=== PATIENT | female | born 1930 | race Caucasian/White ===

== ENCOUNTER 2018-03-19 07:43 | Observation (INO) | payer OTHER, MEDICARE ==
--- NOTE | 2018-03-19 08:10 | EDPHYS ---
Physician Documentation [facility] Name: Carina Ellsworth Age: 87 yrs Sex: Female : 1930 Arrival Date: 03/19/2018 Time: 07:52 Bed 8 Private MD: ED Physician Sal Alanis HPI: 03/19 08:04 This 87 yrs old Female presents to ER via EMS with complaints of Shortness Of fabiola Breath. 08:04 The patient has shortness of breath at rest, with light activity. Onset: The fabiola symptoms/episode began/occurred 3 day(s) ago. Duration: The symptoms are continuous, and are steadily getting worse. The patient's shortness of breath is aggravated by coughing. Severity of symptoms: At their worst the symptoms were mild moderate in the emergency department the symptoms are unchanged. The patient has experienced similar episodes in the past, multiple times. Historical: - Allergies: 08:08 Sulfa (Sulfonamide Antibiotics); ae1 - Home Meds: 08:08 Eliquis 5 mg Oral tab 1 tab 2 times per day [Active]; duloxetine 30 mg Oral TbEC 1 cap ae1 once daily [Active]; zolpidem 5 mg Oral tab 1 tab once daily [Active]; Vitamin D3 1,000 unit Oral cap daily [Active]; Vitamin B-12 1,000 mcg Oral tab daily [Active]; Ocuvite [id number]-mg Oral cap daily [Active]; loratadine 10 mg Oral TbDL 1 tab once daily [Active]; - PMHx: 08:08 Atrial Fib; constipation; GERD; Hyperlipidemia; ae1 - PSHx: 08:08 Colostomy; colon resection; ae1 - Immunization history:: Adult Immunizations up to date. - Family history:: not pertinent. - Social history:: Smoking status: Patient/guardian denies using tobacco, but has a distant history of tobacco abuse. - Ebola Screening: : Patient denies exposure to infectious person Patient denies travel to an Ebola-affected area in the 21 days before illness onset. ROS: 08:04 Eyes: Negative for injury, pain, redness, and discharge, ENT: Negative for injury, fabiola pain, and discharge, Neck: Negative for injury, pain, and swelling, Cardiovascular: Negative for chest pain, palpitations, and edema, Abdomen/GI: Negative for abdominal pain, nausea, vomiting, diarrhea, and constipation, Back: Negative for injury and pain, : Negative for injury, bleeding, discharge, and swelling, MS/Extremity: Negative for injury and deformity, Skin: Negative for injury, rash, and discoloration, Neuro: Negative for headache, weakness, numbness, tingling, and seizure, Psych: Negative for depression, anxiety, suicide ideation, homicidal ideation, and hallucinations, Allergy/Immunology: Negative for hives, rash, and allergies, Endocrine: Negative for neck swelling, polydipsia, polyuria, polyphagia, and marked weight changes, Hematologic/Lymphatic: Negative for swollen nodes, abnormal bleeding, and unusual bruising. 08:04 Constitutional: Positive for body aches, malaise. 08:04 Respiratory: Positive for cough, shortness of breath, wheezing, inspiratory, expiratory. Exam: 08:04 Head/Face: Normocephalic, atraumatic. Eyes: Pupils equal round and reactive to light, fabiola extra-ocular motions intact. Lids and lashes normal. Conjunctiva and sclera are non-icteric and not injected. Cornea within normal limits. Periorbital areas with no swelling, redness, or edema. ENT: Nares patent. No nasal discharge, no septal abnormalities noted. Tympanic membranes are normal and external auditory canals are clear. Oropharynx with no redness, swelling, or masses, exudates, or evidence of obstruction, uvula midline. Mucous membranes moist. Neck: Trachea midline, no thyromegaly or masses palpated, and no cervical lymphadenopathy. Supple, full range of motion without nuchal rigidity, or vertebral point tenderness. No Meningismus. Chest/axilla: Normal chest wall appearance and motion. Nontender with no deformity. No lesions are appreciated. Abdomen/GI: Soft, non-tender, with normal bowel sounds. No distension or tympany. No guarding or rebound. No evidence of tenderness throughout. Back: No spinal tenderness. No costovertebral tenderness. Full range of motion. Female : Normal external genitalia. Skin: Warm, dry with normal turgor. Normal color with no rashes, no lesions, and no evidence of cellulitis. MS/ Extremity: Pulses equal, no cyanosis. Neurovascular intact. Full, normal range of motion. Psych: Awake, alert, with orientation to person, place and time. Behavior, mood, and affect are within normal limits. 08:04 Constitutional: The patient appears frail. 08:04 Cardiovascular: Rate: tachycardic, Rhythm: irregularly irregular, Pulses: Pulses are 4+ in bilateral radial, brachial, femoral, popliteal, posterior tibial and and dorsalis pedis arteries.. Heart sounds: normal, Edema: is not appreciated, JVD: is not appreciated. 08:04 Respiratory: mild respiratory distress is noted, Respirations: labored breathing, that is mild, that is moderate, Breath sounds: decreased breath sounds, rhonchi, wheezing: inspiratory expiratory Vital Signs: 07:56 BP 139 / 86; Pulse 110; Resp 29; Temp 98.4(O); Pulse Ox 94% on R/A; ae1 08:10 Weight 70.76 kg (R); ae1 09:07 BP 134 / 92; Pulse 119; Resp 25 S; Pulse Ox 96% on 2 lpm NC; ae1 09:30 BP 114 / 84; Pulse 129; Resp 19; Pulse Ox 94% on 2 lpm NC; ae1 10:39 BP 125 / 73; Pulse 120; Resp 21; Pulse Ox 96% on 2 lpm NC; ae1 07:56 Nasal cannula applied at 2 liters, O2 increased to 96% ae1 MDM: 07:53 Patient medically screened. [facility] 08:04 Data reviewed: vital signs, nurses notes, lab test result(s), EKG, radiologic studies, fabiola plain films. 03/19 08:04 Order name: Basic Metabolic Panel; Complete Time: 09:30 [facility] 03/19 08:04 Order name: CBC with Diff; Complete Time: 09:30 [facility] 03/19 08:04 Order name: Ckmb; Complete Time: 09:30 [facility] 03/19 08:04 Order name: CPK; Complete Time: 09:30 [facility] 03/19 08:04 Order name: LFT's; Complete Time: 09:30 [facility] 03/19 08:04 Order name: Magnesium; Complete Time: 09:30 [facility] 03/19 08:04 Order name: NT PRO-BNP; Complete Time: 09:30 [facility] 03/19 08:04 Order name: PT-INR; Complete Time: 09:30 [facility] 03/19 08:04 Order name: Ptt, Activated; Complete Time: 09:30 [facility] 03/19 08:04 Order name: Troponin (emerg Dept Use Only); Complete Time: 09:30 [facility] 03/19 08:04 Order name: Lactate; Complete Time: 09:30 [facility] 03/19 08:04 Order name: Blood Culture Adult (2) [facility] 03/19 08:04 Order name: Influenza Screen (a \T\ B); Complete Time: 09:30 [facility] 03/19 08:35 Order name: Basic Metabolic Panel [facility] 03/19 08:04 Order name: XRAY Chest (1 view) [facility] 03/19 08:35 Order name: Basic Metabolic Panel [facility] 03/19 08:35 Order name: CBC with Automated Diff [facility] 03/19 08:35 Order name: CBC with Automated Diff [facility] 03/19 08:35 Order name: NT PRO-BNP [facility] 03/19 08:35 Order name: NT PRO-BNP [facility] 03/19 08:35 Order name: Troponin I [facility] 03/19 08:35 Order name: Troponin I [facility] 03/19 08:35 Order name: Troponin I [facility] 03/19 08:35 Order name: Chest Single View [facility] 03/19 08:35 Order name: Chest Single View [facility] 03/19 09:07 Order name: Urine Culture [facility] 03/19 09:10 Order name: RAD; Complete Time: 09:30 [facility] 03/19 09:13 Order name: Urine Dipstick--Ancillary (enter results) 03/19 10:17 Order name: Urine Dipstick-Ancillary [facility] 03/19 08:04 Order name: EKG; Complete Time: 08:05 [facility] 03/19 08:04 Order name: Cardiac monitoring; Complete Time: 08:09 [facility] 03/19 08:04 Order name: EKG - Nurse/Tech; Complete Time: 08:10 [facility] 03/19 08:04 Order name: IV Saline Lock; Complete Time: 08:10 [facility] 03/19 08:04 Order name: Labs collected and sent; Complete Time: 08:27 [facility] 03/19 08:04 Order name: O2 Per Protocol; Complete Time: 08:10 [facility] 03/19 08:04 Order name: O2 Sat Monitoring; Complete Time: 08:10 [facility] 03/19 08:04 Order name: Urine Dipstick-Ancillary (obtain specimen); Complete Time: 09:04 [facility] 03/19 08:35 Order name: Heart Healthy [facility] 03/19 08:35 Order name: EKG Electrocardiogram EDMS 03/19 08:35 Order name: EKG Electrocardiogram EDMS Administered Medications: Discontinued: NS 0.9% 500 ml IV at bolus once Discontinued: NS 0.9% 1000 ml IV at 125 ml/hr continuous 08:17 Drug: Albuterol - atroVENT (3:1) (2.5 mg - 0.5 mg) 3 ml Route: Nebulizer; ae1 09:22 Follow up: Response: Wheezing diminished ae1 08:21 Drug: NS 0.9% 500 ml Route: IV; Rate: bolus; Site: right antecubital; ae1 09:23 Follow up: IV Status: Completed infusion ae1 08:22 Drug: SOLU-Medrol 125 mg Route: IVP; Site: right antecubital; ae1 09:23 Follow up: Response: No adverse reaction ae1 08:26 Drug: Pepcid 20 mg Route: IVP; Site: right antecubital; ae1 09:23 Follow up: Response: No adverse reaction ae1 08:53 Drug: Rocephin - (cefTRIAXone) 1 grams Route: IVPB; Infused Over: 30 mins; Site: right ae1 antecubital; 09:22 Follow up: IV Status: Completed infusion ae1 08:57 Drug: Zithromax 500 mg Route: IVPB; Infused Over: 1 hrs; Site: right antecubital; ae1 09:51 Follow up: IV Status: Infusion continued upon admission ae1 09:05 Drug: NS 0.9% 1000 ml Route: IV; Rate: 125 ml/hr; Site: right antecubital; ae1 09:51 Follow up: IV Status: Order to discontinue infusion ae1 09:37 Drug: Lasix 40 mg Route: IVP; Site: right antecubital; ae1 10:44 Follow up: Response: Other; Patient assisted onto bedpan, patient tolerated well, ae1 approx 200 mls urine output. Disposition: 03/19/18 08:09 Hospitalization ordered by Malia Riojas for Inpatient Admission. Preliminary diagnosis are Dyspnea, Weakness, Chronic obstructive pulmonary disease with (acute) exacerbation, Atrial fibrillation and flutter, Cystitis, Unspecified combined systolic (congestive) and diastolic (congestive) heart failure, Cardiomegaly. - Bed requested for Telemetry/MedSurg (Inpatient). - Status is Inpatient Admission. ae1 - Condition is Fair. - Problem is new. - Symptoms have improved. UTI on Admission? Yes Signatures: Dispatcher [facility] Center[facility] Reed RN RN Sal Lemus MD MD cha Elliott, Andrea RN RN ae1 Corrections: (The following items were deleted from the chart) 09:07 08:09 Hospitalization Ordered by Malia Riojas MD for Inpatient Admission. Preliminary [facility] diagnosis is Dyspnea; Weakness; Chronic obstructive pulmonary disease with (acute) exacerbation; Atrial fibrillation and flutter. Bed requested for Telemetry/MedSurg (Inpatient). Status is Inpatient Admission. Condition is Fair. Problem is new. Symptoms have improved. UTI on Admission? No. [facility] 09:35 09:07 03/19/2018 08:09 Hospitalization Ordered by Malia Riojas MD for Inpatient dw Admission. Preliminary diagnosis is Dyspnea; Weakness; Chronic obstructive pulmonary disease with (acute) exacerbation; Atrial fibrillation and flutter; Cystitis. Bed requested for Telemetry/MedSurg (Inpatient). Status is Inpatient Admission. Condition is Fair. Problem is new. Symptoms have improved. UTI on Admission? Yes. [facility] 09:37 09:35 03/19/2018 08:09 Hospitalization Ordered by Malia Riojas MD for Inpatient fabiola Admission. Preliminary diagnosis is Dyspnea; Weakness; Chronic obstructive pulmonary disease with (acute) exacerbation; Atrial fibrillation and flutter; Cystitis. Bed requested for Telemetry/MedSurg (Inpatient). Status is Inpatient Admission. Condition is Fair. Problem is new. Symptoms have improved. UTI on Admission? Yes. 11:12 09:37 03/19/2018 08:09 Hospitalization Ordered by Malia Riojas MD for Inpatient ae1 Admission. Preliminary diagnosis is Dyspnea; Weakness; Chronic obstructive pulmonary disease with (acute) exacerbation; Atrial fibrillation and flutter; Cystitis; Unspecified combined systolic (congestive) and diastolic (congestive) heart failure; Cardiomegaly. Bed requested for Telemetry/MedSurg (Inpatient). Status is Inpatient Admission. Condition is Fair. Problem is new. Symptoms have improved. UTI on Admission? Yes. [facility]
--- NOTE | 2018-03-19 08:10 | ER ---
Nurse's Notes [facility] Name: Carina Ellsworth Age: 87 yrs Sex: Female : 1930 Arrival Date: 03/19/2018 Time: 07:52 Bed 8 Private MD: Diagnosis: Dyspnea;Weakness;Chronic obstructive pulmonary disease with (acute) exacerbation;Atrial fibrillation and flutter;Cystitis;Unspecified combined systolic (congestive) and diastolic (congestive) heart failure;Cardiomegaly Presentation: 03/19 07:53 Presenting complaint: EMS states: EMS states patient has been short of breath for the ae1 past few day , increasing today, originally thought it was her "anxiety". Transition of care: patient was not received from another setting of care. Onset of symptoms was March 17, 2018. Risk Assessment: Do you want to hurt yourself or someone else? Patient reports no desire to harm self or others. Care prior to arrival: IV initiated. 20 GA, in the right antecubital area, EMS stated BP and FSBS were WNL, and HR was "tachy" in the "130s". 07:53 Method Of Arrival: EMS: [facility] ae1 07:53 Acuity: JUSTA 2 ae1 09:45 Initial Sepsis Screen: Does the patient meet any 2 criteria? RR > 20 per min. HR > 90 ae1 bpm. Does the patient have a suspected source of infection? No. Patient's initial sepsis screen is negative. Triage Assessment: 08:00 General: Appears uncomfortable, slender, Behavior is cooperative, anxious. Pain: Denies ae1 pain. EENT: No signs and/or symptoms were reported regarding the EENT system. Neuro: Level of Consciousness is awake, alert, obeys commands, Oriented to person, place, time, situation. Cardiovascular: Heart tones S1 S2 present Patient's skin is warm and dry. Rhythm is irregular. Respiratory: Reports shortness of breath at rest labored breathing Airway is patent Respiratory effort is even, shallow, Breath sounds with wheezes bilaterally. Onset: The symptoms/episode began/occurred gradually, the patient has moderate shortness of breath. GI: No signs and/or symptoms were reported involving the gastrointestinal system. Abdomen is round Bowel sounds present X 4 quads. : No signs and/or symptoms were reported regarding the genitourinary system. Derm: Skin is pale. Musculoskeletal: No signs and/or symptoms reported regarding the musculoskeletal system. Historical: - Allergies: 08:08 Sulfa (Sulfonamide Antibiotics); ae1 - Home Meds: 08:08 Eliquis 5 mg Oral tab 1 tab 2 times per day [Active]; duloxetine 30 mg Oral TbEC 1 cap ae1 once daily [Active]; zolpidem 5 mg Oral tab 1 tab once daily [Active]; Vitamin D3 1,000 unit Oral cap daily [Active]; Vitamin B-12 1,000 mcg Oral tab daily [Active]; Ocuvite [id number] Oral cap daily [Active]; loratadine 10 mg Oral TbDL 1 tab once daily [Active]; - PMHx: 08:08 Atrial Fib; constipation; GERD; Hyperlipidemia; ae1 - PSHx: 08:08 Colostomy; colon resection; ae1 - Immunization history:: Adult Immunizations up to date. - Family history:: not pertinent. - Social history:: Smoking status: Patient/guardian denies using tobacco, but has a distant history of tobacco abuse. - Ebola Screening: : Patient denies exposure to infectious person Patient denies travel to an Ebola-affected area in the 21 days before illness onset. Screenin:44 Abuse screen: Denies threats or abuse. Nutritional screening: No deficits noted. ae1 Tuberculosis screening: Never had TB. Fall Risk No fall in past 12 months (0 pts). No secondary diagnosis (0 pts). IV access (20 points). Ambulatory Aid- None/Bed Rest/Nurse Assist (0 pts). Gait- Normal/Bed Rest/Wheelchair (0 pts) Mental Status- Oriented to own ability (0 pts). Assessment: 08:48 Reassessment: Patient assisted onto bedpan, increased SOB with little activity, patient ae1 tolerated procedure poorly. HR increased to 170s atrial fibrillation and O2 saturation 88% with nebulizer mask applied. 09:07 Reassessment: Patient is less labored, still feels SOB but states it has improved. ae1 09:31 Reassessment: Patient appears in no apparent distress at this time. No changes from ae1 previously documented assessment. Patient states feeling better. 09:53 Reassessment: Called 2nd floor to give report, spoke to Anay Cueva states ae1 receiving nurse Laya will return call in "5-10 minutes". Will continue to monitor. Vital Signs: 07:56 BP 139 / 86; Pulse 110; Resp 29; Temp 98.4(O); Pulse Ox 94% on R/A; ae1 08:10 Weight 70.76 kg (R); ae1 09:07 BP 134 / 92; Pulse 119; Resp 25 S; Pulse Ox 96% on 2 lpm NC; ae1 09:30 BP 114 / 84; Pulse 129; Resp 19; Pulse Ox 94% on 2 lpm NC; ae1 10:39 BP 125 / 73; Pulse 120; Resp 21; Pulse Ox 96% on 2 lpm NC; ae1 07:56 Nasal cannula applied at 2 liters, O2 increased to 96% ae1 ED Course: 07:52 Patient arrived in ED. ae1 07:53 Sal Alanis MD is Attending Physician. fabiola 07:56 Triage completed. ae1 08:02 Arm band placed on right wrist. EKG completed in triage. Results shown to MD. ae1 08:02 Placed in gown. Bed in low position. Call light in reach. Side rails up X2. Adult w/ ae1 patient. equipment monitor phototypesetting on. Pulse ox on. NIBP on. Warm blanket given. 08:04 Ethan Redd, SAUL is Primary Nurse. ae1 08:05 First set of blood cultures drawn by tx. jb1 08:08 Malia Riojas MD is Hospitalizing Provider. fabiola 08:20 Second set of blood cultures drawn by tx. jb1 08:26 EKG done, by ED staff, reviewed by Sal Alanis MD. Initial lab(s) drawn, by tx, sent jb1 to lab. 08:51 X-ray completed. Portable x-ray completed in exam room. Patient tolerated procedure tm4 well. 10:47 No provider procedures requiring assistance completed. Patient admitted, IV remains in ae1 place. Administered Medications: Discontinued: NS 0.9% 500 ml IV at bolus once Discontinued: NS 0.9% 1000 ml IV at 125 ml/hr continuous 08:17 Drug: Albuterol - atroVENT (3:1) (2.5 mg - 0.5 mg) 3 ml Route: Nebulizer; ae1 09:22 Follow up: Response: Wheezing diminished ae1 08:21 Drug: NS 0.9% 500 ml Route: IV; Rate: bolus; Site: right antecubital; ae1 09:23 Follow up: IV Status: Completed infusion ae1 08:22 Drug: SOLU-Medrol 125 mg Route: IVP; Site: right antecubital; ae1 09:23 Follow up: Response: No adverse reaction ae1 08:26 Drug: Pepcid 20 mg Route: IVP; Site: right antecubital; ae1 09:23 Follow up: Response: No adverse reaction ae1 08:53 Drug: Rocephin - (cefTRIAXone) 1 grams Route: IVPB; Infused Over: 30 mins; Site: right ae1 antecubital; 09:22 Follow up: IV Status: Completed infusion ae1 08:57 Drug: Zithromax 500 mg Route: IVPB; Infused Over: 1 hrs; Site: right antecubital; ae1 09:51 Follow up: IV Status: Infusion continued upon admission ae1 09:05 Drug: NS 0.9% 1000 ml Route: IV; Rate: 125 ml/hr; Site: right antecubital; ae1 09:51 Follow up: IV Status: Order to discontinue infusion ae1 09:37 Drug: Lasix 40 mg Route: IVP; Site: right antecubital; ae1 10:44 Follow up: Response: Other; Patient assisted onto bedpan, patient tolerated well, ae1 approx 200 mls urine output. Intake: Outcome: 08:09 Decision to Hospitalize by Provider. fabiola 10:47 Admitted to Med/surg accompanied by tech, family with patient, via stretcher, room 207, ae1 with oxygen, with chart, Report called to harvey Asif nurse. 10:47 Condition: stable 10:47 Instructed on the need for admit, Demonstrated understanding of instructions. 11:12 Patient left the ED. ae1 Signatures: Neal Blunt jb1 Sal Alanis MD MD cha Marroquin, Tracy 4 Ethan Redd RN RN ae1
[2018-03-19] MEDS ORDERED: METHYLPREDNISOLONE 125 MG INJ ONE (08:16)
[2018-03-19] MEDS ORDERED: ALBUTEROL 2.5 MG/3 ML NEB SOL ONE (08:16)
[2018-03-19] MEDS ORDERED: FAMOTIDINE 20 MG/2 ML VIAL IV ONE (08:17)
[2018-03-19] MEDS ORDERED: IPRATROPIUM BROM 0.5MG/2.5ML ONE ×2 (08:17→09:54)
[2018-03-19] MEDS ORDERED: CEFTRIAXONE/SWI 1gm 1 GM/10 ML SYR ONE (08:17)
[2018-03-19] MEDS ORDERED: NA CHLORIDE 0.9% 1,000 ML ONE (08:18)
[2018-03-19] MEDS ORDERED: AZITHROMYCIN 500 MG/250 ML BAG ONE (08:18)
[2018-03-19] MEDS ORDERED: ONDANSETRON 4 MG/2 ML VIAL IV PRN (08:31)
[2018-03-19] MEDS ORDERED: ACETAMINOPHEN 500 MG TAB PO PRN (08:31)
[2018-03-19] MEDS ORDERED: ALBUTEROL 2.5 MG/3 ML NEB SOL NEB PRN (08:31)
[2018-03-19 08:36] LABS: Absolute Monocytes 0.8 K/uL (0.1-1.3); Absolute Neutrophil 5.9 K/uL (1.8-8.0); Basophils % 0.5 % (0-1.3); Eosinophils % 1.4 % (0-4.4); Hematocrit 42.9 % (36.0-45.0); Lymphocytes % 12.5 % (15.3-44.8); MCH 31.2 pg (27.0-35.0); MCV 90.8 fL (80-100); MPV 10.7 fL (7.6-11.3); Monocytes % 10.3 % (3.3-12.3); RBC Red Blood Cell Count 4.72 M/uL (3.86-4.86)
[2018-03-19 08:52] LABS: Protime INR 1.33
[2018-03-19 08:54] LABS: Albumin 3.6 g/dL (3.4-5.0); Bilirubin Direct 0.3 mg/dL (0-0.2); CKMB Creatine Kinase MB 2.2 ng/mL (0.3-3.6); Magnesium 2.1 mg/dL (1.8-2.4); Potassium 4.4 mmol/L (3.5-5.1); Protein, Total 6.9 g/dL (6.4-8.2)
[2018-03-19] MEDS ORDERED: FAMOTIDINE 20 MG/2 ML VIAL IV SCH (09:00)
[2018-03-19] MEDS ORDERED: NA CHLORIDE 0.9% 1,000 ML IV SCH (09:00)
--- NOTE | 2018-03-19 09:10 | RAD REPORT ---
EXAM DESCRIPTION: RAD - Chest Single View - 03/19/2018 8:54 am CLINICAL HISTORY: Cough, COPD COMPARISON: February 2017 TECHNIQUE: AP portable chest image was obtained 0842 hours . FINDINGS: Chronic interstitial lung disease is present. Interstitial markings are slightly increased over the prior study. Cardiomegaly is present slightly increased over comparison. Small bilateral pl eural effusions are present. No pneumothorax. No gross bony abnormality seen. No acute aortic finding s suspected. IMPRESSION: Mild CHF/ volume overload findings superimposed on chronic interstitial lung disease.
[2018-03-19] MEDS ORDERED: FUROSEMIDE 20 MG/ 2ML VIAL ONE (09:39)
[2018-03-19 10:17] LABS: Urine Blood 1+ (NEG); Urine Glucose NEGATIVE (NEG); Urine Protein 2+ (NEG); Urine Specific Gravity 1.015 (1.005-1.030); Urine pH 6.5 (5.0-7.0)
--- NOTE | 2018-03-19 12:40 | P.HP ---
Certification for Inpatient Patient admitted to: Observation With expected LOS: <2 Midnights Patient will require the following post-hospital care: None Practitioner: I am a practitioner with admitting privileges, knowledge of patient current condition, hospital course, and medical plan of care. Services: Services provided to patient in accordance with Admission requirements found in Title 42 Section 412.3 of the Code of Federal Regulations Patient History Date of Service: 03/19/18 History of Present Illness: 87-year-old female with history of atrial fibrillation and gastric reflux who presented to the ED with complaints of shortness of breath. Patient stated that her shortness of breath started about 2 days ago and she has been getting progressively worse and thus decided to come to the ER. Patient stated that she has been having on and off chills as well. Denies having any fever, nausea vomiting cough congestion chest pain or any other associated symptoms at this time. Patient states that she has been diagnosed with mild COPD by Primary care doctor however has not been taking any inhalers or any other main maintenance therapy for her COPD. No other complaints to offer at this time Allergies Sulfa (Sulfonamide Antibiotics) Allergy (Verified 03/19/18 12:31) Unknown Home Medications: Apixaban [Eliquis] 1 tab PO BID 03/19/18 Cholecalciferol (Vitamin D3) [Vitamin D3] 1 cap PO BEDTIME 03/19/18 Cyanocobalamin (Vitamin B-12) [Vitamin B12] 1,000 mcg PO BEDTIME 03/19/18 Duloxetine HCl 1 cap PO BEDTIME 03/19/18 Esomeprazole Magnesium [Nexium] 20 mg PO DAILY 03/19/18 Hydroxyzine HCl [Atarax] 25 mg PO PRN PRN 03/19/18 Linaclotide [Linzess] 145 mcg PO PRN PRN 03/19/18 Montelukast [Singulair*] 1 tab PO BEDTIME 03/19/18 Ondansetron HCl [Zofran] 1 tab PO PRN PRN 03/19/18 Zolpidem Tartrate [Ambien] 5 mg PO BEDTIME 03/19/18 - Past Medical/Surgical History Has patient received pneumonia vaccine in the past: No Diabetic: No -: Meniere's -: Constipation -: Afib -: GERD -: colostomy -: colostomy reversal -: appendectomy -: cholecystectomy - Family History Mother -: Cancer - Social History Smoking Status: Former smoker Alcohol use: No CD- Drugs: No Caffeine use: No Place of Residence: Home Review of Systems General: As per HPI Physical Examination - Vital Signs Temperature: 98.4 F Blood Pressure: 125/73 Pulse: 120 Respirations: 21 - Physical Exam General: Alert, In no apparent distress, Oriented x3 HEENT: Atraumatic Neck: Supple, 2+ carotid pulse no bruit, No LAD, Without JVD or thyroid abnormality Respiratory: Normal air movement, Expiratory wheezes, Inspiratory wheezes Cardiovascular: Regular rate/rhythm, Normal S1 S2 Gastrointestinal: Normal bowel sounds, No tenderness Musculoskeletal: No tenderness Integumentary: No rashes Neurological: Normal gait, Normal speech, Normal strength at 5/5 x4 extr, Normal tone, Normal affect Lymphatics: No axilla or inguinal lymphadenopathy Assessment and Plan - Problems (Diagnosis) (1) COPD exacerbation Current Visit: Yes Status: Acute Plan: COPD exacerbation. Now improved after nebulizing treatment -Duonebs, steroids, oxygen, wean as tolerated -patient with need to be on Symbicort and albuterol p.r.n. inhalers once she is ready to be discharged home. (2) Afib Current Visit: Yes Status: Chronic Plan: Restart home medication at this time Qualifiers: Atrial fibrillation type: chronic Qualified Code(s): I48.2 - Chronic atrial fibrillation (3) GERD (gastroesophageal reflux disease) Current Visit: Yes Status: Chronic Plan: Restart home medication at this time Qualifiers: Esophagitis presence: without esophagitis Qualified Code(s): K21.9 - Gastro -esophageal reflux disease without esophagitis Discharge Plan: Home - Advance Directives Does patient have a Living Will: Yes Does patient have a Durable POA for Healthcare: No - Code Status/Comfort Care Code Status Assessed: Yes Critical Care: No
[2018-03-19] MEDS ORDERED: ONDANSETRON 4 MG (ODT) TAB PO PRN (12:47)
[2018-03-19] MEDS ORDERED: FUROSEMIDE 20 MG/ 2ML VIAL IV SCH (17:00)
[2018-03-19] MEDS ORDERED: METHYLPREDNISOLONE 40 MG INJ IV SCH (17:00)
[2018-03-19] MEDS: MONTELUKAST 10 MG TAB PO SCH (20:59)
[2018-03-19] MEDS: POTASSIUM 25 MEQ EFFERV TAB PO SCH (20:59)
[2018-03-19] MEDS: DULOXETINE 30 MG CAP PO SCH (20:59)
[2018-03-19] MEDS: APIXABAN 5 MG TABLET PO SCH (21:00)
[2018-03-19] MEDS: CYANOCOBALAMIN 1,000 MCG TAB PO SCH (21:00)
[2018-03-19] MEDS: VITAMIN D 1000 UNIT TAB PO SCH (21:00)
[2018-03-19] MEDS: ZOLPIDEM TARTRATE 5 MG TABLET PO SCH (21:01)
[2018-03-20] MEDS: IPRATROPIUM BROM 0.5MG/2.5ML NEB PRN ×2 (04:54→20:28)
[2018-03-20] MEDS: LEVALBUTEROL 0.63 MG/3 ML NEB NEB PRN ×2 (04:54→20:28)
[2018-03-20 05:20] LABS: Absolute Lymphocytes (CBC) 1.4 K/uL (0.7-4.9); Absolute Monocytes 1.6 K/uL (0.1-1.3); Absolute Neutrophil 8.3 K/uL (1.8-8.0); Basophils % 0.2 % (0-1.3); Eosinophils % 0.1 % (0-4.4); Hematocrit 43.1 % (36.0-45.0); Lymphocytes % 12.2 % (15.3-44.8); MCH 31.5 pg (27.0-35.0); MCV 90.7 fL (80-100); MPV 10.9 fL (7.6-11.3); Monocytes % 14.2 % (3.3-12.3); RBC Red Blood Cell Count 4.75 M/uL (3.86-4.86)
[2018-03-20 05:38] LABS: Potassium 3.9 mmol/L (3.5-5.1)
[2018-03-20] MEDS: PANTOPRAZOLE 40MG TABLET PO SCH (05:58)
--- NOTE | 2018-03-20 07:43 | EKG ---
Test Date: 2018-03-19 Test Time: 07:53:09 Competitive Shopper: RALEIGH MEASUREMENT RESULTS: Intervals: Rate: 115 UT: QRSD: 82 QT: 290 QTc: 401 [place]: P: UT: QRS: 19 T: 95 INTERPRETIVE STATEMENTS: Atrial fibrillation with frequent premature ventricular complexes Nonspecific ST and T wave abnormality Abnormal ECG Compared to ECG 03/04/2017 19:51:32 Ventricular premature complex(es) now present ST (T wave) deviation still present Electronically Signed On 03-20-18 07:42:16 CDT by Shaun Vasquez
--- NOTE | 2018-03-20 08:13 | RAD REPORT ---
EXAM DESCRIPTION: RAD - Chest Single View - 03/20/2018 5:39 am CLINICAL HISTORY: Chest Pain Chest pain. COMPARISON: Chest Single View dated 03/19/2018; Chest Single View dated 03/04/2017; Chest Single View d ated 01/27/2017; Chest Pa And Lat (2 Views) dated 03/15/2016 FINDINGS: Portable technique limits examination quality. Bilateral pulmonary opacities are again noted, slightly progressive, likely representing pulmonary ed rd. Heart is moderately enlarged in size. Small pleural effusions suspected bilaterally. No displace d fractures. IMPRESSION: Mild CHF/ volume overload pattern appears slightly progressive since the most recent com parative study.
[2018-03-20] MEDS ORDERED: HOME MED 1 EA UNK (Esomeprazole Magnesium [Nexium] 20 MG) PO SCH (09:00)
[2018-03-20] MEDS ORDERED: AZITHROMYCIN IV 500 MG in NA CHLORIDE 0.9% 250 ML IVPB SCH (09:00)
[2018-03-20] MEDS ORDERED: CEFTRIAXONE/SWI 1gm 1 GM/10 ML SYR IV SCH (09:00)
[2018-03-20] MEDS ORDERED: FUROSEMIDE 20 MG/ 2ML VIAL IV SCH (09:00)
[2018-03-20] MEDS ORDERED: predniSONE 20 MG TAB PO SCH (09:00)
[2018-03-20] MEDS: FUROSEMIDE 40 MG/4 ML VIAL IV SCH ×2 (09:19→16:21)
[2018-03-20] MEDS: APIXABAN 5 MG TABLET PO SCH ×2 (09:19→20:04)
[2018-03-20] MEDS: POTASSIUM 25 MEQ EFFERV TAB PO SCH ×2 (09:20→20:04)
--- NOTE | 2018-03-20 11:36 | P.PN ---
Subjective Date of Service: 03/20/18 Primary Care Provider: Dr Hernández Chief Complaint: SOB Patient seen and examined at bedside with RN. Chart reviewed. Case discussed with cardiology. Case also discussed with pulmonology at this time. Patient overnight got short of breath and was given 1 time ambulating treatment along with Lasix had marked improvement overnight. No other complaints to offer at this time. Currently is on 2 L nasal cannula saturating 98%. Patient's acute worsening most likely secondary to acute CHF exacerbation. Review of Systems General: As per HPI Physical Examination - Vital Signs Temperature: 98.6 F Blood Pressure: 169/80 Pulse: 90 Respirations: 20 Pulse Ox (%): 97 - Physical Exam General: Alert, Oriented x3, Mild distress HEENT: Atraumatic Neck: Supple Respiratory: Normal air movement, Crackles/rales Cardiovascular: Regular rate/rhythm, Normal S1 S2 Gastrointestinal: Normal bowel sounds, Soft and benign, Non-distended, No tenderness Musculoskeletal: No tenderness Integumentary: No rashes Neurological: Normal speech, Normal tone, Normal affect Lymphatics: No axilla or inguinal lymphadenopathy - Studies Microbiology Data (last 24 hrs): 03/19/18 08:05 Blood - Blood Anaerobic Blood Culture - Final Medications List Reviewed: Yes Assessment & Plan - Problems (Diagnosis) (1) CHF exacerbation Current Visit: Yes Status: Acute Plan: Dyspnea most likley 2.2 to Acute Exacerbation of CHF. -BNP elevated today -Annalee with Mild worsening of volume overload -Cardiology consulted. Appreciate reccs -Increase Lasix to 40mg BID -ECHO pending -Depending on echocardiogram patient need to be started on CHF medication such as beta-vale and CHIARA-inhibitor depending on the EF. Qualifiers: Heart failure type: unspecified Qualified Code(s): I50.9 - Heart failure, unspecified (2) COPD exacerbation Onset Date: 03/20/18 Current Visit: Yes Status: Acute Plan: Acute COPD exacerbation. Now improved after nebulizer treatment -Duonebs, steroids, oxygen, wean as tolerated -patient will need to be on Symbicort and albuterol p.r.n. inhalers once she is ready to be discharged home. (3) Afib Onset Date: 03/20/18 Current Visit: Yes Status: Chronic Plan: Restart home medication at this time -Currently Sinus Rhythm and Rate controlled Qualifiers: Atrial fibrillation type: chronic Qualified Code(s): I48.2 - Chronic atrial fibrillation (4) GERD (gastroesophageal reflux disease) Onset Date: 03/20/18 Current Visit: Yes Status: Chronic Plan: Stable -On Protonix Qualifiers: Esophagitis presence: without esophagitis Qualified Code(s): K21.9 - Gastro -esophageal reflux disease without esophagitis
--- NOTE | 2018-03-20 11:53 | CON ---
History Of Present Illness: Ms. Ellsworth is a woman, who has been having shortness of breath. It has been getting progressively worse over the last several weeks. It finally got bad enough. She came t o the ER. She was found to have mild interstitial pulmonary edema and since being here, she has rece ived Lasix and feels a little bit better. She still has the problem. She has been coughing, nonprod uctive. No fevers, chills, or sweats. The patient is a chronic atrial fib patient. She has normal coronary arteries according to noninvasive testing, normal ejection fraction, but congestive heart fa ilure with normal ejection fraction. She takes apixaban as an outpatient. Her AFib rate is controll ed and she is asymptomatic for. Medications: Outpatient medications have been apixaban 5 b.i.d., vitamin B12, Nexium, Singulair, dul oxetine, zolpidem, cholecalciferol, hydroxyzine, linaclotide, and Zofran. Social History: She lives at [facility]. Allergies: SHE IS ALLERGIC TO SULFONAMIDES. Social History: She uses no tobacco. No illegal drugs. No alcohol. Physical Examination: General: She is 5 feet 7 inches, 158 pounds. Blood pressure is 128/61, heart rate 74. Lungs: Mild crackles. They are little bit diffuse. Her chest x-ray shows interstitial edema. Her EKG shows AFib. She is getting Lasix 20 mg IV daily. I think, we will increase that to 40 b.i.d. today and maybe by tomorrow, she will be ready to go reed . I think after diuresis, we will have a complete enough workup that she could be discharged. We w ill ask her again to try to reduce the sodium intake. She is eating the food that [facility] i s fixing in my experience that is rather high in sodium, at least it has been in the past. She also receives home cooked foods, apparently soups that do not have much salt, but whenever she is eating, there is more sodium going in than out, and she has developed pulmonary edema, so we will be a little bit more aggressive with diuresis and maybe by tomorrow should be ready for discharge back home. Wh en she goes home, I would think that her routine should include Lasix 40 mg daily. SH/MODL Voice ID: [id number] Report ID: [id number]
--- NOTE | 2018-03-20 13:26 | EKG ---
Test Date: 2018-03-20 Test Time: 08:18:49 Table Worker Packager: FATOU MEASUREMENT RESULTS: Intervals: Rate: 99 MT: QRSD: 86 QT: 350 QTc: 449 [place]: P: MT: QRS: 29 T: 6 INTERPRETIVE STATEMENTS: Atrial fibrillation with premature ventricular or aberrantly conducted complexes Nonspecific T wave abnormality, probably digitalis effect Abnormal ECG Compared to ECG 03/19/2018 07:53:09 no significant change from previous ECG Electronically Signed On 03-20-18 13:25:48 CDT by Shaun Vasquez
--- NOTE | 2018-03-20 15:17 | ECHO ---
HEIGHT: 5 ft 7 in WEIGHT: 158 lb 9.6 oz DATE OF STUDY: 03/20/[address]: 2-DIMENSIONAL: YES M.MODE: YES DOPPLER: YES COLOR FLOW: YES TDS: NO PORTABLE: NO DEFINITY: NO BUBBLE STUDY: NO DIAGNOSIS: CONGESTIVE HEART FAILURE, ATRIAL FIBRILLATION CARDIAC HISTORY: CATHERIZATION: NO SURGERY: NO PROSTHETIC VALVE: NO PACEMAKER: NO MEASUREMENTS (cm) DIASTOLIC (NORMALS) SYSTOLIC (NORMALS) IVSd 0.9 (0.6-1.2) LA Diam 4.2 (1.9-4.0) LVEF 25% LVIDd 6.1 (3.5-5.7) LVIDs 5.4 (2.0-3.5) %FS 12% LVPWd 0.9 (0.6-1.2) Ao Diam 2.7 (2.0-3.7) 2 DIMENSIONAL ASSESSMENT: RIGHT ATRIUM: DILATED LEFT ATRIUM: DILATED RIGHT VENTRICLE: NORMAL LEFT VENTRICLE: DILATED TRICUSPID VALVE: NORMAL MITRAL VALVE: NORMAL PULMONIC VALVE: NORMAL AORTIC VALVE: NORMAL PERICARDIAL EFFUSION: NONE AORTIC ROOT: NORMAL LEFT VENTRICULAR WALL MOTION: SEVERE GLOBAL HYPOKINESIS. DOPPLER/COLOR FLOW: MODERATE MITRAL REGURGITATION. MILD AORITC REGURGITATION, TRICUSPID REGURGITATION. NORMAL RIGHT VENTRICULAR SYSTOLIC PRESSURE. COMMENTS: DEPRESSED LEFT VENTRICULAR EJECTION FRACTION. DILATED LEFT ATRIUM, RIGHT ATRIUM, AND LEFT VENTRICLE. MODERATE MITRAL REGURGITATION. MILD AORTIC REGURGITATION AND TRICUSPID REGURGITATION. TECHNOLOGIST: ROXY BLAKE RD
[2018-03-20] MEDS ORDERED: METOPROLOL TARTRATE 5 MG/5 ML INJ IV STA (15:42)
[2018-03-20] MEDS: SACUBITRIL/VALSARTAN 24/26 MG TAB PO SCH ×2 (16:21→20:04)
[2018-03-20] MEDS: CARVEDILOL 3.125 MG TAB PO SCH (17:42)
[2018-03-20] MEDS ORDERED: METOPROLOL TAR 25 MG TAB PO SCH (18:00)
[2018-03-20] MEDS: MONTELUKAST 10 MG TAB PO SCH (19:52)
[2018-03-20] MEDS: VITAMIN D 1000 UNIT TAB PO SCH (19:52)
[2018-03-20] MEDS: CYANOCOBALAMIN 1,000 MCG TAB PO SCH (19:52)
[2018-03-20] MEDS: ZOLPIDEM TARTRATE 5 MG TABLET PO SCH (20:04)
[2018-03-20] MEDS: DULOXETINE 30 MG CAP PO SCH (20:04)
[2018-03-21 05:17] LABS: Absolute Monocytes 1.3 K/uL (0.1-1.3); Absolute Neutrophil 6.8 K/uL (1.8-8.0); Basophils % 0.5 % (0-1.3); Eosinophils % 1.5 % (0-4.4); Hematocrit 44.5 % (36.0-45.0); MCH 31.5 pg (27.0-35.0); MCV 90.4 fL (80-100); MPV 10.7 fL (7.6-11.3); Monocytes % 12.5 % (3.3-12.3); RBC Red Blood Cell Count 4.93 M/uL (3.86-4.86)
[2018-03-21 05:37] LABS: Albumin 3.5 g/dL (3.4-5.0); Bilirubin Total 0.8 mg/dL (0.2-1.0); Potassium 4.4 mmol/L (3.5-5.1); Protein, Total 6.8 g/dL (6.4-8.2)
[2018-03-21] MEDS: PANTOPRAZOLE 40MG TABLET PO SCH (06:16)
[2018-03-21] MEDS: CARVEDILOL 3.125 MG TAB PO SCH (06:16)
[2018-03-21 06:46] VITALS: BMI 23.8
[2018-03-21] MEDS: POTASSIUM 25 MEQ EFFERV TAB PO SCH (09:00)
[2018-03-21] MEDS: SACUBITRIL/VALSARTAN 24/26 MG TAB PO SCH (09:39)
[2018-03-21] MEDS: APIXABAN 5 MG TABLET PO SCH (09:39)
[2018-03-21] MEDS: FUROSEMIDE 40 MG/4 ML VIAL IV SCH (09:40)
[2018-03-21] MEDS: IPRATROPIUM BROM 0.5MG/2.5ML NEB PRN (11:27)
[2018-03-21] MEDS: LEVALBUTEROL 0.63 MG/3 ML NEB NEB PRN (11:28)
[2018-03-21 11:33] VITALS: O2SAT 94
--- NOTE | 2018-03-21 11:37 | P.DS ---
Admission Date: 03/19/18 Discharge Date: 03/21/18 Primary Care Provider: Dr Hernández; Cardiology-Dr. Jeff; Pulmonary-Dr. Bucio Disposition: ROUTINE DISCHARGE Discharge Condition: GOOD Reason for Admission: SOB Consultations: Cardiology-Dr. Jeff Procedures: Echocardiogram: Ejection fraction 25%. LEFT VENTRICULAR WALL MOTION: SEVERE GLOBAL HYPOKINESIS. DOPPLER/COLOR FLOW: MODERATE MITRAL REGURGITATION. MILD AORITC REGURGITATION , TRICUSPID REGURGITATION. NORMAL RIGHT VENTRICULAR SYSTOLIC PRESSURE. COMMENTS: DEPRESSED LEFT VENTRICULAR EJECTION FRACTION. DILATED LEFT ATRIUM , RIGHT ATRIUM, AND LEFT VENTRICLE. MODERATE MITRAL REGURGITATION. MILD AORTIC REGURGITATION AND TRICUSPID REGURGITATION. - Problems (1) Afib Onset Date: 03/20/18 Current Visit: Yes Status: Chronic Qualifiers: Atrial fibrillation type: chronic Qualified Code(s): I48.2 - Chronic atrial fibrillation (2) GERD (gastroesophageal reflux disease) Onset Date: 03/20/18 Current Visit: Yes Status: Chronic Qualifiers: Esophagitis presence: without esophagitis Qualified Code(s): K21.9 - Gastro -esophageal reflux disease without esophagitis (3) CHF (congestive heart failure) Current Visit: Yes Status: Acute Qualifiers: Heart failure type: systolic Heart failure chronicity: acute on chronic Qualified Code(s): I50.23 - Acute on chronic systolic (congestive) heart failure (4) Chronic anticoagulation Current Visit: Yes Status: Acute (5) HTN (hypertension) Current Visit: Yes Status: Chronic Qualifiers: Hypertension type: essential hypertension Qualified Code(s): I10 - Essential (primary) hypertension Brief History of Present Illness: 87-year-old female present emergency room with shortness of breath. Patient with history of atrial fibrillation. Patient takes chronic anti coagulation therapy. Patient was found to be volume overloaded secondary to CHF. Patient was admitted for further evaluation and treatment. Hospital Course: During the course of her stay her shortness of breath improved. Patient evaluated by Cardiology. Echocardiogram showed ejection fraction 25%. Patient was diuresed. Patient found to have systolic CHF. New medications included Entresto. At discharge patient will continue with a 1500 cc per day fluid restriction. Patient will continue with Entresto 1 pill twice daily and Coreg 3.125 mg one pill twice daily. Patient will also continue with Lasix 40 mg 1 pill once daily. Recommendation is to monitor her weight daily. If her weight increases by more than 5 lb she is to contact cardiology or PCP for further recommendation. Recommendation is for the patient to follow up with cardiology in 2 weeks to monitor progress. Patient has atrial fibrillation and is on chronic anti coalition therapy. At discharge she will continue with carvedilol 3.125 mg 1 pill twice daily and Eliquis 5 mg 1 pill twice daily. Patient with hypertension. Patient will continue with carvedilol 3.125 mg 1 pill twice daily. Recommendation is to maintain blood pressures less 150/80. Further adjustment can be done by her PCP. Patient may continue with her other medication including Nexium 20 mg daily for GERD. Patient may also continue with her Cymbalta. Vital Signs/Physical Exam: Temp Pulse Resp BP Pulse Ox 97.5 F 77 16 113/56 L 93 03/21/18 08:00 03/21/18 09:40 03/21/18 08:00 03/21/18 09:40 03/21/18 08:00 General: Alert, In no apparent distress, Oriented x3, Cooperative HEENT: Atraumatic Neck: Supple Respiratory: Clear to auscultation bilaterally, Normal air movement Cardiovascular: Irregular heart rate/rhythm (Atrial fibrillation, rate controlled) Gastrointestinal: Normal bowel sounds, Soft and benign, Non-distended, No tenderness, No masses, No rebound, No guarding Neurological: Normal speech, Normal strength at 5/5 x4 extr, Normal tone, Normal affect Lymphatics: No axilla or inguinal lymphadenopathy Laboratory Data at Discharge: WBC 10.3 K/uL (4.3-10.9) 03/21/18 04:37 Hgb 15.5 g/dL (12.0-15.0) H 03/21/18 04:37 Hct 44.5 % (36.0-45.0) 03/21/18 04:37 Plt Count 266 K/uL (152-406) 03/21/18 04:37 PT 15.7 SECONDS (9.5-12.5) H 03/19/18 08:20 INR 1.33 03/19/18 08:20 APTT 34.7 SECONDS (24.3-36.9) 03/19/18 08:20 Sodium 138 mmol/L (136-145) 03/21/18 04:37 Potassium 4.4 mmol/L (3.5-5.1) 03/21/18 04:37 BUN 16 mg/dL (7-18) 03/21/18 04:37 Creatinine 0.80 mg/dL (0.55-1.3) 03/21/18 04:37 Glucose 88 mg/dL (74-106) 03/21/18 04:37 Magnesium 2.1 mg/dL (1.8-2.4) 03/19/18 08:20 Total Bilirubin 0.8 mg/dL (0.2-1.0) 03/21/18 04:37 AST 35 U/L (15-37) 03/21/18 04:37 ALT 28 U/L (12-78) 03/21/18 04:37 Alkaline Phosphatase 80 U/L (45-117) 03/21/18 04:37 Troponin I 0.02 ng/mL (0.0-0.045) 03/19/18 16:20 Home Medications: Apixaban [Eliquis] 1 tab PO BID 03/19/18 Cholecalciferol (Vitamin D3) [Vitamin D3] 1 cap PO BEDTIME 03/19/18 Cyanocobalamin (Vitamin B-12) [Vitamin B12] 1,000 mcg PO BEDTIME 03/19/18 Duloxetine HCl 1 cap PO BEDTIME 03/19/18 Esomeprazole Magnesium [Nexium] 20 mg PO DAILY 03/19/18 Hydroxyzine HCl [Atarax] 25 mg PO PRN PRN 03/19/18 Linaclotide [Linzess] 145 mcg PO PRN PRN 03/19/18 Montelukast [Singulair*] 1 tab PO BEDTIME 03/19/18 Ondansetron HCl [Zofran] 1 tab PO PRN PRN 03/19/18 Zolpidem Tartrate [Ambien] 5 mg PO BEDTIME 03/19/18 Carvedilol [Coreg*] 3.125 mg PO BID 6AM 6PM #60 tab 03/21/18 Sacubitril/Valsartan [Entresto 24 mg-26 mg Tablet] 1 tab PO BID #60 tab New Medications: Carvedilol [Coreg*] 3.125 mg PO BID 6AM 6PM #60 tab Sacubitril/Valsartan [Entresto 24 mg-26 mg Tablet] 1 tab PO BID #60 tab Patient Discharge Instructions: 1. Patient will need a follow up with her PCP in 1 week to follow up this hospitalization. 2. Patient presented with shortness of breath. Shortness breath secondary to systolic CHF exacerbation. Patient evaluated by Cardiology. Echocardiogram showed ejection fraction 25%. Patient was diuresed. New medications included Entresto, Lasix and Coreg. At discharge patient will continue with a 1500 cc per day fluid restriction. Patient will continue with Entresto 1 pill twice daily and Coreg 3.125 mg one pill twice daily. Patient will also continue with Lasix 40 mg 1 pill once daily. Recommendation is to monitor her weight daily. If her weight increases by more than 5 lb she is to contact cardiology or PCP for further recommendation. Recommendation is for the patient to follow up with cardiology in 2 weeks to monitor progress. 3. Patient has atrial fibrillation and is on chronic anti coalition therapy. At discharge she will continue with carvedilol 3.125 mg 1 pill twice daily and Eliquis 5 mg 1 pill twice daily. 4. Patient has hypertension. Patient will continue with carvedilol 3.125 mg 1 pill twice daily. Recommendation is to maintain blood pressures less 150/80. Further adjustment can be done by her PCP. 5. Patient may continue with her other medication including Nexium 20 mg daily for GERD. 6. Patient may also continue with her Cymbalta. Diet: AHA Activity: Fall precautions Time spent managing pt's care (in minutes): 55
[2018-03-21 12:05] VITALS: BP 128/72; TEMP 97.6
--- NOTE | 2018-03-21 12:42 | PN ---
Date of Progress Note: 03/21/2018 Subjective: Ms. Ellsworth had been followed by Dr. Riojas and Dr. Vasquez. She was admitted on 8, with rapid atrial fibrillation that is chronic, has some COPD history, shortness of breath. An ec hocardiogram yesterday, however, found new-onset acute systolic congestive heart failure with ejectio n fraction 25%. She had been placed on aspirin, Coreg as well as Entresto. She will be also sent ho mo on Lasix. Dr. Hernandez and I discussed her case. We instructed her on salt restriction and fluid i ntake restriction. She can go home today and she will see Dr. Vasquez in the next 2 weeks. MARIANNE/KATHERINE Voice ID: [id number] Report ID: [id number]
== END 2018-03-21 14:06 | disposition home or self-care (01) ==
LOC: ER 07:43 → ERHOLD 08:18 → INTOOBSV 08:18 → 2ND 10:48
PROVIDERS: ADMIT Family Medicine; ATTEND Family Medicine
DX: I11.0 Hypertensive heart disease with heart failure (principal); I50.23 Acute on chronic systolic (congestive) heart failure; J44.1 Chronic obstructive pulmonary disease with (acute) exacerbation; I48.2 Chronic atrial fibrillation; K21.9 Gastro-esophageal reflux disease without esophagitis; Z79.01 Long term (current) use of anticoagulants; Z88.2 Allergy status to sulfonamides
CPT/HCPCS: 36415 ×2; 71045 ×2; 80048 ×2; 80053; 80076; 81003; 82550; 82553; 83605; 83735; 83880 ×3; 84484 ×3; 85025 ×3; 85610; 85730; 87040 ×2; 87086; 87088; 87804 ×2; 93005 ×2; 93306; 94640 ×2; 94760 ×3; 96361; 96365; 96375; 99285; G0378 ×2; J0456; J0696; J1940; J2930; J7030; 96368; J7512

== ENCOUNTER 2018-09-01 12:28 | Inpatient (IN) | payer OTHER, MEDICARE ==
[2018-09-01] MEDS ORDERED: FENTANYL CITR 100 MCG/2 ML ONE (14:09)
--- NOTE | 2018-09-01 14:24 | RAD REPORT ---
EXAM DESCRIPTION: RAD - Hip Right 2 View - 09/01/2018 2:08 pm CLINICAL HISTORY: Right hip pain FINDINGS: No fracture or dislocation is seen. 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 A 3 centimeter calcification adjacent to the right likely is benign. 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 Bones are osteoporotic
[2018-09-01 14:26] LABS: Absolute Lymphocytes (CBC) 0.9 K/uL (0.7-4.9); Absolute Monocytes 0.5 K/uL (0.1-1.3); Absolute Neutrophil 3.9 K/uL (1.8-8.0); Basophils % 0.5 % (0-1.3); Eosinophils % 3.2 % (0-4.4); Hematocrit 42.5 % (36.0-45.0); MPV 9.8 fL (7.6-11.3); Monocytes % 8.5 % (3.3-12.3); RBC Red Blood Cell Count 4.71 M/uL (3.86-4.86)
[2018-09-01 14:31] LABS: Protime INR 1.34
[2018-09-01 14:36] LABS: Potassium 4.6 mmol/L (3.5-5.1)
--- NOTE | 2018-09-01 15:47 | EDPHYS ---
Physician Documentation [facility] Name: Carina Ellsworth Age: 88 yrs Sex: Female : 1930 Arrival Date: 09/01/2018 Time: 12:29 Bed 17 Private MD: ED Physician Aftab Rodriguez HPI: 09/01 14:38 This 88 yrs old Female presents to ER via EMS with complaints of Hip Pain. jr8 14:38 Patient stated she recently had a stress test. While being test felt cramp in right hip jr8 region. Had gone to have xray of hip for continued pain and found possible fracture which was confirmed by MRI. Patient was told to rest leg for now to see if any improvement. Continues to have pain that now is worse. Was instructed to come to ED for reevaluation of leg. Historical: - Allergies: 12:49 Sulfa (Sulfonamide Antibiotics); iw - Home Meds: 12:50 Cartia XT 120 mg Oral cp24 1 cap once daily [Active]; duloxetine 30 mg Oral TbEC 1 cap iw once daily [Active]; Eliquis 5 mg Oral tab 1 tab 2 times per day [Active]; loratadine 10 mg Oral TbDL 1 tab once daily [Active]; Ocuvite 109-44-4-150 by-afbm-wd-mg Oral cap daily [Active]; omeprazole 20 mg Oral cpDR 1 cap once daily [Active]; Vitamin B-12 1,000 mcg Oral tab daily [Active]; Vitamin D3 1,000 unit Oral cap daily [Active]; zolpidem 5 mg Oral tab 1 tab once daily [Active]; - PMHx: 12:50 Atrial Fib; constipation; GERD; Hyperlipidemia; iw - PSHx: 12:50 Colostomy; colon resection; Appendectomy; Cholecystectomy; iw - Immunization history:: Last tetanus immunization: up to date Flu vaccine is up to date. - Social history:: Smoking status: Patient uses tobacco products, denies chronic smoking, but will smoke occasionally. - Ebola Screening: : Patient negative for fever greater than or equal to 101.5 degrees Fahrenheit, and additional compatible Ebola Virus Disease symptoms Patient denies exposure to infectious person Patient denies travel to an Ebola-affected area in the 21 days before illness onset No symptoms or risks identified at this time. ROS: 14:38 Eyes: Negative for injury, pain, redness, and discharge, ENT: Negative for injury, jr8 pain, and discharge, Neck: Negative for injury, pain, and swelling, Cardiovascular: Negative for chest pain, palpitations, and edema, Respiratory: Negative for shortness of breath, cough, wheezing, and pleuritic chest pain, Abdomen/GI: Negative for abdominal pain, nausea, vomiting, diarrhea, and constipation, Back: Negative for injury and pain, Skin: Negative for injury, rash, and discoloration, Neuro: Negative for headache, weakness, numbness, tingling, and seizure. 14:38 MS/extremity: Positive for decreased range of motion, pain, tenderness, of the right leg. Exam: 14:38 Eyes: Pupils equal round and reactive to light, extra-ocular motions intact. Lids and jr8 lashes normal. Conjunctiva and sclera are non-icteric and not injected. Cornea within normal limits. Periorbital areas with no swelling, redness, or edema. ENT: Nares patent. No nasal discharge, no septal abnormalities noted. Tympanic membranes are normal and external auditory canals are clear. Oropharynx with no redness, swelling, or masses, exudates, or evidence of obstruction, uvula midline. Mucous membranes moist. Neck: Trachea midline, no thyromegaly or masses palpated, and no cervical lymphadenopathy. Supple, full range of motion without nuchal rigidity, or vertebral point tenderness. No Meningismus. Cardiovascular: Regular rate and rhythm with a normal S1 and S2. No gallops, murmurs, or rubs. Normal PMI, no JVD. No pulse deficits. Respiratory: Lungs have equal breath sounds bilaterally, clear to auscultation and percussion. No rales, rhonchi or wheezes noted. No increased work of breathing, no retractions or nasal flaring. Abdomen/GI: Soft, non-tender, with normal bowel sounds. No distension or tympany. No guarding or rebound. No evidence of tenderness throughout. Back: No spinal tenderness. No costovertebral tenderness. Full range of motion. Skin: Warm, dry with normal turgor. Normal color with no rashes, no lesions, and no evidence of cellulitis. Neuro: Awake and alert, GCS 15, oriented to person, place, time, and situation. Cranial nerves II-XII grossly intact. Motor strength 5/5 in all extremities. Sensory grossly intact. Cerebellar exam normal. Normal gait. 14:38 Musculoskeletal/extremity: Extremities: grossly normal except: noted in the right leg and right hip: pain, tenderness, ROM: full active range of motion, full passive range of motion, limited active range of motion due to pain, limited passive range of motion due to pain, Circulation is intact in all extremities. Sensation intact. Vital Signs: 12:29 BP 136 / 96; Pulse 95; Resp 18; Temp 98.4; Pulse Ox 98% on R/A; Weight 67.13 kg; Height la1 5 ft. 7 in. (170.18 cm); 13:52 BP 109 / 84; Pulse 92; Resp 18; Pulse Ox 98% on R/A; mh5 15:18 BP 115 / 56; Pulse 79; Resp 18; Pulse Ox 96% on R/A; em 16:44 BP 114 / 68; Pulse 87; Resp 16; Pulse Ox 96% on R/A; Pain 4/10; em 17:53 BP 108 / 63; Pulse 92; Resp 18; Temp 98.0; Pulse Ox 97% on R/A; Pain 3/10; em 19:00 BP 128 / 65; Pulse 99; Resp 17; Temp 98; Pulse Ox 99% ; rr5 12:29 Body Mass Index 23.18 (67.13 kg, 170.18 cm) la1 MDM: 12:38 Patient medically screened. jr8 15:25 Data reviewed: vital signs, nurses notes, lab test result(s), EKG, radiologic studies, jr8 plain films. Data interpreted: Pulse oximetry: on room air is 96 %. Interpretation: normal. Counseling: I had a detailed discussion with the patient and/or guardian regarding: the historical points, exam findings, and any diagnostic results supporting the discharge/admit diagnosis, lab results, radiology results, the need for further work-up and treatment in the hospital. ED course: Dr. Garcia consulted and agrees that patient needs to be admitted for pain control and surgery to fix stress fracture of right hip . 15:46 Physician consultation: Aria Diallo MD was called at 15:46, was contacted at 15:46, jr8 regarding admission, to the medical/surgical unit. consult, patient's condition, and will see patient. 09/01 13:38 Order name: CBC with Diff; Complete Time: 14:42 8 09/01 13:38 Order name: Basic Metabolic Panel; Complete Time: 14:42 09/01 13:33 Order name: Hip Right 2 View XRAY; Complete Time: 14:42 em 09/01 13:38 Order name: Protime (+inr); Complete Time: 14:42 09/01 13:38 Order name: Ptt, Activated; Complete Time: 14:42 8 09/01 15:25 Order name: XRAY Chest (1 view); Complete Time: 16:34 09/01 13:38 Order name: IV; Complete Time: 14:06 8 09/01 15:25 Order name: EKG - Nurse/Tech; Complete Time: 15:29 09/01 15:25 Order name: EKG; Complete Time: 15:25 09/01 16:44 Order name: Diet Heart Healthy; Complete Time: 16:44 em Administered Medications: 14:12 Drug: fentaNYL (PF) 25 mcg Route: IVP; Site: right antecubital; iw 14:39 Follow up: Response: No adverse reaction; Pain is decreased em 18:45 Drug: fentaNYL (PF) 25 mcg Route: IVP; Site: left antecubital; em 19:34 Follow up: Response: No adverse reaction; Marked relief of symptoms; Pain is decreased fc Disposition: 09/01/18 15:47 Hospitalization ordered by Aria Diallo for Inpatient Admission. Preliminary diagnosis is Stress fracture - right hip. - Bed requested for Telemetry/MedSurg (Inpatient). - Status is Inpatient Admission. rr5 - Condition is Stable. - Problem is new. - Symptoms have improved. UTI on Admission? No Signatures: Dispatcher [employer] EDMS Arcenio, Sulaiman, PARLOR CHAPERONE PARLOR CHAPERONE em Sabina Harding RN RN iw Jose Armijo PA PA jr8 Martha Camejo Raymond, RN RN rr5 Xi Stafford RN fc Corrections: (The following items were deleted from the chart) 17:33 15:47 Hospitalization Ordered by Aria Diallo MD for Inpatient Admission. Preliminary ag diagnosis is Stress fracture - right hip. Bed requested for Telemetry/MedSurg (Inpatient). Status is Inpatient Admission. Condition is Stable. Problem is new. Symptoms have improved. UTI on Admission? No. jr8 19:46 17:33 09/01/2018 15:47 Hospitalization Ordered by Aria Diallo MD for Inpatient rr5 Admission. Preliminary diagnosis is Stress fracture - right hip. Bed requested for Telemetry/MedSurg (Inpatient). Status is Inpatient Admission. Condition is Stable. Problem is new. Symptoms have improved. UTI on Admission? No. ag
--- NOTE | 2018-09-01 15:47 | ER ---
Nurse's Notes [facility] Name: Carina Ellsworth Age: 88 yrs Sex: Female : 1930 Arrival Date: 09/01/2018 Time: 12:29 Bed 17 Private MD: Diagnosis: Stress fracture-right hip Presentation: 09/01 12:30 Acuity: JUSTA 3 la1 12:43 Presenting complaint: EMS states: called out for right sided hip pain, pain started em about 2 months ago after doing a stress test on a bike, denies trauma, pt reports having MRI and confirmed fx, was going to put yamile in but pt wanted to wait and see if it improved. Transition of care: patient was not received from another setting of care. Onset of symptoms was June 2018. Risk Assessment: Do you want to hurt yourself or someone else? Patient reports no desire to harm self or others. Initial Sepsis Screen: Does the patient meet any 2 criteria? No. Patient's initial sepsis screen is negative. Does the patient have a suspected source of infection? No. Patient's initial sepsis screen is negative. Care prior to arrival: None. 12:43 Method Of Arrival: EMS: [facility] em Triage Assessment: 12:48 General: Appears in no apparent distress. comfortable, Behavior is calm, cooperative. em Pain:. Historical: - Allergies: 12:49 Sulfa (Sulfonamide Antibiotics); iw - Home Meds: 12:50 Cartia XT 120 mg Oral cp24 1 cap once daily [Active]; duloxetine 30 mg Oral TbEC 1 cap iw once daily [Active]; Eliquis 5 mg Oral tab 1 tab 2 times per day [Active]; loratadine 10 mg Oral TbDL 1 tab once daily [Active]; Ocuvite 018-15-4-150 sc-cbut-mx-mg Oral cap daily [Active]; omeprazole 20 mg Oral cpDR 1 cap once daily [Active]; Vitamin B-12 1,000 mcg Oral tab daily [Active]; Vitamin D3 1,000 unit Oral cap daily [Active]; zolpidem 5 mg Oral tab 1 tab once daily [Active]; - PMHx: 12:50 Atrial Fib; constipation; GERD; Hyperlipidemia; iw - PSHx: 12:50 Colostomy; colon resection; Appendectomy; Cholecystectomy; iw - Immunization history:: Last tetanus immunization: up to date Flu vaccine is up to date. - Social history:: Smoking status: Patient uses tobacco products, denies chronic smoking, but will smoke occasionally. - Ebola Screening: : Patient negative for fever greater than or equal to 101.5 degrees Fahrenheit, and additional compatible Ebola Virus Disease symptoms Patient denies exposure to infectious person Patient denies travel to an Ebola-affected area in the 21 days before illness onset No symptoms or risks identified at this time. Screenin:51 Abuse screen: Denies threats or abuse. Nutritional screening: No deficits noted. em Tuberculosis screening: No symptoms or risk factors identified. Fall Risk None identified. Assessment: 12:40 General: Appears in no apparent distress. comfortable, Behavior is calm, cooperative, em Denies fever. Pain: Complains of pain in right hip. Neuro: Level of Consciousness is awake, alert, obeys commands, Oriented to person, place, time, situation. Cardiovascular: Denies chest pain, Patient's skin is warm and dry. Respiratory: Airway is patent Respiratory effort is even, unlabored, Respiratory pattern is regular, symmetrical. GI: Abdomen is flat. : No signs and/or symptoms were reported regarding the genitourinary system. EENT: No signs and/or symptoms were reported regarding the EENT system. Derm: Skin is intact, is healthy with good turgor, Skin is pink, warm \T\ dry. Musculoskeletal: Range of motion: intact in all extremities. 14:16 Reassessment: Patient appears in no apparent distress at this time. Patient and/or em family updated on plan of care and expected duration. Pain level reassessed. Patient is alert, oriented x 3, equal unlabored respirations, skin warm/dry/pink. 15:17 Reassessment: Patient appears in no apparent distress at this time. Patient and/or em family updated on plan of care and expected duration. Pain level reassessed. Patient is alert, oriented x 3, equal unlabored respirations, skin warm/dry/pink. Patient states feeling better. 16:20 Reassessment: Patient appears in no apparent distress at this time. Patient and/or em family updated on plan of care and expected duration. Pain level reassessed. Patient is alert, oriented x 3, equal unlabored respirations, skin warm/dry/pink. rates pain 4/10 Patient states feeling better. 17:53 Reassessment: Patient appears in no apparent distress at this time. Patient and/or em family updated on plan of care and expected duration. Pain level reassessed. Patient is alert, oriented x 3, equal unlabored respirations, skin warm/dry/pink. rates pain 3/10 Patient states feeling better. 18:45 Reassessment: Patient appears in no apparent distress at this time. Patient and/or em family updated on plan of care and expected duration. Pain level reassessed. Patient is alert, oriented x 3, equal unlabored respirations, skin warm/dry/pink. pt reports pain in right hip, provider notified, new medication orders received. 19:00 General: Appears in no apparent distress. comfortable, Behavior is calm, cooperative, rr5 appropriate for age. Pain: Complains of pain in right hip Pain does not radiate. Quality of pain is described as aching, Pain began gradually, Is intermittent, Alleviated by repositioning, Aggravated by increased activity, weight bearing. Neuro: Level of Consciousness is awake, alert, obeys commands, Oriented to person, place, time, situation. Cardiovascular: Capillary refill < 3 seconds Patient's skin is warm and dry. Respiratory: Airway is patent Respiratory effort is even, unlabored, Respiratory pattern is regular, symmetrical. GI: Abdomen is flat. : No signs and/or symptoms were reported regarding the genitourinary system. EENT: No signs and/or symptoms were reported regarding the EENT system. Derm: Skin is intact, is healthy with good turgor, Skin is pink, warm \T\ dry. Musculoskeletal: Capillary refill < 3 seconds, Range of motion: Reports pain in right hip right leg. 19:40 Reassessment: Patient appears in no apparent distress at this time. Patient and/or rr5 family updated on plan of care and expected duration. Pain level reassessed. shifted to telemetry vitally stable. Patient states symptoms have improved. Vital Signs: 12:29 BP 136 / 96; Pulse 95; Resp 18; Temp 98.4; Pulse Ox 98% on R/A; Weight 67.13 kg; Height la1 5 ft. 7 in. (170.18 cm); 13:52 BP 109 / 84; Pulse 92; Resp 18; Pulse Ox 98% on R/A; mh5 15:18 BP 115 / 56; Pulse 79; Resp 18; Pulse Ox 96% on R/A; em 16:44 BP 114 / 68; Pulse 87; Resp 16; Pulse Ox 96% on R/A; Pain 4/10; em 17:53 BP 108 / 63; Pulse 92; Resp 18; Temp 98.0; Pulse Ox 97% on R/A; Pain 3/10; em 19:00 BP 128 / 65; Pulse 99; Resp 17; Temp 98; Pulse Ox 99% ; rr5 12:29 Body Mass Index 23.18 (67.13 kg, 170.18 cm) la1 ED Course: 12:29 Patient arrived in ED. la1 12:30 Triage completed. la1 12:34 Sulaiman Rg LVN is Primary Nurse. em 12:38 Jose Armijo PA is PHCP. jr8 12:38 Aftab Rodriguez MD is Attending Physician. jr8 12:51 Arm band placed on. em 12:51 Patient has correct armband on for positive identification. Bed in low position. Call em light in reach. Side rails up X2. Adult w/ patient. 14:04 Initial lab(s) drawn, by me, sent to lab. Inserted saline lock: 20 gauge in right 5 antecubital area, using aseptic technique. Blood collected. 14:05 Placed in gown. Warm blanket given. Pulse ox on. NIBP on. 5 14:06 Protime (+inr) Sent. 5 14:06 Ptt, Activated Sent. 5 14:06 Basic Metabolic Panel Sent. [facility] 14:06 CBC with Diff Sent. 5 14:07 X-ray completed. Portable x-ray completed in exam room. Patient tolerated procedure jb2 well. 14:08 Hip Right 2 View XRAY In Process Unspecified. EDMS 15:34 EKG done, by manufacturing maintenance technician. reviewed by Jose OJEDA. sm3 15:47 Aria Diallo MD is Hospitalizing Provider. jr8 16:11 XRAY Chest (1 view) In Process Unspecified. EDMS 19:34 No provider procedures requiring assistance completed. Patient admitted, IV remains in fc place. Administered Medications: 14:12 Drug: fentaNYL (PF) 25 mcg Route: IVP; Site: right antecubital; iw 14:39 Follow up: Response: No adverse reaction; Pain is decreased em 18:45 Drug: fentaNYL (PF) 25 mcg Route: IVP; Site: left antecubital; em 19:34 Follow up: Response: No adverse reaction; Marked relief of symptoms; Pain is decreased fc Outcome: 15:47 Decision to Hospitalize by Provider. luanne 19:33 Admitted to Tele accompanied by tech, via stretcher, room 412, with chart, Report fc called to Doris HUGHES 19:33 Condition: good 19:33 Discharge instructions given to patient, family, Instructed on the need for admit, Demonstrated understanding of instructions. 19:46 Patient left the ED. rr5 Signatures: Dispatcher [employer] EDRay Vallejo Felicia RN RN Sulaiman Rg, UNDERGROUND DRILL OPERATOR UNDERGROUND DRILL OPERATOR em Sabina Harding, RN RN Jose Armijo PA PA jr8 Emiliano Kamara RN RN Carina Portillo [facility] Belinda Bryant 3 Chester Randolph, RN RN rr5
--- NOTE | 2018-09-01 16:16 | RAD REPORT ---
EXAM DESCRIPTION: RAD - Chest Single View - 09/01/2018 4:10 pm CLINICAL HISTORY: pre op Chest pain. COMPARISON: Chest Single View dated 03/20/2018; Chest Single View dated 03/19/2018; Chest Single View dated 03/04/2017; Chest Single View dated 01/27/2017; Hip Right 2 View dated 09/01/2018 FINDINGS: Portable technique limits examination quality. The lungs are emphysematous but clear. The heart is moderately prominent in size. No displaced fractu res.Aortic atherosclerosis IMPRESSION: COPD.
--- NOTE | 2018-09-01 18:37 | P.HP ---
Patient History Date of Service: 09/02/18 Reason for admission: Right hip pain History of Present Illness: This is a 88 yr old female with significant medical problems with right hip pain. This pain has been going on for the past 2 months. Per patient, it started after a stress test in the progressively worse. She was soft 3 physicians prior to admission to the hospital. She saw her primary care physician, who referred to a back doctor, who referred the patient for MRI. After noting a stress fracture on the right hip, she was referred to Orthopedics. The morning of admission, patient stated that she could not handle the pain, could not walk even with her walker. She did have an appointment scheduled with Dr. Garcia, orthopedics, but the pain was too unbearable and she called their office. She was referred to the ER from the orthopedics office. At the time of my exam, patient was alert oriented x3, in [id number] distress secondary to pain. She is admitted for further evaluation by orthopedic surgeon for possible surgery. Allergies Sulfa (Sulfonamide Antibiotics) Allergy (Verified 03/19/18 12:31) Unknown Home Medications: Apixaban [Eliquis] 1 tab PO BID 03/19/18 Cholecalciferol (Vitamin D3) [Vitamin D3] 1 cap PO BEDTIME 03/19/18 Cyanocobalamin (Vitamin B-12) [Vitamin B12] 1,000 mcg PO BEDTIME 03/19/18 Duloxetine HCl 1 cap PO BEDTIME 03/19/18 Esomeprazole Magnesium [Nexium] 20 mg PO DAILY 03/19/18 Hydroxyzine HCl [Atarax] 25 mg PO PRN PRN 03/19/18 Linaclotide [Linzess] 145 mcg PO PRN PRN 03/19/18 Montelukast [Singulair*] 1 tab PO BEDTIME 03/19/18 Ondansetron HCl [Zofran] 1 tab PO PRN PRN 03/19/18 Zolpidem Tartrate [Ambien] 5 mg PO BEDTIME 03/19/18 Furosemide [Lasix] 40 mg PO DAILY #30 tablet 03/21/18 Sacubitril/Valsartan [Entresto 24 mg-26 mg Tablet] 1 tab PO BID #60 tab Hydrocodone Bit/Acetaminophen [Hydrocodon-Acetaminophen 5-325] 1 tab PO Q4HP PRN 09/02/18 traMADol HCL [Ultram*] 1 tab PO Q6HP PRN 09/02/18 - Past Medical/Surgical History Diabetic: No -: Meniere's -: Constipation -: Afib -: GERD -: colostomy -: colostomy reversal -: appendectomy -: cholecystectomy - Family History Mother -: Cancer - Social History Alcohol use: No CD- Drugs: No Caffeine use: No Review of Systems 10-point ROS is otherwise unremarkable Physical Examination - Physical Exam General: Alert, Oriented x3, Moderate distress HEENT: Atraumatic, PERRLA, Mucous membr. moist/pink, EOMI, Sclerae nonicteric Neck: Supple, 2+ carotid pulse no bruit, No LAD, Without JVD or thyroid abnormality Respiratory: Clear to auscultation bilaterally, Normal air movement Cardiovascular: Regular rate/rhythm, Normal S1 S2 Gastrointestinal: Normal bowel sounds, No tenderness Musculoskeletal: Tenderness Integumentary: No rashes Neurological: Normal gait, Normal speech, Normal strength at 5/5 x4 extr, Normal tone, Normal affect Lymphatics: No axilla or inguinal lymphadenopathy - Studies Laboratory Data (last 24 hrs) 09/01/18 14:00: PT 15.8 H, INR 1.34, APTT 39.9 H 09/01/18 14:00: Sodium 138, Potassium 4.6, BUN 10, Creatinine 0.65, Glucose 90 09/01/18 14:00: WBC 5.5, Hgb 14.8, Hct 42.5, Plt Count 242 Assessment and Plan - Problems (Diagnosis) (1) Right hip pain Current Visit: Yes Status: Acute (2) Avascular necrosis of bone of right hip Current Visit: Yes Status: Acute (3) Afib Onset Date: 03/20/18 Current Visit: No Status: Chronic Qualifiers: Atrial fibrillation type: chronic Qualified Code(s): I48.2 - Chronic atrial fibrillation (4) HTN (hypertension) Current Visit: No Status: Chronic Qualifiers: Hypertension type: essential hypertension Qualified Code(s): I10 - Essential (primary) hypertension - Plan This is a 80-year-old female with: Avascular necrosis of bone of right hip (Acute) M87.051 Right hip pain (Acute) M25.551 Chronic anticoagulation (Acute) Z79.01 Afib (Chronic 03/20/18) I48.91 GERD (gastroesophageal reflux disease) (Chronic 03/20/18) K21.9 HTN (hypertension) (Chronic) I10 Admit patient to floor, with Tele. Dr. garcia consulted IVF Pain control zofran for nausea. Hold anticoagulation at this time Disposition: Pending orthopedic surgery evaluation. Continue pain control - Advance Directives Does patient have a Living Will: Yes Does patient have a Durable POA for Healthcare: No Physician Review: Patient Assessed, Agree with Above Assessment and Plan Time Spent Managing Pts Care (In Minutes): 55
[2018-09-01] MEDS ORDERED: MORPHINE 2 MG/ML SYR IV PRN (19:56)
[2018-09-01] MEDS ORDERED: ACETAMINOPHEN 500 MG TAB PO PRN (19:56)
[2018-09-01] MEDS: INSULIN -REGULAR HUMAN 50 UNIT/0.5 ML ML SQ SCH (21:00)
[2018-09-01 22:00] VITALS: BMI 23.1
[2018-09-01] MEDS ORDERED: METOPROLOL TAR 50 MG TAB PO ONE (22:47)
[2018-09-01] MEDS: ZOLPIDEM TARTRATE 5 MG TABLET PO PRN (23:36)
[2018-09-02] MEDS ORDERED: HOME MED 1 EA UNK (Linaclotide [Linzess] 145 MCG) PO PRN (01:30)
[2018-09-02] MEDS ORDERED: ONDANSETRON 4 MG (ODT) TAB PO PRN (02:08)
[2018-09-02] MEDS ORDERED: hydrOXYzine HCl 25 MG TAB PO PRN (03:00)
[2018-09-02 06:02] LABS: Albumin 3.1 g/dL (3.4-5.0); Bilirubin Total 0.8 mg/dL (0.2-1.0); Potassium 4.8 mmol/L (3.5-5.1); Protein, Total 6.4 g/dL (6.4-8.2)
[2018-09-02 06:06] LABS: Absolute Lymphocytes (CBC) 1.1 K/uL (0.7-4.9); Absolute Monocytes 0.7 K/uL (0.1-1.3); Absolute Neutrophil 3.6 K/uL (1.8-8.0); Basophils % 0.6 % (0-1.3); Eosinophils % 6.9 % (0-4.4); Hematocrit 42.6 % (36.0-45.0); Lymphocytes % 18.2 % (15.3-44.8); Monocytes % 12.6 % (3.3-12.3); RBC Red Blood Cell Count 4.67 M/uL (3.86-4.86)
[2018-09-02 06:26] LABS: Phosphorus 3.9 mg/dL (2.5-4.9)
[2018-09-02] MEDS: PANTOPRAZOLE 40MG TABLET PO SCH (07:11)
[2018-09-02] MEDS: INSULIN -REGULAR HUMAN 50 UNIT/0.5 ML ML SQ SCH ×4 (07:30→21:00)
[2018-09-02] MEDS: FUROSEMIDE 40 MG TABLET PO SCH (08:25)
[2018-09-02] MEDS: MORPHINE 4 MG/ML SYR IV PRN ×3 (08:26→21:31)
[2018-09-02] MEDS: VITAMIN D 1000 UNIT TAB PO SCH (08:26)
[2018-09-02] MEDS: CYANOCOBALAMIN 1,000 MCG TAB PO SCH (08:26)
[2018-09-02] MEDS: SACUBITRIL/VALSARTAN 24/26 MG TAB PO SCH ×2 (08:27→20:04)
[2018-09-02] MEDS ORDERED: APIXABAN 5 MG TABLET PO SCH (09:00)
--- NOTE | 2018-09-02 12:08 | P.PN ---
Subjective Date of Service: 09/02/18 Chief Complaint: Right hip pain Subjective: No C/O voiced, Improving Patient seen and examined at bedside. No family at bedside. Chart reviewed and case discussed with nursing staff. Review of Systems 10-point ROS is otherwise unremarkable Physical Examination - Vital Signs Temperature: 97.5 F Blood Pressure: 132/56 Pulse: 86 Respirations: 20 Pulse Ox (%): 97 - Physical Exam General: Alert, In no apparent distress, Oriented x3 HEENT: Atraumatic, PERRLA, EOMI Neck: Supple, JVD not distended Respiratory: Clear to auscultation bilaterally, Normal air movement Cardiovascular: Regular rate/rhythm, Normal S1 S2 Gastrointestinal: Normal bowel sounds, No tenderness Musculoskeletal: Tenderness Integumentary: No rashes Neurological: Normal speech, Normal tone, Normal affect - Studies Laboratory Data (last 24 hrs) 09/01/18 14:00: PT 15.8 H, INR 1.34, APTT 39.9 H 09/01/18 14:00: Sodium 138, Potassium 4.6, BUN 10, Creatinine 0.65, Glucose 90 09/01/18 14:00: WBC 5.5, Hgb 14.8, Hct 42.5, Plt Count 242 Assessment And Plan - Current Problems (Diagnosis) (1) Right hip pain Current Visit: Yes Status: Acute (2) Avascular necrosis of bone of right hip Current Visit: Yes Status: Acute (3) Afib Onset Date: 03/20/18 Current Visit: No Status: Chronic Qualifiers: Atrial fibrillation type: chronic Qualified Code(s): I48.2 - Chronic atrial fibrillation (4) HTN (hypertension) Current Visit: No Status: Chronic Qualifiers: Hypertension type: essential hypertension Qualified Code(s): I10 - Essential (primary) hypertension - Plan This is a 80-year-old female with: Avascular necrosis of bone of right hip (Acute) M87.051 Right hip pain (Acute) M25.551 Chronic anticoagulation (Acute) Z79.01 Afib (Chronic 03/20/18) I48.91 GERD (gastroesophageal reflux disease) (Chronic 03/20/18) K21.9 HTN (hypertension) (Chronic) I10 Dr. Garcia consulted IVF Pain control: Pain seems to be well controlled with morphine. Will continue zofran p.r.n. for nausea. Hold anticoagulation at this time Disposition: Pending orthopedic surgery evaluation. Continue pain control Physician Review: Patient Assessed, Agree with Above Assessment and Plan
--- NOTE | 2018-09-02 13:56 | EKG ---
Test Date: 2018-09-01 Test Time: 15:29:58 Youth Program Director: EDILIA MEASUREMENT RESULTS: Intervals: Rate: 87 DE: QRSD: 86 QT: 398 QTc: 478 [place]: P: DE: QRS: 66 T: 81 INTERPRETIVE STATEMENTS: Atrial fibrillation with premature ventricular or aberrantly conducted complexes Abnormal ECG Compared to ECG 03/20/2018 08:18:49 T-wave abnormality no longer present Electronically Signed On 09-02-18 13:54:01 MINERAL TECHNOLOGIST by Fahad Jeff
--- NOTE | 2018-09-02 16:23 | P.CNS ---
Date of Consult: 09/02/18 Reason for Consult: Right hip pain Requesting Physician: Aftab Rodriguez Chief Complaint: Right hip pain History of Present Illness: This 88-year-old white female denies any injury to her hip and indicates that in mid-June while doing a stress test she noted onset of pain in her right hip. She had been doing quite well in cardiac rehabilitation and being lauded for her efforts, she became quite exuberant to make more accomplishments. One week later, she said the pain in the right hip got worse and she was unable to continue cardiac rehabilitation. Dr. 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 The patient was then referred for orthopedic consultation. Seen in my office on , she reported groin pain that ran down her anterior thigh to the knee, and then even further down the anterolateral lower leg to the foot. She was diagnosed as having both sciatica, and possibly a proximal femoral stress fracture because of pain concentrated in the groin. MRI scan done 08/16/18 showed avascular necrosis (AVN) of the right femoral head without collapse, and a curvilinear area of low signal interpreted as a stress fracture of the basicervical calcar. The patient returned to my office without a walker which she had been instructed to use for toe-touch only RLE. Risks and benefits associated with the hemiplasty hip procedure were discussed with the patient at length and she expressed understanding. However, she refused to consider operative intervention as there were travel plans during the [place] celebration. She agreed to use a Rollator walker for toe-touch only and return in 4 weeks for reevaluation. On Tuesday09/01/18, her daughter called the office and indicated she was no longer able to get out of bed to go to the bathroom because of increasingly severe right hip pain. She was instructed to go to the emergency room for reevaluation of her right hip stress fracture. Still no fracture was seen on x-ray, but the patient agreed to admission for treatment of her right femoral neck stress fracture associated with AVN of the right femoral head without collapse. Allergies Sulfa (Sulfonamide Antibiotics) Allergy (Verified 03/19/18 12:31) Unknown Home medications list reviewed: Yes (The patient's last dose of Eliquis was was Ned morning.) Home Medications: Apixaban [Eliquis] 1 tab PO BID 03/19/18 Cholecalciferol (Vitamin D3) [Vitamin D3] 1 cap PO BEDTIME 03/19/18 Cyanocobalamin (Vitamin B-12) [Vitamin B12] 1,000 mcg PO BEDTIME 03/19/18 Duloxetine HCl 1 cap PO BEDTIME 03/19/18 Esomeprazole Magnesium [Nexium] 20 mg PO DAILY 03/19/18 Hydroxyzine HCl [Atarax] 25 mg PO PRN PRN 03/19/18 Linaclotide [Linzess] 145 mcg PO PRN PRN 03/19/18 Montelukast [Singulair*] 1 tab PO BEDTIME 03/19/18 Ondansetron HCl [Zofran] 1 tab PO PRN PRN 03/19/18 Zolpidem Tartrate [Ambien] 5 mg PO BEDTIME 03/19/18 Furosemide [Lasix] 40 mg PO DAILY #30 tablet 03/21/18 Sacubitril/Valsartan [Entresto 24 mg-26 mg Tablet] 1 tab PO BID #60 tab Hydrocodone Bit/Acetaminophen [Hydrocodon-Acetaminophen 5-325] 1 tab PO Q4HP PRN 09/02/18 traMADol HCL [Ultram*] 1 tab PO Q6HP PRN 09/02/18 - Past Medical/Surgical History Diabetic: No -: Meniere's -: Constipation -: Afib -: GERD -: colostomy -: colostomy reversal -: appendectomy -: cholecystectomy - Family History Mother Medical History: Cancer - Social History Smoking Status: Current some day smoker Alcohol use: No CD- Drugs: No Caffeine use: No Review of Systems 10-point ROS is otherwise unremarkable Physical Examination Temp Pulse Resp BP Pulse Ox 97.5 F 86 20 132/56 L 97 09/02/18 12:07 09/02/18 12:07 09/02/18 12:07 09/02/18 12:07 09/02/18 12:07 General: Alert, In no apparent distress, Oriented x3, Cooperative HEENT: Atraumatic, Normocephalic Neck: Supple, Other (Cervical spine nontender to palpation with normal range of motion.) Respiratory: Clear to auscultation bilaterally, Normal air movement Cardiovascular: Normal pulses, Regular rate/rhythm Capillary refill: <2 Seconds Gastrointestinal: Normal bowel sounds, Soft and benign, Non-distended Musculoskeletal: Tenderness (This patient has some tenderness to palpation over the right groin and anterior thigh. Pain is controlled with IV analgesic, but she describes pain of intense nature limiting her from being able to bear weight running down to the knee and sometimes along the lateral lower leg to the foot. Reinier's maneuver is positive for hip pain with internal rotation of the femur by 10while seated. External rotation is uncomfortable at 20. The hip will flex to 120 passively and abduct to 30. Straight leg lift is positive for posterior hip and thigh pain down to the knee at 100 hip flexion. Homans sign is negative. Neurovascular exam is intact.) Integumentary: No rashes, No breakdown, No significant lesion Neurological: Normal speech, Sensation intact External genitalia: Deferred Rectal: Deferred Hemoglobin 14.6; WBC 5.8, Neutrophils 62%; Protime 15.8, INR 1.34, APTT 39.9; GFR 88. Imagings Data: MRI done 1216 and showed avascular necrosis right femoral head, stress fracture right femoral neck, small to moderate right hip joint effusion, and a large amount of edema in femoral head and femoral neck. - Problems (1) Stress fracture of right hip Onset Date: ~07/13/18 Current Visit: No Status: Chronic Plan: After discussion of risks and benefits, the patient has elected to proceed with right hip gab-plasty. Pain is well controlled and surgery will be arranged for Tuesday or Tuesday if medically cleared for surgery.
[2018-09-02] MEDS ORDERED: ZOLPIDEM TARTRATE 5 MG TABLET PO SCH (21:00)
[2018-09-02] MEDS: DULOXETINE 30 MG CAP PO SCH (21:25)
[2018-09-02] MEDS: ZOLPIDEM TARTRATE 5 MG TABLET PO PRN (21:25)
[2018-09-02] MEDS: MONTELUKAST 10 MG TAB PO SCH (21:26)
[2018-09-02] MEDS ORDERED: LOSARTAN POTASSIUM 50 MG TABLET PO ONE (22:48)
[2018-09-03] MEDS: PANTOPRAZOLE 40MG TABLET PO SCH (06:11)
[2018-09-03] MEDS: INSULIN -REGULAR HUMAN 50 UNIT/0.5 ML ML SQ SCH ×4 (07:30→20:09)
[2018-09-03] MEDS: SACUBITRIL/VALSARTAN 24/26 MG TAB PO SCH (08:10)
[2018-09-03] MEDS: FUROSEMIDE 40 MG TABLET PO SCH (08:25)
[2018-09-03] MEDS: VITAMIN D 1000 UNIT TAB PO SCH (08:25)
[2018-09-03] MEDS: CYANOCOBALAMIN 1,000 MCG TAB PO SCH (08:25)
[2018-09-03] MEDS: MORPHINE 4 MG/ML SYR IV PRN ×3 (08:29→23:29)
[2018-09-03] MEDS ORDERED: TRANEXAMIC ACID 1,000 MG in NA CHLORIDE 0.9% 50 ML IV SCH (09:18)
[2018-09-03] MEDS ORDERED: CEFAZOLIN 1GM (PREMIX IV) 1 GM/50 ML BAG IVPB SCH (09:30)
[2018-09-03 10:57] LABS: Urine Appearance CLEAR; Urine Bilirubin NEGATIVE (NEG); Urine Blood TRACE (NEG); Urine Color YELLOW; Urine Glucose NEGATIVE (NEG); Urine Protein NEGATIVE (NEG); Urine pH 6.5 (5.0-7.0)
[2018-09-03 11:01] LABS: Urine Microscopic Reflex ORDER UMIC
[2018-09-03 11:39] LABS: Urine Bacteria <20 /HPF (<20); Urine Culture Reflex Order REFLEXED; Urine RBC NONE SEEN /HPF (NONE SEEN)
--- NOTE | 2018-09-03 18:28 | P.PN ---
Subjective Date of Service: 09/03/18 Chief Complaint: Right hip pain Subjective: No new changes, No C/O voiced, Improving Patient seen and examined at bedside. No family at bedside. Chart reviewed and case discussed with nursing staff. Review of Systems 10-point ROS is otherwise unremarkable Physical Examination - Vital Signs Temperature: 97.3 F Blood Pressure: 95/63 Pulse: 82 Respirations: 20 Pulse Ox (%): 95 - Physical Exam General: Alert, In no apparent distress, Oriented x3 HEENT: Atraumatic, PERRLA, EOMI Neck: Supple, JVD not distended Respiratory: Clear to auscultation bilaterally, Normal air movement Cardiovascular: Regular rate/rhythm, Normal S1 S2 Gastrointestinal: Normal bowel sounds, No tenderness Musculoskeletal: No tenderness Integumentary: No rashes Neurological: Normal speech, Normal tone, Normal affect Lymphatics: No axilla or inguinal lymphadenopathy Assessment And Plan - Current Problems (Diagnosis) (1) Right hip pain Current Visit: Yes Status: Acute (2) Avascular necrosis of bone of right hip Current Visit: Yes Status: Acute (3) Afib Onset Date: 03/20/18 Current Visit: No Status: Chronic Qualifiers: Atrial fibrillation type: chronic Qualified Code(s): I48.2 - Chronic atrial fibrillation (4) HTN (hypertension) Current Visit: No Status: Chronic Qualifiers: Hypertension type: essential hypertension Qualified Code(s): I10 - Essential (primary) hypertension - Plan This is a 80-year-old female with: Avascular necrosis of bone of right hip (Acute) M87.051 Right hip pain (Acute) M25.551 Chronic anticoagulation (Acute) Z79.01 Afib (Chronic 03/20/18) I48.91 GERD (gastroesophageal reflux disease) (Chronic 03/20/18) K21.9 HTN (hypertension) (Chronic) I10 Dr. Garcia consulted, Recommendations appreciated. IVF Pain control: Pain seems to be well controlled with morphine. Will continue zofran p.r.n. for nausea. Hold anticoagulation at this time Disposition: Pending hip surgery tomorrow with Dr. garcia. Continue pain control Physician Review: Patient Assessed, Agree with Above Assessment and Plan Time Spent Managing PTS Care (In Minutes): 35
[2018-09-03] MEDS: MONTELUKAST 10 MG TAB PO SCH (20:12)
[2018-09-03] MEDS: DULOXETINE 30 MG CAP PO SCH (20:12)
[2018-09-03] MEDS: ZOLPIDEM TARTRATE 5 MG TABLET PO PRN (20:12)
[2018-09-04] MEDS: PANTOPRAZOLE 40MG TABLET PO SCH (05:24)
[2018-09-04] MEDS: MORPHINE 4 MG/ML SYR IV PRN ×2 (06:10→17:39)
[2018-09-04 06:39] LABS: Protime INR 1.08
[2018-09-04 06:41] LABS: Absolute Lymphocytes (CBC) 1.5 K/uL (0.7-4.9); Absolute Monocytes 0.8 K/uL (0.1-1.3); Absolute Neutrophil 3.5 K/uL (1.8-8.0); Basophils % 0.7 % (0-1.3); Eosinophils % 6.5 % (0-4.4); Lymphocytes % 23.8 % (15.3-44.8); MPV 9.9 fL (7.6-11.3); Monocytes % 12.7 % (3.3-12.3); RBC Red Blood Cell Count 4.73 M/uL (3.86-4.86)
[2018-09-04 06:54] LABS: Albumin 3.2 g/dL (3.4-5.0); Bilirubin Total 0.7 mg/dL (0.2-1.0); Potassium 4.4 mmol/L (3.5-5.1); Protein, Total 6.8 g/dL (6.4-8.2)
[2018-09-04] MEDS: INSULIN -REGULAR HUMAN 50 UNIT/0.5 ML ML SQ SCH ×4 (07:30→21:00)
[2018-09-04] MEDS: FUROSEMIDE 40 MG TABLET PO SCH ×2 (09:00→17:37)
[2018-09-04] MEDS: VITAMIN D 1000 UNIT TAB PO SCH (09:00)
[2018-09-04] MEDS: CYANOCOBALAMIN 1,000 MCG TAB PO SCH (09:00)
[2018-09-04] MEDS: ONDANSETRON 4 MG/2 ML VIAL IV PRN (09:13)
[2018-09-04] MEDS ORDERED: PROPOFOL 200 MG/20 ML VIAL IV ONE (11:50)
[2018-09-04] MEDS ORDERED: GLYCOPYRROLATE 0.2 MG/ML SYR ONE (11:50)
[2018-09-04] MEDS ORDERED: LIDOCAINE 2% MPF 5 ML VIAL ONE (11:51)
[2018-09-04] MEDS ORDERED: ROCURONIUM 50 MG/5 ML VIAL IV ONE (11:51)
[2018-09-04] MEDS ORDERED: FENTANYL CITR 250 MCG/5 ML ONE (11:51)
[2018-09-04] MEDS ORDERED: NEOSTIGMINE 1 MG/ML -5 ML SYRINGE ONE (11:55)
[2018-09-04] MEDS ORDERED: ONDANSETRON 4 MG/2 ML VIAL ONE ×2 (11:55→16:26)
[2018-09-04] MEDS ORDERED: CEFAZOLIN 1GM (PREMIX IV) 1 GM/50 ML BAG ONE ×2 (11:56→20:10)
[2018-09-04] MEDS ORDERED: Ringers Lactate 1,000 ML IV ONE ×3 (11:56→16:14)
[2018-09-04] MEDS ORDERED: NA CHLORIDE 0.9% 250 ML ONE ×2 (12:45→14:23)
[2018-09-04] MEDS: BUPIVACA 0.25%/EPI 0.0005% MDV 50 ML VIAL ONE ×2 (12:50→15:40)
[2018-09-04] MEDS ORDERED: NA CHLORIDE 0.9% 1,000 ML ONE (12:52)
[2018-09-04] MEDS ORDERED: EPHEDRINE SULF 50 MG/ML VIAL ONE (13:42)
--- NOTE | 2018-09-04 15:26 | RAD REPORT ---
EXAM DESCRIPTION: RAD - Hip In Or - 09/04/2018 3:21 pm CLINICAL HISTORY: PORTABLE HIP XRAY IN OR 5 COMPARISON: No comparisons FINDINGS: Single intraoperative projection of the right hip is submitted during arthroplasty procedu re. Femoral component is in place and aligned as expected with the acetabulum. Acetabular cup has not yet been placed.
[2018-09-04] MEDS: dilTIAZem HCl 25 MG/5 ML VIAL IV ONE ×2 (15:52→15:59)
[2018-09-04] MEDS: FENTANYL CITR 100 MCG/2 ML ONE ×2 (15:56→15:57)
--- NOTE | 2018-09-04 16:02 | P.BOP ---
Preoperative diagnosis: RIGHT HIP STRESS FRACTURE FEMORAL NECK AND AVN FEMORAL HEAD Postoperative diagnosis: SAME Primary procedure: INSERTION OF CEMENTED UNIPOLAR RIGHT HIP PROSTHESIS FOR STRESS FX FEM. NECK Rug Cleaner: Dayan Schmidt (GAVE NECESSARY 1ST ASSIST THROUGHOUT CASE) Estimated blood loss: 300 mL Specimen: FEMORAL HEAD Findings: CHONDRAL SURFACE OF ACETABULUM INTACT Anesthesia: General (A) Complications: None Implants: BARNEY HIP [id number];SUMMIT CEMENTED FEMORAL STEM;12/14TAPER+0 NECK; Fluids & blood products: 10.5mmCENTRALIZER; 2 SIMPLEX HV CEMENT; INJ 30 mL0.25% MARCAINE w/EPI Transferred to: Recovery Room Condition: Good
[2018-09-04] MEDS ORDERED: KETOROLAC 30 MG/ML INJ ONE (16:18)
[2018-09-04] MEDS ORDERED: MEPERIDINE HCL 25 MG/0.5 ML ONE ×2 (16:19→16:50)
[2018-09-04] MEDS ORDERED: PROMETHAZINE 25 MG/ML VIAL ONE (16:37)
--- NOTE | 2018-09-04 17:12 | RAD REPORT ---
EXAM DESCRIPTION: RAD - Pelvis - 09/04/2018 5:03 pm CLINICAL HISTORY: Right hip surgery FINDINGS: Right hip arthroplasty has been performed. The femoral prosthesis is in good position. No fracture or dislocation noted
[2018-09-04] MEDS ORDERED: CEFAZOLIN 1GM (PREMIX IV) 1 GM/50 ML BAG IV SCH (18:00)
--- NOTE | 2018-09-04 18:26 | P.PN ---
Subjective Date of Service: 09/04/18 Chief Complaint: Right hip pain Patient seen and examined at bedside. No family at bedside. Chart reviewed and case discussed with nursing staff. Review of Systems 10-point ROS is otherwise unremarkable Physical Examination - Vital Signs Temperature: 97 F Blood Pressure: 133/51 Pulse: 84 Respirations: 18 Pulse Ox (%): 98 - Physical Exam General: Alert, In no apparent distress, Oriented x3 HEENT: Atraumatic, PERRLA, EOMI Neck: Supple, JVD not distended Respiratory: Clear to auscultation bilaterally, Normal air movement Cardiovascular: Regular rate/rhythm, Normal S1 S2 Gastrointestinal: Normal bowel sounds, No tenderness Musculoskeletal: No tenderness Integumentary: No rashes Neurological: Normal speech, Normal tone, Normal affect Lymphatics: No axilla or inguinal lymphadenopathy Assessment And Plan - Current Problems (Diagnosis) (1) Right hip pain Onset Date: 09/04/18 Current Visit: Yes Status: Acute (2) Avascular necrosis of bone of right hip Onset Date: 09/04/18 Current Visit: Yes Status: Acute (3) Afib Onset Date: 03/20/18 Current Visit: No Status: Chronic Qualifiers: Atrial fibrillation type: chronic Qualified Code(s): I48.2 - Chronic atrial fibrillation (4) HTN (hypertension) Onset Date: 09/04/18 Current Visit: Yes Status: Chronic Qualifiers: Hypertension type: essential hypertension Qualified Code(s): I10 - Essential (primary) hypertension - Plan This is a 80-year-old female with: Avascular necrosis of bone of right hip (Acute) M87.051 Right hip pain (Acute) M25.551 Chronic anticoagulation (Acute) Z79.01 Afib (Chronic 03/20/18) I48.91 GERD (gastroesophageal reflux disease) (Chronic 03/20/18) K21.9 HTN (hypertension) (Chronic) I10 Dr. Garcia consulted, Recommendations appreciated. IVF Pain control: Pain seems to be well controlled with morphine. Will continue zofran p.r.n. for nausea. Hold anticoagulation at this time Disposition: Pending hip surgery today with Dr. garcia. Continue pain control
[2018-09-04] MEDS ORDERED: SODIUM CHLORIDE 0.9% 10ML INJ IV PRN (18:48)
[2018-09-04] MEDS: CEFAZOLIN 1GM (PREMIX IV) 1 GM/50 ML BAG IV SCH (21:18)
[2018-09-04] MEDS: MONTELUKAST 10 MG TAB PO SCH (21:19)
[2018-09-04] MEDS: DULOXETINE 30 MG CAP PO SCH (21:19)
[2018-09-04] MEDS: ZOLPIDEM TARTRATE 5 MG TABLET PO PRN (21:19)
[2018-09-04] MEDS: PANTOPRAZOLE 40 MG INJ IVP SCH (21:23)
[2018-09-05] MEDS: MORPHINE 4 MG/ML SYR IV PRN ×3 (00:42→13:45)
[2018-09-05] MEDS: NA CHLORIDE 0.9% 1,000 ML IV SCH ×2 (00:42→07:20)
[2018-09-05] MEDS ORDERED: CEFAZOLIN 1GM (PREMIX IV) 0 GM/0 ML BAG ONE (01:55)
[2018-09-05] MEDS: CEFAZOLIN 1GM (PREMIX IV) 1 GM/50 ML BAG IV SCH (03:21)
[2018-09-05] MEDS: HYDROCODONE/APAP 7.5/325 MG TAB PO PRN ×4 (03:26→21:44)
[2018-09-05] MEDS ORDERED: CEFAZOLIN 1GM (PREMIX IV) 1 GM/50 ML BAG ONE (03:44)
[2018-09-05] MEDS: INSULIN -REGULAR HUMAN 50 UNIT/0.5 ML ML SQ SCH ×4 (07:30→21:00)
[2018-09-05] MEDS: FUROSEMIDE 40 MG TABLET PO SCH (09:00)
[2018-09-05] MEDS: CYANOCOBALAMIN 1,000 MCG TAB PO SCH (09:00)
[2018-09-05] MEDS: VITAMIN D 1000 UNIT TAB PO SCH (10:28)
[2018-09-05] MEDS: PANTOPRAZOLE 40 MG INJ IVP SCH (10:33)
--- NOTE | 2018-09-05 20:37 | PN ---
Date of Progress Note: 09/05/2018 Subjective: The patient is seen and examined. Chart reviewed, and case discussed with RN. The brendon ent has some questions regarding her IV fluids, all questions answered, treatment plan explained. Code Status: Full. Medications: List reviewed. Physical Examination: Vital Signs: Temperature 99.3, heart rate 101, blood pressure 122/66, respirations 18, and O2 of 97% on 2 L via nasal cannula. General: Awake, alert, and oriented x3. Elderly female, some mild distress due to pain. CV: S1 and S2, irregularly irregular rate and rhythm. Peripheral pulses present. Respiratory: Moving air well bilaterally. No wheezing or stridor. Gastrointestinal: Abdomen is soft, nontender, and nondistended. Positive bowel sounds. Extremities: No clubbing, cyanosis, or edema. Neurologic: Cranial nerves 2 through 12 intact grossly. No focal neurological deficit. Speech is n ormal. Musculoskeletal: Right hip incision site clean, dry, and intact. Laboratory Data: H and H of 12.6 and 37. Urine culture shows mixed hyun. Assessment And Plan: An 88-year-old female with, 1.Right hip pain. 2.Avascular necrosis of right hip bone, status post arthroplasty. 3.Atrial fibrillation, chronic, rate controlled. 4.Essential hypertension. 5.Status post chronic anticoagulation. 6.Gastroesophageal reflux disease without esophagitis. Plan: Continue pain control. Discontinue IV fluids. Place the patient on a heart healthy, fluid-re stricted diet. Plan likely discharge in next 24 to 48 hours to inpatient rehab once accepted. /KATHERINE Voice ID: [id number] Report ID: [id number]
--- NOTE | 2018-09-05 20:58 | P.PN ---
Date of Service: 09/05/18 (POD#1) S: THIS PATIENT HAS A BRIGHT AND CHEERFUL ATTITUDE TODAY IN HER FIRST POSTOPERATIVE MORNING AFTER INSERTION OF UNIPOLAR HIP PROSTHESIS. SHE HAS ALREADY HAD HER FIRST PHYSICAL THERAPY SESSION AND AMBULATED 22 FEET WITH A ROLLING WALKER. SHE IS QUITE PLEASED THAT SHE IS BEEN ACCEPTED TO A FIFTH FLOOR REHABILITATION STAY. O: AFEBRILE, THE PATIENT HAS BEEN IN AND OUT OF ATRIAL FIBRILLATION THAT IS BEING MANAGED BY INTERNAL MEDICINE. SHE HAS NO COMPLAINTS OF CHEST PAIN OR DISCOMFORT OTHER THAN THE RIGHT HIP PAIN WHICH SHE EXPECTED IN THE POSTOPERATIVE PERIOD. HEMOGLOBIN IS 12.6 DOWN FROM 14.3 AFTER SURGERY. HEMOGLOBIN PRIOR TO SURGERY WAS 14.8.BANDAGES CLEAN AND DRY AND INTACT ON THE RIGHT HIP. THE PATIENT DEMONSTRATES LIFTING THE RIGHT LOWER EXTREMITY AND PUMPING HER ANKLE UP AND DOWN WITH STRENGTH. CERTAIN MOVEMENTS SUCH ABDUCTING BOTH HIPS SIMULTANEOUSLY IS CAUSING RELATIVELY SEVERE DISCOMFORT. LIFTING THE RIGHT LOWER EXTREMITY WITH THE LEFT ANKLE BEHIND THE RIGHT ANKLE WAS DISCUSSED A MANEUVER THAT WOULD ENTAIL MORE COMFORT SHE GOT IN AND OUT OF BED. REVIEW OF POSTOPERATIVE X-RAYS SHOW EXCELLENT POSITION FOR THE UNIPOLAR FEMORAL PROSTHESIS. A; THIS PATIENT IS DEMONSTRATING AN EXCELLENT ATTITUDE AND GOOD PROGRESS IN THE FIRST DAY POST RIGHT HIP SURGERY. SHE DID HAVE SYMPTOMS OF SCIATICA PART OF HER PREOPERATIVE PAIN SYNDROME, AND THERE IS A HISTORY OF BACK SURGERY AND FUSION WITH FIXATION OF L4-5 AND S1. P: CONTINUE MOBILIZATION TOLERATED. ANTICOAGULATION FOR AFIB CAN BE RESTARTED TODAY.
[2018-09-05] MEDS: ZOLPIDEM TARTRATE 5 MG TABLET PO PRN (21:45)
[2018-09-05] MEDS: MONTELUKAST 10 MG TAB PO SCH (21:45)
[2018-09-05] MEDS: DULOXETINE 30 MG CAP PO SCH (21:45)
--- NOTE | 2018-09-06 04:14 | OP ---
Date of Procedure: 09/04/2018 Surgeon: Winston Garcia MD Service Order Expediter: AUGUSTUS Loomis who gave very necessary senior office assistant services throughout the case. 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 Postoperative Diagnosis: Right hip stress fracture, basicervical femoral neck associated with chroni c avascular necrosis of femoral head without collapse. Primary Procedure: Insertion of cemented unipolar right hip prosthesis for stress fracture, basicerv ical femoral neck. Indications: This 88-year-old female noted onset of pain during a stress test in mid June that i nvolved her right hip. She had been doing quite well in cardiac rehabilitation, lauded for her effor ts and her exuberant efforts seemed to result in increasing limitations secondary to right hip pain. She was referred for neurosurgical consultation and Dr. Arash Castillo sent the patient for CT scan, w hich showed [id number] osteoarthritis of the right hip. The patient was then referred for orth opedic consultation and seen in my office on 08/16/2018. She reported groin pain that ran down her a nterior thigh to the knee and then further down the anterolateral lower leg to the foot. She was batsheva gnosed as having both sciatica and possibly a proximal femoral stress fracture because of the persist ent pain lasting more than a month. MRI scan done showed avascular necrosis of the right femoral hea d without collapse and a curvilinear area of low signal interpreted as stress fracture of the basicer vical calcar. The patient returned for review of the MRI scan without using a walker, which she had been encouraged to use for toe-touch only right lower extremity. The patient refused any considerati on for surgery as she had [place] celebration plans. She did agree to use a Rollator walker and re turn for followup in 4 weeks. However, prior to that followup she had called indicating she is havin g a great deal of pain and is unable to get out of her bed and go to the bathroom, and for that reaso n she was referred to the emergency room for reevaluation of possibly a displaced stress fracture of the right hip. X-ray proved no displacement had occurred but her intractable pain and inability to a mbulate prompted admission and she has elected to proceed with arthroplasty, most likely hemiarthropl asty but possibly a total hip arthroplasty if the condition of the acetabulum warrants. Technique: The patient was taken to the operating room. Time-out was called and all pertinent facts were discussed and agreed upon before deciding to proceed with the planned operation. The patient w as placed in the left lateral position and secured with bolsters for the lumbar spine and abdomen and pubic ramus. The right lower extremity was placed in traction with a strap to the foot and ankle delgado pported by IV pole while prepping and draping was carried out from the right lateral ribcage encircli ng the entire hip, thigh, knee and calf of the right lower extremity to the ankle. Then a sterile gl ove was used to support the leg while the strap was removed from the foot and ankle, and DuraPrep was applied to the right foot. An impervious drape was placed over the foot and up to the knee as sheet s and sticky drapes were positioned for the operation. The incision was made in a curved fashion beg inning across the lateral aspect of the proximal femur and curving just off the greater trochanter to hernández the posterior superior iliac spine. This incision was approximately 20 cm in length. It was ca rried sharply through skin and subcutaneous tissue to expose the fascia haroon. The fascia haroon was di vided with the cutting Bovie and it was carried proximally into the gluteus adriana muscle, which was split with fingertip pressure. Below the fascia haroon and gluteus adriana, there was significant dis turbance of tissue with stiffness and adhesion of layers to bone. The patient had visible on CT scan and x-rays, an injection granuloma in the right buttock and the reaction to that seems to have invol altagracia tissues that normally were pliable were stiff and difficult to mobilize. The dissection was guerrier ied out close to the posterior aspect of the femur moving down to expose the superior aspect of the l kirstin tuberosity and moving proximally it was carried out until the position of the piriformis tendon was determined. At that point, the piriformis was released and tagged and it along with external ro tators were used to retract posteriorly the sciatic nerve. The capsular incision was initiated at th e level of the piriformis and moved directly to the acetabulum on the superior aspect of the right hi p posteriorly. Again in the plane of the posterior femur, the capsule was released to make a flap th at could be closed. The femoral neck was exposed and external rotation allowed dislocation of the fe moral head. The site of osteotomy was chosen and the oscillating saw was used to make that osteotomy at the proper angle approximately 1.5 cm above the superior aspect of the lesser trochanter. This a llowed inspection of the acetabulum, which had intact chondral surfaces. The round ligament was exci sed with cutting Bovie and then Aquamantys was used to reduce it to a stump that was quite small and without significant bleeding. The calcar retractor was put in place along with a Barba retractor n ext to the lesser trochanter to allow access to the proximal femur intramedullary space. A canal fin mc was used after the initiator and then a trochanteric lateralizing rasp was used with the T-handle . Reaming was also done with a T-handle followed by broaching. Broaching was carried out to the [employer] e 5 broach, which was left in place for trialing, the 49-mm Marina ball was chosen. The trial was put in position with a 0+ mm neck. This proved to be a stable reduction without pistoning and with a ppropriate length comparison to the opposite limb. X-rays were taken during this procedure and verif ied good position and length for the right hip. The intramedullary plug was put in position after re moval of the prosthetic trial components. It was positioned at 17 cm from the calcar cut. Two batch es of Simplex HV cement with gentamicin were mixed and placed in a cement gun and then injected into the proximal femur intramedullary canal with pressurized technique and then the [employer] [place] femoral stem 12/14 taper, size 5 was pressed into position as the cement was allowed to set. The [place] me jian head 49-mm in diameter along with the +0 neck spacer was tapped onto the stem of the proximal fem ur and then reduced with traction and rotation. The femoral head was quite stable at full flexion gr eater than 90 degrees and internal rotation. There was no pistoning noted with pull and push on the proximal right thigh. Irrigation was carried out profusely and closure was effected in layers using #1 Vicryl for repair of the capsule and piriformis insertion with interrupted sutures. External rota tors were repaired to the margin of the vastus lateralis. Then the fascia haroon was repaired with int errupted sutures of #1 Vicryl extending upward to repair the fascial layer of the gluteus adriana. A gain, Simpulse lavage was utilized and then the subcutaneous tissues were closed first with #1 Vicryl in the deepest layers and 2-0 Vicryl in the more superficial layers with interrupted sutures of 2-0 Vicryl. Skin trent were used for skin closure and the incision was injected with 30 mL of 0.25% Ma rcaine with epinephrine. A sterile Aquacel bandage was applied. Estimated blood loss was 300 mL. The patient was taken to the recovery room having reinaldo erated this procedure well. BRIDGET/KATHERINE Voice ID: [id number] Report ID: [id number]
[2018-09-06 04:43] VITALS: BP 118/57
[2018-09-06 05:26] LABS: Hematocrit 36.5 % (36.0-45.0)
[2018-09-06 05:43] LABS: Potassium 4.1 mmol/L (3.5-5.1)
[2018-09-06 06:08] LABS: Magnesium 1.8 mg/dL (1.8-2.4)
[2018-09-06] MEDS: INSULIN -REGULAR HUMAN 50 UNIT/0.5 ML ML SQ SCH (07:30)
[2018-09-06] MEDS: HYDROCODONE/APAP 7.5/325 MG TAB PO PRN (08:08)
[2018-09-06] MEDS: FUROSEMIDE 40 MG TABLET PO SCH (08:08)
[2018-09-06] MEDS: VITAMIN D 1000 UNIT TAB PO SCH (08:09)
[2018-09-06] MEDS: PANTOPRAZOLE 40 MG INJ IVP SCH (08:09)
[2018-09-06] MEDS: ONDANSETRON 4 MG/2 ML VIAL IV PRN (08:09)
[2018-09-06] MEDS: CYANOCOBALAMIN 1,000 MCG TAB PO SCH (08:09)
[2018-09-06] MEDS ORDERED: MAGNESIUM SULFATE 1 gm IVPB 1 GM/100 ML BAG IV ONE (08:22)
[2018-09-06] MEDS ORDERED: APIXABAN 5 MG TABLET PO SCH (09:22)
[2018-09-06 10:14] VITALS: TEMP 99.3
[2018-09-06 10:57] VITALS: O2SAT 91
--- NOTE | 2018-09-07 07:12 | DS ---
Date of Discharge: 09/06/2018 Consultants: Dr. Garcia with Orthopedic Surgery. Procedures: On 09/04/2018, a right hip stress fracture basicervical femoral neck associated with chr onic avascular necrosis of femoral head without collapse, status post unipolar right hip prosthesis f or stress fracture. Admitting Diagnoses: 1.Right hip pain. 2.Avascular necrosis of bone on right hip. 3.Atrial fibrillation, chronic, on anticoagulation. 4.Essential hypertension. Discharge Diagnoses: 1.Right hip pain. 2.Avascular necrosis of right hip bone, status post arthroplasty. 3.Atrial fibrillation, chronic, on Eliquis. 4.Essential hypertension. 5.Status post chronic anticoagulation. 6.Congestive heart failure. Echocardiogram shows ejection fraction of 25%, systolic dysfunction. Hospital Course: The patient is an 88-year-old female who came in with right hip pain. She was eval uated with imaging studies, found to have avascular necrosis of the hip. The patient was seen by Dr. Garcia who recommended arthroplasty. The patient was on anticoagulation due to her atrial fibrillat ion, which was held. The patient did well with surgery. The patient was able to get up and move abilio und with physical therapy. Her pain was well controlled. Her hemoglobin remained stable postoperati vely. The patient was then referred to inpatient rehab for physical therapy. The patient was accept ed and was discharged to inpatient rehab in a fair condition. Activity: As per rehab. Medications: As per medication reconciliation list. Diet: Low-sodium, fluid-restricted diet. Followup: Follow up with PCP in 2 weeks. Follow up with orthopedic surgeon, Dr. Garcia, in [place] for wound check. Return to ER for worsening condition. Physical Examination: General: Awake, alert, oriented x3. Elderly female. Some mild pain with movement. CV: S1, S2. Regularly irregular. Respiratory: Moving air well bilaterally. Abdomen: Soft, nontender, nondistended. Positive bowel sounds. Extremities: No clubbing, cyanosis, edema. Musculoskeletal: Right hip incision site clean, dry, intact. Neurologic: Nonfocal. Total time spent discharging the patient was 39 minutes. /KATHERINE Voice ID: [id number] Report ID: [id number]
== END 2018-09-06 11:00 | DRG 470 ==
LOC: ER 12:28 → ERHOLD 16:49 → 4TH 18:19 → ERHOLD 18:19 → 4TH 19:36
PROVIDERS: ADMIT Family Medicine; ATTEND Family Medicine
PROC: 0SRR019 Replacement of Right Hip Joint, Femoral Surface with Metal Synthetic Substitute, Cemented, Open Approach (ICD-10-PCS; principal; 2018-09-04 12:30)
DX: M84.359A Stress fracture, hip, unspecified, initial encounter for fracture (principal); M87.051 Idiopathic aseptic necrosis of right femur; M90.551 Osteonecrosis in diseases classified elsewhere, right thigh; M87.9 Osteonecrosis, unspecified; M16.11 Unilateral primary osteoarthritis, right hip; H81.09 Meniere's disease, unspecified ear; I48.91 Unspecified atrial fibrillation; Z79.01 Long term (current) use of anticoagulants; K21.9 Gastro-esophageal reflux disease without esophagitis; I10 Essential (primary) hypertension; M25.551 Pain in right hip; X58.XXXA Exposure to other specified factors, initial encounter; Y93.9 Activity, unspecified; Y92.019 Unspecified place in single-family (private) house as the place of occurrence of the external cause; Z88.2 Allergy status to sulfonamides; F17.210 Nicotine dependence, cigarettes, uncomplicated; M25.451 Effusion, right hip; I48.2 Chronic atrial fibrillation
CPT/HCPCS: 36415; 71045; 72170; 73530; 80048; 80053; 81003; 81015; 82962; 83735; 84100; 85014; 85018; 85025; 85610; 85730; 87086; 87088; 88305; 88311; 93005; 94760; 97110; 97116; 97163; 97530; 99285; C9113; J0690; J2175; J2405; J2550; J2704; J2710; J3010; J3475; J7030

== ENCOUNTER 2018-09-06 11:21 | Inpatient (IN) | payer OTHER, MEDICARE ==
--- NOTE | 2018-09-06 10:10 | R.PREADM ---
SCREENING DATE AND TIME 09/06/2018 08:50 (ACETALDEHYDE CONVERTER OPERATOR) ANTICIPATED REHAB ADMISSION DATE 09/08/[address] [facility] REFERRAL DATE AND TIME 09/06/2018 08:51 (ACETALDEHYDE CONVERTER OPERATOR) ACUTE ADMIT DATE 09/01/2018 Previous Rehabilitation(s): No. REFERRING PHYSICIAN Funmi Flores REHAB FACILITY [facility] CLINICAL LIAISON Robert Avalos PHYSICIAN REVIEWER Dr. Parviz Frederick M.D. MR# [id number] NAME VAMSHI LUGO ADDRESS [address] [place] [address] PHONE [facility] [id number] DATE OF 1930 AGE 88 SSN# [id number] GENDER female MARITAL STATUS RACE white ADMIT FROM 01 - Home (private home/apt. board/care, assisted living, senior care, transitional living) PRE-HOSPITAL LIVING SETTING 02 - [facility] PRE-HOSPITAL LIVING WITH Alone FAMILY SUPPORT No PHONE PRIMARY FAMILY CONTACT ON ADM.? no IS PRIMARY FAMILY CONTACT AUTH. REP.? no PHONE 1ST CONTACT ON ADM. no IS 1ST CONTACT AUTH. REP.? no PHONE 2ND CONTACT ON ADM.? no PATIENT EMPLOYMENT STATUS Retired (for age) PATIENT EMPLOYER No Employer PAYOR INFORMATION: 1ST PAYOR NAME MEDICARE 1ST PAYOR PHONE 1ST PAYOR INJURY/ILLNESS DUE TO ACCIDENT? No ANOTHER LIBERTARIAN RESPONSIBLE? 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 therapy X-rays - GERD Altered diet Elevation of head of bed Medications Nausea/vomiting Nighttime food/fluid restrictions Nutrition RISK FOR COMPLICATIONS: - Hypertension CVA Hypotension [place] TIA - COPD Acute Resp failure Pneumonia Resp. Arrest - GERD Alteration in sleep Aspiration Dehydration Malnutrition Pain SUMMARY OF ACUTE HOSPITALIZATION: Pt. is a 88 yo Right-handed white female. On 09/01/[address] she [address] admitted to 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 Pre-morbidly, Pt. was independent/mod-I in Self-Care, Sphincter Control, Transfers Control, Communica tion, Social Cognition, and Locomotion; and she had good Sphincter Control. Currently, she has deficits of Self-Care, Endurance, Safety Awareness, Transfers Control, Communicati on, Social Cognition, Balance, and Locomotion. Pt. is now referred to [facility] for acute in-patient rehabilitation in order to maximize patient's functional independence in activities of daily living, strength, ROM, and mobi lity. Patient has realistic goal of being discharged at assistance level 6-Shanika to reside at Home with Fam zeferino/Relatives. PAST MEDICAL HISTORY Afib CHF exacerbation COPD GERD avascular necrosis of bone of right hip chronic anticoagulation hypertension [place] constipation PAST SURGICAL HISTORY: colostomy colostomy reversal APPENDECTOMY cholecystectomy MEDICATION ALLERGIES: sulfa ENVIRONMENTAL ALLERGIES: - Substance Allergies None Known - Other Allergies None Known CODE STATUS: Full code WEIGHT/HEIGHT/BMI: WEIGHT 148 lbs HEIGHT 5' 7" BMI 23.2 DIET: - Diet Type Regular - Diet - Solid Texture Regular - Diet - Liquid Texture Regular - Tube Feed N/A SKIN DIAGRAM: Incision on Right hip; extent - small; stage - NS(Not Stageable). Treatment - Per Physician's Orders. REVIEW OF SYSTEMS: - Gen Alert and awake Lying in bed No apparent distress Oriented to: person, time, and place - Vital Signs Vital signs stable, afebrile - CVS RRR VITAL SIGNS Temperature: 99 F SBP/DBP: 110/52 Pulse: 100 Resp: 18 Vital signs stable, afebrile CURRENT SPHINCTER CONTROL: Pre-hospital bladder status: continent # of bladder accidents in the last 7 days prior to screenin Pre-hospital bowel status: continent # of bowel accidents in the last 7 days prior to screenin Last Bowel Movement Date: 09/06/2018 DETAILED CURRENT FUNCTIONAL STATUS: - Bladder accident frequency: Ind - No accidents in the past 7 days - Bowel accident frequency: Ind - No accidents in the past 7 days - Walking score based on distance walked: 1(<=50ft) FUNCTIONAL STATUS: - Self-Care A. Eating Ind sup B. Grooming Ind Aidee C. Bathing Ind Aidee D. Dressing - Upper Ind Aidee E. Dressing - Lower Ind maxA F. Toileting Ind maxA - Sphincter Control G: Bladder control Ind Ind H: Bowel control Ind Ind - Transfers Control I. Bed/Chair/Wheelchair Ind modA J. Toilet Ind modA K. Tub/Shower Ind modA - Locomotion L. Walk/Wheelchair (B) Shanika Dep M. Stairs Shanika ADNO - Communication N. Comprehension (B) Ind Aidee O. Expression (B) Ind sup - Social Cognition P. Social Interaction Ind sup Q. Problem Solving Ind sup R. Memory Ind sup - Endurance Poor - Balance Poor - Safety Awareness Fair CURRENT FUNC. DEFICITS: Self-Care, Endurance, Safety Awareness, Transfers Control, Communication, Social Cognition, Balance, and Locomotion THERAPY NOTES FROM ACUTE CARE: Attached. SPECIAL NEEDS: - Safety Concerns Skin breakdown precautions needed due to skin breakdown risk PRECAUTIONS: - Posterior Hip Precaution No adduction across midline No external rotation No hip flexion >90 degrees No internal rotation No wheel chair propulsion - Weight Bearing Precaution WBAT right LE PATIENT NEEDS ACTIVE AND ONGOING THERAPEUTIC INTERVENTION OF MULTIPLE THERAPY DISCIPLINES, INCLUDING: - Occupational Therapy Evaluate and Treat. - Physical Therapy Evaluate and Treat. PATIENT NEEDS CLOSE MEDICAL SUPERVISION BY A REHABILITATION PHYSICIAN FOR: Bowel and Bladder Management Coordination of Treatment Team Medical and Co-Morbidity Management Post-Op Complications Wound Care PATIENT REQUIRES 24X7 REHAB NURSING FOR MEDICAL AND FUNCTIONAL MGT. OF THE FOLLOWING DEFICITS: ADL's Ambulation Bowel and Bladder Management Cognition Communication Disease Management Medication Management Patient/Family Education Providing Safe Environment Skin Integrity Transfers PATIENT REQUIRES INTENSIVE, COORDINATED INTERDISCIPLINARY APPROACH TO REHAB: Arranging Home Equipment/Services Discharge Planning Family Intervention/Training Associate Software Development Engineer/Case Management PATIENT REHAB POTENTIAL: Expected level of measurable improvement will be of a practical value to patient's functional capacit y or adaptations to impairments Has a viable Discharge Plan Medically appropriate; condition is sufficiently stable to participate in intensive rehab program Patient is able and expected to receive 3 hours of individualized therapy daily on at least 5 of ever y 7 days Patient's prognosis for significant practical improvement within a reasonable period of time appears Good DISCHARGE PLAN: - Estimated Length of Stay (days) 14. - Consensus on plan Discharge plan has been discussed with primary caregiver. Patient/Family is in agreement with the yaneth n. Primary caregiver is in agreement with the plan. - Patient/Family Goals Return home with assistance. RECOMMENDED CARE LEVEL: IRF RECOMMENDATION DETAILS: Recommended Admission to Comprehensive Rehabilitation Program to Increase Functional [place] SCREENER'S COMPLETENESS CONFIRMATION: - Screening Confirmation The patient data collection on this preadmission screening form is finished PHYSICIANS REVIEW AND ADMISSION DETERMINATION Admit - Based on my review of the Pre-Admission Screening results, in my medical judgment and experie nce, I concur with the findings and recommend admission to [facility], as this patient requires an IRF level of care. SIGNATURE PANEL: Clinical Liaison - [electronically] signed by Qiana Jackman on 09/06/2018 at 09:58 (ACETALDEHYDE CONVERTER OPERATOR) Clinical Liaison - [electronically] signed by Robert Avalos on 09/06/2018 at 10:03 (ACETALDEHYDE CONVERTER OPERATOR) Physician Reviewer - [electronically] signed by Dr. Parviz Frederick M.D. on 09/06/2018 at 10:09 (ACETALDEHYDE CONVERTER OPERATOR )
[2018-09-06] MEDS ORDERED: hydrOXYzine HCl 25 MG TAB PO PRN (11:30)
[2018-09-06] MEDS ORDERED: HOME MED 1 EA UNK PO PRN (11:51)
[2018-09-06] MEDS: HYDROCODONE/APAP 5/325 MG TAB PO PRN ×2 (12:27→17:17)
[2018-09-06] MEDS ORDERED: MELATONIN 3 MG TABLET PO PRN (13:19)
--- NOTE | 2018-09-06 15:52 | FAST ---
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 Parviz Frederick M.D. 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 EATING: Activity did not occur on this shift EATING - SCORE: 0-UNK GROOMING: Activity did not occur on this shift GROOMING - SCORE: 0-UNK BATHING: Activity did not occur on this shift BATHING - SCORE: 0-UNK DRESSING - UPPER BODY: Activity did not occur on this shift Patient is not dressing in public clothing ARTICLES SCORE Total number of steps: 0 DRESSING - UPPER BODY - SCORE: 0-UNK DRESSING - LOWER BODY: Activity did not occur on this shift Patient is not dressing in public clothing ARTICLES SCORE Total number of steps: 0 DRESSING - LOWER BODY - SCORE: 0-UNK TOILETING: Activity did not occur on this shift TOILETING - SCORE: 0-UNK BLADDER MANAGEMENT: Activity did not occur on this shift BLADDER MANAGEMENT - SCORE: 7-IND BOWEL MANAGEMENT: Activity did not occur on this shift BOWEL MANAGEMENT - SCORE: 7-IND TRANSFERS: BED, CHAIR, WHEELCHAIR: TRANSFERS: BED, CHAIR, WHEELCHAIR - STEP 1: Does the patient require assistance of a person or device, or need extra time with bed, chair, or whe elchair transfers? Yes. TRANSFERS: BED, CHAIR, WHEELCHAIR - STEP 2: Does the patient require the assistance of a helper? Yes. TRANSFERS: BED, CHAIR, WHEELCHAIR - STEP 3: How much assistance does the patient require from the helper? Lifting of the patient TRANSFERS: BED, CHAIR, WHEELCHAIR - STEP 4: Does the helper lift the patient ONLY up? ONLY down? Up AND Down? Up AND Down. TRANSFERS: BED, CHAIR, WHEELCHAIR - SCORE: 2-MAX TRANSFERS: TOILET: Activity did not occur on this shift TRANSFERS: TOILET - SCORE: 0-UNK TRANSFERS: SHOWER: Activity did not occur on this shift TRANSFERS: SHOWER - SCORE: 0-UNK TRANSFERS: TUB: Activity did not occur on this shift TRANSFERS: TUB - SCORE: 0-UNK LOCOMOTION: WALK: LOCOMOTION: WALK - STEP 1: Does the patient need help from a person or device, or need extra time to walk 150 feet? Yes. LOCOMOTION: WALK - STEP 2: How much assistance does the patient require to walk a minimum of 150 feet? Only incidental help such as contact guarding or steadying LOCOMOTION: WALK - SCORE: 4-MIN LOCOMOTION: WHEELCHAIR: Activity did not occur on this shift LOCOMOTION: WHEELCHAIR - SCORE: 0-UNK LOCOMOTION: STAIRS: Activity did not occur on this shift LOCOMOTION: STAIRS - SCORE: 0-UNK COMPREHENSION: COMPREHENSION - SCORE: 0-UNK EXPRESSION EXPRESSION - SCORE: 0-UNK SOCIAL INTERACTION: SOCIAL INTERACTION - SCORE: 0-UNK PROBLEM SOLVING: PROBLEM SOLVING - SCORE: 0-UNK MEMORY: MEMORY - SCORE: 0-UNK SIGNATURE PANEL: The following modified sections: Transfers: Bed, Chair, Wheelchair - Score, Transfers: Toilet - Score , Locomotion: Walk - Score, Locomotion: Wheelchair - Score, Locomotion: Stairs - Score were [levy salazar] signed by Kaushik Zamudio, PT on TueSep 06 2018 15:50:45 GMT-0600 (Central Standard Time)
[2018-09-06] MEDS: GABAPENTIN 100 MG CAP PO SCH (20:32)
[2018-09-06] MEDS: DULOXETINE 30 MG CAP PO SCH (20:32)
[2018-09-06] MEDS: MAGNESIUM OXIDE 400 MG TAB PO SCH (20:32)
[2018-09-06] MEDS: APIXABAN 5 MG TABLET PO SCH (20:33)
[2018-09-06] MEDS: MONTELUKAST 10 MG TAB PO SCH (20:33)
[2018-09-06] MEDS: ZOLPIDEM TARTRATE 5 MG TABLET PO PRN (20:33)
[2018-09-06] MEDS: SACUBITRIL/VALSARTAN 24/26 MG TAB PO SCH (20:34)
[2018-09-06] MEDS: DOCUSATE NA/SENNA CONC 1 TAB PO SCH (20:34)
--- NOTE | 2018-09-06 22:24 | P.PN ---
Date of Service: 09/06/18 (POD#2) S: PATIENT IS NOW ON FIFTH FLOOR REHABILITATION STAY JUST BROUGHT UP 11:30 THIS MORNING. pATIENT IS PLEASED WITH THE TRANSFER BUT TIRED WITH THE MORNINGS ACTIVITIES. SHE INDICATES SHE DID NOT HAVE THERAPY DOWN STAIRS PRIOR TO TRANSFER. O: VITAL SIGNS ARE STABLE, AFEBRILE; PAIN CHART READS 5, 8, 0, 0, 6, 0/10. HEMOGLOBIN DONE DOWN STAIRS THIS MORNING WAS 12.8 UP FROM 12.6; BANDAGE IS CLEAN , DRY AND INTACT. PATIENT DEMONSTRATES DORSIFLEXION AND PLANTARFLEXION AND NORMAL SENSATION. DORSAL PEDIS PULSES 2+. PATIENT WAS THINKING SHE WAS GOING TO GET SOME REST, BUT PHYSICAL THERAPY ENTERED ROOM JUST I WAS LEAVING. A: PATIENT IS IN BEST LOCATION FOR MAKING POSTOPERATIVE REHABILITATION EFFORT. PAIN SEEMS TO BE UNDER CONTROL WITH MINIMAL MEDICATION. PATIENT HAS BEEN RESTARTED ON ELIQUIS 5 MG BY MOUTH TWICE A DAY. P: PROGRESSIVE MOBILIZATION ANTICIPATED. DR. STREET WILL BE COVERING FOR ME DURING CME TRIP 09/07/18 TO 06/18/19.
[2018-09-07 00:24] LABS: Urine Appearance CLEAR; Urine Bilirubin NEGATIVE (NEG); Urine Blood TRACE (NEG); Urine Color DK YELLOW; Urine Glucose NEGATIVE (NEG); Urine Protein NEGATIVE (NEG); Urine pH 5.5 (5.0-7.0)
[2018-09-07 01:19] LABS: Urine Bacteria <20 /HPF (<20); Urine Culture Reflex Order REFLEXED; Urine RBC <5 /HPF (NONE SEEN)
--- NOTE | 2018-09-07 02:53 | FAST ---
SHIFT START DATE/TIME: 09/06/2018 19:00 (RATE CLERK PASSENGER) SHIFT END DATE/TIME: 09/07/2018 07:00 (RATE CLERK PASSENGER) NAME VAMSHI LUGO DATE OF : 1930 DATE OF ADMISSION: 09/06/2018 11:21 (RATE CLERK PASSENGER) PHONE: AGE: 88 SSN# [id number] GENDER: Female ENCOUNTER PHYSICIAN: Dr. Parviz Frederick M.D. 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 EATING: Activity did not occur on this shift EATING - SCORE: 0-UNK GROOMING: Wash, rinse, and dry hands GROOMING - STEP 1: Does the patient require the assistance of a person or device, or need extra time when grooming? Yes. GROOMING - STEP 2: Does the patient require the assistance of a helper? Yes. GROOMING - STEP 3: How much assistance does the patient require from the helper? Cuing, coaxing, instructions, or encour agement for completion of grooming GROOMING - SCORE: 5-SUP BATHING: Activity did not occur on this shift BATHING - SCORE: 0-UNK DRESSING - UPPER BODY: Patient is not dressing in public clothing ARTICLES SCORE Total number of steps: 0 DRESSING - UPPER BODY - SCORE: 0-UNK DRESSING - LOWER BODY: Patient is not dressing in public clothing ARTICLES SCORE Total number of steps: 0 DRESSING - LOWER BODY - SCORE: 0-UNK TOILETING: TOILETING - STEP 1: Does the patient require the assistance of a person or device, or need extra time with toileting? Yes . TOILETING - STEP 2: Does the patient require the assistance of a helper? Yes. TOILETING - STEP 3: How much assistance does the patient require from the helper? Hands-on assistance from the helper TOILETING - STEP 4: Of the 3 tasks: 1) Adjusting clothing prior to use, 2) Cleansing of perineal area, 3) Adjusting clot ilene after use; How many tasks does the patient perform WITHOUT assistance of the helper? Three tasks with steadying assistance from the helper TOILETING - SCORE: 4-MIN BLADDER MANAGEMENT: BLADDER MANAGEMENT - STEP 1: Does the patient control the bladder completely and intentionally without equipment or devices or med ications, and is always continent? No. BLADDER MANAGEMENT - STEP 2: Does the patient require the assistance of a helper? Yes. BLADDER MANAGEMENT - STEP 3: How much assistance does the patient require from the helper? Only supervision, stand-by, cuing, or c oaxing BLADDER MANAGEMENT - SCORE: 5-SUP BOWEL MANAGEMENT: Activity did not occur on this shift BOWEL MANAGEMENT - SCORE: 7-IND TRANSFERS: BED, CHAIR, WHEELCHAIR: TRANSFERS: BED, CHAIR, WHEELCHAIR - STEP 1: Does the patient require assistance of a person or device, or need extra time with bed, chair, or whe elchair transfers? Yes. TRANSFERS: BED, CHAIR, WHEELCHAIR - STEP 2: Does the patient require the assistance of a helper? Yes. TRANSFERS: BED, CHAIR, WHEELCHAIR - STEP 3: How much assistance does the patient require from the helper? Lifting of the legs TRANSFERS: BED, CHAIR, WHEELCHAIR - STEP 4: How many legs does the patient require the helper to lift? both legs TRANSFERS: BED, CHAIR, WHEELCHAIR - SCORE: 3-MOD TRANSFERS: TOILET: TRANSFERS: TOILET - STEP 1: Does the patient require the assistance of a person or device, or need extra time with toilet transfe rs? Yes. TRANSFERS: TOILET - STEP 2: Does the patient require the assistance of a helper? Yes. TRANSFERS: TOILET - STEP 3: How much assistance does the patient require from the helper? Patient performs half or more of the tr ansferring tasks TRANSFERS: TOILET - STEP 4: Does the patient need only incidental help such as contact guard or steadying during toilet transfer? Yes. TRANSFERS: TOILET - SCORE: 4-MIN TRANSFERS: SHOWER: Activity did not occur on this shift TRANSFERS: SHOWER - SCORE: 0-UNK TRANSFERS: TUB: Activity did not occur on this shift TRANSFERS: TUB - SCORE: 0-UNK LOCOMOTION: WALK: Activity did not occur on this shift LOCOMOTION: WALK - SCORE: 0-UNK LOCOMOTION: WHEELCHAIR: Activity did not occur on this shift LOCOMOTION: WHEELCHAIR - SCORE: 0-UNK COMPREHENSION: COMPREHENSION: TYPE: Both COMPREHENSION - STEP 1: Does the patient require help from a person or device, or need extra time to understand complex and a bstract ideas (such as current events, finances, discharge planning, medical issues, relationships, e tc)? No. COMPREHENSION - STEP 2: Does the patient need extra time, require an assistive device (such as glasses for visual comprehensi on or a hearing aid for auditory comprehension) or does s/he have mild difficulty understanding compl ex and abstract information? Yes. COMPREHENSION - SCORE: 6-DION EXPRESSION EXPRESSION: TYPE: Both EXPRESSION - STEP 1: Does the patient require help from a person or device, or need extra time expressing complex and abst ract ideas (such as current events, finances, discharge planning, medical issues, relationships, etc) ? No. EXPRESSION - STEP 2: Does the patient need extra time, require an assistive device (such as augmentive communication syste m or a communication board), OR does s/he have mild difficulty expressing complex and abstract ideas (including mild dysarthria or mild word-find problems)? Yes. EXPRESSION - SCORE: 6-DION SOCIAL INTERACTION: SOCIAL INTERACTION - STEP 1: Does the patient require a helper to interact with others in social and therapeutic situations? No. SOCIAL INTERACTION - STEP 2: Does the patient need extra time in social situations, OR does s/he interact with staff, other patien ts, and family members ONLY in structured environments, OR does s/he require medication for social in teraction? Yes, patient needs extra time SOCIAL INTERACTION - SCORE: 6-DION PROBLEM SOLVING: PROBLEM SOLVING - STEP 1: Does the patient need help from a person or device, or need extra time to solve complex problems such as managing a checking account or confronting interpersonal problems? Yes. PROBLEM SOLVING - STEP 2: Does the patient solve basic routine problems half or more of the time? Yes. PROBLEM SOLVING - STEP 3: How often does the patient need help to solve basic routine problems? 10%-24% of the time PROBLEM SOLVING - SCORE: 4-MIN MEMORY: MEMORY - STEP 1: Does the patient need help from a person or device, or need extra time to remember frequently encount ered people, daily routines, and executing requests? No. MEMORY - STEP 2: Does the patient have slight difficulty recognizing frequently encountered people, daily routines, or executing requests without the need for repetition or using self-initiated or environmental cues to remember? Yes. MEMORY - SCORE: 6-DION SIGNATURE PANEL: The following modified sections: Eating - Score, Grooming - Score, Dressing - Upper Body - Score, Jelani ssing - Lower Body - Score, Toileting - Score, Bladder Management - Score, Bowel Management - Score, Transfers: Bed, Chair, Wheelchair - Score, Transfers: Toilet - Score, Transfers: Shower - Score, [place] sfers: Tub - Score, Locomotion: Walk - Score, Locomotion: Wheelchair - Score, Comprehension - Score, Expression - Score, Social Interaction - Score, Problem Solving - Score, Memory - Score were [electro nically] signed by Hina Quinones CNA on TueSep 07 2018 02:52:31 GMT-0600 (Central Standard Time)
[2018-09-07] MEDS: HYDROCODONE/APAP 5/325 MG TAB PO PRN ×2 (03:50→10:51)
[2018-09-07] MEDS: PANTOPRAZOLE 40MG TABLET PO SCH (05:36)
[2018-09-07 06:27] LABS: Absolute Lymphocytes (CBC) 0.7 K/uL (0.7-4.9); Absolute Monocytes 1.2 K/uL (0.1-1.3); Absolute Neutrophil 8.2 K/uL (1.8-8.0); Basophils % 0.3 % (0-1.3); Eosinophils % 2.3 % (0-4.4); Hematocrit 35.8 % (36.0-45.0); MPV 9.8 fL (7.6-11.3); Monocytes % 11.5 % (3.3-12.3); RBC Red Blood Cell Count 3.98 M/uL (3.86-4.86)
[2018-09-07 06:47] LABS: Albumin 2.5 g/dL (3.4-5.0); BUN Blood Urea Nitrogen 10 mg/dL (7-18); Bicarbonate 30 mmol/L (21-32); Glucose Level 109 mg/dL (74-106); Sodium Level 133 mmol/L (136-145)
[2018-09-07] MEDS: FUROSEMIDE 40 MG TABLET PO SCH (08:00)
--- NOTE | 2018-09-07 08:14 | FAST ---
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 Parviz Frederick M.D. 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 EATING: Activity did not occur on this shift EATING - SCORE: 0-UNK GROOMING: Activity did not occur on this shift GROOMING - SCORE: 0-UNK BATHING: Activity did not occur on this shift BATHING - SCORE: 0-UNK DRESSING - UPPER BODY: Activity did not occur on this shift Patient is not dressing in public clothing ARTICLES SCORE Total number of steps: 0 DRESSING - UPPER BODY - SCORE: 0-UNK DRESSING - LOWER BODY: Activity did not occur on this shift Patient is not dressing in public clothing ARTICLES SCORE Total number of steps: 0 DRESSING - LOWER BODY - SCORE: 0-UNK TOILETING: Activity did not occur on this shift TOILETING - SCORE: 0-UNK BLADDER MANAGEMENT: Activity did not occur on this shift BLADDER MANAGEMENT - SCORE: 7-IND BOWEL MANAGEMENT: Activity did not occur on this shift BOWEL MANAGEMENT - SCORE: 7-IND TRANSFERS: BED, CHAIR, WHEELCHAIR: TRANSFERS: BED, CHAIR, WHEELCHAIR - STEP 1: Does the patient require assistance of a person or device, or need extra time with bed, chair, or whe elchair transfers? Yes. TRANSFERS: BED, CHAIR, WHEELCHAIR - STEP 2: Does the patient require the assistance of a helper? Yes. TRANSFERS: BED, CHAIR, WHEELCHAIR - STEP 3: How much assistance does the patient require from the helper? Steadying/guiding assistance TRANSFERS: BED, CHAIR, WHEELCHAIR - SCORE: 4-MIN TRANSFERS: TOILET: TRANSFERS: TOILET - STEP 1: Does the patient require the assistance of a person or device, or need extra time with toilet transfe rs? Yes. TRANSFERS: TOILET - STEP 2: Does the patient require the assistance of a helper? Yes. TRANSFERS: TOILET - STEP 3: How much assistance does the patient require from the helper? Only supervision, cuing, coaxing, OR he lp to set out transfer equipment or to lock brakes and/or lift foot rests TRANSFERS: TOILET - SCORE: 5-SUP TRANSFERS: SHOWER: Activity did not occur on this shift TRANSFERS: SHOWER - SCORE: 0-UNK TRANSFERS: TUB: Activity did not occur on this shift TRANSFERS: TUB - SCORE: 0-UNK LOCOMOTION: WALK: LOCOMOTION: WALK - STEP 1: Does the patient need help from a person or device, or need extra time to walk 150 feet? Yes. LOCOMOTION: WALK - STEP 2: How much assistance does the patient require to walk a minimum of 150 feet? Only incidental help such as contact guarding or steadying LOCOMOTION: WALK - SCORE: 4-MIN LOCOMOTION: WHEELCHAIR: LOCOMOTION: WHEELCHAIR - STEP 1: Does the patient need help to go 150 feet in a wheelchair? Yes. LOCOMOTION: WHEELCHAIR - STEP 2: How much assistance does the patient need from the helper? More than incidental help LOCOMOTION: WHEELCHAIR - SCORE: 3-MOD LOCOMOTION: STAIRS: Activity did not occur on this shift LOCOMOTION: STAIRS - SCORE: 0-UNK COMPREHENSION: COMPREHENSION - SCORE: 0-UNK EXPRESSION EXPRESSION - SCORE: 0-UNK SOCIAL INTERACTION: SOCIAL INTERACTION - SCORE: 0-UNK PROBLEM SOLVING: PROBLEM SOLVING - SCORE: 0-UNK MEMORY: MEMORY - SCORE: 0-UNK SIGNATURE PANEL: The following modified sections: Transfers: Bed, Chair, Wheelchair - Score, Transfers: Toilet - Score , Locomotion: Walk - Score, Locomotion: Wheelchair - Score, Locomotion: Stairs - Score were [levy salazar] signed by Monika Samson PTA on TueSep 07 2018 08:12:46 GMT-0600 (Central Standard Time)
[2018-09-07] MEDS: APIXABAN 5 MG TABLET PO SCH ×2 (09:05→20:50)
[2018-09-07] MEDS: GABAPENTIN 100 MG CAP PO SCH ×2 (09:05→20:51)
[2018-09-07] MEDS: ONDANSETRON 4 MG (ODT) TAB PO PRN (09:05)
[2018-09-07] MEDS: MAGNESIUM OXIDE 400 MG TAB PO SCH ×2 (09:05→20:49)
[2018-09-07] MEDS: BACLOFEN 10 MG TAB PO SCH (09:05)
[2018-09-07] MEDS: SACUBITRIL/VALSARTAN 24/26 MG TAB PO SCH ×2 (09:06→20:00)
[2018-09-07] MEDS: TRAMADOL HCL 50 MG TAB PO PRN ×2 (09:06→19:04)
--- NOTE | 2018-09-07 14:48 | P.PN ---
Date of Service: 09/07/18 (POD#3) S: PATIENT IS RESTING BETWEEN SESSIONS WITH PT. SHE IS MOTIVATED AND ENTHUSIASTIC. STAIRS PRIOR TO TRANSFER. O: VITAL SIGNS ARE STABLE, AFEBRILE; PAIN CHART READS 0,0,5,5,2/10. HEMOGLOBIN DONE THIS MORNING WAS 12.6,STABLE UP; BANDAGE IS CLEAN, DRY AND INTACT. PATIENT DEMONSTRATES DORSIFLEXION AND PLANTARFLEXION AND NORMAL SENSATION. DORSAL PEDIS PULSES 2+. . A: PATIENT IS MAKING GOOD PROGRESS. PAIN SEEMS TO BE UNDER CONTROL. P: PROGRESSIVE MOBILIZATION TO BE CONTINUED. DR. STREET WILL BE COVERING FOR ME DURING CME TRIP.
--- NOTE | 2018-09-07 14:50 | FAST ---
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 Parviz Frederick M.D. 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 EATING: EATING - STEP 1: Does the patient require the assistance of a person or device, or need extra time when eating? Yes. EATING - STEP 2: Does the patient require the assistance of a helper? Yes. EATING - STEP 3: Does the patient perform half or more of the eating tasks? Yes. EATING - STEP 4: Does the patient need only supervision, cuing, coaxing OR help to apply an orthosis OR help to cut fo od, open containers, pour liquids, or butter bread? Yes. EATING - SCORE: 5-SUP GROOMING: Activity did not occur on this shift GROOMING - SCORE: 0-UNK BATHING: Activity did not occur on this shift BATHING - SCORE: 0-UNK DRESSING - UPPER BODY: Activity did not occur on this shift ARTICLES SCORE Total number of steps: 0 DRESSING - UPPER BODY - SCORE: 0-UNK DRESSING - UPPER BODY - COMMENTS: Pt up going to shower with therapist DRESSING - LOWER BODY: Activity did not occur on this shift ARTICLES SCORE Total number of steps: 0 DRESSING - LOWER BODY - SCORE: 0-UNK DRESSING - LOWER BODY - COMMENTS: Pt up going to shower with therapist TOILETING: TOILETING - STEP 1: Does the patient require the assistance of a person or device, or need extra time with toileting? Yes . TOILETING - STEP 2: Does the patient require the assistance of a helper? Yes. TOILETING - STEP 3: How much assistance does the patient require from the helper? Only supervision TOILETING - SCORE: 5-SUP BLADDER MANAGEMENT: BLADDER MANAGEMENT - STEP 1: Does the patient control the bladder completely and intentionally without equipment or devices or med ications, and is always continent? No. BLADDER MANAGEMENT - STEP 2: Does the patient require the assistance of a helper? Yes. BLADDER MANAGEMENT - STEP 3: How much assistance does the patient require from the helper? Only supervision, stand-by, cuing, or c oaxing BLADDER MANAGEMENT - SCORE: 5-SUP BLADDER MANAGEMENT - FREQUENCY OF ACCIDENTS: BLADDER MANAGEMENT(FA) - STEP 1: How many accidents has the patient had during the current shift? 0 BOWEL MANAGEMENT: Activity did not occur on this shift BOWEL MANAGEMENT - SCORE: 7-IND BOWEL MANAGEMENT - FREQUENCY OF ACCIDENTS: BOWEL MANAGEMENT(FA) - STEP 1: How many accidents has the patient had during the current shift? 0 TRANSFERS: BED, CHAIR, WHEELCHAIR: TRANSFERS: BED, CHAIR, WHEELCHAIR - STEP 1: Does the patient require assistance of a person or device, or need extra time with bed, chair, or whe elchair transfers? Yes. TRANSFERS: BED, CHAIR, WHEELCHAIR - STEP 2: Does the patient require the assistance of a helper? Yes. TRANSFERS: BED, CHAIR, WHEELCHAIR - STEP 3: How much assistance does the patient require from the helper? Only supervision TRANSFERS: BED, CHAIR, WHEELCHAIR - SCORE: 5-SUP TRANSFERS: TOILET: TRANSFERS: TOILET - STEP 1: Does the patient require the assistance of a person or device, or need extra time with toilet transfe rs? Yes. TRANSFERS: TOILET - STEP 2: Does the patient require the assistance of a helper? Yes. TRANSFERS: TOILET - STEP 3: How much assistance does the patient require from the helper? Patient performs half or more of the tr ansferring tasks TRANSFERS: TOILET - STEP 4: Does the patient need only incidental help such as contact guard or steadying during toilet transfer? Yes. TRANSFERS: TOILET - SCORE: 4-MIN TRANSFERS: SHOWER: Activity did not occur on this shift TRANSFERS: SHOWER - SCORE: 0-UNK TRANSFERS: TUB: Activity did not occur on this shift TRANSFERS: TUB - SCORE: 0-UNK LOCOMOTION: WALK: Activity did not occur on this shift LOCOMOTION: WALK - SCORE: 0-UNK LOCOMOTION: WHEELCHAIR: LOCOMOTION: WHEELCHAIR - STEP 1: Does the patient need help to go 150 feet in a wheelchair? Yes. LOCOMOTION: WHEELCHAIR - STEP 2: How much assistance does the patient need from the helper? Only supervision, cuing, or coaxing LOCOMOTION: WHEELCHAIR - SCORE: 5-SUP COMPREHENSION: COMPREHENSION: TYPE: Both COMPREHENSION - STEP 1: Does the patient require help from a person or device, or need extra time to understand complex and a bstract ideas (such as current events, finances, discharge planning, medical issues, relationships, e tc)? Yes. COMPREHENSION - STEP 2: Does the patient require help to understand questions or statements about basic needs or ideas (such as hunger, thirst, sleep, safety, daily schedule, room location, or discomfort) half or more of the t timi? No. COMPREHENSION - STEP 3: How often does the patient need help to understand directions and conversation about basic needs? 10% - 24% of the time COMPREHENSION - SCORE: 4-MIN EXPRESSION EXPRESSION: TYPE: Both EXPRESSION - STEP 1: Does the patient require help from a person or device, or need extra time expressing complex and abst ract ideas (such as current events, finances, discharge planning, medical issues, relationships, etc) ? Yes. EXPRESSION - STEP 2: Does the patient require help to express basic necessities or ideas (such as hunger, thirst, sleep, s afety, daily schedule, room location, or discomfort) half or more of the time? No. EXPRESSION - STEP 3: How often does the patient need help to express directions and conversation about basic needs? Less t godinez 10% of the time EXPRESSION - SCORE: 5-SUP SOCIAL INTERACTION: SOCIAL INTERACTION - STEP 1: Does the patient require a helper to interact with others in social and therapeutic situations? No. SOCIAL INTERACTION - STEP 2: Does the patient need extra time in social situations, OR does s/he interact with staff, other patien ts, and family members ONLY in structured environments, OR does s/he require medication for social in teraction? Yes, patient needs extra time SOCIAL INTERACTION - SCORE: 6-DION PROBLEM SOLVING: PROBLEM SOLVING - STEP 1: Does the patient need help from a person or device, or need extra time to solve complex problems such as managing a checking account or confronting interpersonal problems? No. PROBLEM SOLVING - STEP 2: Does the patient require extra time to make decisions or solve problems, OR does s/he have slight dif ficulty reading, initiating, or self-correcting in unfamiliar situations? Yes, patient needs extra ti me. PROBLEM SOLVING - SCORE: 6-DION MEMORY: MEMORY - STEP 1: Does the patient need help from a person or device, or need extra time to remember frequently encount ered people, daily routines, and executing requests? Yes. MEMORY - STEP 2: How often does the patient need help to remember frequently encountered people, daily routines, and e xecuting requests? Less than 10% of the time MEMORY - SCORE: 5-SUP SIGNATURE PANEL: The following modified sections: Eating - Score, Grooming - Score, Dressing - Upper Body - Score, Jelani ssing - Upper Body - Comments:, Dressing - Lower Body - Score, Dressing - Lower Body - Comments:, Sam leting - Score, Bowel Management - Score, Transfers: Bed, Chair, Wheelchair - Score, Transfers: Toile t - Score, Transfers: Shower - Score, Transfers: Tub - Score, Locomotion: Walk - Score, Locomotion: W heelchair - Score, Comprehension - Score, Expression - Score, Social Interaction - Score, Problem Maria Luisa ving - Score, Memory - Score, Bladder Management - Score, Bathing - Score were [electronically] geeta d by Brigid Melissa C.N.ACata on TueSep 07 2018 14:49:05 GMT-0600 (Central Standard Time)
--- NOTE | 2018-09-07 16:07 | P.PN ---
Subjective Date of Service: 09/07/18 Chief Complaint: hip pain Subjective: Improving, Working w/ PT (Complains of constipation) Review of Systems 10-point ROS is otherwise unremarkable Physical Examination - Vital Signs Temperature: 96.8 F Blood Pressure: 100/53 Pulse: 77 Respirations: 20 Pulse Ox (%): 92 - Physical Exam General: Alert, Oriented x3, Mild distress HEENT: Atraumatic, PERRLA, EOMI Neck: Supple, JVD not distended Respiratory: Clear to auscultation bilaterally, Normal air movement Cardiovascular: No edema, Normal pulses, Normal S1 S2, Irregular heart rate/ rhythm Gastrointestinal: Normal bowel sounds, Soft and benign, Non-distended, No tenderness Musculoskeletal: No clubbing, No tenderness Integumentary: No rashes, No erythema, No cyanosis Neurological: Normal speech, Normal tone, Normal affect - Studies Laboratory Data (last 24 hrs) 09/07/18 06:09: Sodium 133 L, Potassium 4.0, BUN 10, Creatinine 0.57, Glucose 109 H, Magnesium 2.0 09/07/18 06:09: WBC 10.4 D, Hgb 12.6, Hct 35.8 L, Plt Count 202 Assessment And Plan - Current Problems (Diagnosis) (1) Avascular necrosis of bone of right hip Onset Date: 09/04/18 Current Visit: No Status: Acute (2) CHF (congestive heart failure) Current Visit: No Status: Acute Qualifiers: Heart failure type: systolic Heart failure chronicity: acute on chronic Qualified Code(s): I50.23 - Acute on chronic systolic (congestive) heart failure (3) Chronic anticoagulation Current Visit: No Status: Acute (4) Right hip pain Onset Date: 09/04/18 Current Visit: No Status: Acute (5) Afib Onset Date: 03/20/18 Current Visit: No Status: Chronic Qualifiers: Atrial fibrillation type: chronic Qualified Code(s): I48.2 - Chronic atrial fibrillation (6) GERD (gastroesophageal reflux disease) Onset Date: 03/20/18 Current Visit: No Status: Chronic Qualifiers: Esophagitis presence: without esophagitis Qualified Code(s): K21.9 - Gastro -esophageal reflux disease without esophagitis (7) HTN (hypertension) Onset Date: 09/04/18 Current Visit: No Status: Chronic Qualifiers: Hypertension type: essential hypertension Qualified Code(s): I10 - Essential (primary) hypertension - Plan colace for constipation. cont pain control. cont PT Eliquis for DVT prophylaxis
--- NOTE | 2018-09-07 18:17 | R.HP ---
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 Parviz Frederick M.D. 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 is a 88 yo Right-handed white female. 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 Pre-morbidly, Pt. was independent/mod-I in Self-Care, Sphincter Control, Transfers Control, Communica tion, Social Cognition, and Locomotion; and she had good Sphincter Control. Currently, she has deficits of Self-Care, Endurance, Safety Awareness, Transfers Control, Communicati on, Social Cognition, Balance, and Locomotion. Pt. is now referred to [facility] for acute in-patient rehabilitation in order to maximize patient's functional independence in activities of daily living, strength, ROM, and mobi lity. Patient has realistic goal of being discharged at assistance level 6-Shanika to reside at Home with Fam zeferino/Relatives. MEDICATION ALLERGIES: sulfa ENVIRONMENTAL ALLERGIES: - Substance Allergies None Known - Other Allergies None Known PAST MEDICAL HISTORY: Afib CHF exacerbation COPD GERD avascular necrosis of bone of right hip chronic anticoagulation hypertension [place] constipation PAST SURGICAL HISTORY: colostomy colostomy reversal APPENDECTOMY cholecystectomy FAMILY HISTORY: Family history is not contributory. SOCIAL HISTORY: - Home Living Alone REVIEW OF SYSTEMS: - Gen No Chills Fatigue No Fever - Eyes No Double Vision No itchiness - ENMT No Difficulty Swallowing - CVS No Chest Discomfort No Chest Pain Fatigue No Weight Gain - Resp No Cough No Shortness of Breath - GI Continent No Abdominal Pain Constipation No Diarrhea - Continent No Kidney Pain No Painful Urination No Urinary Urgency - MSK Joint Pain Muscle Cramps No Stiffness - Skin No Itching No Rash No Suspicious Lesions - Neuro Coordination Difficulty No Difficulty with Concentration No Memory Loss No Seizures Weakness - Psych No Anxiety No Depression No HIV Exposure No Persistent Infections No Seasonal Allergies - Endo No Cold/Heat Intolerance No Excessive Hunger No Excessive Thirst No Excessive Urination PHYSICAL EXAM - Gen Alert and awake Lying in bed No apparent distress Oriented to: person, time, and place - Skin No breakdown No abnormalities - Eyes No abnormalities - ENMT No abnormalities - Neck No abnormalities - CVS RRR - Chest No abnormalities - Resp Clear to auscultation - Abd +bowel sounds - GI Soft Deferred - No abnormalities - Ext Right hip surgical site has good hemostasis. - MSK 4+/5 weakness in right lower extremity - Neuro 4/5 strength right lower extremity - Psych No abnormalities VITAL SIGNS Temperature: 99 F SBP/DBP: 110/52 Pulse: 100 Resp: 18 NURSING: - Shower allowing shower - Skin care per protocol PRECAUTIONS: - Posterior Hip Precaution No adduction across midline No external rotation No hip flexion >90 degrees No internal rotation No wheel chair propulsion - Weight Bearing Precaution WBAT right LE ACTIVITIES OOB only with supervision FUNCTIONAL STATUS: - Self-Care A. Eating Ind sup B. Grooming Ind Aidee C. Bathing Ind Aidee D. Dressing - Upper Ind Aidee E. Dressing - Lower Ind maxA F. Toileting Ind maxA - Sphincter Control G: Bladder control Ind Ind H: Bowel control Ind Ind - Transfers Control I. Bed/Chair/Wheelchair Ind modA J. Toilet Ind modA K. Tub/Shower Ind modA - Locomotion L. Walk/Wheelchair (B) Shanika Dep M. Stairs Shanika ADNO - Communication N. Comprehension (B) Ind Aidee O. Expression (B) Ind sup - Social Cognition P. Social Interaction Ind sup Q. Problem Solving Ind sup R. Memory Ind sup - Endurance Poor - Balance Poor - Safety Awareness Fair CURRENT FUNC. DEFICITS: Self-Care, Endurance, Safety Awareness, Transfers Control, Communication, Social Cognition, Balance, and Locomotion ASSESSMENT: Pt. is a 88 yo Right-handed white female.On 09/01/2018 she was admitted to [facility] and underwent emergency surgery for stress fx base of femoral neck and avascular necrosis of f emoral head right hip (right hip hemiarthroplasty) by Funmi Flores.Pre-morbidly, Pt. was independent/ mod-I in Self-Care, Sphincter Control, Transfers Control, Communication, Social Cognition, and Locomo tion; and she had good Sphincter Control.Currently, she has deficits of Self-Care, Endurance, Safety Awareness, Transfers Control, Communication, Social Cognition, Balance, and Locomotion.Pt. is now ref erred to [facility] for acute in-patient rehabilitation in order to maximize p atient's functional independence in activities of daily living, strength, ROM, and mobility.- Rehab G oal Patient has realistic goal of being discharged at assistance level 6-Shanika to reside at Home with Fam zeferino/Relatives. REHAB PLAN: - Physical Therapy Decreased range of motion - to improve, our physical therapists will perform initial evaluation of pt 's status upon admission and devise an individualized program for increasing patient's Range of Motio n. Gait dysfunction - to improve, our physical therapists will perform initial evaluation of pt's status upon admission and devise an individualized program for Gait Training, and Wheel Chair mobility Inability to transfer - to improve, our physical therapists will perform initial evaluation of pt's s tatus upon admission and devise an individualized program for Bed mobility Need for home safety evaluation - to improve, our physical therapists will perform initial evaluation of pt's status upon admission and devise an individualized program for Home Evaluation Need in caregiver upon discharge - to improve, our physical therapists will perform initial evaluatio n of pt's status upon admission and devise an individualized program for Caregiver Training New precaution - to improve, our physical therapists will perform initial evaluation of pt's status u trell admission and devise an individualized program for Patient precaution education Poor balance - to improve, our physical therapists will perform initial evaluation of pt's status upo n admission and devise an individualized program for Balance Training Poor endurance - to improve, our physical therapists will perform initial evaluation of pt's status u trell admission and devise an individualized program for Endurance Training Weakness - to improve, our physical therapists will perform initial evaluation of pt's status upon ad mission and devise an individualized program for Aquatic Therapy, Neuromuscular Reeducation, and Stre ngthening Achieving independence - to improve, our physical therapists will perform initial evaluation of pt's status upon admission and devise an individualized program for Community Reintegration Activities - Occupational Therapy ADL deficits - to improve, our occupation therapists will perform initial evaluation of pt's status u trell admission and devise an individualized program for Bathing, Bed mobility, Community Reintegration , Cooking, Dressing, Eating, Fine Motor Skills, Grooming, Homemaking, Kitchen Mobility, Laundry, [place] ent Education, Safety Awareness, Splinting - Positioning, Transfers(Toilet, Tub, Shower), and Wheel C hair Management Cognitive deficits - to improve, our occupation therapists will perform initial evaluation of pt's st atus upon admission and devise an individualized program for Cognition - orientation Need for point of care specialist - to improve, our occupation therapists will perform initial evaluation of pt's s tatus upon admission and devise an individualized program for Caregiver Training Weakness - to improve, our occupation therapists will perform initial evaluation of pt's status upon admission and devise an individualized program for Aquatic Therapy, Balance, Endurance, UE ROM, and U E strengthening MEDICAL PLAN: - Anterior Hip Precaution No abduction No active extension No adduction across midline No external rotation No hip flexion >90 degrees No internal rotation - Diet - Liquid Texture Start Regular - Tube Feed Start N/A - Diet Type Start Regular - Posterior Hip Precaution No adduction across midline No external rotation No hip flexion >90 degrees No internal rotation No wheel chair propulsion - Weight Bearing Precaution WBAT right LE - Skin care per protocol - Diet - Solid Texture Regular - Shower shower DISCHARGE PLAN: - Estimated Length of Stay (days) 14. - Consensus on plan Discharge plan has been discussed with primary caregiver. Patient/Family is in agreement with the yaneth n. Primary caregiver is in agreement with the plan. - Patient/Family Goals Return home with assistance. 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
--- NOTE | 2018-09-07 18:18 | PAPE ---
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 Parviz Frederick M.D. 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 PATIENT NEEDS CLOSE MEDICAL SUPERVISION BY A REHABILITATION PHYSICIAN FOR: Bowel and Bladder Management Coordination of Treatment Team Medical and Co-Morbidity Management Post-Op Complications Wound Care PATIENT REQUIRES 24X7 REHAB NURSING FOR MEDICAL AND FUNCTIONAL MGT. OF THE FOLLOWING DEFICITS: ADL's Ambulation Bowel and Bladder Management Cognition Communication Disease Management Medication Management Patient/Family Education Providing Safe Environment Skin Integrity Transfers PATIENT REQUIRES INTENSIVE, COORDINATED INTERDISCIPLINARY APPROACH TO REHAB: Arranging Home Equipment/Services Discharge Planning Family Intervention/Training Arabic Linguist/Case Management LIST OF IDENTIFIED AND POTENTIAL PROBLEMS: Alteration in leisure activities Bladder, Incontinence Blood Pressure, Hypertension/hypotension Issues Bowel, Incontinence Fluid volume overload related to Congestive Heart Failure (CHF) Infection, Actual or Potential Mobility Impaired Pain, Alteration in Comfort Self Care Deficit Skin Integrity, Actual or Potential Urinary Tract Infection (UTI), Actual or Potential RISK FOR COMPLICATIONS - Hypertension CVA. Hypotension. SD. TIA. - COPD Acute Resp failure. Pneumonia. Resp. Arrest. - GERD Alteration in sleep. Aspiration. Dehydration. Malnutrition. Pain. INTERVENTIONS - Hypertension - COPD 02 sats. Medications. Nebulizers. Oxygen. Resp. therapy. X-rays. - GERD Altered diet. Elevation of head of bed. Medications. Nausea/vomiting. Nighttime food/fluid restrictio ns. Nutrition. PATIENT COULD BE AT RISK FOR COMPLICATIONS FROM ADVERSE MEDICAL CONDITIONS DUE TO HIS/HER COMORBIDITI ES AND THE RIGORS OF THE INTENSIVE REHABILLITATION PROGRAM. METHODS OR INTERVENTIONS TO AVOID COMPLIC ATIONS INCLUDE: - Bleeding Assess lab values and manage abnormalities. Nursing to teach precautions for anti-coagulation therapy . Wound to be assessed every shift. - Infection Clinical staff to assess and manage the signs and symptoms of infection including fever, redness, war mth, etc. - Urinary Tract Infection - Falls Patient will be evaluated for Fall Precautions and will be placed on Fall Precautions as indicated pe r protocol. - Skin Breakdown Nursing will assess skin daily using assessment tool and will place on Skin Breakdown Precautions as indicated per protocol. - Pain Clinical staff may employ non-medication methods such as massage, distraction, decrease stimulus, etc . as needed. Clinical staff will assess patient's pain level every shift per protocol to assess and e nsure pain management effectiveness. Medications will be given and the pain level re-assessed. PRELIMINARY PLAN OF CARE: - Physical Therapy Patient needs Physical Therapy for a daily minimum of 1.5 hours at least 5 out of 7 days, to improve: Mobility, Strengthening, Transfers, Stretching, ROM, Endurance, Ability to manage stairs, Gait, and Balance. - Rehabilitation Nursing Patient requires 24x7 Rehabilitation Nursing for: Pain Issues, Identifying and preventing risk factor s, Monitoring and reporting current medical conditions, Assisting with ambulation and transfer, Leif ting with all ADL-s, Teaching patients about disease process and medications, Family teaching, Provid ing safe environment, Bowel and Bladder Issues, Skin Integrity, and Medication Management. Patient needs Arabic Linguist and/or Case Management for: Discharge Planning, Arranging Home Equipmen t or Services, and Family Interventions. - Dietary and Nutrition Services Patient needs Dietary and Nutrition Services for: Adequate Nutrition, Nutritional Supplements, and Nu tritional Education. - Occupational Therapy Patient needs Occupational Therapy for a daily minimum of 1.5 hours at least 5 out of 7 days, to impr ove Activities of Daily Living, including: Eating, Grooming, Bathing, Dressing, Toileting, Toilet Tra nsfers, Community Reintegration, Higher functional activities, Adaptive Equipment, Splinting, Househo ld Tasks, and Other activities as determined. POTENTIAL FUNCTIONAL GOALS FOR PATIENT TO ACHIEVE BY DISCHARGE: - Safety Precaution Patient will remain free from falls or injury at time of discharge. - Bed Mobility Patient will perform bed mobility at 4-Aidee level of assistance. - Transfers Patient will complete transfers from bed to chair at 4-Aidee level of assistance. - Mobility Patient will ambulate 150 ft with 4-Aidee level of assistance with RW. PATIENT REHAB POTENTIAL Expected level of measurable improvement will be of a practical value to patient's functional capacit y or adaptations to impairments Has a viable Discharge Plan Medically appropriate; condition is sufficiently stable to participate in intensive rehab program Patient is able and expected to receive 3 hours of individualized therapy daily on at least 5 of ever y 7 days Patient's prognosis for significant practical improvement within a reasonable period of time appears Good DISCHARGE PLAN: - Estimated Length of Stay (days) 14. - Consensus on plan Discharge plan has been discussed with primary caregiver. Patient/Family is in agreement with the yaneth n. Primary caregiver is in agreement with the plan. - Patient/Family Goals Return home with assistance. CONCLUSION ON REHABILITATION NECESSITY: I have evaluated patient's pre-admission functional status and, comparing it to the patient's post-ad mission functional status now, I conclude that the pre-admission assessment was accurate. Patient's c ondition on admission supports the medical necessity of admission to IRF. It is safe to proceed with patient's therapy program. SIGNATURE PANEL: (HIGH WORKER)
[2018-09-07] MEDS: DOCUSATE NA 100 MG CAP PO SCH (19:04)
[2018-09-07] MEDS: DOCUSATE NA/SENNA CONC 1 TAB PO SCH (19:04)
[2018-09-07] MEDS: PROMOD 30 ML DOSE PO SCH (20:00)
[2018-09-07] MEDS: CRANBERRY FRUIT EXTRACT 200 MG CAP PO SCH (20:48)
[2018-09-07] MEDS: DULOXETINE 30 MG CAP PO SCH (20:49)
[2018-09-07] MEDS: MONTELUKAST 10 MG TAB PO SCH (20:50)
[2018-09-07] MEDS: VITAMIN D 1000 UNIT TAB PO SCH (20:50)
[2018-09-07] MEDS: CYANOCOBALAMIN 1,000 MCG TAB PO SCH (20:51)
--- NOTE | 2018-09-08 01:14 | FAST ---
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 Parviz Frederick M.D. 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 EATING: Activity did not occur on this shift EATING - SCORE: 0-UNK GROOMING: Comb/brush hair Oral care Wash, rinse, and dry face Wash, rinse, and dry hands GROOMING - STEP 1: Does the patient require the assistance of a person or device, or need extra time when grooming? Yes. GROOMING - STEP 2: Does the patient require the assistance of a helper? Yes. GROOMING - STEP 3: How much assistance does the patient require from the helper? Only prior equipment preparation/set up from the helper GROOMING - SCORE: 5-SUP BATHING: Activity did not occur on this shift BATHING - SCORE: 0-UNK DRESSING - UPPER BODY: Patient is not dressing in public clothing ARTICLES SCORE Total number of steps: 0 DRESSING - UPPER BODY - SCORE: 0-UNK DRESSING - LOWER BODY: Patient is not dressing in public clothing ARTICLES SCORE Total number of steps: 0 DRESSING - LOWER BODY - SCORE: 0-UNK TOILETING: TOILETING - STEP 1: Does the patient require the assistance of a person or device, or need extra time with toileting? Yes . TOILETING - STEP 2: Does the patient require the assistance of a helper? Yes. TOILETING - STEP 3: How much assistance does the patient require from the helper? Hands-on assistance from the helper TOILETING - STEP 4: Of the 3 tasks: 1) Adjusting clothing prior to use, 2) Cleansing of perineal area, 3) Adjusting clot ilene after use; How many tasks does the patient perform WITHOUT assistance of the helper? Three tasks with steadying assistance from the helper TOILETING - SCORE: 4-MIN BLADDER MANAGEMENT: BLADDER MANAGEMENT - STEP 1: Does the patient control the bladder completely and intentionally without equipment or devices or med ications, and is always continent? No. BLADDER MANAGEMENT - STEP 2: Does the patient require the assistance of a helper? Yes. BLADDER MANAGEMENT - STEP 3: How much assistance does the patient require from the helper? Only supervision, stand-by, cuing, or c oaxing BLADDER MANAGEMENT - SCORE: 5-SUP BOWEL MANAGEMENT: Activity did not occur on this shift BOWEL MANAGEMENT - SCORE: 7-IND TRANSFERS: BED, CHAIR, WHEELCHAIR: TRANSFERS: BED, CHAIR, WHEELCHAIR - STEP 1: Does the patient require assistance of a person or device, or need extra time with bed, chair, or whe elchair transfers? Yes. TRANSFERS: BED, CHAIR, WHEELCHAIR - STEP 2: Does the patient require the assistance of a helper? Yes. TRANSFERS: BED, CHAIR, WHEELCHAIR - STEP 3: How much assistance does the patient require from the helper? Lifting of the legs TRANSFERS: BED, CHAIR, WHEELCHAIR - STEP 4: How many legs does the patient require the helper to lift? both legs TRANSFERS: BED, CHAIR, WHEELCHAIR - SCORE: 3-MOD TRANSFERS: TOILET: TRANSFERS: TOILET - STEP 1: Does the patient require the assistance of a person or device, or need extra time with toilet transfe rs? Yes. TRANSFERS: TOILET - STEP 2: Does the patient require the assistance of a helper? Yes. TRANSFERS: TOILET - STEP 3: How much assistance does the patient require from the helper? Patient performs half or more of the tr ansferring tasks TRANSFERS: TOILET - STEP 4: Does the patient need only incidental help such as contact guard or steadying during toilet transfer? Yes. TRANSFERS: TOILET - SCORE: 4-MIN TRANSFERS: SHOWER: Activity did not occur on this shift TRANSFERS: SHOWER - SCORE: 0-UNK TRANSFERS: TUB: Activity did not occur on this shift TRANSFERS: TUB - SCORE: 0-UNK LOCOMOTION: WALK: Activity did not occur on this shift LOCOMOTION: WALK - SCORE: 0-UNK LOCOMOTION: WHEELCHAIR: Activity did not occur on this shift LOCOMOTION: WHEELCHAIR - SCORE: 0-UNK COMPREHENSION: COMPREHENSION: TYPE: Both COMPREHENSION - STEP 1: Does the patient require help from a person or device, or need extra time to understand complex and a bstract ideas (such as current events, finances, discharge planning, medical issues, relationships, e tc)? No. COMPREHENSION - STEP 2: Does the patient need extra time, require an assistive device (such as glasses for visual comprehensi on or a hearing aid for auditory comprehension) or does s/he have mild difficulty understanding compl ex and abstract information? Yes. COMPREHENSION - SCORE: 6-DION EXPRESSION EXPRESSION: TYPE: Both EXPRESSION - STEP 1: Does the patient require help from a person or device, or need extra time expressing complex and abst ract ideas (such as current events, finances, discharge planning, medical issues, relationships, etc) ? No. EXPRESSION - STEP 2: Does the patient need extra time, require an assistive device (such as augmentive communication syste m or a communication board), OR does s/he have mild difficulty expressing complex and abstract ideas (including mild dysarthria or mild word-find problems)? Yes. EXPRESSION - SCORE: 6-DION SOCIAL INTERACTION: SOCIAL INTERACTION - STEP 1: Does the patient require a helper to interact with others in social and therapeutic situations? No. SOCIAL INTERACTION - STEP 2: Does the patient need extra time in social situations, OR does s/he interact with staff, other patien ts, and family members ONLY in structured environments, OR does s/he require medication for social in teraction? Yes, patient needs extra time SOCIAL INTERACTION - SCORE: 6-DION PROBLEM SOLVING: PROBLEM SOLVING - STEP 1: Does the patient need help from a person or device, or need extra time to solve complex problems such as managing a checking account or confronting interpersonal problems? No. PROBLEM SOLVING - STEP 2: Does the patient require extra time to make decisions or solve problems, OR does s/he have slight dif ficulty reading, initiating, or self-correcting in unfamiliar situations? Yes, patient needs extra ti me. PROBLEM SOLVING - SCORE: 6-DION MEMORY: MEMORY - STEP 1: Does the patient need help from a person or device, or need extra time to remember frequently encount ered people, daily routines, and executing requests? No. MEMORY - STEP 2: Does the patient have slight difficulty recognizing frequently encountered people, daily routines, or executing requests without the need for repetition or using self-initiated or environmental cues to remember? Yes. MEMORY - SCORE: 6-DION SIGNATURE PANEL: The following modified sections: Eating - Score, Grooming - Score, Dressing - Upper Body - Score, Jelani ssing - Lower Body - Score, Toileting - Score, Bladder Management - Score, Bowel Management - Score, Transfers: Bed, Chair, Wheelchair - Score, Transfers: Toilet - Score, Transfers: Shower - Score, [place] sfers: Tub - Score, Locomotion: Walk - Score, Locomotion: Wheelchair - Score, Comprehension - Score, Expression - Score, Social Interaction - Score, Problem Solving - Score, Memory - Score were [electro nically] signed by Hina Quinones CNA on TueSep 08 2018 01:14:28 GMT-0600 (Central Standard Time)
[2018-09-08] MEDS: PANTOPRAZOLE 40MG TABLET PO SCH (06:23)
[2018-09-08] MEDS: HYDROCODONE/APAP 5/325 MG TAB PO PRN ×3 (06:24→18:28)
[2018-09-08] MEDS: FUROSEMIDE 40 MG TABLET PO SCH (08:00)
[2018-09-08] MEDS: CRANBERRY FRUIT EXTRACT 200 MG CAP PO SCH ×2 (08:13→20:53)
[2018-09-08] MEDS: DOCUSATE NA 100 MG CAP PO SCH ×2 (08:14→20:54)
[2018-09-08] MEDS: GABAPENTIN 100 MG CAP PO SCH ×2 (08:14→20:53)
[2018-09-08] MEDS: APIXABAN 5 MG TABLET PO SCH ×2 (08:14→20:54)
[2018-09-08] MEDS: BACLOFEN 10 MG TAB PO SCH (08:14)
[2018-09-08] MEDS: MAGNESIUM OXIDE 400 MG TAB PO SCH ×2 (08:14→20:53)
[2018-09-08] MEDS: POLYETHYL GLY 3350 17 GM/DOSE PO PRN (08:15)
[2018-09-08] MEDS: SACUBITRIL/VALSARTAN 24/26 MG TAB PO SCH ×2 (08:15→20:53)
[2018-09-08] MEDS: PROMOD 30 ML DOSE PO SCH ×2 (08:16→20:55)
[2018-09-08] MEDS: ONDANSETRON 4 MG (ODT) TAB PO PRN (08:27)
--- NOTE | 2018-09-08 09:35 | P.RH.PN ---
Estimated Length of Stay: 14 Expected Discharge Date: 09/19/18 Discharge Disposition Plan: Home Vital Signs: Last Vital Signs Temp 97.5 F 09/08/18 06:30 Pulse 90 09/08/18 08:00 Resp 16 09/08/18 06:30 BP 110/42 L 09/08/18 08:00 Pulse Ox 92 09/08/18 06:30 Laboratory: Laboratory Last Values WBC 10.4 K/uL (4.3-10.9) D 09/07/18 06:09 RBC 3.98 M/uL (3.86-4.86) 09/07/18 06:09 Hgb 12.6 g/dL (12.0-15.0) 09/07/18 06:09 Hct 35.8 % (36.0-45.0) L 09/07/18 06:09 MCV 90.0 fL (80-100) 09/07/18 06:09 MCH 31.6 pg (27.0-35.0) 09/07/18 06:09 MCHC 35.1 g/dL (32.0-36.0) 09/07/18 06:09 RDW 14.1 % (12.1-15.2) 09/07/18 06:09 Plt Count 202 K/uL (152-406) 09/07/18 06:09 MPV 9.8 fL (7.6-11.3) 09/07/18 06:09 Neutrophils % 78.9 % (41.7-73.7) H 09/07/18 06:09 Lymphocytes % 7.0 % (15.3-44.8) L 09/07/18 06:09 Monocytes % 11.5 % (3.3-12.3) 09/07/18 06:09 Eosinophils % 2.3 % (0-4.4) 09/07/18 06:09 Basophils % 0.3 % (0-1.3) 09/07/18 06:09 Absolute Neutrophils 8.2 K/uL (1.8-8.0) H 09/07/18 06:09 Absolute Lymphocytes 0.7 K/uL (0.7-4.9) 09/07/18 06:09 Absolute Monocytes 1.2 K/uL (0.1-1.3) 09/07/18 06:09 Absolute Eosinophils 0.2 K/uL (0-0.5) 09/07/18 06:09 Absolute Basophils 0.0 K/uL (0-0.5) 09/07/18 06:09 Sodium 133 mmol/L (136-145) L 09/07/18 06:09 Potassium 4.0 mmol/L (3.5-5.1) 09/07/18 06:09 Chloride 96 mmol/L (98-107) L 09/07/18 06:09 Carbon Dioxide 30 mmol/L (21-32) 09/07/18 06:09 BUN 10 mg/dL (7-18) 09/07/18 06:09 Creatinine 0.57 mg/dL (0.55-1.3) 09/07/18 06:09 Estimated GFR > 90 mL/min (=/>90) 09/07/18 06:09 Glucose 109 mg/dL (74-106) H 09/07/18 06:09 POC Glucose 114 mg/dl (65-120) 09/06/18 11:34 Calcium 8.3 mg/dL (8.5-10.1) L 09/07/18 06:09 Magnesium 2.0 mg/dL (1.8-2.4) 09/07/18 06:09 Albumin 2.5 g/dL (3.4-5.0) L 09/07/18 06:09 Prealbumin 8.0 mg/dL (20-40) L 09/07/18 06:09 Urine Color Dk yellow 09/06/18 20:10 Urine Appearance Clear 09/06/18 20:10 Urine pH 5.5 (5.0-7.0) 09/06/18 20:10 Ur Specific [place] 1.010 (1.005-1.030) 09/06/18 20:10 Urine Ketones Negative (NEG) 09/06/18 20:10 Urine Blood Trace (NEG) H 09/06/18 20:10 Urine Nitrite Negative (NEG) 09/06/18 20:10 Urine Bilirubin Negative (NEG) 09/06/18 20:10 Urine Urobilinogen 1.0 mg/dL (0.2-1.0) 09/06/18 20:10 Ur Leukocyte Esterase 1+ (NEG) H 09/06/18 20:10 Urine RBC <5 /HPF (NONE SEEN) 09/06/18 20:10 Urine WBC <5 /HPF (<5) 09/06/18 20:10 Ur Squamous Epith Cells <5 /HPF (NONE SEEN) 09/06/18 20:10 Ur Urothelial Cells <5 /HPF (NONE SEEN) 09/06/18 20:10 Urine Bacteria <20 /HPF (<20) 09/06/18 20:10 Urine Culture Reflexed Reflexed 09/06/18 20:10 Urine Glucose Negative (NEG) 09/06/18 20:10 Urine Total Protein Negative (NEG) 09/06/18 20:10 Weight: 154 lb 1.6 oz Closed Surgical Incision Present: Yes Physician Update: Labs have been reviewed and are stable. Her prealbumin is low at 8. She is on promod. She is ambulation well and doing transfers with standby assistance. She is at moderate assistance with ADLs. Pain Issues: [place] 5/325mg Q4H PRN. Tramadol 50mg Q6H PRN Functional Improvement: Patient demonstrates a positive attitude toward therapy and has shown improvement. Patient has met 3 of 4 STG's. Summary: Patient's care plan and alf goals have been reviewed and revised as necessary. Please see the Rehabilitation Signature page for all necessary signatures.
--- NOTE | 2018-09-08 12:46 | FAST ---
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 Parviz Frederick M.D. 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 EATING: EATING - STEP 1: Does the patient require the assistance of a person or device, or need extra time when eating? Yes. EATING - STEP 2: Does the patient require the assistance of a helper? No, patient only requires an assistive device, O R s/he takes more than reasonable time to eat, OR there is a safety concern, OR s/he requires modifie d food consistency EATING - SCORE: 6-DION GROOMING: Comb/brush hair Oral care GROOMING - STEP 1: Does the patient require the assistance of a person or device, or need extra time when grooming? Yes. GROOMING - STEP 2: Does the patient require the assistance of a helper? No. The patient only requires an assistive devic e, OR takes more than reasonable time to groom, OR there is a concern for safety as the patient groom s GROOMING - SCORE: 6-DION BATHING: Activity did not occur on this shift BATHING - SCORE: 0-UNK DRESSING - UPPER BODY: Activity did not occur on this shift ARTICLES SCORE Total number of steps: 0 DRESSING - UPPER BODY - SCORE: 0-UNK DRESSING - LOWER BODY: Activity did not occur on this shift ARTICLES SCORE Total number of steps: 0 DRESSING - LOWER BODY - SCORE: 0-UNK TOILETING: TOILETING - STEP 1: Does the patient require the assistance of a person or device, or need extra time with toileting? Yes . TOILETING - STEP 2: Does the patient require the assistance of a helper? No. TOILETING - SCORE: 6-DION BLADDER MANAGEMENT: BLADDER MANAGEMENT - STEP 1: Does the patient control the bladder completely and intentionally without equipment or devices or med ications, and is always continent? Yes. BLADDER MANAGEMENT - SCORE: 7-IND BLADDER MANAGEMENT - FREQUENCY OF ACCIDENTS: BLADDER MANAGEMENT(FA) - STEP 1: How many accidents has the patient had during the current shift? 0 BOWEL MANAGEMENT: BOWEL MANAGEMENT - STEP 1: Does the patient control bowels completely and intentionally without equipment devices or medications AND is always continent? Yes. BOWEL MANAGEMENT - SCORE: 7-IND BOWEL MANAGEMENT - FREQUENCY OF ACCIDENTS: BOWEL MANAGEMENT(FA) - STEP 1: How many accidents has the patient had during the current shift? 0 TRANSFERS: BED, CHAIR, WHEELCHAIR: TRANSFERS: BED, CHAIR, WHEELCHAIR - STEP 1: Does the patient require assistance of a person or device, or need extra time with bed, chair, or whe elchair transfers? Yes. TRANSFERS: BED, CHAIR, WHEELCHAIR - STEP 2: Does the patient require the assistance of a helper? Yes. TRANSFERS: BED, CHAIR, WHEELCHAIR - STEP 3: How much assistance does the patient require from the helper? Steadying/guiding assistance TRANSFERS: BED, CHAIR, WHEELCHAIR - SCORE: 4-MIN TRANSFERS: TOILET: TRANSFERS: TOILET - STEP 1: Does the patient require the assistance of a person or device, or need extra time with toilet transfe rs? Yes. TRANSFERS: TOILET - STEP 2: Does the patient require the assistance of a helper? Yes. TRANSFERS: TOILET - STEP 3: How much assistance does the patient require from the helper? Patient performs half or more of the tr ansferring tasks TRANSFERS: TOILET - STEP 4: Does the patient need only incidental help such as contact guard or steadying during toilet transfer? Yes. TRANSFERS: TOILET - SCORE: 4-MIN TRANSFERS: SHOWER: Activity did not occur on this shift TRANSFERS: SHOWER - SCORE: 0-UNK TRANSFERS: TUB: Activity did not occur on this shift TRANSFERS: TUB - SCORE: 0-UNK LOCOMOTION: WALK: Activity did not occur on this shift LOCOMOTION: WALK - SCORE: 0-UNK LOCOMOTION: WHEELCHAIR: Activity did not occur on this shift LOCOMOTION: WHEELCHAIR - SCORE: 0-UNK COMPREHENSION: COMPREHENSION - SCORE: 0-UNK EXPRESSION EXPRESSION - SCORE: 0-UNK SOCIAL INTERACTION: SOCIAL INTERACTION - SCORE: 0-UNK PROBLEM SOLVING: PROBLEM SOLVING - SCORE: 0-UNK MEMORY: MEMORY - SCORE: 0-UNK SIGNATURE PANEL: The following modified sections: Eating - Score, Grooming - Score, Bathing - Score, Dressing - Upper Body - Score, Dressing - Lower Body - Score, Toileting - Score, Bladder Management - Score, Bowel Man agement - Score, Transfers: Bed, Chair, Wheelchair - Score, Transfers: Toilet - Score, Transfers: Leyda wer - Score, Transfers: Tub - Score, Locomotion: Walk - Score, Locomotion: Wheelchair - Score, Compre hension - Score, Expression - Score, Social Interaction - Score, Problem Solving - Score, Memory - Sc ore were [electronically] signed by Leona Hernandez CNA on TueSep 08 2018 12:44:49 GMT-0600 ([place] Standard Time)
[2018-09-08] MEDS ORDERED: FLEET ENEMA ADULT PR PRN (14:19)
[2018-09-08] MEDS ORDERED: BISACODYL 10 MG RECTAL SUPP PR PRN (14:19)
--- NOTE | 2018-09-08 18:08 | FAST ---
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 Parviz Frederick M.D. 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 EATING: EATING - STEP 1: Does the patient require the assistance of a person or device, or need extra time when eating? No. EATING - SCORE: 7-IND GROOMING: Comb/brush hair Oral care Wash, rinse, and dry face Wash, rinse, and dry hands GROOMING - STEP 1: Does the patient require the assistance of a person or device, or need extra time when grooming? No. GROOMING - SCORE: 7-IND BATHING: Abdomen Buttocks Chest Left arm Left lower leg and foot Left upper leg Perineal area Right arm Right lower leg and foot Right upper leg BATHING - STEP 1: Does the patient require the assistance of a person or device, or need extra time when bathing? Yes. BATHING - STEP 2: Does the patient require the assistance of a helper? Yes. BATHING - STEP 3: How much assistance does the patient require from the helper? More than just incidental help BATHING - STEP 4: What percent of the body parts did the patient bathe WITHOUT the helper? Half or more of the body par ts BATHING - SCORE: 3-MOD DRESSING - UPPER BODY: T-shirt/pullover shirt (four steps) ARTICLES SCORE Total number of steps: 4 DRESSING - UPPER BODY - STEP 1: Does the patient require help from a person or device, or need extra time when dressing above the [address]? Yes. DRESSING - UPPER BODY - STEP 2: Does the patient require the assistance of a helper? Yes. DRESSING - UPPER BODY - STEP 3: Does the helper touch the patient while dressing? No. DRESSING - UPPER BODY - SCORE: 5-SUP DRESSING - LOWER BODY: Sock - Left foot (one step) Sock - Right foot (one step) Underwear (three steps) ARTICLES SCORE Total number of steps: 5 DRESSING - LOWER BODY - STEP 1: Does the patient require help from a person or device, or need extra time when dressing below the [address]? Yes. DRESSING - LOWER BODY - STEP 2: Does the patient require the assistance of a helper? Yes. DRESSING - LOWER BODY - STEP 3: Does the helper touch the patient while dressing? Yes. DRESSING - LOWER BODY - STEP 4: How many of the total steps does the patient complete on his/her own? 0 DRESSING - LOWER BODY - STEP 5: Does patient require total assistance for dressing below the waist such as the helper holding clothin g and performing basically all the activities? Yes. DRESSING - LOWER BODY - SCORE: 1-DEP TOILETING: Activity did not occur on this shift TOILETING - SCORE: 0-UNK BLADDER MANAGEMENT: Activity did not occur on this shift BLADDER MANAGEMENT - SCORE: 7-IND BOWEL MANAGEMENT: Activity did not occur on this shift BOWEL MANAGEMENT - SCORE: 7-IND TRANSFERS: BED, CHAIR, WHEELCHAIR: Activity did not occur on this shift TRANSFERS: BED, CHAIR, WHEELCHAIR - SCORE: 0-UNK TRANSFERS: TOILET: Activity did not occur on this shift TRANSFERS: TOILET - SCORE: 0-UNK TRANSFERS: SHOWER: TRANSFERS: SHOWER - STEP 1: Does the patient require the assistance of a person or device, or need extra time with shower transfe rs? Yes. TRANSFERS: SHOWER - STEP 2: Does the patient require the assistance of a helper? Yes. TRANSFERS: SHOWER - STEP 3: How much assistance does the patient require from the helper? More than incidental help TRANSFERS: SHOWER - STEP 4: How much more help does the patient require from the helper? Lifting the patient up AND down from the wheelchair onto the shower chair TRANSFERS: SHOWER - SCORE: 2-MAX TRANSFERS: TUB: Activity did not occur on this shift TRANSFERS: TUB - SCORE: 0-UNK LOCOMOTION: WALK: Activity did not occur on this shift LOCOMOTION: WALK - SCORE: 0-UNK LOCOMOTION: WHEELCHAIR: Activity did not occur on this shift LOCOMOTION: WHEELCHAIR - SCORE: 0-UNK LOCOMOTION: STAIRS: Activity did not occur on this shift LOCOMOTION: STAIRS - SCORE: 0-UNK COMPREHENSION: COMPREHENSION: TYPE: Both COMPREHENSION - STEP 1: Does the patient require help from a person or device, or need extra time to understand complex and a bstract ideas (such as current events, finances, discharge planning, medical issues, relationships, e tc)? No. COMPREHENSION - STEP 2: Does the patient need extra time, require an assistive device (such as glasses for visual comprehensi on or a hearing aid for auditory comprehension) or does s/he have mild difficulty understanding compl ex and abstract information? No. COMPREHENSION - SCORE: 7-IND EXPRESSION EXPRESSION: TYPE: Both EXPRESSION - STEP 1: Does the patient require help from a person or device, or need extra time expressing complex and abst ract ideas (such as current events, finances, discharge planning, medical issues, relationships, etc) ? No. EXPRESSION - STEP 2: Does the patient need extra time, require an assistive device (such as augmentive communication syste m or a communication board), OR does s/he have mild difficulty expressing complex and abstract ideas (including mild dysarthria or mild word-find problems)? No. EXPRESSION - SCORE: 7-IND SOCIAL INTERACTION: SOCIAL INTERACTION - STEP 1: Does the patient require a helper to interact with others in social and therapeutic situations? No. SOCIAL INTERACTION - STEP 2: Does the patient need extra time in social situations, OR does s/he interact with staff, other patien ts, and family members ONLY in structured environments, OR does s/he require medication for social in teraction? No. SOCIAL INTERACTION - SCORE: 7-IND PROBLEM SOLVING: PROBLEM SOLVING - STEP 1: Does the patient need help from a person or device, or need extra time to solve complex problems such as managing a checking account or confronting interpersonal problems? No. PROBLEM SOLVING - STEP 2: Does the patient require extra time to make decisions or solve problems, OR does s/he have slight dif ficulty reading, initiating, or self-correcting in unfamiliar situations? No. PROBLEM SOLVING - SCORE: 7-IND MEMORY: MEMORY - STEP 1: Does the patient need help from a person or device, or need extra time to remember frequently encount ered people, daily routines, and executing requests? No. MEMORY - STEP 2: Does the patient have slight difficulty recognizing frequently encountered people, daily routines, or executing requests without the need for repetition or using self-initiated or environmental cues to remember? No. MEMORY - SCORE: 7-IND SIGNATURE PANEL: The following modified sections: Eating - Score, Grooming - Score, Bathing - Score, Dressing - Upper Body - Score, Dressing - Lower Body - Score, Toileting - Score, Transfers: Bed, Chair, Wheelchair - S core, Transfers: Toilet - Score, Transfers: Tub - Score, Transfers: Shower - Score, Comprehension - S core, Expression - Score, Social Interaction - Score, Problem Solving - Score, Memory - Score were [e lectronically] signed by Kelli Aranda OT on TueSep 08 2018 18:07:01 GMT-0600 (Central Standard T timi)
[2018-09-08] MEDS: DOCUSATE NA/SENNA CONC 1 TAB PO SCH (20:53)
[2018-09-08] MEDS: CYANOCOBALAMIN 1,000 MCG TAB PO SCH (20:54)
[2018-09-08] MEDS: ZOLPIDEM TARTRATE 5 MG TABLET PO PRN (20:54)
[2018-09-08] MEDS: DULOXETINE 30 MG CAP PO SCH (20:54)
[2018-09-08] MEDS: MONTELUKAST 10 MG TAB PO SCH (20:54)
[2018-09-08] MEDS: VITAMIN D 1000 UNIT TAB PO SCH (20:54)
--- NOTE | 2018-09-08 21:13 | CON ---
Reason For Consult: Followup on the patient I know from outpatient care. She is in rehab because of hip surgery. History Of Present Illness: Mrs. Ellsworth is 88. She has longstanding atrial fib and cardiomyopathy w ith an ejection fraction in the 30s, normal coronary arteries. She is worried because she is gaining weight while here in the hospital. She remains on her regimen of heart failure medications, namely apixaban or Eliquis 5 mg b.i.d., Entresto 24/ once twice a day, furosemide 40 and hydrocodone. She has been intolerant to the beta vale. She does not have a defibrillator or pacemaker mainly on h er own choices and her ejection fraction improved to more than 40% on Eliquis. She is not having par oxysmal nocturnal dyspnea or orthopnea. She is not short of breath. She is doing all of her exercis es without any difficulty. Physical Examination: Lungs: Do not reveal crackles or wheeze. Heart: Irregularly irregular. The heart rate is in the 80s. There is no significant murmur. Vital Signs: Blood pressure 110/42, heart rate 90. The vital signs are as noted in her chart. Impression: The patient's heart failure is stable and she likes her present regimen. Even though he r weight seems to have gone up a few pounds, I think it is not fluid buildup and her weight is actual ly stable over the last 3 days. It could be that she is comparing the weights they get here to her h ome weight and that difference could be just a matter of the scales being different or gaining some f luid in the operative region from having hip surgery. I am not worried that she is out of balance with regard to her congestive heart failure right now. MISHEL/KATHERINE Voice ID: [id number] Report ID: [id number]
--- NOTE | 2018-09-09 02:26 | FAST ---
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 Parviz Frederick M.D. 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 EATING: Activity did not occur on this shift EATING - SCORE: 0-UNK GROOMING: Activity did not occur on this shift GROOMING - SCORE: 0-UNK BATHING: Activity did not occur on this shift BATHING - SCORE: 0-UNK DRESSING - UPPER BODY: Patient is not dressing in public clothing ARTICLES SCORE Total number of steps: 0 DRESSING - UPPER BODY - SCORE: 0-UNK DRESSING - LOWER BODY: Patient is not dressing in public clothing ARTICLES SCORE Total number of steps: 0 DRESSING - LOWER BODY - SCORE: 0-UNK TOILETING: TOILETING - STEP 1: Does the patient require the assistance of a person or device, or need extra time with toileting? Yes . TOILETING - STEP 2: Does the patient require the assistance of a helper? Yes. TOILETING - STEP 3: How much assistance does the patient require from the helper? Hands-on assistance from the helper TOILETING - STEP 4: Of the 3 tasks: 1) Adjusting clothing prior to use, 2) Cleansing of perineal area, 3) Adjusting clot ilene after use; How many tasks does the patient perform WITHOUT assistance of the helper? Three tasks with steadying assistance from the helper TOILETING - SCORE: 4-MIN BLADDER MANAGEMENT: BLADDER MANAGEMENT - STEP 1: Does the patient control the bladder completely and intentionally without equipment or devices or med ications, and is always continent? Yes. BLADDER MANAGEMENT - SCORE: 7-IND BOWEL MANAGEMENT: Activity did not occur on this shift BOWEL MANAGEMENT - SCORE: 7-IND TRANSFERS: BED, CHAIR, WHEELCHAIR: TRANSFERS: BED, CHAIR, WHEELCHAIR - STEP 1: Does the patient require assistance of a person or device, or need extra time with bed, chair, or whe elchair transfers? Yes. TRANSFERS: BED, CHAIR, WHEELCHAIR - STEP 2: Does the patient require the assistance of a helper? Yes. TRANSFERS: BED, CHAIR, WHEELCHAIR - STEP 3: How much assistance does the patient require from the helper? Lifting of the legs TRANSFERS: BED, CHAIR, WHEELCHAIR - STEP 4: How many legs does the patient require the helper to lift? both legs TRANSFERS: BED, CHAIR, WHEELCHAIR - SCORE: 3-MOD TRANSFERS: TOILET: TRANSFERS: TOILET - STEP 1: Does the patient require the assistance of a person or device, or need extra time with toilet transfe rs? Yes. TRANSFERS: TOILET - STEP 2: Does the patient require the assistance of a helper? Yes. TRANSFERS: TOILET - STEP 3: How much assistance does the patient require from the helper? Patient performs half or more of the tr ansferring tasks TRANSFERS: TOILET - STEP 4: Does the patient need only incidental help such as contact guard or steadying during toilet transfer? Yes. TRANSFERS: TOILET - SCORE: 4-MIN TRANSFERS: SHOWER: Activity did not occur on this shift TRANSFERS: SHOWER - SCORE: 0-UNK TRANSFERS: TUB: Activity did not occur on this shift TRANSFERS: TUB - SCORE: 0-UNK LOCOMOTION: WALK: Activity did not occur on this shift LOCOMOTION: WALK - SCORE: 0-UNK LOCOMOTION: WHEELCHAIR: Activity did not occur on this shift LOCOMOTION: WHEELCHAIR - SCORE: 0-UNK COMPREHENSION: COMPREHENSION: TYPE: Both COMPREHENSION - STEP 1: Does the patient require help from a person or device, or need extra time to understand complex and a bstract ideas (such as current events, finances, discharge planning, medical issues, relationships, e tc)? No. COMPREHENSION - STEP 2: Does the patient need extra time, require an assistive device (such as glasses for visual comprehensi on or a hearing aid for auditory comprehension) or does s/he have mild difficulty understanding compl ex and abstract information? Yes. COMPREHENSION - SCORE: 6-DION EXPRESSION EXPRESSION: TYPE: Both EXPRESSION - STEP 1: Does the patient require help from a person or device, or need extra time expressing complex and abst ract ideas (such as current events, finances, discharge planning, medical issues, relationships, etc) ? No. EXPRESSION - STEP 2: Does the patient need extra time, require an assistive device (such as augmentive communication syste m or a communication board), OR does s/he have mild difficulty expressing complex and abstract ideas (including mild dysarthria or mild word-find problems)? Yes. EXPRESSION - SCORE: 6-DION SOCIAL INTERACTION: SOCIAL INTERACTION - STEP 1: Does the patient require a helper to interact with others in social and therapeutic situations? No. SOCIAL INTERACTION - STEP 2: Does the patient need extra time in social situations, OR does s/he interact with staff, other patien ts, and family members ONLY in structured environments, OR does s/he require medication for social in teraction? Yes, patient needs extra time SOCIAL INTERACTION - SCORE: 6-DION PROBLEM SOLVING: PROBLEM SOLVING - STEP 1: Does the patient need help from a person or device, or need extra time to solve complex problems such as managing a checking account or confronting interpersonal problems? No. PROBLEM SOLVING - STEP 2: Does the patient require extra time to make decisions or solve problems, OR does s/he have slight dif ficulty reading, initiating, or self-correcting in unfamiliar situations? Yes, patient needs extra ti me. PROBLEM SOLVING - SCORE: 6-DION MEMORY: MEMORY - STEP 1: Does the patient need help from a person or device, or need extra time to remember frequently encount ered people, daily routines, and executing requests? No. MEMORY - STEP 2: Does the patient have slight difficulty recognizing frequently encountered people, daily routines, or executing requests without the need for repetition or using self-initiated or environmental cues to remember? Yes. MEMORY - SCORE: 6-DION
[2018-09-09] MEDS: PANTOPRAZOLE 40MG TABLET PO SCH (05:33)
[2018-09-09] MEDS: HYDROCODONE/APAP 5/325 MG TAB PO PRN ×3 (06:53→18:07)
[2018-09-09] MEDS: FUROSEMIDE 40 MG TABLET PO SCH (08:00)
[2018-09-09] MEDS: CRANBERRY FRUIT EXTRACT 200 MG CAP PO SCH ×2 (08:04→20:47)
[2018-09-09] MEDS: APIXABAN 5 MG TABLET PO SCH ×2 (08:05→20:48)
[2018-09-09] MEDS: MAGNESIUM OXIDE 400 MG TAB PO SCH ×2 (08:05→20:48)
[2018-09-09] MEDS: DOCUSATE NA 100 MG CAP PO SCH ×2 (08:05→20:48)
[2018-09-09] MEDS: GABAPENTIN 100 MG CAP PO SCH ×2 (08:05→20:49)
[2018-09-09] MEDS: BACLOFEN 10 MG TAB PO SCH (08:05)
[2018-09-09] MEDS: SACUBITRIL/VALSARTAN 24/26 MG TAB PO SCH ×2 (08:06→20:48)
[2018-09-09] MEDS: PROMOD 30 ML DOSE PO SCH ×2 (08:07→20:46)
[2018-09-09] MEDS: TRAMADOL HCL 50 MG TAB PO PRN (09:54)
--- NOTE | 2018-09-09 10:06 | FAST ---
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 Parviz Frederick M.D. 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 EATING: EATING - STEP 1: Does the patient require the assistance of a person or device, or need extra time when eating? Yes. EATING - STEP 2: Does the patient require the assistance of a helper? Yes. EATING - STEP 3: Does the patient perform half or more of the eating tasks? Yes. EATING - STEP 4: Does the patient need only supervision, cuing, coaxing OR help to apply an orthosis OR help to cut fo od, open containers, pour liquids, or butter bread? Yes. EATING - SCORE: 5-SUP GROOMING: Comb/brush hair Oral care Wash, rinse, and dry face Wash, rinse, and dry hands GROOMING - STEP 1: Does the patient require the assistance of a person or device, or need extra time when grooming? Yes. GROOMING - STEP 2: Does the patient require the assistance of a helper? No. The patient only requires an assistive devic e, OR takes more than reasonable time to groom, OR there is a concern for safety as the patient groom s GROOMING - SCORE: 6-DION BATHING: Activity did not occur on this shift BATHING - SCORE: 0-UNK DRESSING - UPPER BODY: T-shirt/pullover shirt (four steps) ARTICLES SCORE Total number of steps: 4 DRESSING - UPPER BODY - STEP 1: Does the patient require help from a person or device, or need extra time when dressing above the [address]? Yes. DRESSING - UPPER BODY - STEP 2: Does the patient require the assistance of a helper? Yes. DRESSING - UPPER BODY - STEP 3: Does the helper touch the patient while dressing? No. DRESSING - UPPER BODY - SCORE: 5-SUP DRESSING - LOWER BODY: ARTICLES SCORE Total number of steps: 3 DRESSING - LOWER BODY - STEP 1: Does the patient require help from a person or device, or need extra time when dressing below the [address]? Yes. DRESSING - LOWER BODY - STEP 2: Does the patient require the assistance of a helper? Yes. DRESSING - LOWER BODY - STEP 3: Does the helper touch the patient while dressing? Yes. DRESSING - LOWER BODY - STEP 4: How many of the total steps does the patient complete on his/her own? 2 DRESSING - LOWER BODY - SCORE: 3-MOD TOILETING: TOILETING - STEP 1: Does the patient require the assistance of a person or device, or need extra time with toileting? Yes . TOILETING - STEP 2: Does the patient require the assistance of a helper? Yes. TOILETING - STEP 3: How much assistance does the patient require from the helper? Hands-on assistance from the helper TOILETING - STEP 4: Of the 3 tasks: 1) Adjusting clothing prior to use, 2) Cleansing of perineal area, 3) Adjusting clot ilene after use; How many tasks does the patient perform WITHOUT assistance of the helper? Two tasks TOILETING - SCORE: 3-MOD BLADDER MANAGEMENT: BLADDER MANAGEMENT - STEP 1: Does the patient control the bladder completely and intentionally without equipment or devices or med ications, and is always continent? No. BLADDER MANAGEMENT - STEP 2: Does the patient require the assistance of a helper? No, patient requires and independently uses an a ssistive device, such as a urinal, bedpan, bedside commode, catheter, absorbent pad, or collecting de vice BLADDER MANAGEMENT - SCORE: 6-DION BOWEL MANAGEMENT: Activity did not occur on this shift BOWEL MANAGEMENT - SCORE: 7-IND TRANSFERS: BED, CHAIR, WHEELCHAIR: TRANSFERS: BED, CHAIR, WHEELCHAIR - STEP 1: Does the patient require assistance of a person or device, or need extra time with bed, chair, or whe elchair transfers? Yes. TRANSFERS: BED, CHAIR, WHEELCHAIR - STEP 2: Does the patient require the assistance of a helper? Yes. TRANSFERS: BED, CHAIR, WHEELCHAIR - STEP 3: How much assistance does the patient require from the helper? Steadying/guiding assistance TRANSFERS: BED, CHAIR, WHEELCHAIR - SCORE: 4-MIN TRANSFERS: TOILET: TRANSFERS: TOILET - STEP 1: Does the patient require the assistance of a person or device, or need extra time with toilet transfe rs? Yes. TRANSFERS: TOILET - STEP 2: Does the patient require the assistance of a helper? Yes. TRANSFERS: TOILET - STEP 3: How much assistance does the patient require from the helper? Patient performs half or more of the tr ansferring tasks TRANSFERS: TOILET - STEP 4: Does the patient need only incidental help such as contact guard or steadying during toilet transfer? Yes. TRANSFERS: TOILET - SCORE: 4-MIN TRANSFERS: SHOWER: TRANSFERS: SHOWER - STEP 1: Does the patient require the assistance of a person or device, or need extra time with shower transfe rs? Yes. TRANSFERS: SHOWER - STEP 2: Does the patient require the assistance of a helper? Yes. TRANSFERS: SHOWER - STEP 3: How much assistance does the patient require from the helper? Only supervision, cuing, coaxing, or he lp to set out transfer equipment or to lock brakes and/or lift foot rests TRANSFERS: SHOWER - SCORE: 5-SUP TRANSFERS: TUB: TRANSFERS: TUB - STEP 1: Does the patient require the assistance of a person or device, or need extra time with tub transfers? Yes. TRANSFERS: TUB - STEP 2: Does the patient require the assistance of a helper? Yes. TRANSFERS: TUB - STEP 3: How much assistance does the patient require from the helper? Only supervision, cuing, coaxing, or he lp to set out transfer equipment or to lock brakes and/or lift foot rests TRANSFERS: TUB - SCORE: 5-SUP LOCOMOTION: WALK: Activity did not occur on this shift LOCOMOTION: WALK - SCORE: 0-UNK LOCOMOTION: WHEELCHAIR: Activity did not occur on this shift LOCOMOTION: WHEELCHAIR - SCORE: 0-UNK COMPREHENSION: COMPREHENSION: TYPE: Both COMPREHENSION - STEP 1: Does the patient require help from a person or device, or need extra time to understand complex and a bstract ideas (such as current events, finances, discharge planning, medical issues, relationships, e tc)? No. COMPREHENSION - STEP 2: Does the patient need extra time, require an assistive device (such as glasses for visual comprehensi on or a hearing aid for auditory comprehension) or does s/he have mild difficulty understanding compl ex and abstract information? Yes. COMPREHENSION - SCORE: 6-DION EXPRESSION EXPRESSION: TYPE: Both EXPRESSION - STEP 1: Does the patient require help from a person or device, or need extra time expressing complex and abst ract ideas (such as current events, finances, discharge planning, medical issues, relationships, etc) ? No. EXPRESSION - STEP 2: Does the patient need extra time, require an assistive device (such as augmentive communication syste m or a communication board), OR does s/he have mild difficulty expressing complex and abstract ideas (including mild dysarthria or mild word-find problems)? Yes. EXPRESSION - SCORE: 6-DION SOCIAL INTERACTION: SOCIAL INTERACTION - STEP 1: Does the patient require a helper to interact with others in social and therapeutic situations? No. SOCIAL INTERACTION - STEP 2: Does the patient need extra time in social situations, OR does s/he interact with staff, other patien ts, and family members ONLY in structured environments, OR does s/he require medication for social in teraction? Yes, patient needs extra time SOCIAL INTERACTION - SCORE: 6-DION PROBLEM SOLVING: PROBLEM SOLVING - STEP 1: Does the patient need help from a person or device, or need extra time to solve complex problems such as managing a checking account or confronting interpersonal problems? No. PROBLEM SOLVING - STEP 2: Does the patient require extra time to make decisions or solve problems, OR does s/he have slight dif ficulty reading, initiating, or self-correcting in unfamiliar situations? Yes, patient needs extra ti me. PROBLEM SOLVING - SCORE: 6-DION MEMORY: MEMORY - STEP 1: Does the patient need help from a person or device, or need extra time to remember frequently encount ered people, daily routines, and executing requests? No. MEMORY - STEP 2: Does the patient have slight difficulty recognizing frequently encountered people, daily routines, or executing requests without the need for repetition or using self-initiated or environmental cues to remember? Yes. MEMORY - SCORE: 6-DION SIGNATURE PANEL: The following modified sections: Eating - Score, Grooming - Score, Bathing - Score, Dressing - Upper Body - Score, Dressing - Lower Body - Score, Toileting - Score, Bladder Management - Score, Bowel Man agement - Score, Transfers: Bed, Chair, Wheelchair - Score, Transfers: Toilet - Score, Transfers: Leyda wer - Score, Transfers: Tub - Score, Locomotion: Walk - Score, Locomotion: Wheelchair - Score, Compre hension - Score, Expression - Score, Social Interaction - Score, Problem Solving - Score, Memory - Sc ore were [electronically] signed by Tony Escalante on Sat Sep 09 2018 10:06:20 GMT-0600 (Central Standard Time)
[2018-09-09] MEDS: MAGIC MOUTHWASH 180 ML BTL PO PRN (12:36)
--- NOTE | 2018-09-09 18:59 | PN ---
Date of Progress Note: 09/09/2018 Subjective: The patient was seen and examined. Chart reviewed and case discussed with RN. Physical Examination: Vital Signs: Temperature 97.9, heart rate 97, blood pressure 102/49, respirations 16, O2 94% on room air. General: Awake, alert, oriented x3, in no acute distress, elderly female complaining of some pain in her mouth. HEENT: Normocephalic, atraumatic. PERRLA. EOMI. Moist mucous membranes. Poor dentition. The pat ient does have some oral ulcers. Neck: Supple. No JVD. CV: S1, S2. Irregularly irregular. Peripheral pulses present. Respiratory: Moving air well bilaterally. No wheezing or stridor. Gastrointestinal: Abdomen is soft, nontender, nondistended. Positive bowel sounds. Extremities: No clubbing, cyanosis, or edema. Neurologic: Nonfocal. Laboratory Data: Pending. 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 2.Congestive heart failure, systolic, chronic. We will continue Lasix. 3.Chronic anticoagulation. 4.Right hip pain. 5.Atrial fibrillation, chronic. Continue with anticoagulation and rate control. 6.Gastroesophageal reflux disease without esophagitis. Continue PPI. 7.Essential hypertension, stable. 8.Oral ulcers. The patient has been given Magic mouthwash, will continue. Plan: Daily weights. Continue PT. /KATHERINE Voice ID: [id number] Report ID: [id number]
[2018-09-09] MEDS: NYSTATIN 500,000 UNIT/5 ML UDC PO PRN (20:46)
[2018-09-09] MEDS: VITAMIN D 1000 UNIT TAB PO SCH (20:47)
[2018-09-09] MEDS: CYANOCOBALAMIN 1,000 MCG TAB PO SCH (20:48)
[2018-09-09] MEDS: MONTELUKAST 10 MG TAB PO SCH (20:48)
[2018-09-09] MEDS: DOCUSATE NA/SENNA CONC 1 TAB PO SCH (20:48)
[2018-09-09] MEDS: DULOXETINE 30 MG CAP PO SCH (20:49)
[2018-09-09] MEDS: ZOLPIDEM TARTRATE 5 MG TABLET PO PRN (20:51)
--- NOTE | 2018-09-10 01:56 | FAST ---
SHIFT START DATE/TIME: 09/09/2018 19:00 (DEPUTY PROGRAM MANAGER) SHIFT END DATE/TIME: 09/10/2018 07:00 (DEPUTY PROGRAM MANAGER) NAME VAMSHI LUGO DATE OF : 1930 DATE OF ADMISSION: 09/06/2018 11:21 (DEPUTY PROGRAM MANAGER) PHONE: AGE: 88 SSN# [id number] GENDER: Female ENCOUNTER PHYSICIAN: Dr. Parviz Frederick M.D. 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 EATING: Activity did not occur on this shift EATING - SCORE: 0-UNK GROOMING: Wash, rinse, and dry face Wash, rinse, and dry hands GROOMING - STEP 1: Does the patient require the assistance of a person or device, or need extra time when grooming? Yes. GROOMING - STEP 2: Does the patient require the assistance of a helper? Yes. GROOMING - STEP 3: How much assistance does the patient require from the helper? Cuing, coaxing, instructions, or encour agement for completion of grooming GROOMING - SCORE: 5-SUP BATHING: Activity did not occur on this shift BATHING - SCORE: 0-UNK DRESSING - UPPER BODY: Patient is not dressing in public clothing ARTICLES SCORE Total number of steps: 0 DRESSING - UPPER BODY - SCORE: 0-UNK DRESSING - LOWER BODY: Patient is not dressing in public clothing ARTICLES SCORE Total number of steps: 0 DRESSING - LOWER BODY - SCORE: 0-UNK TOILETING: TOILETING - STEP 1: Does the patient require the assistance of a person or device, or need extra time with toileting? Yes . TOILETING - STEP 2: Does the patient require the assistance of a helper? Yes. TOILETING - STEP 3: How much assistance does the patient require from the helper? Only supervision TOILETING - SCORE: 5-SUP BLADDER MANAGEMENT: BLADDER MANAGEMENT - STEP 1: Does the patient control the bladder completely and intentionally without equipment or devices or med ications, and is always continent? No. BLADDER MANAGEMENT - STEP 2: Does the patient require the assistance of a helper? Yes. BLADDER MANAGEMENT - STEP 3: How much assistance does the patient require from the helper? Only supervision, stand-by, cuing, or c oaxing BLADDER MANAGEMENT - SCORE: 5-SUP BOWEL MANAGEMENT: BOWEL MANAGEMENT - STEP 1: Does the patient control bowels completely and intentionally without equipment devices or medications AND is always continent? No. BOWEL MANAGEMENT - STEP 2: Does the patient require the assistance of a helper? Yes. BOWEL MANAGEMENT - STEP 3: How much assistance does the patient require from the helper? Patient requires supervision, stand by, cueing, coaxing, or setup of equipment - placing within reach of patient and emptying device / bedpa nd or BSC bucket - to maintain either satisfactory bowel pattern or managing an external device such as an absorbent pad, colostomy bag / ileostomy bag BOWEL MANAGEMENT - SCORE: 5-SUP TRANSFERS: BED, CHAIR, WHEELCHAIR: TRANSFERS: BED, CHAIR, WHEELCHAIR - STEP 1: Does the patient require assistance of a person or device, or need extra time with bed, chair, or whe elchair transfers? Yes. TRANSFERS: BED, CHAIR, WHEELCHAIR - STEP 2: Does the patient require the assistance of a helper? Yes. TRANSFERS: BED, CHAIR, WHEELCHAIR - STEP 3: How much assistance does the patient require from the helper? Lifting of the legs TRANSFERS: BED, CHAIR, WHEELCHAIR - STEP 4: How many legs does the patient require the helper to lift? both legs TRANSFERS: BED, CHAIR, WHEELCHAIR - SCORE: 3-MOD TRANSFERS: TOILET: TRANSFERS: TOILET - STEP 1: Does the patient require the assistance of a person or device, or need extra time with toilet transfe rs? Yes. TRANSFERS: TOILET - STEP 2: Does the patient require the assistance of a helper? Yes. TRANSFERS: TOILET - STEP 3: How much assistance does the patient require from the helper? Patient performs half or more of the tr ansferring tasks TRANSFERS: TOILET - STEP 4: Does the patient need only incidental help such as contact guard or steadying during toilet transfer? Yes. TRANSFERS: TOILET - SCORE: 4-MIN TRANSFERS: SHOWER: Activity did not occur on this shift TRANSFERS: SHOWER - SCORE: 0-UNK TRANSFERS: TUB: Activity did not occur on this shift TRANSFERS: TUB - SCORE: 0-UNK LOCOMOTION: WALK: Activity did not occur on this shift LOCOMOTION: WALK - SCORE: 0-UNK LOCOMOTION: WHEELCHAIR: Activity did not occur on this shift LOCOMOTION: WHEELCHAIR - SCORE: 0-UNK COMPREHENSION: COMPREHENSION: TYPE: Both COMPREHENSION - STEP 1: Does the patient require help from a person or device, or need extra time to understand complex and a bstract ideas (such as current events, finances, discharge planning, medical issues, relationships, e tc)? No. COMPREHENSION - STEP 2: Does the patient need extra time, require an assistive device (such as glasses for visual comprehensi on or a hearing aid for auditory comprehension) or does s/he have mild difficulty understanding compl ex and abstract information? Yes. COMPREHENSION - SCORE: 6-DION EXPRESSION EXPRESSION: TYPE: Both EXPRESSION - STEP 1: Does the patient require help from a person or device, or need extra time expressing complex and abst ract ideas (such as current events, finances, discharge planning, medical issues, relationships, etc) ? No. EXPRESSION - STEP 2: Does the patient need extra time, require an assistive device (such as augmentive communication syste m or a communication board), OR does s/he have mild difficulty expressing complex and abstract ideas (including mild dysarthria or mild word-find problems)? No. EXPRESSION - SCORE: 7-IND SOCIAL INTERACTION: SOCIAL INTERACTION - STEP 1: Does the patient require a helper to interact with others in social and therapeutic situations? No. SOCIAL INTERACTION - STEP 2: Does the patient need extra time in social situations, OR does s/he interact with staff, other patien ts, and family members ONLY in structured environments, OR does s/he require medication for social in teraction? Yes, patient requires medication for social interaction SOCIAL INTERACTION - SCORE: 6-DION PROBLEM SOLVING: Patient requires bed/chair alarms due to attempts to get up unassisted when helper is needed. PROBLEM SOLVING - STEP 1: How often do the bed/chair alarms go off? Occasionally - the alarms go off about 25% or less PROBLEM SOLVING - SCORE: 4-MIN MEMORY: MEMORY - STEP 1: How often do the bed/chair alarms go off? Occasionally - the alarms go off about 25% of the time or l ess MEMORY - SCORE: 4-MIN SIGNATURE PANEL: The following modified sections: Eating - Score, Grooming - Score, Bathing - Score, Dressing - Upper Body - Score, Dressing - Lower Body - Score, Toileting - Score, Bladder Management - Score, Bowel Man agement - Score, Transfers: Bed, Chair, Wheelchair - Score, Transfers: Toilet - Score, Transfers: Leyda wer - Score, Transfers: Tub - Score, Locomotion: Walk - Score, Locomotion: Wheelchair - Score, Compre hension - Score, Expression - Score, Social Interaction - Score, Problem Solving - Score, Memory - Sc ore were [electronically] signed by Olena Murphy CNA on TueSep 10 2018 01:55:39 T-0600 ([facility])
[2018-09-10] MEDS: HYDROCODONE/APAP 5/325 MG TAB PO PRN ×4 (05:28→16:30)
[2018-09-10] MEDS: PANTOPRAZOLE 40MG TABLET PO SCH (06:34)
[2018-09-10] MEDS: SACUBITRIL/VALSARTAN 24/26 MG TAB PO SCH ×2 (07:55→20:21)
[2018-09-10] MEDS: DOCUSATE NA 100 MG CAP PO SCH ×2 (07:55→20:21)
[2018-09-10] MEDS: MAGNESIUM OXIDE 400 MG TAB PO SCH ×2 (07:55→20:21)
[2018-09-10] MEDS: GABAPENTIN 100 MG CAP PO SCH ×2 (07:56→20:22)
[2018-09-10] MEDS: PROMOD 30 ML DOSE PO SCH ×2 (07:56→20:20)
[2018-09-10] MEDS: CRANBERRY FRUIT EXTRACT 200 MG CAP PO SCH ×2 (07:56→20:21)
[2018-09-10] MEDS: APIXABAN 5 MG TABLET PO SCH ×2 (07:56→20:21)
[2018-09-10] MEDS: FUROSEMIDE 40 MG TABLET PO SCH (07:57)
[2018-09-10] MEDS: BACLOFEN 10 MG TAB PO SCH (07:57)
--- NOTE | 2018-09-10 09:56 | FAST ---
SHIFT START DATE/TIME: 09/10/2018 07:00 (SUPERINTENDENT GREENS) SHIFT END DATE/TIME: 09/10/2018 19:00 (SUPERINTENDENT GREENS) NAME VAMSHI LUGO DATE OF : 1930 DATE OF ADMISSION: 09/06/2018 11:21 (SUPERINTENDENT GREENS) PHONE: AGE: 88 SSN# [id number] GENDER: Female ENCOUNTER PHYSICIAN: Dr. Parviz Frederick M.D. 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 EATING: EATING - STEP 1: Does the patient require the assistance of a person or device, or need extra time when eating? Yes. EATING - STEP 2: Does the patient require the assistance of a helper? No, patient only requires an assistive device, O R s/he takes more than reasonable time to eat, OR there is a safety concern, OR s/he requires modifie d food consistency EATING - SCORE: 6-DION GROOMING: Comb/brush hair Oral care GROOMING - STEP 1: Does the patient require the assistance of a person or device, or need extra time when grooming? Yes. GROOMING - STEP 2: Does the patient require the assistance of a helper? No. The patient only requires an assistive devic e, OR takes more than reasonable time to groom, OR there is a concern for safety as the patient groom s GROOMING - SCORE: 6-DION BATHING: Activity did not occur on this shift BATHING - SCORE: 0-UNK DRESSING - UPPER BODY: Bra (three steps) T-shirt/pullover shirt (four steps) ARTICLES SCORE Total number of steps: 7 DRESSING - UPPER BODY - STEP 1: Does the patient require help from a person or device, or need extra time when dressing above the [address]? Yes. DRESSING - UPPER BODY - STEP 2: Does the patient require the assistance of a helper? Yes. DRESSING - UPPER BODY - STEP 3: Does the helper touch the patient while dressing? No. DRESSING - UPPER BODY - SCORE: 5-SUP DRESSING - LOWER BODY: ARTICLES SCORE Total number of steps: 10 DRESSING - LOWER BODY - STEP 1: Does the patient require help from a person or device, or need extra time when dressing below the [address]? Yes. DRESSING - LOWER BODY - STEP 2: Does the patient require the assistance of a helper? Yes. DRESSING - LOWER BODY - STEP 3: Does the helper touch the patient while dressing? Yes. DRESSING - LOWER BODY - STEP 4: How many of the total steps does the patient complete on his/her own? 8 DRESSING - LOWER BODY - SCORE: 4-MIN TOILETING: TOILETING - STEP 1: Does the patient require the assistance of a person or device, or need extra time with toileting? Yes . TOILETING - STEP 2: Does the patient require the assistance of a helper? Yes. TOILETING - STEP 3: How much assistance does the patient require from the helper? Hands-on assistance from the helper TOILETING - STEP 4: Of the 3 tasks: 1) Adjusting clothing prior to use, 2) Cleansing of perineal area, 3) Adjusting clot ilene after use; How many tasks does the patient perform WITHOUT assistance of the helper? Three tasks with steadying assistance from the helper TOILETING - SCORE: 4-MIN BLADDER MANAGEMENT: BLADDER MANAGEMENT - STEP 1: Does the patient control the bladder completely and intentionally without equipment or devices or med ications, and is always continent? Yes. BLADDER MANAGEMENT - SCORE: 7-IND BOWEL MANAGEMENT: Activity did not occur on this shift BOWEL MANAGEMENT - SCORE: 7-IND TRANSFERS: BED, CHAIR, WHEELCHAIR: TRANSFERS: BED, CHAIR, WHEELCHAIR - STEP 1: Does the patient require assistance of a person or device, or need extra time with bed, chair, or whe elchair transfers? Yes. TRANSFERS: BED, CHAIR, WHEELCHAIR - STEP 2: Does the patient require the assistance of a helper? Yes. TRANSFERS: BED, CHAIR, WHEELCHAIR - STEP 3: How much assistance does the patient require from the helper? Steadying/guiding assistance TRANSFERS: BED, CHAIR, WHEELCHAIR - SCORE: 4-MIN TRANSFERS: TOILET: TRANSFERS: TOILET - STEP 1: Does the patient require the assistance of a person or device, or need extra time with toilet transfe rs? Yes. TRANSFERS: TOILET - STEP 2: Does the patient require the assistance of a helper? Yes. TRANSFERS: TOILET - STEP 3: How much assistance does the patient require from the helper? Patient performs half or more of the tr ansferring tasks TRANSFERS: TOILET - STEP 4: Does the patient need only incidental help such as contact guard or steadying during toilet transfer? Yes. TRANSFERS: TOILET - SCORE: 4-MIN TRANSFERS: SHOWER: Activity did not occur on this shift TRANSFERS: SHOWER - SCORE: 0-UNK TRANSFERS: TUB: Activity did not occur on this shift TRANSFERS: TUB - SCORE: 0-UNK LOCOMOTION: WALK: Activity did not occur on this shift LOCOMOTION: WALK - SCORE: 0-UNK LOCOMOTION: WHEELCHAIR: Activity did not occur on this shift LOCOMOTION: WHEELCHAIR - SCORE: 0-UNK COMPREHENSION: COMPREHENSION: TYPE: Both COMPREHENSION - STEP 1: Does the patient require help from a person or device, or need extra time to understand complex and a bstract ideas (such as current events, finances, discharge planning, medical issues, relationships, e tc)? No. COMPREHENSION - STEP 2: Does the patient need extra time, require an assistive device (such as glasses for visual comprehensi on or a hearing aid for auditory comprehension) or does s/he have mild difficulty understanding compl ex and abstract information? Yes. COMPREHENSION - SCORE: 6-DION EXPRESSION EXPRESSION: TYPE: Both EXPRESSION - STEP 1: Does the patient require help from a person or device, or need extra time expressing complex and abst ract ideas (such as current events, finances, discharge planning, medical issues, relationships, etc) ? No. EXPRESSION - STEP 2: Does the patient need extra time, require an assistive device (such as augmentive communication syste m or a communication board), OR does s/he have mild difficulty expressing complex and abstract ideas (including mild dysarthria or mild word-find problems)? Yes. EXPRESSION - SCORE: 6-DION SOCIAL INTERACTION: SOCIAL INTERACTION - STEP 1: Does the patient require a helper to interact with others in social and therapeutic situations? No. SOCIAL INTERACTION - STEP 2: Does the patient need extra time in social situations, OR does s/he interact with staff, other patien ts, and family members ONLY in structured environments, OR does s/he require medication for social in teraction? Yes, patient needs extra time SOCIAL INTERACTION - SCORE: 6-DION PROBLEM SOLVING: PROBLEM SOLVING - STEP 1: Does the patient need help from a person or device, or need extra time to solve complex problems such as managing a checking account or confronting interpersonal problems? No. PROBLEM SOLVING - STEP 2: Does the patient require extra time to make decisions or solve problems, OR does s/he have slight dif ficulty reading, initiating, or self-correcting in unfamiliar situations? Yes, patient needs extra ti me. PROBLEM SOLVING - SCORE: 6-DION MEMORY: MEMORY - STEP 1: Does the patient need help from a person or device, or need extra time to remember frequently encount ered people, daily routines, and executing requests? Yes. MEMORY - STEP 2: How often does the patient need help to remember frequently encountered people, daily routines, and e xecuting requests? Less than 10% of the time MEMORY - SCORE: 5-SUP SIGNATURE PANEL: The following modified sections: Eating - Score, Grooming - Score, Bathing - Score, Dressing - Upper Body - Score, Dressing - Lower Body - Score, Toileting - Score, Bladder Management - Score, Bowel Man agement - Score, Transfers: Bed, Chair, Wheelchair - Score, Transfers: Toilet - Score, Transfers: Leyda wer - Score, Transfers: Tub - Score, Locomotion: Walk - Score, Locomotion: Wheelchair - Score, Compre hension - Score, Expression - Score, Social Interaction - Score, Problem Solving - Score, Memory - Sc ore were [electronically] signed by Tony Escalante on TueSep 10 2018 09:55:32 GMT-0600 (Central Standard Time)
[2018-09-10] MEDS: TRAMADOL HCL 50 MG TAB PO PRN ×2 (11:11→20:30)
[2018-09-10] MEDS: MAGIC MOUTHWASH 180 ML BTL PO PRN (12:33)
[2018-09-10] MEDS: MONTELUKAST 10 MG TAB PO SCH (20:21)
[2018-09-10] MEDS: NYSTATIN 500,000 UNIT/5 ML UDC PO PRN (20:21)
[2018-09-10] MEDS: ZOLPIDEM TARTRATE 5 MG TABLET PO PRN (20:21)
[2018-09-10] MEDS: DOCUSATE NA/SENNA CONC 1 TAB PO SCH (20:22)
[2018-09-10] MEDS: VITAMIN D 1000 UNIT TAB PO SCH (20:22)
[2018-09-10] MEDS: DULOXETINE 30 MG CAP PO SCH (20:22)
[2018-09-10] MEDS: CYANOCOBALAMIN 1,000 MCG TAB PO SCH (20:22)
--- NOTE | 2018-09-11 01:55 | FAST ---
SHIFT START DATE/TIME: 09/10/2018 19:00 (LAB ANALYST) SHIFT END DATE/TIME: 09/11/2018 07:00 (LAB ANALYST) NAME VAMSHI LUGO DATE OF : 1930 DATE OF ADMISSION: 09/06/2018 11:21 (LAB ANALYST) PHONE: AGE: 88 SSN# [id number] GENDER: Female ENCOUNTER PHYSICIAN: Dr. Parviz Frederick M.D. 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 EATING: Activity did not occur on this shift EATING - SCORE: 0-UNK GROOMING: Oral care Wash, rinse, and dry face Wash, rinse, and dry hands GROOMING - STEP 1: Does the patient require the assistance of a person or device, or need extra time when grooming? Yes. GROOMING - STEP 2: Does the patient require the assistance of a helper? Yes. GROOMING - STEP 3: How much assistance does the patient require from the helper? Cuing, coaxing, instructions, or encour agement for completion of grooming GROOMING - SCORE: 5-SUP BATHING: Activity did not occur on this shift BATHING - SCORE: 0-UNK DRESSING - UPPER BODY: Patient is not dressing in public clothing ARTICLES SCORE Total number of steps: 0 DRESSING - UPPER BODY - SCORE: 0-UNK DRESSING - LOWER BODY: Patient is not dressing in public clothing ARTICLES SCORE Total number of steps: 0 DRESSING - LOWER BODY - SCORE: 0-UNK TOILETING: TOILETING - STEP 1: Does the patient require the assistance of a person or device, or need extra time with toileting? Yes . TOILETING - STEP 2: Does the patient require the assistance of a helper? Yes. TOILETING - STEP 3: How much assistance does the patient require from the helper? Hands-on assistance from the helper TOILETING - STEP 4: Of the 3 tasks: 1) Adjusting clothing prior to use, 2) Cleansing of perineal area, 3) Adjusting clot ilene after use; How many tasks does the patient perform WITHOUT assistance of the helper? Three tasks with steadying assistance from the helper TOILETING - SCORE: 4-MIN BLADDER MANAGEMENT: BLADDER MANAGEMENT - STEP 1: Does the patient control the bladder completely and intentionally without equipment or devices or med ications, and is always continent? Yes. BLADDER MANAGEMENT - SCORE: 7-IND BOWEL MANAGEMENT: BOWEL MANAGEMENT - STEP 1: Does the patient control bowels completely and intentionally without equipment devices or medications AND is always continent? Yes. BOWEL MANAGEMENT - SCORE: 7-IND TRANSFERS: BED, CHAIR, WHEELCHAIR: TRANSFERS: BED, CHAIR, WHEELCHAIR - STEP 1: Does the patient require assistance of a person or device, or need extra time with bed, chair, or whe elchair transfers? Yes. TRANSFERS: BED, CHAIR, WHEELCHAIR - STEP 2: Does the patient require the assistance of a helper? Yes. TRANSFERS: BED, CHAIR, WHEELCHAIR - STEP 3: How much assistance does the patient require from the helper? Lifting of the legs TRANSFERS: BED, CHAIR, WHEELCHAIR - STEP 4: How many legs does the patient require the helper to lift? both legs TRANSFERS: BED, CHAIR, WHEELCHAIR - SCORE: 3-MOD TRANSFERS: TOILET: TRANSFERS: TOILET - STEP 1: Does the patient require the assistance of a person or device, or need extra time with toilet transfe rs? Yes. TRANSFERS: TOILET - STEP 2: Does the patient require the assistance of a helper? Yes. TRANSFERS: TOILET - STEP 3: How much assistance does the patient require from the helper? Only supervision, cuing, coaxing, OR he lp to set out transfer equipment or to lock brakes and/or lift foot rests TRANSFERS: TOILET - SCORE: 5-SUP TRANSFERS: SHOWER: Activity did not occur on this shift TRANSFERS: SHOWER - SCORE: 0-UNK TRANSFERS: TUB: Activity did not occur on this shift TRANSFERS: TUB - SCORE: 0-UNK LOCOMOTION: WALK: Activity did not occur on this shift LOCOMOTION: WALK - SCORE: 0-UNK LOCOMOTION: WHEELCHAIR: Activity did not occur on this shift LOCOMOTION: WHEELCHAIR - SCORE: 0-UNK COMPREHENSION: COMPREHENSION: TYPE: Both COMPREHENSION - STEP 1: Does the patient require help from a person or device, or need extra time to understand complex and a bstract ideas (such as current events, finances, discharge planning, medical issues, relationships, e tc)? No. COMPREHENSION - STEP 2: Does the patient need extra time, require an assistive device (such as glasses for visual comprehensi on or a hearing aid for auditory comprehension) or does s/he have mild difficulty understanding compl ex and abstract information? Yes. COMPREHENSION - SCORE: 6-DION EXPRESSION EXPRESSION: TYPE: Both EXPRESSION - STEP 1: Does the patient require help from a person or device, or need extra time expressing complex and abst ract ideas (such as current events, finances, discharge planning, medical issues, relationships, etc) ? Yes. EXPRESSION - STEP 2: Does the patient require help to express basic necessities or ideas (such as hunger, thirst, sleep, s afety, daily schedule, room location, or discomfort) half or more of the time? No. EXPRESSION - STEP 3: How often does the patient need help to express directions and conversation about basic needs? 10-24% of the time EXPRESSION - SCORE: 4-MIN SOCIAL INTERACTION: SOCIAL INTERACTION - STEP 1: Does the patient require a helper to interact with others in social and therapeutic situations? No. SOCIAL INTERACTION - STEP 2: Does the patient need extra time in social situations, OR does s/he interact with staff, other patien ts, and family members ONLY in structured environments, OR does s/he require medication for social in teraction? Yes, patient requires medication for social interaction SOCIAL INTERACTION - SCORE: 6-DION PROBLEM SOLVING: PROBLEM SOLVING - STEP 1: Does the patient need help from a person or device, or need extra time to solve complex problems such as managing a checking account or confronting interpersonal problems? Yes. PROBLEM SOLVING - STEP 2: Does the patient solve basic routine problems half or more of the time? Yes. PROBLEM SOLVING - STEP 3: How often does the patient need help to solve basic routine problems? 10%-24% of the time PROBLEM SOLVING - SCORE: 4-MIN MEMORY: MEMORY - STEP 1: Does the patient need help from a person or device, or need extra time to remember frequently encount ered people, daily routines, and executing requests? Yes. MEMORY - STEP 2: How often does the patient need help to remember frequently encountered people, daily routines, and e xecuting requests? 10% - 24% of the time MEMORY - SCORE: 4-MIN SIGNATURE PANEL: The following modified sections: Eating - Score, Grooming - Score, Bathing - Score, Dressing - Upper Body - Score, Dressing - Lower Body - Score, Toileting - Score, Bladder Management - Score, Bowel Man agement - Score, Transfers: Bed, Chair, Wheelchair - Score, Transfers: Toilet - Score, Transfers: Leyda wer - Score, Transfers: Tub - Score, Locomotion: Walk - Score, Locomotion: Wheelchair - Score, Compre hension - Score, Expression - Score, Social Interaction - Score, Problem Solving - Score, Memory - Sc ore were [electronically] signed by Olena Murphy CNA on TueSep 11 2018 01:54:37 T-0600 ([facility])
[2018-09-11] MEDS: PANTOPRAZOLE 40MG TABLET PO SCH (07:09)
[2018-09-11] MEDS: SACUBITRIL/VALSARTAN 24/26 MG TAB PO SCH ×2 (07:51→21:06)
[2018-09-11] MEDS: CRANBERRY FRUIT EXTRACT 200 MG CAP PO SCH ×2 (07:51→21:03)
[2018-09-11] MEDS: DOCUSATE NA 100 MG CAP PO SCH ×2 (07:51→21:06)
[2018-09-11] MEDS: BACLOFEN 10 MG TAB PO SCH (07:51)
[2018-09-11] MEDS: APIXABAN 5 MG TABLET PO SCH ×2 (07:51→21:06)
[2018-09-11] MEDS: FUROSEMIDE 40 MG TABLET PO SCH (07:51)
[2018-09-11] MEDS: GABAPENTIN 100 MG CAP PO SCH ×2 (07:52→21:04)
[2018-09-11] MEDS: MAGNESIUM OXIDE 400 MG TAB PO SCH ×2 (07:52→21:04)
[2018-09-11] MEDS: PROMOD 30 ML DOSE PO SCH ×2 (07:52→21:07)
[2018-09-11] MEDS: HYDROCODONE/APAP 5/325 MG TAB PO PRN ×2 (07:52→21:01)
[2018-09-11] MEDS: TRAMADOL HCL 50 MG TAB PO PRN (10:59)
--- NOTE | 2018-09-11 12:53 | P.PN ---
Subjective Date of Service: 09/11/18 Chief Complaint: hip pain Subjective: Improving, Working w/ PT complains of mouth sores Review of Systems 10-point ROS is otherwise unremarkable Physical Examination - Vital Signs Temperature: 96.4 F Blood Pressure: 119/97 Pulse: 114 Respirations: 16 Pulse Ox (%): 94 - Physical Exam General: Alert, In no apparent distress, Oriented x3 HEENT: Atraumatic, PERRLA, EOMI Neck: Supple, JVD not distended Respiratory: Clear to auscultation bilaterally, Normal air movement Cardiovascular: No edema, Normal S1 S2, Irregular heart rate/rhythm Gastrointestinal: Normal bowel sounds, Soft and benign, Non-distended, No tenderness Musculoskeletal: No tenderness Integumentary: No rashes Neurological: Normal speech, Normal strength at 5/5 x4 extr, Normal tone, Normal affect - Studies Medications List Reviewed: Yes Assessment And Plan - Current Problems (Diagnosis) (1) Avascular necrosis of bone of right hip Onset Date: 09/04/18 Current Visit: No Status: Acute (2) CHF (congestive heart failure) Current Visit: No Status: Acute Qualifiers: Heart failure type: systolic Heart failure chronicity: acute on chronic Qualified Code(s): I50.23 - Acute on chronic systolic (congestive) heart failure (3) Chronic anticoagulation Current Visit: No Status: Acute (4) Right hip pain Onset Date: 09/04/18 Current Visit: No Status: Acute (5) Afib Onset Date: 03/20/18 Current Visit: No Status: Chronic Qualifiers: Atrial fibrillation type: chronic Qualified Code(s): I48.2 - Chronic atrial fibrillation (6) GERD (gastroesophageal reflux disease) Onset Date: 03/20/18 Current Visit: No Status: Chronic Qualifiers: Esophagitis presence: without esophagitis Qualified Code(s): K21.9 - Gastro -esophageal reflux disease without esophagitis (7) HTN (hypertension) Onset Date: 09/04/18 Current Visit: No Status: Chronic Qualifiers: Hypertension type: essential hypertension Qualified Code(s): I10 - Essential (primary) hypertension (8) Mouth sores Current Visit: Yes Status: Acute Plan: magic mouth wash - Plan colace for constipation. cont pain control. cont PT Eliquis for DVT prophylaxis
[2018-09-11] MEDS: NYSTATIN 500,000 UNIT/5 ML UDC PO PRN ×2 (15:21→21:02)
--- NOTE | 2018-09-11 15:31 | FAST ---
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 Parviz Frederick M.D. 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 EATING: EATING - STEP 1: Does the patient require the assistance of a person or device, or need extra time when eating? Yes. EATING - STEP 2: Does the patient require the assistance of a helper? Yes. EATING - STEP 3: Does the patient perform half or more of the eating tasks? Yes. EATING - STEP 4: Does the patient need only supervision, cuing, coaxing OR help to apply an orthosis OR help to cut fo od, open containers, pour liquids, or butter bread? Yes. EATING - SCORE: 5-SUP GROOMING: Comb/brush hair Wash, rinse, and dry face Wash, rinse, and dry hands GROOMING - STEP 1: Does the patient require the assistance of a person or device, or need extra time when grooming? Yes. GROOMING - STEP 2: Does the patient require the assistance of a helper? No. The patient only requires an assistive devic e, OR takes more than reasonable time to groom, OR there is a concern for safety as the patient groom s GROOMING - SCORE: 6-DION BATHING: Activity did not occur on this shift BATHING - SCORE: 0-UNK DRESSING - UPPER BODY: T-shirt/pullover shirt (four steps) ARTICLES SCORE Total number of steps: 4 DRESSING - UPPER BODY - STEP 1: Does the patient require help from a person or device, or need extra time when dressing above the [address]? Yes. DRESSING - UPPER BODY - STEP 2: Does the patient require the assistance of a helper? Yes. DRESSING - UPPER BODY - STEP 3: Does the helper touch the patient while dressing? No. DRESSING - UPPER BODY - SCORE: 5-SUP DRESSING - LOWER BODY: Elastic waist pants (three steps) Sock - Left foot (one step) Underwear (three steps) ARTICLES SCORE Total number of steps: 7 DRESSING - LOWER BODY - STEP 1: Does the patient require help from a person or device, or need extra time when dressing below the [address]? Yes. DRESSING - LOWER BODY - STEP 2: Does the patient require the assistance of a helper? No. Patient requires an assistive device such as a asphalt roller operator. OR s/he takes more than reasonable time as s/he dresses the lower body, OR there is a con cern for safety when s/he dresses the lower body DRESSING - LOWER BODY - SCORE: 6-DION TOILETING: TOILETING - STEP 1: Does the patient require the assistance of a person or device, or need extra time with toileting? Yes . TOILETING - STEP 2: Does the patient require the assistance of a helper? Yes. TOILETING - STEP 3: How much assistance does the patient require from the helper? Only supervision TOILETING - SCORE: 5-SUP BLADDER MANAGEMENT: BLADDER MANAGEMENT - STEP 1: Does the patient control the bladder completely and intentionally without equipment or devices or med ications, and is always continent? Yes. BLADDER MANAGEMENT - SCORE: 7-IND BLADDER MANAGEMENT - FREQUENCY OF ACCIDENTS: BLADDER MANAGEMENT(FA) - STEP 1: How many accidents has the patient had during the current shift? 0 BOWEL MANAGEMENT: BOWEL MANAGEMENT - STEP 1: Does the patient control bowels completely and intentionally without equipment devices or medications AND is always continent? No. BOWEL MANAGEMENT - STEP 2: Does the patient require the assistance of a helper? No, patient requires medication for control such as stool softeners, suppositories, laxatives, enemas, or OTC medications BOWEL MANAGEMENT - SCORE: 6-DION BOWEL MANAGEMENT - FREQUENCY OF ACCIDENTS: BOWEL MANAGEMENT(FA) - STEP 1: How many accidents has the patient had during the current shift? 0 TRANSFERS: BED, CHAIR, WHEELCHAIR: TRANSFERS: BED, CHAIR, WHEELCHAIR - STEP 1: Does the patient require assistance of a person or device, or need extra time with bed, chair, or whe elchair transfers? Yes. TRANSFERS: BED, CHAIR, WHEELCHAIR - STEP 2: Does the patient require the assistance of a helper? Yes. TRANSFERS: BED, CHAIR, WHEELCHAIR - STEP 3: How much assistance does the patient require from the helper? Only supervision TRANSFERS: BED, CHAIR, WHEELCHAIR - SCORE: 5-SUP TRANSFERS: TOILET: TRANSFERS: TOILET - STEP 1: Does the patient require the assistance of a person or device, or need extra time with toilet transfe rs? Yes. TRANSFERS: TOILET - STEP 2: Does the patient require the assistance of a helper? No. Patient only requires an assistive device delgado ch as a grab bar or special seat, OR s/he takes more than reasonable time to perform toilet transfers , OR there is a safety concern when s/he performs toilet transfers. TRANSFERS: TOILET - SCORE: 6-DION TRANSFERS: SHOWER: Activity did not occur on this shift TRANSFERS: SHOWER - SCORE: 0-UNK TRANSFERS: TUB: Activity did not occur on this shift TRANSFERS: TUB - SCORE: 0-UNK LOCOMOTION: WALK: Activity did not occur on this shift LOCOMOTION: WALK - SCORE: 0-UNK LOCOMOTION: WHEELCHAIR: Activity did not occur on this shift LOCOMOTION: WHEELCHAIR - SCORE: 0-UNK COMPREHENSION: COMPREHENSION: TYPE: Both COMPREHENSION - STEP 1: Does the patient require help from a person or device, or need extra time to understand complex and a bstract ideas (such as current events, finances, discharge planning, medical issues, relationships, e tc)? Yes. COMPREHENSION - STEP 2: Does the patient require help to understand questions or statements about basic needs or ideas (such as hunger, thirst, sleep, safety, daily schedule, room location, or discomfort) half or more of the t timi? No. COMPREHENSION - STEP 3: How often does the patient need help to understand directions and conversation about basic needs? Les s than 10% of the time COMPREHENSION - SCORE: 5-SUP EXPRESSION EXPRESSION: TYPE: Both EXPRESSION - STEP 1: Does the patient require help from a person or device, or need extra time expressing complex and abst ract ideas (such as current events, finances, discharge planning, medical issues, relationships, etc) ? Yes. EXPRESSION - STEP 2: Does the patient require help to express basic necessities or ideas (such as hunger, thirst, sleep, s afety, daily schedule, room location, or discomfort) half or more of the time? No. EXPRESSION - STEP 3: How often does the patient need help to express directions and conversation about basic needs? Less t godinez 10% of the time EXPRESSION - SCORE: 5-SUP SOCIAL INTERACTION: SOCIAL INTERACTION - STEP 1: Does the patient require a helper to interact with others in social and therapeutic situations? No. SOCIAL INTERACTION - STEP 2: Does the patient need extra time in social situations, OR does s/he interact with staff, other patien ts, and family members ONLY in structured environments, OR does s/he require medication for social in teraction? Yes, patient needs extra time SOCIAL INTERACTION - SCORE: 6-DION PROBLEM SOLVING: PROBLEM SOLVING - STEP 1: Does the patient need help from a person or device, or need extra time to solve complex problems such as managing a checking account or confronting interpersonal problems? No. PROBLEM SOLVING - STEP 2: Does the patient require extra time to make decisions or solve problems, OR does s/he have slight dif ficulty reading, initiating, or self-correcting in unfamiliar situations? Yes, patient needs extra ti me. PROBLEM SOLVING - SCORE: 6-DION MEMORY: MEMORY - STEP 1: Does the patient need help from a person or device, or need extra time to remember frequently encount ered people, daily routines, and executing requests? Yes. MEMORY - STEP 2: How often does the patient need help to remember frequently encountered people, daily routines, and e xecuting requests? Less than 10% of the time MEMORY - SCORE: 5-SUP SIGNATURE PANEL: The following modified sections: Eating - Score, Grooming - Score, Bathing - Score, Dressing - Upper Body - Score, Dressing - Lower Body - Score, Toileting - Score, Bladder Management - Score, Bowel Man agement - Score, Transfers: Bed, Chair, Wheelchair - Score, Transfers: Toilet - Score, Transfers: Leyda wer - Score, Transfers: Tub - Score, Locomotion: Walk - Score, Locomotion: Wheelchair - Score, Compre hension - Score, Expression - Score, Social Interaction - Score, Problem Solving - Score, Memory - Sc ore were [electronically] signed by Brigid Melissa C.N.A. on TueSep 11 2018 15:30:37 GMT-0600 (Centra [place] Standard Time)
--- NOTE | 2018-09-11 15:51 | FAST ---
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 Parviz Frederick M.D. 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 EATING: Activity did not occur on this shift EATING - SCORE: 0-UNK GROOMING: Activity did not occur on this shift GROOMING - SCORE: 0-UNK BATHING: Activity did not occur on this shift BATHING - SCORE: 0-UNK DRESSING - UPPER BODY: Activity did not occur on this shift Patient is not dressing in public clothing ARTICLES SCORE Total number of steps: 0 DRESSING - UPPER BODY - SCORE: 0-UNK DRESSING - LOWER BODY: Activity did not occur on this shift Patient is not dressing in public clothing ARTICLES SCORE Total number of steps: 0 DRESSING - LOWER BODY - SCORE: 0-UNK TOILETING: Activity did not occur on this shift TOILETING - SCORE: 0-UNK BLADDER MANAGEMENT: Activity did not occur on this shift BLADDER MANAGEMENT - SCORE: 7-IND BOWEL MANAGEMENT: Activity did not occur on this shift BOWEL MANAGEMENT - SCORE: 7-IND TRANSFERS: BED, CHAIR, WHEELCHAIR: TRANSFERS: BED, CHAIR, WHEELCHAIR - STEP 1: Does the patient require assistance of a person or device, or need extra time with bed, chair, or whe elchair transfers? Yes. TRANSFERS: BED, CHAIR, WHEELCHAIR - STEP 2: Does the patient require the assistance of a helper? No. Patient only requires an assistive device fo r bed, chair, wheelchair transfers such as a sliding board, grab bar, or brace, OR s/he takes more th an reasonable time, OR there is a safety concern when s/he performs the transfers TRANSFERS: BED, CHAIR, WHEELCHAIR - SCORE: 6-DION TRANSFERS: TOILET: Activity did not occur on this shift TRANSFERS: TOILET - SCORE: 0-UNK TRANSFERS: SHOWER: Activity did not occur on this shift TRANSFERS: SHOWER - SCORE: 0-UNK TRANSFERS: TUB: Activity did not occur on this shift TRANSFERS: TUB - SCORE: 0-UNK LOCOMOTION: WALK: LOCOMOTION: WALK - STEP 1: Does the patient need help from a person or device, or need extra time to walk 150 feet? No. LOCOMOTION: WALK - STEP 2: Does the patient need an assistive device (such as an orthosis, prosthesis, crutches, or walker) to g o 150 feet, OR does s/he take more than reasonable time, OR is there a concern for safety? Yes, the p atient needs an assistive device LOCOMOTION: WALK - SCORE: 6-DION LOCOMOTION: WHEELCHAIR: LOCOMOTION: WHEELCHAIR - STEP 1: Does the patient need help to go 150 feet in a wheelchair? Yes. LOCOMOTION: WHEELCHAIR - STEP 2: How much assistance does the patient need from the helper? Only supervision, cuing, or coaxing LOCOMOTION: WHEELCHAIR - SCORE: 5-SUP LOCOMOTION: STAIRS: LOCOMOTION: STAIRS - STEP 1: Does the patient need help to go up and down 12 to 14 stairs? Yes. LOCOMOTION: STAIRS - STEP 2: How much assistance does the patient need from the helper to go a minimum of 12 to 14 stairs? Only delgado pervision, cuing, or coaxing LOCOMOTION: STAIRS - SCORE: 5-SUP COMPREHENSION: COMPREHENSION - SCORE: 0-UNK EXPRESSION EXPRESSION - SCORE: 0-UNK SOCIAL INTERACTION: SOCIAL INTERACTION - SCORE: 0-UNK PROBLEM SOLVING: PROBLEM SOLVING - SCORE: 0-UNK MEMORY: MEMORY - SCORE: 0-UNK SIGNATURE PANEL: The following modified sections: Transfers: Bed, Chair, Wheelchair - Score, Transfers: Toilet - Score , Locomotion: Walk - Score, Locomotion: Wheelchair - Score, Locomotion: Stairs - Score were [levy salazar] signed by Minh Magana PTA on TueSep 11 2018 15:50:41 GMT-0600 (Central Standard Time)
--- NOTE | 2018-09-11 18:27 | R.PN ---
ENCOUNTER DATE AND TIME: 09/11/2018 18:23 (GEOLOGICAL AIDE) NAME VAMSHI LUGO DATE OF : 1930 DATE OF ADMISSION: 09/06/2018 11:21 (GEOLOGICAL AIDE) stress fx base of femoral neck and avascular necrosis of femoral head right hipCHIEF COMPLAINT: Right hip avascular necrosis SUBJECTIVE: Pt denied any Shortness of Breath. Pt denied any depression. Ambulated 500' with modified independence using a rolling walker. Up and down 15 steps with bilatera l hand rails. VITAL SIGNS Temperature: 99 F SBP/DBP: 119/97 Pulse: 100 Resp: 16 MEDICATION ALLERGIES: sulfa ENVIRONMENTAL ALLERGIES: - Substance Allergies None Known - Other Allergies None Known NURSING: - Shower allowing shower - Skin care per protocol PRECAUTIONS: - Posterior Hip Precaution No adduction across midline No external rotation No hip flexion >90 degrees No internal rotation No wheel chair propulsion - Weight Bearing Precaution WBAT right LE ACTIVITIES OOB only with supervision THERAPIES: - Occupational Therapy Evaluate and Treat. - Physical Therapy Evaluate and Treat. PHYSICAL EXAM - Gen Alert and awake Lying in bed No apparent distress Oriented to: person, time, and place - Skin No breakdown No abnormalities - Eyes No abnormalities - ENMT No abnormalities - Neck No abnormalities - CVS RRR - Chest No abnormalities - Resp Clear to auscultation - Abd +bowel sounds - GI Soft Deferred - No abnormalities - Ext Right hip surgical site has good hemostasis. - MSK 4+/5 weakness in right lower extremity - Neuro 4/5 strength right lower extremity - Psych No abnormalities ASSESSMENT: Pt. is a 88 yo Right-handed white female.On 09/01/2018 she was admitted to [facility] and underwent emergency surgery for stress fx base of femoral neck and avascular necrosis of f emoral head right hip (right hip hemiarthroplasty) by Funmi Flores.Pre-morbidly, Pt. was independent/ mod-I in Self-Care, Sphincter Control, Transfers Control, Communication, Social Cognition, and Locomo tion; and she had good Sphincter Control.Currently, she has deficits of Self-Care, Endurance, Safety Awareness, Transfers Control, Communication, Social Cognition, Balance, and Locomotion.Pt. is now ref erred to [facility] for acute in-patient rehabilitation in order to maximize p atient's functional independence in activities of daily living, strength, ROM, and mobility.- Rehab G oal Patient has realistic goal of being discharged at assistance level 6-Shanika to reside at Home with Fam zeferino/Relatives. MDM/PLAN: - Physical Therapy Decreased range of motion - to improve, our physical therapists will perform initial evaluation of p t's status upon admission and devise an individualized program for increasing patient's Range of Daniel on. Gait dysfunction - to improve, our physical therapists will perform initial evaluation of pt's statu s upon admission and devise an individualized program for Gait Training, and Wheel Chair mobility Inability to transfer - to improve, our physical therapists will perform initial evaluation of pt's status upon admission and devise an individualized program for Bed mobility Need for home safety evaluation - to improve, our physical therapists will perform initial evaluatio n of pt's status upon admission and devise an individualized program for Home Evaluation Need in caregiver upon discharge - to improve, our physical therapists will perform initial evaluati on of pt's status upon admission and devise an individualized program for Caregiver Training New precaution - to improve, our physical therapists will perform initial evaluation of pt's status upon admission and devise an individualized program for Patient precaution education Poor balance - to improve, our physical therapists will perform initial evaluation of pt's status up on admission and devise an individualized program for Balance Training Poor endurance - to improve, our physical therapists will perform initial evaluation of pt's status upon admission and devise an individualized program for Endurance Training Weakness - to improve, our physical therapists will perform initial evaluation of pt's status upon a dmission and devise an individualized program for Aquatic Therapy, Neuromuscular Reeducation, and Str engthening Achieving independence - to improve, our physical therapists will perform initial evaluation of pt's status upon admission and devise an individualized program for Community Reintegration Activities - Occupational Therapy ADL deficits - to improve, our occupation therapists will perform initial evaluation of pt's status upon admission and devise an individualized program for Bathing, Bed mobility, Community Reintegratio n, Cooking, Dressing, Eating, Fine Motor Skills, Grooming, Homemaking, Kitchen Mobility, Laundry, Pat ient Education, Safety Awareness, Splinting - Positioning, Transfers(Toilet, Tub, Shower), and Wheel Chair Management Cognitive deficits - to improve, our occupation therapists will perform initial evaluation of pt's s tatus upon admission and devise an individualized program for Cognition - orientation Need for dog day care attendant - to improve, our occupation therapists will perform initial evaluation of pt's status upon admission and devise an individualized program for Caregiver Training Weakness - to improve, our occupation therapists will perform initial evaluation of pt's status upon admission and devise an individualized program for Aquatic Therapy, Balance, Endurance, UE ROM, and UE strengthening - Anterior Hip Precaution No abduction No active extension No adduction across midline No external rotation No hip flexion >90 degrees No internal rotation - Diet - Liquid Texture Continue Regular - Tube Feed Continue N/A - Diet Type Continue Regular - Posterior Hip Precaution No adduction across midline No external rotation No hip flexion >90 degrees No internal rotation No wheel chair propulsion - Weight Bearing Precaution WBAT right LE - Skin care per protocol - Diet - Solid Texture Continue Regular - Shower allowing shower FUNCTIONAL STATUS: UPDATED AT WEEKLY TEAM CONFERENCE - Bladder Same accident frequency: 7-Ind - No accidents in the past 7 days - Bowel Same accident frequency: 7-Ind - No accidents in the past 7 days - Walking Same score based on distance walked: 1(<=50ft) FUNCTIONAL STATUS: - Self-Care A. Eating sup B. Grooming Aidee C. Bathing Aidee D. Dressing - Upper Aidee E. Dressing - Lower maxA F. Toileting maxA - Sphincter Control G: Bladder control Ind H: Bowel control Ind - Transfers Control I. Bed/Chair/Wheelchair modA J. Toilet modA K. Tub/Shower modA - Locomotion L. Walk/Wheelchair (B) Dep M. Stairs ADNO - Communication N. Comprehension (B) Aidee O. Expression (B) sup - Social Cognition P. Social Interaction sup Q. Problem Solving sup R. Memory sup - Endurance Poor - Balance Poor - Safety Awareness Fair CURRENT FUNC. DEFICITS: Self-Care, Endurance, Safety Awareness, Transfers Control, Communication, Social Cognition, Balance, and Locomotion SIGNATURE PANEL: (GEOLOGICAL AIDE)
[2018-09-11] MEDS: DULOXETINE 30 MG CAP PO SCH (21:04)
[2018-09-11] MEDS: MONTELUKAST 10 MG TAB PO SCH (21:04)
[2018-09-11] MEDS: VITAMIN D 1000 UNIT TAB PO SCH (21:04)
[2018-09-11] MEDS: DOCUSATE NA/SENNA CONC 1 TAB PO SCH (21:06)
[2018-09-11] MEDS: CYANOCOBALAMIN 1,000 MCG TAB PO SCH (21:06)
[2018-09-11] MEDS: ZOLPIDEM TARTRATE 5 MG TABLET PO PRN (22:15)
--- NOTE | 2018-09-12 02:06 | FAST ---
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 Parviz Frederick M.D. 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 EATING: Activity did not occur on this shift EATING - SCORE: 0-UNK GROOMING: Oral care Wash, rinse, and dry hands GROOMING - STEP 1: Does the patient require the assistance of a person or device, or need extra time when grooming? Yes. GROOMING - STEP 2: Does the patient require the assistance of a helper? Yes. GROOMING - STEP 3: How much assistance does the patient require from the helper? Only prior equipment preparation/set up from the helper GROOMING - SCORE: 5-SUP BATHING: Activity did not occur on this shift BATHING - SCORE: 0-UNK DRESSING - UPPER BODY: Patient is not dressing in public clothing ARTICLES SCORE Total number of steps: 0 DRESSING - UPPER BODY - SCORE: 0-UNK DRESSING - LOWER BODY: Patient is not dressing in public clothing ARTICLES SCORE Total number of steps: 0 DRESSING - LOWER BODY - SCORE: 0-UNK TOILETING: TOILETING - STEP 1: Does the patient require the assistance of a person or device, or need extra time with toileting? Yes . TOILETING - STEP 2: Does the patient require the assistance of a helper? Yes. TOILETING - STEP 3: How much assistance does the patient require from the helper? Hands-on assistance from the helper TOILETING - STEP 4: Of the 3 tasks: 1) Adjusting clothing prior to use, 2) Cleansing of perineal area, 3) Adjusting clot ilene after use; How many tasks does the patient perform WITHOUT assistance of the helper? Three tasks with steadying assistance from the helper TOILETING - SCORE: 4-MIN BLADDER MANAGEMENT: BLADDER MANAGEMENT - STEP 1: Does the patient control the bladder completely and intentionally without equipment or devices or med ications, and is always continent? No. BLADDER MANAGEMENT - STEP 2: Does the patient require the assistance of a helper? Yes. BLADDER MANAGEMENT - STEP 3: How much assistance does the patient require from the helper? Only supervision, stand-by, cuing, or c oaxing BLADDER MANAGEMENT - SCORE: 5-SUP BOWEL MANAGEMENT: BOWEL MANAGEMENT - STEP 1: Does the patient control bowels completely and intentionally without equipment devices or medications AND is always continent? No. BOWEL MANAGEMENT - STEP 2: Does the patient require the assistance of a helper? No, patient requires medication for control such as stool softeners, suppositories, laxatives, enemas, or OTC medications BOWEL MANAGEMENT - SCORE: 6-DION TRANSFERS: BED, CHAIR, WHEELCHAIR: TRANSFERS: BED, CHAIR, WHEELCHAIR - STEP 1: Does the patient require assistance of a person or device, or need extra time with bed, chair, or whe elchair transfers? Yes. TRANSFERS: BED, CHAIR, WHEELCHAIR - STEP 2: Does the patient require the assistance of a helper? Yes. TRANSFERS: BED, CHAIR, WHEELCHAIR - STEP 3: How much assistance does the patient require from the helper? Lifting of the legs TRANSFERS: BED, CHAIR, WHEELCHAIR - STEP 4: How many legs does the patient require the helper to lift? one leg TRANSFERS: BED, CHAIR, WHEELCHAIR - SCORE: 4-MIN TRANSFERS: TOILET: TRANSFERS: TOILET - STEP 1: Does the patient require the assistance of a person or device, or need extra time with toilet transfe rs? Yes. TRANSFERS: TOILET - STEP 2: Does the patient require the assistance of a helper? Yes. TRANSFERS: TOILET - STEP 3: How much assistance does the patient require from the helper? Patient performs half or more of the tr ansferring tasks TRANSFERS: TOILET - STEP 4: Does the patient need only incidental help such as contact guard or steadying during toilet transfer? Yes. TRANSFERS: TOILET - SCORE: 4-MIN TRANSFERS: SHOWER: Activity did not occur on this shift TRANSFERS: SHOWER - SCORE: 0-UNK TRANSFERS: TUB: Activity did not occur on this shift TRANSFERS: TUB - SCORE: 0-UNK LOCOMOTION: WALK: Activity did not occur on this shift LOCOMOTION: WALK - SCORE: 0-UNK LOCOMOTION: WHEELCHAIR: Activity did not occur on this shift LOCOMOTION: WHEELCHAIR - SCORE: 0-UNK COMPREHENSION: COMPREHENSION: TYPE: Both COMPREHENSION - STEP 1: Does the patient require help from a person or device, or need extra time to understand complex and a bstract ideas (such as current events, finances, discharge planning, medical issues, relationships, e tc)? No. COMPREHENSION - STEP 2: Does the patient need extra time, require an assistive device (such as glasses for visual comprehensi on or a hearing aid for auditory comprehension) or does s/he have mild difficulty understanding compl ex and abstract information? Yes. COMPREHENSION - SCORE: 6-DION EXPRESSION EXPRESSION: TYPE: Both EXPRESSION - STEP 1: Does the patient require help from a person or device, or need extra time expressing complex and abst ract ideas (such as current events, finances, discharge planning, medical issues, relationships, etc) ? No. EXPRESSION - STEP 2: Does the patient need extra time, require an assistive device (such as augmentive communication syste m or a communication board), OR does s/he have mild difficulty expressing complex and abstract ideas (including mild dysarthria or mild word-find problems)? No. EXPRESSION - SCORE: 7-IND SOCIAL INTERACTION: SOCIAL INTERACTION - STEP 1: Does the patient require a helper to interact with others in social and therapeutic situations? No. SOCIAL INTERACTION - STEP 2: Does the patient need extra time in social situations, OR does s/he interact with staff, other patien ts, and family members ONLY in structured environments, OR does s/he require medication for social in teraction? Yes, patient needs extra time SOCIAL INTERACTION - SCORE: 6-DION PROBLEM SOLVING: PROBLEM SOLVING - STEP 1: Does the patient need help from a person or device, or need extra time to solve complex problems such as managing a checking account or confronting interpersonal problems? No. PROBLEM SOLVING - STEP 2: Does the patient require extra time to make decisions or solve problems, OR does s/he have slight dif ficulty reading, initiating, or self-correcting in unfamiliar situations? Yes, patient needs extra ti me. PROBLEM SOLVING - SCORE: 6-DION MEMORY: MEMORY - STEP 1: Does the patient need help from a person or device, or need extra time to remember frequently encount ered people, daily routines, and executing requests? No. MEMORY - STEP 2: Does the patient have slight difficulty recognizing frequently encountered people, daily routines, or executing requests without the need for repetition or using self-initiated or environmental cues to remember? Yes. MEMORY - SCORE: 6-DION SIGNATURE PANEL: The following modified sections: Eating - Score, Grooming - Score, Dressing - Upper Body - Score, Jelani ssing - Lower Body - Score, Toileting - Score, Bladder Management - Score, Bowel Management - Score, Transfers: Bed, Chair, Wheelchair - Score, Transfers: Toilet - Score, Transfers: Shower - Score, [place] sfers: Tub - Score, Locomotion: Walk - Score, Locomotion: Wheelchair - Score, Comprehension - Score, Expression - Score, Social Interaction - Score, Problem Solving - Score, Memory - Score were [electro nically] signed by Hina Quinones CNA on TueSep 12 2018 02:05:39 GMT-0600 (Central Standard Time)
[2018-09-12] MEDS: PANTOPRAZOLE 40MG TABLET PO SCH (05:16)
[2018-09-12] MEDS: DOCUSATE NA 100 MG CAP PO SCH ×2 (07:41→20:39)
[2018-09-12] MEDS: GABAPENTIN 100 MG CAP PO SCH ×2 (07:42→20:38)
[2018-09-12] MEDS: BACLOFEN 10 MG TAB PO SCH (07:42)
[2018-09-12] MEDS: SACUBITRIL/VALSARTAN 24/26 MG TAB PO SCH ×2 (07:42→20:38)
[2018-09-12] MEDS: FUROSEMIDE 40 MG TABLET PO SCH (07:42)
[2018-09-12] MEDS: APIXABAN 5 MG TABLET PO SCH ×2 (07:42→20:40)
[2018-09-12] MEDS: HYDROCODONE/APAP 5/325 MG TAB PO PRN ×3 (07:43→17:05)
[2018-09-12] MEDS: CRANBERRY FRUIT EXTRACT 200 MG CAP PO SCH ×2 (07:43→20:38)
[2018-09-12] MEDS: MAGNESIUM OXIDE 400 MG TAB PO SCH ×2 (07:43→20:38)
[2018-09-12] MEDS: PROMOD 30 ML DOSE PO SCH ×2 (07:45→20:40)
[2018-09-12] MEDS: MAGIC MOUTHWASH 180 ML BTL PO PRN (08:59)
[2018-09-12] MEDS: TRAMADOL HCL 50 MG TAB PO PRN (10:34)
--- NOTE | 2018-09-12 11:45 | FAST ---
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 Parviz Frederick M.D. 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 EATING: EATING - STEP 1: Does the patient require the assistance of a person or device, or need extra time when eating? Yes. EATING - STEP 2: Does the patient require the assistance of a helper? Yes. EATING - STEP 3: Does the patient perform half or more of the eating tasks? Yes. EATING - STEP 4: Does the patient need only supervision, cuing, coaxing OR help to apply an orthosis OR help to cut fo od, open containers, pour liquids, or butter bread? Yes. EATING - SCORE: 5-SUP GROOMING: Comb/brush hair Oral care Wash, rinse, and dry face Wash, rinse, and dry hands GROOMING - STEP 1: Does the patient require the assistance of a person or device, or need extra time when grooming? Yes. GROOMING - STEP 2: Does the patient require the assistance of a helper? No. The patient only requires an assistive devic e, OR takes more than reasonable time to groom, OR there is a concern for safety as the patient groom s GROOMING - SCORE: 6-DION BATHING: Activity did not occur on this shift BATHING - SCORE: 0-UNK DRESSING - UPPER BODY: Bra (three steps) T-shirt/pullover shirt (four steps) ARTICLES SCORE Total number of steps: 7 DRESSING - UPPER BODY - STEP 1: Does the patient require help from a person or device, or need extra time when dressing above the [address]? Yes. DRESSING - UPPER BODY - STEP 2: Does the patient require the assistance of a helper? Yes. DRESSING - UPPER BODY - STEP 3: Does the helper touch the patient while dressing? No. DRESSING - UPPER BODY - SCORE: 5-SUP DRESSING - LOWER BODY: Elastic waist pants (three steps) Slip-on shoe - Left foot (one step) Slip-on shoe - Right foot (one step) Underwear (three steps) ARTICLES SCORE Total number of steps: 8 DRESSING - LOWER BODY - STEP 1: Does the patient require help from a person or device, or need extra time when dressing below the [address]? Yes. DRESSING - LOWER BODY - STEP 2: Does the patient require the assistance of a helper? No. Patient requires an assistive device such as a broach grinder. OR s/he takes more than reasonable time as s/he dresses the lower body, OR there is a con cern for safety when s/he dresses the lower body DRESSING - LOWER BODY - SCORE: 6-DION TOILETING: TOILETING - STEP 1: Does the patient require the assistance of a person or device, or need extra time with toileting? Yes . TOILETING - STEP 2: Does the patient require the assistance of a helper? Yes. TOILETING - STEP 3: How much assistance does the patient require from the helper? Only supervision TOILETING - SCORE: 5-SUP BLADDER MANAGEMENT: BLADDER MANAGEMENT - STEP 1: Does the patient control the bladder completely and intentionally without equipment or devices or med ications, and is always continent? No. BLADDER MANAGEMENT - STEP 2: Does the patient require the assistance of a helper? Yes. BLADDER MANAGEMENT - STEP 3: How much assistance does the patient require from the helper? Only supervision, stand-by, cuing, or c oaxing BLADDER MANAGEMENT - SCORE: 5-SUP BLADDER MANAGEMENT - FREQUENCY OF ACCIDENTS: BLADDER MANAGEMENT(FA) - STEP 1: How many accidents has the patient had during the current shift? 2 BOWEL MANAGEMENT: BOWEL MANAGEMENT - STEP 1: Does the patient control bowels completely and intentionally without equipment devices or medications AND is always continent? No. BOWEL MANAGEMENT - STEP 2: Does the patient require the assistance of a helper? No, patient requires medication for control such as stool softeners, suppositories, laxatives, enemas, or OTC medications BOWEL MANAGEMENT - SCORE: 6-DION BOWEL MANAGEMENT - FREQUENCY OF ACCIDENTS: BOWEL MANAGEMENT(FA) - STEP 1: How many accidents has the patient had during the current shift? 0 TRANSFERS: BED, CHAIR, WHEELCHAIR: TRANSFERS: BED, CHAIR, WHEELCHAIR - STEP 1: Does the patient require assistance of a person or device, or need extra time with bed, chair, or whe elchair transfers? Yes. TRANSFERS: BED, CHAIR, WHEELCHAIR - STEP 2: Does the patient require the assistance of a helper? Yes. TRANSFERS: BED, CHAIR, WHEELCHAIR - STEP 3: How much assistance does the patient require from the helper? Only supervision TRANSFERS: BED, CHAIR, WHEELCHAIR - SCORE: 5-SUP TRANSFERS: TOILET: TRANSFERS: TOILET - STEP 1: Does the patient require the assistance of a person or device, or need extra time with toilet transfe rs? Yes. TRANSFERS: TOILET - STEP 2: Does the patient require the assistance of a helper? Yes. TRANSFERS: TOILET - STEP 3: How much assistance does the patient require from the helper? Patient performs half or more of the tr ansferring tasks TRANSFERS: TOILET - STEP 4: Does the patient need only incidental help such as contact guard or steadying during toilet transfer? Yes. TRANSFERS: TOILET - SCORE: 4-MIN TRANSFERS: SHOWER: Activity did not occur on this shift TRANSFERS: SHOWER - SCORE: 0-UNK TRANSFERS: TUB: Activity did not occur on this shift TRANSFERS: TUB - SCORE: 0-UNK LOCOMOTION: WALK: Activity did not occur on this shift LOCOMOTION: WALK - SCORE: 0-UNK LOCOMOTION: WHEELCHAIR: Activity did not occur on this shift LOCOMOTION: WHEELCHAIR - SCORE: 0-UNK COMPREHENSION: COMPREHENSION: TYPE: Both COMPREHENSION - STEP 1: Does the patient require help from a person or device, or need extra time to understand complex and a bstract ideas (such as current events, finances, discharge planning, medical issues, relationships, e tc)? Yes. COMPREHENSION - STEP 2: Does the patient require help to understand questions or statements about basic needs or ideas (such as hunger, thirst, sleep, safety, daily schedule, room location, or discomfort) half or more of the t timi? No. COMPREHENSION - STEP 3: How often does the patient need help to understand directions and conversation about basic needs? Les s than 10% of the time COMPREHENSION - SCORE: 5-SUP EXPRESSION EXPRESSION: TYPE: Both EXPRESSION - STEP 1: Does the patient require help from a person or device, or need extra time expressing complex and abst ract ideas (such as current events, finances, discharge planning, medical issues, relationships, etc) ? Yes. EXPRESSION - STEP 2: Does the patient require help to express basic necessities or ideas (such as hunger, thirst, sleep, s afety, daily schedule, room location, or discomfort) half or more of the time? No. EXPRESSION - STEP 3: How often does the patient need help to express directions and conversation about basic needs? Less t godinez 10% of the time EXPRESSION - SCORE: 5-SUP SOCIAL INTERACTION: SOCIAL INTERACTION - STEP 1: Does the patient require a helper to interact with others in social and therapeutic situations? No. SOCIAL INTERACTION - STEP 2: Does the patient need extra time in social situations, OR does s/he interact with staff, other patien ts, and family members ONLY in structured environments, OR does s/he require medication for social in teraction? Yes, patient needs extra time SOCIAL INTERACTION - SCORE: 6-DION PROBLEM SOLVING: PROBLEM SOLVING - STEP 1: Does the patient need help from a person or device, or need extra time to solve complex problems such as managing a checking account or confronting interpersonal problems? No. PROBLEM SOLVING - STEP 2: Does the patient require extra time to make decisions or solve problems, OR does s/he have slight dif ficulty reading, initiating, or self-correcting in unfamiliar situations? Yes, patient needs extra ti me. PROBLEM SOLVING - SCORE: 6-DION MEMORY: MEMORY - STEP 1: Does the patient need help from a person or device, or need extra time to remember frequently encount ered people, daily routines, and executing requests? Yes. MEMORY - STEP 2: How often does the patient need help to remember frequently encountered people, daily routines, and e xecuting requests? Less than 10% of the time MEMORY - SCORE: 5-SUP SIGNATURE PANEL: The following modified sections: Eating - Score, Grooming - Score, Bathing - Score, Dressing - Upper Body - Score, Dressing - Lower Body - Score, Toileting - Score, Bladder Management - Score, Bowel Man agement - Score, Transfers: Bed, Chair, Wheelchair - Score, Transfers: Toilet - Score, Transfers: Leyda wer - Score, Transfers: Tub - Score, Locomotion: Walk - Score, Locomotion: Wheelchair - Score, Compre hension - Score, Expression - Score, Social Interaction - Score, Problem Solving - Score, Memory - Sc ore were [electronically] signed by Brigid Melissa C.N.A. on TueSep 12 2018 11:43:54 T-0600 (Centra [place] Standard Time)
--- NOTE | 2018-09-12 14:51 | FAST ---
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 Parviz Frederick M.D. 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 EATING: Activity did not occur on this shift EATING - SCORE: 0-UNK GROOMING: Activity did not occur on this shift GROOMING - SCORE: 0-UNK BATHING: Activity did not occur on this shift BATHING - SCORE: 0-UNK DRESSING - UPPER BODY: Activity did not occur on this shift Patient is not dressing in public clothing ARTICLES SCORE Total number of steps: 0 DRESSING - UPPER BODY - SCORE: 0-UNK DRESSING - LOWER BODY: Activity did not occur on this shift Patient is not dressing in public clothing ARTICLES SCORE Total number of steps: 0 DRESSING - LOWER BODY - SCORE: 0-UNK TOILETING: Activity did not occur on this shift TOILETING - SCORE: 0-UNK BLADDER MANAGEMENT: Activity did not occur on this shift BLADDER MANAGEMENT - SCORE: 7-IND BOWEL MANAGEMENT: Activity did not occur on this shift BOWEL MANAGEMENT - SCORE: 7-IND TRANSFERS: BED, CHAIR, WHEELCHAIR: TRANSFERS: BED, CHAIR, WHEELCHAIR - STEP 1: Does the patient require assistance of a person or device, or need extra time with bed, chair, or whe elchair transfers? Yes. TRANSFERS: BED, CHAIR, WHEELCHAIR - STEP 2: Does the patient require the assistance of a helper? No. Patient only requires an assistive device fo r bed, chair, wheelchair transfers such as a sliding board, grab bar, or brace, OR s/he takes more th an reasonable time, OR there is a safety concern when s/he performs the transfers TRANSFERS: BED, CHAIR, WHEELCHAIR - SCORE: 6-DION TRANSFERS: TOILET: Activity did not occur on this shift TRANSFERS: TOILET - SCORE: 0-UNK TRANSFERS: SHOWER: Activity did not occur on this shift TRANSFERS: SHOWER - SCORE: 0-UNK TRANSFERS: TUB: Activity did not occur on this shift TRANSFERS: TUB - SCORE: 0-UNK LOCOMOTION: WALK: LOCOMOTION: WALK - STEP 1: Does the patient need help from a person or device, or need extra time to walk 150 feet? No. LOCOMOTION: WALK - STEP 2: Does the patient need an assistive device (such as an orthosis, prosthesis, crutches, or walker) to g o 150 feet, OR does s/he take more than reasonable time, OR is there a concern for safety? Yes, the p atient needs an assistive device LOCOMOTION: WALK - SCORE: 6-DION LOCOMOTION: WHEELCHAIR: Activity did not occur on this shift LOCOMOTION: WHEELCHAIR - SCORE: 0-UNK LOCOMOTION: STAIRS: LOCOMOTION: STAIRS - STEP 1: Does the patient need help to go up and down 12 to 14 stairs? No. LOCOMOTION: STAIRS - STEP 2: Does the patient require an assistive device - such as handrails or cane - to go up and down one flig ht of stairs, OR does s/he take more than reasonable time, OR is there a concern for safety? Yes, the patient requires an assistive device LOCOMOTION: STAIRS - SCORE: 6-DION COMPREHENSION: COMPREHENSION - SCORE: 0-UNK EXPRESSION EXPRESSION - SCORE: 0-UNK SOCIAL INTERACTION: SOCIAL INTERACTION - SCORE: 0-UNK PROBLEM SOLVING: PROBLEM SOLVING - SCORE: 0-UNK MEMORY: MEMORY - SCORE: 0-UNK SIGNATURE PANEL: The following modified sections: Transfers: Bed, Chair, Wheelchair - Score, Transfers: Toilet - Score , Locomotion: Walk - Score, Locomotion: Wheelchair - Score, Locomotion: Stairs - Score were [levy salazar] signed by Minh Magana PTA on TueSep 12 2018 14:50:43 GMT-0600 (Central Standard Time)
--- NOTE | 2018-09-12 19:48 | R.PN ---
ENCOUNTER DATE AND TIME: 09/12/2018 19:46 (PROP SAWYER) NAME VAMSHI LUGO DATE OF : 1930 DATE OF ADMISSION: 09/06/2018 11:21 (PROP SAWYER) stress fx base of femoral neck and avascular necrosis of femoral head right hipCHIEF COMPLAINT: Right hip avascular necrosis SUBJECTIVE: Pt denied any Shortness of Breath. Pt denied any depression. Ambulated 500' with modified independence using a rolling walker. Up and down 15 steps with bilatera l hand rails. VITAL SIGNS Temperature: 99 F SBP/DBP: 114/66 Pulse: 104 Resp: 16 MEDICATION ALLERGIES: sulfa ENVIRONMENTAL ALLERGIES: - Substance Allergies None Known - Other Allergies None Known NURSING: - Shower allowing shower - Skin care per protocol PRECAUTIONS: - Posterior Hip Precaution No adduction across midline No external rotation No hip flexion >90 degrees No internal rotation No wheel chair propulsion - Weight Bearing Precaution WBAT right LE ACTIVITIES OOB only with supervision THERAPIES: - Occupational Therapy Evaluate and Treat. - Physical Therapy Evaluate and Treat. PHYSICAL EXAM - Gen Alert and awake Lying in bed No apparent distress Oriented to: person, time, and place - Skin No breakdown No abnormalities - Eyes No abnormalities - ENMT No abnormalities - Neck No abnormalities - CVS RRR - Chest No abnormalities - Resp Clear to auscultation - Abd +bowel sounds - GI Soft Deferred - No abnormalities - Ext Right hip surgical site has good hemostasis. - MSK 4+/5 weakness in right lower extremity - Neuro 4/5 strength right lower extremity - Psych No abnormalities ASSESSMENT: Pt. is a 88 yo Right-handed white female.On 09/01/2018 she was admitted to [facility] and underwent emergency surgery for stress fx base of femoral neck and avascular necrosis of f emoral head right hip (right hip hemiarthroplasty) by Funmi Flores.Pre-morbidly, Pt. was independent/ mod-I in Self-Care, Sphincter Control, Transfers Control, Communication, Social Cognition, and Locomo tion; and she had good Sphincter Control.Currently, she has deficits of Self-Care, Endurance, Safety Awareness, Transfers Control, Communication, Social Cognition, Balance, and Locomotion.Pt. is now ref erred to [facility] for acute in-patient rehabilitation in order to maximize p atient's functional independence in activities of daily living, strength, ROM, and mobility.- Rehab G oal Patient has realistic goal of being discharged at assistance level 6-Shanika to reside at Home with Fam zeferino/Relatives. MDM/PLAN: - Physical Therapy Decreased range of motion - to improve, our physical therapists will perform initial evaluation of p t's status upon admission and devise an individualized program for increasing patient's Range of Daniel on. Gait dysfunction - to improve, our physical therapists will perform initial evaluation of pt's statu s upon admission and devise an individualized program for Gait Training, and Wheel Chair mobility Inability to transfer - to improve, our physical therapists will perform initial evaluation of pt's status upon admission and devise an individualized program for Bed mobility Need for home safety evaluation - to improve, our physical therapists will perform initial evaluatio n of pt's status upon admission and devise an individualized program for Home Evaluation Need in caregiver upon discharge - to improve, our physical therapists will perform initial evaluati on of pt's status upon admission and devise an individualized program for Caregiver Training New precaution - to improve, our physical therapists will perform initial evaluation of pt's status upon admission and devise an individualized program for Patient precaution education Poor balance - to improve, our physical therapists will perform initial evaluation of pt's status up on admission and devise an individualized program for Balance Training Poor endurance - to improve, our physical therapists will perform initial evaluation of pt's status upon admission and devise an individualized program for Endurance Training Weakness - to improve, our physical therapists will perform initial evaluation of pt's status upon a dmission and devise an individualized program for Aquatic Therapy, Neuromuscular Reeducation, and Str engthening Achieving independence - to improve, our physical therapists will perform initial evaluation of pt's status upon admission and devise an individualized program for Community Reintegration Activities - Occupational Therapy ADL deficits - to improve, our occupation therapists will perform initial evaluation of pt's status upon admission and devise an individualized program for Bathing, Bed mobility, Community Reintegratio n, Cooking, Dressing, Eating, Fine Motor Skills, Grooming, Homemaking, Kitchen Mobility, Laundry, Pat ient Education, Safety Awareness, Splinting - Positioning, Transfers(Toilet, Tub, Shower), and Wheel Chair Management Cognitive deficits - to improve, our occupation therapists will perform initial evaluation of pt's s tatus upon admission and devise an individualized program for Cognition - orientation Need for transitional care liaison - to improve, our occupation therapists will perform initial evaluation of pt's status upon admission and devise an individualized program for Caregiver Training Weakness - to improve, our occupation therapists will perform initial evaluation of pt's status upon admission and devise an individualized program for Aquatic Therapy, Balance, Endurance, UE ROM, and UE strengthening - Anterior Hip Precaution No abduction No active extension No adduction across midline No external rotation No hip flexion >90 degrees No internal rotation - Diet - Liquid Texture Continue Regular - Tube Feed Continue N/A - Diet Type Continue Regular - Posterior Hip Precaution No adduction across midline No external rotation No hip flexion >90 degrees No internal rotation No wheel chair propulsion - Weight Bearing Precaution WBAT right LE - Skin care per protocol - Diet - Solid Texture Continue Regular - Shower allowing shower FUNCTIONAL STATUS: UPDATED AT WEEKLY TEAM CONFERENCE - Bladder Same accident frequency: 7-Ind - No accidents in the past 7 days - Bowel Same accident frequency: 7-Ind - No accidents in the past 7 days - Walking Same score based on distance walked: 1(<=50ft) FUNCTIONAL STATUS: - Self-Care A. Eating sup B. Grooming Aidee C. Bathing Aidee D. Dressing - Upper Aidee E. Dressing - Lower maxA F. Toileting maxA - Sphincter Control G: Bladder control Ind H: Bowel control Ind - Transfers Control I. Bed/Chair/Wheelchair modA J. Toilet modA K. Tub/Shower modA - Locomotion L. Walk/Wheelchair (B) Dep M. Stairs ADNO - Communication N. Comprehension (B) Aidee O. Expression (B) sup - Social Cognition P. Social Interaction sup Q. Problem Solving sup R. Memory sup - Endurance Poor - Balance Poor - Safety Awareness Fair CURRENT FUNC. DEFICITS: Self-Care, Endurance, Safety Awareness, Transfers Control, Communication, Social Cognition, Balance, and Locomotion SIGNATURE PANEL: (PROP SAWYER)
[2018-09-12] MEDS: ZOLPIDEM TARTRATE 5 MG TABLET PO PRN (20:39)
[2018-09-12] MEDS: DOCUSATE NA/SENNA CONC 1 TAB PO SCH (20:39)
[2018-09-12] MEDS: CYANOCOBALAMIN 1,000 MCG TAB PO SCH (20:39)
[2018-09-12] MEDS: DULOXETINE 30 MG CAP PO SCH (20:40)
[2018-09-12] MEDS: MONTELUKAST 10 MG TAB PO SCH (20:40)
[2018-09-12] MEDS: VITAMIN D 1000 UNIT TAB PO SCH (20:40)
[2018-09-13] MEDS: PANTOPRAZOLE 40MG TABLET PO SCH (05:05)
[2018-09-13] MEDS: POLYETHYL GLY 3350 17 GM/DOSE PO PRN (07:27)
[2018-09-13] MEDS: NYSTATIN 500,000 UNIT/5 ML UDC PO PRN ×3 (07:27→19:48)
[2018-09-13] MEDS: GABAPENTIN 100 MG CAP PO SCH ×2 (07:28→19:44)
[2018-09-13] MEDS: PROMOD 30 ML DOSE PO SCH ×2 (07:28→19:43)
[2018-09-13] MEDS: APIXABAN 5 MG TABLET PO SCH ×2 (07:28→19:44)
[2018-09-13] MEDS: HYDROCODONE/APAP 5/325 MG TAB PO PRN ×2 (07:28→18:53)
[2018-09-13] MEDS: MAGNESIUM OXIDE 400 MG TAB PO SCH ×2 (07:28→19:43)
[2018-09-13] MEDS: BACLOFEN 10 MG TAB PO SCH (07:28)
[2018-09-13] MEDS: DOCUSATE NA 100 MG CAP PO SCH ×2 (07:28→19:11)
[2018-09-13] MEDS: CRANBERRY FRUIT EXTRACT 200 MG CAP PO SCH ×2 (07:28→19:43)
[2018-09-13] MEDS: FUROSEMIDE 40 MG TABLET PO SCH (07:29)
[2018-09-13] MEDS: SACUBITRIL/VALSARTAN 24/26 MG TAB PO SCH ×2 (07:29→19:43)
[2018-09-13] MEDS: TRAMADOL HCL 50 MG TAB PO PRN (10:46)
--- NOTE | 2018-09-13 15:07 | FAST ---
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 Parviz Frederick M.D. 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 EATING: Activity did not occur on this shift EATING - SCORE: 0-UNK GROOMING: Activity did not occur on this shift GROOMING - SCORE: 0-UNK BATHING: Activity did not occur on this shift BATHING - SCORE: 0-UNK DRESSING - UPPER BODY: Activity did not occur on this shift Patient is not dressing in public clothing ARTICLES SCORE Total number of steps: 0 DRESSING - UPPER BODY - SCORE: 0-UNK DRESSING - LOWER BODY: Activity did not occur on this shift Patient is not dressing in public clothing ARTICLES SCORE Total number of steps: 0 DRESSING - LOWER BODY - SCORE: 0-UNK TOILETING: Activity did not occur on this shift TOILETING - SCORE: 0-UNK BLADDER MANAGEMENT: Activity did not occur on this shift BLADDER MANAGEMENT - SCORE: 7-IND BOWEL MANAGEMENT: Activity did not occur on this shift BOWEL MANAGEMENT - SCORE: 7-IND TRANSFERS: BED, CHAIR, WHEELCHAIR: TRANSFERS: BED, CHAIR, WHEELCHAIR - STEP 1: Does the patient require assistance of a person or device, or need extra time with bed, chair, or whe elchair transfers? Yes. TRANSFERS: BED, CHAIR, WHEELCHAIR - STEP 2: Does the patient require the assistance of a helper? No. Patient only requires an assistive device fo r bed, chair, wheelchair transfers such as a sliding board, grab bar, or brace, OR s/he takes more th an reasonable time, OR there is a safety concern when s/he performs the transfers TRANSFERS: BED, CHAIR, WHEELCHAIR - SCORE: 6-DION TRANSFERS: TOILET: Activity did not occur on this shift TRANSFERS: TOILET - SCORE: 0-UNK TRANSFERS: SHOWER: Activity did not occur on this shift TRANSFERS: SHOWER - SCORE: 0-UNK TRANSFERS: TUB: Activity did not occur on this shift TRANSFERS: TUB - SCORE: 0-UNK LOCOMOTION: WALK: LOCOMOTION: WALK - STEP 1: Does the patient need help from a person or device, or need extra time to walk 150 feet? No. LOCOMOTION: WALK - STEP 2: Does the patient need an assistive device (such as an orthosis, prosthesis, crutches, or walker) to g o 150 feet, OR does s/he take more than reasonable time, OR is there a concern for safety? Yes, the p atient needs an assistive device LOCOMOTION: WALK - SCORE: 6-DION LOCOMOTION: WHEELCHAIR: Activity did not occur on this shift LOCOMOTION: WHEELCHAIR - SCORE: 0-UNK LOCOMOTION: STAIRS: LOCOMOTION: STAIRS - STEP 1: Does the patient need help to go up and down 12 to 14 stairs? No. LOCOMOTION: STAIRS - STEP 2: Does the patient require an assistive device - such as handrails or cane - to go up and down one flig ht of stairs, OR does s/he take more than reasonable time, OR is there a concern for safety? Yes, the patient requires an assistive device LOCOMOTION: STAIRS - SCORE: 6-DION COMPREHENSION: COMPREHENSION - SCORE: 0-UNK EXPRESSION EXPRESSION - SCORE: 0-UNK SOCIAL INTERACTION: SOCIAL INTERACTION - SCORE: 0-UNK PROBLEM SOLVING: PROBLEM SOLVING - SCORE: 0-UNK MEMORY: MEMORY - SCORE: 0-UNK SIGNATURE PANEL: The following modified sections: Transfers: Bed, Chair, Wheelchair - Score, Transfers: Toilet - Score , Locomotion: Walk - Score, Locomotion: Wheelchair - Score, Locomotion: Stairs - Score were [levy salazar] signed by Kaushik Zamudio PT on TueSep 13 2018 15:06:50 GMT-0600 (Central Standard Time)
--- NOTE | 2018-09-13 16:33 | FAST ---
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 Parviz Frederick M.D. 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 EATING: EATING - STEP 1: Does the patient require the assistance of a person or device, or need extra time when eating? Yes. EATING - STEP 2: Does the patient require the assistance of a helper? Yes. EATING - STEP 3: Does the patient perform half or more of the eating tasks? Yes. EATING - STEP 4: Does the patient need only supervision, cuing, coaxing OR help to apply an orthosis OR help to cut fo od, open containers, pour liquids, or butter bread? Yes. EATING - SCORE: 5-SUP GROOMING: Comb/brush hair Oral care Wash, rinse, and dry face Wash, rinse, and dry hands GROOMING - STEP 1: Does the patient require the assistance of a person or device, or need extra time when grooming? Yes. GROOMING - STEP 2: Does the patient require the assistance of a helper? No. The patient only requires an assistive devic e, OR takes more than reasonable time to groom, OR there is a concern for safety as the patient groom s GROOMING - SCORE: 6-DION BATHING: Activity did not occur on this shift BATHING - SCORE: 0-UNK DRESSING - UPPER BODY: Bra (three steps) T-shirt/pullover shirt (four steps) ARTICLES SCORE Total number of steps: 7 DRESSING - UPPER BODY - STEP 1: Does the patient require help from a person or device, or need extra time when dressing above the [address]? Yes. DRESSING - UPPER BODY - STEP 2: Does the patient require the assistance of a helper? Yes. DRESSING - UPPER BODY - STEP 3: Does the helper touch the patient while dressing? No. DRESSING - UPPER BODY - SCORE: 5-SUP DRESSING - LOWER BODY: Elastic waist pants (three steps) Slip-on shoe - Left foot (one step) Slip-on shoe - Right foot (one step) Sock - Left foot (one step) Sock - Right foot (one step) Underwear (three steps) ARTICLES SCORE Total number of steps: 10 DRESSING - LOWER BODY - STEP 1: Does the patient require help from a person or device, or need extra time when dressing below the [address]? Yes. DRESSING - LOWER BODY - STEP 2: Does the patient require the assistance of a helper? No. Patient requires an assistive device such as a cardiac nurse specialist. OR s/he takes more than reasonable time as s/he dresses the lower body, OR there is a con cern for safety when s/he dresses the lower body DRESSING - LOWER BODY - SCORE: 6-DION TOILETING: TOILETING - STEP 1: Does the patient require the assistance of a person or device, or need extra time with toileting? Yes . TOILETING - STEP 2: Does the patient require the assistance of a helper? Yes. TOILETING - STEP 3: How much assistance does the patient require from the helper? Only supervision TOILETING - SCORE: 5-SUP BLADDER MANAGEMENT: BLADDER MANAGEMENT - STEP 1: Does the patient control the bladder completely and intentionally without equipment or devices or med ications, and is always continent? No. BLADDER MANAGEMENT - STEP 2: Does the patient require the assistance of a helper? Yes. BLADDER MANAGEMENT - STEP 3: How much assistance does the patient require from the helper? Only supervision, stand-by, cuing, or c oaxing BLADDER MANAGEMENT - SCORE: 5-SUP BLADDER MANAGEMENT - FREQUENCY OF ACCIDENTS: BLADDER MANAGEMENT(FA) - STEP 1: How many accidents has the patient had during the current shift? 0 BOWEL MANAGEMENT: BOWEL MANAGEMENT - STEP 1: Does the patient control bowels completely and intentionally without equipment devices or medications AND is always continent? No. BOWEL MANAGEMENT - STEP 2: Does the patient require the assistance of a helper? No, patient requires and manages independently a n assistive device such as a bedpan, bedside commode, absorbent pad, incontinent device, or collectin g device BOWEL MANAGEMENT - SCORE: 6-DION BOWEL MANAGEMENT - FREQUENCY OF ACCIDENTS: BOWEL MANAGEMENT(FA) - STEP 1: How many accidents has the patient had during the current shift? 0 TRANSFERS: BED, CHAIR, WHEELCHAIR: TRANSFERS: BED, CHAIR, WHEELCHAIR - STEP 1: Does the patient require assistance of a person or device, or need extra time with bed, chair, or whe elchair transfers? Yes. TRANSFERS: BED, CHAIR, WHEELCHAIR - STEP 2: Does the patient require the assistance of a helper? Yes. TRANSFERS: BED, CHAIR, WHEELCHAIR - STEP 3: How much assistance does the patient require from the helper? Only supervision TRANSFERS: BED, CHAIR, WHEELCHAIR - SCORE: 5-SUP TRANSFERS: TOILET: TRANSFERS: TOILET - STEP 1: Does the patient require the assistance of a person or device, or need extra time with toilet transfe rs? Yes. TRANSFERS: TOILET - STEP 2: Does the patient require the assistance of a helper? Yes. TRANSFERS: TOILET - STEP 3: How much assistance does the patient require from the helper? Patient performs half or more of the tr ansferring tasks TRANSFERS: TOILET - STEP 4: Does the patient need only incidental help such as contact guard or steadying during toilet transfer? Yes. TRANSFERS: TOILET - SCORE: 4-MIN TRANSFERS: SHOWER: Activity did not occur on this shift TRANSFERS: SHOWER - SCORE: 0-UNK TRANSFERS: TUB: Activity did not occur on this shift TRANSFERS: TUB - SCORE: 0-UNK LOCOMOTION: WALK: Activity did not occur on this shift LOCOMOTION: WALK - SCORE: 0-UNK LOCOMOTION: WHEELCHAIR: Activity did not occur on this shift LOCOMOTION: WHEELCHAIR - SCORE: 0-UNK COMPREHENSION: COMPREHENSION: TYPE: Both COMPREHENSION - STEP 1: Does the patient require help from a person or device, or need extra time to understand complex and a bstract ideas (such as current events, finances, discharge planning, medical issues, relationships, e tc)? Yes. COMPREHENSION - STEP 2: Does the patient require help to understand questions or statements about basic needs or ideas (such as hunger, thirst, sleep, safety, daily schedule, room location, or discomfort) half or more of the t timi? No. COMPREHENSION - STEP 3: How often does the patient need help to understand directions and conversation about basic needs? Les s than 10% of the time COMPREHENSION - SCORE: 5-SUP EXPRESSION EXPRESSION: TYPE: Both EXPRESSION - STEP 1: Does the patient require help from a person or device, or need extra time expressing complex and abst ract ideas (such as current events, finances, discharge planning, medical issues, relationships, etc) ? Yes. EXPRESSION - STEP 2: Does the patient require help to express basic necessities or ideas (such as hunger, thirst, sleep, s afety, daily schedule, room location, or discomfort) half or more of the time? No. EXPRESSION - STEP 3: How often does the patient need help to express directions and conversation about basic needs? Less t godinez 10% of the time EXPRESSION - SCORE: 5-SUP SOCIAL INTERACTION: SOCIAL INTERACTION - STEP 1: Does the patient require a helper to interact with others in social and therapeutic situations? No. SOCIAL INTERACTION - STEP 2: Does the patient need extra time in social situations, OR does s/he interact with staff, other patien ts, and family members ONLY in structured environments, OR does s/he require medication for social in teraction? Yes, patient needs extra time SOCIAL INTERACTION - SCORE: 6-DION PROBLEM SOLVING: PROBLEM SOLVING - STEP 1: Does the patient need help from a person or device, or need extra time to solve complex problems such as managing a checking account or confronting interpersonal problems? No. PROBLEM SOLVING - STEP 2: Does the patient require extra time to make decisions or solve problems, OR does s/he have slight dif ficulty reading, initiating, or self-correcting in unfamiliar situations? Yes, patient needs extra ti me. PROBLEM SOLVING - SCORE: 6-DION MEMORY: MEMORY - STEP 1: Does the patient need help from a person or device, or need extra time to remember frequently encount ered people, daily routines, and executing requests? Yes. MEMORY - STEP 2: How often does the patient need help to remember frequently encountered people, daily routines, and e xecuting requests? Less than 10% of the time MEMORY - SCORE: 5-SUP SIGNATURE PANEL: The following modified sections: Eating - Score, Grooming - Score, Bathing - Score, Dressing - Upper Body - Score, Dressing - Lower Body - Score, Toileting - Score, Bladder Management - Score, Bowel Man agement - Score, Transfers: Bed, Chair, Wheelchair - Score, Transfers: Toilet - Score, Transfers: Leyda wer - Score, Transfers: Tub - Score, Locomotion: Walk - Score, Locomotion: Wheelchair - Score, Compre hension - Score, Expression - Score, Social Interaction - Score, Problem Solving - Score, Memory - Sc ore were [electronically] signed by Brigid Melissa C.N.A. on TueSep 13 2018 16:32:15 GMT-0600 (Centra l Standard Time)
[2018-09-13] MEDS: DOCUSATE NA/SENNA CONC 1 TAB PO SCH (19:12)
--- NOTE | 2018-09-13 20:50 | P.PN ---
Subjective Date of Service: 09/17/18 Chief Complaint: hip pain Subjective: No C/O voiced, Working w/ PT Review of Systems 10-point ROS is otherwise unremarkable Physical Examination - Vital Signs Temperature: 98.1 F Blood Pressure: 125/57 Pulse: 94 Respirations: 18 Pulse Ox (%): 99 - Physical Exam General: Alert, In no apparent distress, Oriented x3 HEENT: Atraumatic, PERRLA, EOMI Neck: Supple, JVD not distended Respiratory: Clear to auscultation bilaterally, Normal air movement Cardiovascular: Regular rate/rhythm, Normal S1 S2 Gastrointestinal: Normal bowel sounds, No tenderness Musculoskeletal: No tenderness Integumentary: No rashes Neurological: Normal speech, Normal tone, Normal affect Lymphatics: No axilla or inguinal lymphadenopathy - Studies Medications List Reviewed: Yes Assessment And Plan - Plan Assessment And Plan - Current Problems (Diagnosis) (1) Avascular necrosis of bone of right hip Onset Date: 09/04/18 Current Visit: No Status: Acute (2) CHF (congestive heart failure) Current Visit: No Status: Acute Qualifiers: Heart failure type: systolic Heart failure chronicity: acute on chronic Qualified Code(s): I50.23 - Acute on chronic systolic (congestive) heart failure (3) Chronic anticoagulation Current Visit: No Status: Acute (4) Right hip pain Onset Date: 09/04/18 Current Visit: No Status: Acute (5) Afib Onset Date: 03/20/18 Current Visit: No Status: Chronic Qualifiers: Atrial fibrillation type: chronic Qualified Code(s): I48.2 - Chronic atrial fibrillation (6) GERD (gastroesophageal reflux disease) Onset Date: 03/20/18 Current Visit: No Status: Chronic Qualifiers: Esophagitis presence: without esophagitis Qualified Code(s): K21.9 - Gastro -esophageal reflux disease without esophagitis (7) HTN (hypertension) Onset Date: 09/04/18 Current Visit: No Status: Chronic Qualifiers: Hypertension type: essential hypertension Qualified Code(s): I10 - Essential (primary) hypertension (8) Mouth sores Current Visit: Yes Status: Acute Plan: magic mouth wash - Plan colace for constipation. cont pain control. cont PT Eliquis for DVT prophylaxis
[2018-09-13] MEDS: MONTELUKAST 10 MG TAB PO SCH (21:08)
[2018-09-13] MEDS: ZOLPIDEM TARTRATE 5 MG TABLET PO PRN (21:08)
[2018-09-13] MEDS: VITAMIN D 1000 UNIT TAB PO SCH (21:08)
[2018-09-13] MEDS: DULOXETINE 30 MG CAP PO SCH (21:08)
[2018-09-13] MEDS: CYANOCOBALAMIN 1,000 MCG TAB PO SCH (21:08)
--- NOTE | 2018-09-14 02:05 | FAST ---
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 Parviz Frederick M.D. 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 EATING: Activity did not occur on this shift EATING - SCORE: 0-UNK GROOMING: Wash, rinse, and dry face Wash, rinse, and dry hands GROOMING - STEP 1: Does the patient require the assistance of a person or device, or need extra time when grooming? Yes. GROOMING - STEP 2: Does the patient require the assistance of a helper? Yes. GROOMING - STEP 3: How much assistance does the patient require from the helper? Cuing, coaxing, instructions, or encour agement for completion of grooming GROOMING - SCORE: 5-SUP BATHING: Activity did not occur on this shift BATHING - SCORE: 0-UNK DRESSING - UPPER BODY: Patient is not dressing in public clothing ARTICLES SCORE Total number of steps: 0 DRESSING - UPPER BODY - SCORE: 0-UNK DRESSING - LOWER BODY: Patient is not dressing in public clothing ARTICLES SCORE Total number of steps: 0 DRESSING - LOWER BODY - SCORE: 0-UNK TOILETING: TOILETING - STEP 1: Does the patient require the assistance of a person or device, or need extra time with toileting? Yes . TOILETING - STEP 2: Does the patient require the assistance of a helper? Yes. TOILETING - STEP 3: How much assistance does the patient require from the helper? Only supervision TOILETING - SCORE: 5-SUP BLADDER MANAGEMENT: BLADDER MANAGEMENT - STEP 1: Does the patient control the bladder completely and intentionally without equipment or devices or med ications, and is always continent? Yes. BLADDER MANAGEMENT - SCORE: 7-IND BOWEL MANAGEMENT: Activity did not occur on this shift BOWEL MANAGEMENT - SCORE: 7-IND TRANSFERS: BED, CHAIR, WHEELCHAIR: TRANSFERS: BED, CHAIR, WHEELCHAIR - STEP 1: Does the patient require assistance of a person or device, or need extra time with bed, chair, or whe elchair transfers? Yes. TRANSFERS: BED, CHAIR, WHEELCHAIR - STEP 2: Does the patient require the assistance of a helper? Yes. TRANSFERS: BED, CHAIR, WHEELCHAIR - STEP 3: How much assistance does the patient require from the helper? Steadying/guiding assistance TRANSFERS: BED, CHAIR, WHEELCHAIR - SCORE: 4-MIN TRANSFERS: TOILET: TRANSFERS: TOILET - STEP 1: Does the patient require the assistance of a person or device, or need extra time with toilet transfe rs? Yes. TRANSFERS: TOILET - STEP 2: Does the patient require the assistance of a helper? Yes. TRANSFERS: TOILET - STEP 3: How much assistance does the patient require from the helper? Only supervision, cuing, coaxing, OR he lp to set out transfer equipment or to lock brakes and/or lift foot rests TRANSFERS: TOILET - SCORE: 5-SUP TRANSFERS: SHOWER: Activity did not occur on this shift TRANSFERS: SHOWER - SCORE: 0-UNK TRANSFERS: TUB: Activity did not occur on this shift TRANSFERS: TUB - SCORE: 0-UNK LOCOMOTION: WALK: Activity did not occur on this shift LOCOMOTION: WALK - SCORE: 0-UNK LOCOMOTION: WHEELCHAIR: Activity did not occur on this shift LOCOMOTION: WHEELCHAIR - SCORE: 0-UNK COMPREHENSION: COMPREHENSION: TYPE: Both COMPREHENSION - STEP 1: Does the patient require help from a person or device, or need extra time to understand complex and a bstract ideas (such as current events, finances, discharge planning, medical issues, relationships, e tc)? Yes. COMPREHENSION - STEP 2: Does the patient require help to understand questions or statements about basic needs or ideas (such as hunger, thirst, sleep, safety, daily schedule, room location, or discomfort) half or more of the t timi? No. COMPREHENSION - STEP 3: How often does the patient need help to understand directions and conversation about basic needs? Les s than 10% of the time COMPREHENSION - SCORE: 5-SUP EXPRESSION EXPRESSION: TYPE: Both EXPRESSION - STEP 1: Does the patient require help from a person or device, or need extra time expressing complex and abst ract ideas (such as current events, finances, discharge planning, medical issues, relationships, etc) ? Yes. EXPRESSION - STEP 2: Does the patient require help to express basic necessities or ideas (such as hunger, thirst, sleep, s afety, daily schedule, room location, or discomfort) half or more of the time? No. EXPRESSION - STEP 3: How often does the patient need help to express directions and conversation about basic needs? Less t godinez 10% of the time EXPRESSION - SCORE: 5-SUP SOCIAL INTERACTION: SOCIAL INTERACTION - STEP 1: Does the patient require a helper to interact with others in social and therapeutic situations? No. SOCIAL INTERACTION - STEP 2: Does the patient need extra time in social situations, OR does s/he interact with staff, other patien ts, and family members ONLY in structured environments, OR does s/he require medication for social in teraction? Yes, patient requires medication for social interaction SOCIAL INTERACTION - SCORE: 6-DION PROBLEM SOLVING: PROBLEM SOLVING - STEP 1: Does the patient need help from a person or device, or need extra time to solve complex problems such as managing a checking account or confronting interpersonal problems? Yes. PROBLEM SOLVING - STEP 2: Does the patient solve basic routine problems half or more of the time? Yes. PROBLEM SOLVING - STEP 3: How often does the patient need help to solve basic routine problems? Less than 10% of the time PROBLEM SOLVING - SCORE: 5-SUP MEMORY: MEMORY - STEP 1: How often do the bed/chair alarms go off? Occasionally - the alarms go off about 25% of the time or l ess MEMORY - SCORE: 4-MIN SIGNATURE PANEL: The following modified sections: Eating - Score, Grooming - Score, Bathing - Score, Dressing - Upper Body - Score, Dressing - Lower Body - Score, Toileting - Score, Bladder Management - Score, Bowel Man agement - Score, Transfers: Bed, Chair, Wheelchair - Score, Transfers: Toilet - Score, Transfers: Leyda wer - Score, Transfers: Tub - Score, Locomotion: Walk - Score, Locomotion: Wheelchair - Score, Compre hension - Score, Expression - Score, Social Interaction - Score, Problem Solving - Score, Memory - Sc ore were [electronically] signed by Olena Murphy CNA on TueSep 14 2018 02:04:24 GMT-0600 ([facility])
[2018-09-14 06:07] LABS: Absolute Lymphocytes (CBC) 0.9 K/uL (0.7-4.9); Absolute Monocytes 0.7 K/uL (0.1-1.3); Absolute Neutrophil 3.3 K/uL (1.8-8.0); Basophils % 0.8 % (0-1.3); Eosinophils % 3.8 % (0-4.4); Hematocrit 37.1 % (36.0-45.0); Lymphocytes % 18.1 % (15.3-44.8); MPV 8.9 fL (7.6-11.3); Monocytes % 14.2 % (3.3-12.3); RBC Red Blood Cell Count 4.06 M/uL (3.86-4.86)
[2018-09-14] MEDS: HYDROCODONE/APAP 5/325 MG TAB PO PRN ×3 (06:35→19:12)
[2018-09-14] MEDS: PANTOPRAZOLE 40MG TABLET PO SCH (06:35)
[2018-09-14 07:40] LABS: Albumin 2.9 g/dL (3.4-5.0); Potassium 4.5 mmol/L (3.5-5.1)
[2018-09-14] MEDS: CRANBERRY FRUIT EXTRACT 200 MG CAP PO SCH ×2 (08:00→19:12)
[2018-09-14] MEDS: PROMOD 30 ML DOSE PO SCH ×2 (08:00→19:10)
[2018-09-14] MEDS: SACUBITRIL/VALSARTAN 24/26 MG TAB PO SCH ×2 (08:10→19:12)
[2018-09-14] MEDS: DOCUSATE NA 100 MG CAP PO SCH ×2 (08:10→19:13)
[2018-09-14] MEDS: GABAPENTIN 100 MG CAP PO SCH (08:10)
[2018-09-14] MEDS: FUROSEMIDE 40 MG TABLET PO SCH (08:10)
[2018-09-14] MEDS: MAGNESIUM OXIDE 400 MG TAB PO SCH ×2 (08:10→19:12)
[2018-09-14] MEDS: BACLOFEN 10 MG TAB PO SCH (08:11)
[2018-09-14] MEDS: APIXABAN 5 MG TABLET PO SCH ×2 (08:11→19:12)
[2018-09-14] MEDS: TRAMADOL HCL 50 MG TAB PO PRN (08:17)
--- NOTE | 2018-09-14 14:40 | FAST ---
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 Parviz Frederick M.D. 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 EATING: Activity did not occur on this shift EATING - SCORE: 0-UNK GROOMING: Activity did not occur on this shift GROOMING - SCORE: 0-UNK BATHING: Activity did not occur on this shift BATHING - SCORE: 0-UNK DRESSING - UPPER BODY: Activity did not occur on this shift Patient is not dressing in public clothing ARTICLES SCORE Total number of steps: 0 DRESSING - UPPER BODY - SCORE: 0-UNK DRESSING - LOWER BODY: Activity did not occur on this shift Patient is not dressing in public clothing ARTICLES SCORE Total number of steps: 0 DRESSING - LOWER BODY - SCORE: 0-UNK TOILETING: Activity did not occur on this shift TOILETING - SCORE: 0-UNK BLADDER MANAGEMENT: Activity did not occur on this shift BLADDER MANAGEMENT - SCORE: 7-IND BOWEL MANAGEMENT: Activity did not occur on this shift BOWEL MANAGEMENT - SCORE: 7-IND TRANSFERS: BED, CHAIR, WHEELCHAIR: TRANSFERS: BED, CHAIR, WHEELCHAIR - STEP 1: Does the patient require assistance of a person or device, or need extra time with bed, chair, or whe elchair transfers? Yes. TRANSFERS: BED, CHAIR, WHEELCHAIR - STEP 2: Does the patient require the assistance of a helper? No. Patient only requires an assistive device fo r bed, chair, wheelchair transfers such as a sliding board, grab bar, or brace, OR s/he takes more th an reasonable time, OR there is a safety concern when s/he performs the transfers TRANSFERS: BED, CHAIR, WHEELCHAIR - SCORE: 6-DION TRANSFERS: TOILET: Activity did not occur on this shift TRANSFERS: TOILET - SCORE: 0-UNK TRANSFERS: SHOWER: Activity did not occur on this shift TRANSFERS: SHOWER - SCORE: 0-UNK TRANSFERS: TUB: Activity did not occur on this shift TRANSFERS: TUB - SCORE: 0-UNK LOCOMOTION: WALK: LOCOMOTION: WALK - STEP 1: Does the patient need help from a person or device, or need extra time to walk 150 feet? No. LOCOMOTION: WALK - STEP 2: Does the patient need an assistive device (such as an orthosis, prosthesis, crutches, or walker) to g o 150 feet, OR does s/he take more than reasonable time, OR is there a concern for safety? Yes, the p atient needs an assistive device LOCOMOTION: WALK - SCORE: 6-DION LOCOMOTION: WHEELCHAIR: Activity did not occur on this shift LOCOMOTION: WHEELCHAIR - SCORE: 0-UNK LOCOMOTION: STAIRS: LOCOMOTION: STAIRS - STEP 1: Does the patient need help to go up and down 12 to 14 stairs? No. LOCOMOTION: STAIRS - STEP 2: Does the patient require an assistive device - such as handrails or cane - to go up and down one flig ht of stairs, OR does s/he take more than reasonable time, OR is there a concern for safety? Yes, the patient requires an assistive device LOCOMOTION: STAIRS - SCORE: 6-DION COMPREHENSION: COMPREHENSION - SCORE: 0-UNK EXPRESSION EXPRESSION - SCORE: 0-UNK SOCIAL INTERACTION: SOCIAL INTERACTION - SCORE: 0-UNK PROBLEM SOLVING: PROBLEM SOLVING - SCORE: 0-UNK MEMORY: MEMORY - SCORE: 0-UNK SIGNATURE PANEL: The following modified sections: Transfers: Bed, Chair, Wheelchair - Score, Transfers: Toilet - Score , Locomotion: Walk - Score, Locomotion: Wheelchair - Score, Locomotion: Stairs - Score were [electron marie] signed by Kaushik Zamudio PT on TueSep 14 2018 14:39:23 GMT-0600 (Central Standard Time)
[2018-09-14] MEDS: GABAPENTIN 300 MG CAP PO SCH ×2 (15:14→19:12)
--- NOTE | 2018-09-14 15:25 | FAST ---
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 Parviz Frederick M.D. 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 EATING: EATING - STEP 1: Does the patient require the assistance of a person or device, or need extra time when eating? Yes. EATING - STEP 2: Does the patient require the assistance of a helper? Yes. EATING - STEP 3: Does the patient perform half or more of the eating tasks? Yes. EATING - STEP 4: Does the patient need only supervision, cuing, coaxing OR help to apply an orthosis OR help to cut fo od, open containers, pour liquids, or butter bread? Yes. EATING - SCORE: 5-SUP GROOMING: Comb/brush hair Oral care Wash, rinse, and dry face Wash, rinse, and dry hands GROOMING - STEP 1: Does the patient require the assistance of a person or device, or need extra time when grooming? Yes. GROOMING - STEP 2: Does the patient require the assistance of a helper? No. The patient only requires an assistive devic e, OR takes more than reasonable time to groom, OR there is a concern for safety as the patient groom s GROOMING - SCORE: 6-DION BATHING: Activity did not occur on this shift BATHING - SCORE: 0-UNK DRESSING - UPPER BODY: Bra (three steps) T-shirt/pullover shirt (four steps) ARTICLES SCORE Total number of steps: 7 DRESSING - UPPER BODY - STEP 1: Does the patient require help from a person or device, or need extra time when dressing above the [address]? Yes. DRESSING - UPPER BODY - STEP 2: Does the patient require the assistance of a helper? No. Patient only requires an assistive device, s uch as a button hook, velcro, or floor scraper. OR s/he takes more than reasonable time as s/he dresses the upper body. OR there is a concern for safety when s/he dresses the upper body DRESSING - UPPER BODY - SCORE: 6-DION DRESSING - LOWER BODY: Elastic waist pants (three steps) Slip-on shoe - Left foot (one step) Slip-on shoe - Right foot (one step) Sock - Left foot (one step) Sock - Right foot (one step) Underwear (three steps) ARTICLES SCORE Total number of steps: 10 DRESSING - LOWER BODY - STEP 1: Does the patient require help from a person or device, or need extra time when dressing below the [address]? Yes. DRESSING - LOWER BODY - STEP 2: Does the patient require the assistance of a helper? No. Patient requires an assistive device such as a floor scraper. OR s/he takes more than reasonable time as s/he dresses the lower body, OR there is a con cern for safety when s/he dresses the lower body DRESSING - LOWER BODY - SCORE: 6-DION TOILETING: TOILETING - STEP 1: Does the patient require the assistance of a person or device, or need extra time with toileting? No. TOILETING - SCORE: 7-IND BLADDER MANAGEMENT: BLADDER MANAGEMENT - STEP 1: Does the patient control the bladder completely and intentionally without equipment or devices or med ications, and is always continent? Yes. BLADDER MANAGEMENT - SCORE: 7-IND BLADDER MANAGEMENT - FREQUENCY OF ACCIDENTS: BLADDER MANAGEMENT(FA) - STEP 1: How many accidents has the patient had during the current shift? 0 BOWEL MANAGEMENT: BOWEL MANAGEMENT - STEP 1: Does the patient control bowels completely and intentionally without equipment devices or medications AND is always continent? No. BOWEL MANAGEMENT - STEP 2: Does the patient require the assistance of a helper? No, patient requires medication for control such as stool softeners, suppositories, laxatives, enemas, or OTC medications BOWEL MANAGEMENT - SCORE: 6-DION BOWEL MANAGEMENT - FREQUENCY OF ACCIDENTS: BOWEL MANAGEMENT(FA) - STEP 1: How many accidents has the patient had during the current shift? 0 TRANSFERS: BED, CHAIR, WHEELCHAIR: TRANSFERS: BED, CHAIR, WHEELCHAIR - STEP 1: Does the patient require assistance of a person or device, or need extra time with bed, chair, or whe elchair transfers? No. TRANSFERS: BED, CHAIR, WHEELCHAIR - SCORE: 7-IND TRANSFERS: TOILET: TRANSFERS: TOILET - STEP 1: Does the patient require the assistance of a person or device, or need extra time with toilet transfe rs? No. TRANSFERS: TOILET - SCORE: 7-IND TRANSFERS: SHOWER: Activity did not occur on this shift TRANSFERS: SHOWER - SCORE: 0-UNK TRANSFERS: TUB: Activity did not occur on this shift TRANSFERS: TUB - SCORE: 0-UNK LOCOMOTION: WALK: Activity did not occur on this shift LOCOMOTION: WALK - SCORE: 0-UNK LOCOMOTION: WHEELCHAIR: Activity did not occur on this shift LOCOMOTION: WHEELCHAIR - SCORE: 0-UNK COMPREHENSION: COMPREHENSION: TYPE: Both COMPREHENSION - STEP 1: Does the patient require help from a person or device, or need extra time to understand complex and a bstract ideas (such as current events, finances, discharge planning, medical issues, relationships, e tc)? Yes. COMPREHENSION - STEP 2: Does the patient require help to understand questions or statements about basic needs or ideas (such as hunger, thirst, sleep, safety, daily schedule, room location, or discomfort) half or more of the t timi? No. COMPREHENSION - STEP 3: How often does the patient need help to understand directions and conversation about basic needs? 10% - 24% of the time COMPREHENSION - SCORE: 4-MIN EXPRESSION EXPRESSION: TYPE: Both EXPRESSION - STEP 1: Does the patient require help from a person or device, or need extra time expressing complex and abst ract ideas (such as current events, finances, discharge planning, medical issues, relationships, etc) ? Yes. EXPRESSION - STEP 2: Does the patient require help to express basic necessities or ideas (such as hunger, thirst, sleep, s afety, daily schedule, room location, or discomfort) half or more of the time? No. EXPRESSION - STEP 3: How often does the patient need help to express directions and conversation about basic needs? 10-24% of the time EXPRESSION - SCORE: 4-MIN SOCIAL INTERACTION: SOCIAL INTERACTION - STEP 1: Does the patient require a helper to interact with others in social and therapeutic situations? Yes. SOCIAL INTERACTION - STEP 2: Does the patient interact appropriately half or more of the time? Yes. SOCIAL INTERACTION - STEP 3: How often does the patient need help to interact appropriately? Less than 10% of the time SOCIAL INTERACTION - SCORE: 5-SUP PROBLEM SOLVING: PROBLEM SOLVING - STEP 1: Does the patient need help from a person or device, or need extra time to solve complex problems such as managing a checking account or confronting interpersonal problems? Yes. PROBLEM SOLVING - STEP 2: Does the patient solve basic routine problems half or more of the time? No. PROBLEM SOLVING - STEP 3: Does the patient need help to solve problems all the time or is s/he unable to solve problems? No. Marco Antonio sousa can sometimes solve problems PROBLEM SOLVING - SCORE: 2-MAX MEMORY: MEMORY - STEP 1: Does the patient need help from a person or device, or need extra time to remember frequently encount ered people, daily routines, and executing requests? Yes. MEMORY - STEP 2: How often does the patient need help to remember frequently encountered people, daily routines, and e xecuting requests? 10% - 24% of the time MEMORY - SCORE: 4-MIN SIGNATURE PANEL: The following modified sections: Eating - Score, Grooming - Score, Bathing - Score, Dressing - Upper Body - Score, Dressing - Lower Body - Score, Toileting - Score, Bladder Management - Score, Bowel Man agement - Score, Transfers: Bed, Chair, Wheelchair - Score, Transfers: Toilet - Score, Transfers: Leyda wer - Score, Transfers: Tub - Score, Locomotion: Walk - Score, Locomotion: Wheelchair - Score, Compre hension - Score, Expression - Score, Social Interaction - Score, Problem Solving - Score, Memory - Sc ore were [electronically] signed by Brigid Melissa C.N.A. on TueSep 14 2018 15:24:10 T-0600 ([facility])
--- NOTE | 2018-09-14 17:33 | R.PN ---
ENCOUNTER DATE AND TIME: 09/14/2018 17:29 (METALSMITH) NAME VAMSHI LUGO DATE OF : 1930 DATE OF ADMISSION: 09/06/2018 11:21 (METALSMITH) stress fx base of femoral neck and avascular necrosis of femoral head right hipCHIEF COMPLAINT: Right hip avascular necrosis SUBJECTIVE: Pt denied any Shortness of Breath. Pt denied any depression. Ambulated 1000' with modified independence using a rollator. Up and down 30 steps with modified inde pendence using bilateral hand rails. CBC with differential is normal. Prealbumin improved to 12 from 8, one week ago. VITAL SIGNS Temperature: 98.1 F SBP/DBP: 127/68 Pulse: 80 Resp: 16 MEDICATION ALLERGIES: sulfa ENVIRONMENTAL ALLERGIES: - Substance Allergies None Known - Other Allergies None Known NURSING: - Shower allowing shower - Skin care per protocol PRECAUTIONS: - Posterior Hip Precaution No adduction across midline No external rotation No hip flexion >90 degrees No internal rotation No wheel chair propulsion - Weight Bearing Precaution WBAT right LE ACTIVITIES OOB only with supervision THERAPIES: - Occupational Therapy Evaluate and Treat. - Physical Therapy Evaluate and Treat. PHYSICAL EXAM - Gen Alert and awake Lying in bed No apparent distress Oriented to: person, time, and place - Skin No breakdown No abnormalities - Eyes No abnormalities - ENMT No abnormalities - Neck No abnormalities - CVS RRR - Chest No abnormalities - Resp Clear to auscultation - Abd +bowel sounds - GI Soft Deferred - No abnormalities - Ext Right hip surgical site has good hemostasis. - MSK 4+/5 weakness in right lower extremity - Neuro 4/5 strength right lower extremity - Psych No abnormalities ASSESSMENT: Pt. is a 88 yo Right-handed white female.On 09/01/2018 she was admitted to [facility] and underwent emergency surgery for stress fx base of femoral neck and avascular necrosis of f emoral head right hip (right hip hemiarthroplasty) by Funmi Flores.Pre-morbidly, Pt. was independent/ mod-I in Self-Care, Sphincter Control, Transfers Control, Communication, Social Cognition, and Locomo tion; and she had good Sphincter Control.Currently, she has deficits of Self-Care, Endurance, Safety Awareness, Transfers Control, Communication, Social Cognition, Balance, and Locomotion.Pt. is now ref erred to [facility] for acute in-patient rehabilitation in order to maximize p atient's functional independence in activities of daily living, strength, ROM, and mobility.- Rehab G oal Patient has realistic goal of being discharged at assistance level 6-Shanika to reside at Home with Fam zeferino/Relatives. MDM/PLAN: - Physical Therapy Decreased range of motion - to improve, our physical therapists will perform initial evaluation of p t's status upon admission and devise an individualized program for increasing patient's Range of Daniel on. Gait dysfunction - to improve, our physical therapists will perform initial evaluation of pt's statu s upon admission and devise an individualized program for Gait Training, and Wheel Chair mobility Inability to transfer - to improve, our physical therapists will perform initial evaluation of pt's status upon admission and devise an individualized program for Bed mobility Need for home safety evaluation - to improve, our physical therapists will perform initial evaluatio n of pt's status upon admission and devise an individualized program for Home Evaluation Need in caregiver upon discharge - to improve, our physical therapists will perform initial evaluati on of pt's status upon admission and devise an individualized program for Caregiver Training New precaution - to improve, our physical therapists will perform initial evaluation of pt's status upon admission and devise an individualized program for Patient precaution education Poor balance - to improve, our physical therapists will perform initial evaluation of pt's status up on admission and devise an individualized program for Balance Training Poor endurance - to improve, our physical therapists will perform initial evaluation of pt's status upon admission and devise an individualized program for Endurance Training Weakness - to improve, our physical therapists will perform initial evaluation of pt's status upon a dmission and devise an individualized program for Aquatic Therapy, Neuromuscular Reeducation, and Str engthening Achieving independence - to improve, our physical therapists will perform initial evaluation of pt's status upon admission and devise an individualized program for Community Reintegration Activities - Occupational Therapy ADL deficits - to improve, our occupation therapists will perform initial evaluation of pt's status upon admission and devise an individualized program for Bathing, Bed mobility, Community Reintegratio n, Cooking, Dressing, Eating, Fine Motor Skills, Grooming, Homemaking, Kitchen Mobility, Laundry, Pat ient Education, Safety Awareness, Splinting - Positioning, Transfers(Toilet, Tub, Shower), and Wheel Chair Management Cognitive deficits - to improve, our occupation therapists will perform initial evaluation of pt's s tatus upon admission and devise an individualized program for Cognition - orientation Need for hemodialysis patient care specialist - to improve, our occupation therapists will perform initial evaluation of pt's status upon admission and devise an individualized program for Caregiver Training Weakness - to improve, our occupation therapists will perform initial evaluation of pt's status upon admission and devise an individualized program for Aquatic Therapy, Balance, Endurance, UE ROM, and UE strengthening - Anterior Hip Precaution No abduction No active extension No adduction across midline No external rotation No hip flexion >90 degrees No internal rotation - Diet - Liquid Texture Continue Regular - Tube Feed Continue N/A - Diet Type Continue Regular - Posterior Hip Precaution No adduction across midline No external rotation No hip flexion >90 degrees No internal rotation No wheel chair propulsion - Weight Bearing Precaution WBAT right LE - Skin care per protocol - Diet - Solid Texture Continue Regular - Shower allowing shower FUNCTIONAL STATUS: UPDATED AT WEEKLY TEAM CONFERENCE - Bladder Same accident frequency: 7-Ind - No accidents in the past 7 days - Bowel Same accident frequency: 7-Ind - No accidents in the past 7 days - Walking Same score based on distance walked: 1(<=50ft) FUNCTIONAL STATUS: - Self-Care A. Eating sup B. Grooming Aidee C. Bathing Aidee D. Dressing - Upper Aidee E. Dressing - Lower maxA F. Toileting maxA - Sphincter Control G: Bladder control Ind H: Bowel control Ind - Transfers Control I. Bed/Chair/Wheelchair modA J. Toilet modA K. Tub/Shower modA - Locomotion L. Walk/Wheelchair (B) Dep M. Stairs ADNO - Communication N. Comprehension (B) Aidee O. Expression (B) sup - Social Cognition P. Social Interaction sup Q. Problem Solving sup R. Memory sup - Endurance Poor - Balance Poor - Safety Awareness Fair CURRENT FUNC. DEFICITS: Self-Care, Endurance, Safety Awareness, Transfers Control, Communication, Social Cognition, Balance, and Locomotion SIGNATURE PANEL: (METALSMITH)
[2018-09-14] MEDS: NYSTATIN 500,000 UNIT/5 ML UDC PO PRN (19:11)
[2018-09-14] MEDS: ZOLPIDEM TARTRATE 5 MG TABLET PO PRN (20:30)
[2018-09-14] MEDS: MONTELUKAST 10 MG TAB PO SCH (20:30)
[2018-09-14] MEDS: CYANOCOBALAMIN 1,000 MCG TAB PO SCH (20:30)
[2018-09-14] MEDS: VITAMIN D 1000 UNIT TAB PO SCH (20:30)
[2018-09-14] MEDS: DULOXETINE 30 MG CAP PO SCH (20:30)
[2018-09-14] MEDS: DOCUSATE NA/SENNA CONC 1 TAB PO SCH (20:30)
--- NOTE | 2018-09-15 02:06 | FAST ---
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 Parviz Frederick M.D. 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 EATING: Activity did not occur on this shift EATING - SCORE: 0-UNK GROOMING: Wash, rinse, and dry hands GROOMING - STEP 1: Does the patient require the assistance of a person or device, or need extra time when grooming? Yes. GROOMING - STEP 2: Does the patient require the assistance of a helper? Yes. GROOMING - STEP 3: How much assistance does the patient require from the helper? Cuing, coaxing, instructions, or encour agement for completion of grooming GROOMING - SCORE: 5-SUP BATHING: Activity did not occur on this shift BATHING - SCORE: 0-UNK DRESSING - UPPER BODY: Activity did not occur on this shift ARTICLES SCORE Total number of steps: 0 DRESSING - UPPER BODY - SCORE: 0-UNK DRESSING - LOWER BODY: Activity did not occur on this shift ARTICLES SCORE Total number of steps: 0 DRESSING - LOWER BODY - SCORE: 0-UNK TOILETING: TOILETING - STEP 1: Does the patient require the assistance of a person or device, or need extra time with toileting? Yes . TOILETING - STEP 2: Does the patient require the assistance of a helper? Yes. TOILETING - STEP 3: How much assistance does the patient require from the helper? Only supervision TOILETING - SCORE: 5-SUP BLADDER MANAGEMENT: BLADDER MANAGEMENT - STEP 1: Does the patient control the bladder completely and intentionally without equipment or devices or med ications, and is always continent? Yes. BLADDER MANAGEMENT - SCORE: 7-IND BOWEL MANAGEMENT: Activity did not occur on this shift BOWEL MANAGEMENT - SCORE: 7-IND TRANSFERS: BED, CHAIR, WHEELCHAIR: TRANSFERS: BED, CHAIR, WHEELCHAIR - STEP 1: Does the patient require assistance of a person or device, or need extra time with bed, chair, or whe elchair transfers? Yes. TRANSFERS: BED, CHAIR, WHEELCHAIR - STEP 2: Does the patient require the assistance of a helper? Yes. TRANSFERS: BED, CHAIR, WHEELCHAIR - STEP 3: How much assistance does the patient require from the helper? Only supervision TRANSFERS: BED, CHAIR, WHEELCHAIR - SCORE: 5-SUP TRANSFERS: TOILET: TRANSFERS: TOILET - STEP 1: Does the patient require the assistance of a person or device, or need extra time with toilet transfe rs? Yes. TRANSFERS: TOILET - STEP 2: Does the patient require the assistance of a helper? Yes. TRANSFERS: TOILET - STEP 3: How much assistance does the patient require from the helper? Only supervision, cuing, coaxing, OR he lp to set out transfer equipment or to lock brakes and/or lift foot rests TRANSFERS: TOILET - SCORE: 5-SUP TRANSFERS: SHOWER: Activity did not occur on this shift TRANSFERS: SHOWER - SCORE: 0-UNK TRANSFERS: TUB: Activity did not occur on this shift TRANSFERS: TUB - SCORE: 0-UNK LOCOMOTION: WALK: Activity did not occur on this shift LOCOMOTION: WALK - SCORE: 0-UNK LOCOMOTION: WHEELCHAIR: Activity did not occur on this shift LOCOMOTION: WHEELCHAIR - SCORE: 0-UNK COMPREHENSION: COMPREHENSION: TYPE: Both COMPREHENSION - STEP 1: Does the patient require help from a person or device, or need extra time to understand complex and a bstract ideas (such as current events, finances, discharge planning, medical issues, relationships, e tc)? No. COMPREHENSION - STEP 2: Does the patient need extra time, require an assistive device (such as glasses for visual comprehensi on or a hearing aid for auditory comprehension) or does s/he have mild difficulty understanding compl ex and abstract information? Yes. COMPREHENSION - SCORE: 6-DION EXPRESSION EXPRESSION: TYPE: Both EXPRESSION - STEP 1: Does the patient require help from a person or device, or need extra time expressing complex and abst ract ideas (such as current events, finances, discharge planning, medical issues, relationships, etc) ? No. EXPRESSION - STEP 2: Does the patient need extra time, require an assistive device (such as augmentive communication syste m or a communication board), OR does s/he have mild difficulty expressing complex and abstract ideas (including mild dysarthria or mild word-find problems)? No. EXPRESSION - SCORE: 7-IND SOCIAL INTERACTION: SOCIAL INTERACTION - STEP 1: Does the patient require a helper to interact with others in social and therapeutic situations? No. SOCIAL INTERACTION - STEP 2: Does the patient need extra time in social situations, OR does s/he interact with staff, other patien ts, and family members ONLY in structured environments, OR does s/he require medication for social in teraction? Yes, patient requires medication for social interaction SOCIAL INTERACTION - SCORE: 6-DION PROBLEM SOLVING: Patient requires bed/chair alarms due to attempts to get up unassisted when helper is needed. PROBLEM SOLVING - STEP 1: How often do the bed/chair alarms go off? Occasionally - the alarms go off about 25% or less PROBLEM SOLVING - SCORE: 4-MIN MEMORY: MEMORY - STEP 1: How often do the bed/chair alarms go off? Occasionally - the alarms go off about 25% of the time or l ess MEMORY - SCORE: 4-MIN SIGNATURE PANEL: The following modified sections: Eating - Score, Grooming - Score, Bathing - Score, Dressing - Upper Body - Score, Dressing - Lower Body - Score, Toileting - Score, Bladder Management - Score, Bowel Man agement - Score, Transfers: Bed, Chair, Wheelchair - Score, Transfers: Toilet - Score, Transfers: Leyda wer - Score, Transfers: Tub - Score, Locomotion: Walk - Score, Locomotion: Wheelchair - Score, Compre hension - Score, Expression - Score, Social Interaction - Score, Problem Solving - Score, Memory - Sc ore were [electronically] signed by Olena Murphy CNA on TueSep 15 2018 02:05:34 T-0600 ([facility])
[2018-09-15] MEDS: HYDROCODONE/APAP 5/325 MG TAB PO PRN ×3 (06:45→20:34)
[2018-09-15] MEDS: DOCUSATE NA 100 MG CAP PO SCH ×2 (08:00→20:27)
[2018-09-15] MEDS: MAGNESIUM OXIDE 400 MG TAB PO SCH ×2 (08:17→20:28)
[2018-09-15] MEDS: PANTOPRAZOLE 40MG TABLET PO SCH (08:17)
[2018-09-15] MEDS: CRANBERRY FRUIT EXTRACT 200 MG CAP PO SCH ×2 (08:17→20:26)
[2018-09-15] MEDS: GABAPENTIN 300 MG CAP PO SCH ×2 (08:17→20:26)
[2018-09-15] MEDS: APIXABAN 5 MG TABLET PO SCH ×2 (08:18→20:26)
[2018-09-15] MEDS: SACUBITRIL/VALSARTAN 24/26 MG TAB PO SCH ×2 (08:18→20:28)
[2018-09-15] MEDS: BACLOFEN 10 MG TAB PO SCH (08:18)
[2018-09-15] MEDS: FUROSEMIDE 40 MG TABLET PO SCH (08:18)
[2018-09-15] MEDS: TRAMADOL HCL 50 MG TAB PO PRN (08:19)
[2018-09-15] MEDS: LIDOCAINE 5% PATCH TOP SCH (08:19)
[2018-09-15] MEDS: PROMOD 30 ML DOSE PO SCH ×2 (08:21→20:29)
[2018-09-15] MEDS: MAGIC MOUTHWASH 180 ML BTL PO PRN (09:17)
--- NOTE | 2018-09-15 10:02 | P.RH.PN ---
Estimated Length of Stay: 10 Expected Discharge Date: 09/16/18 Discharge Disposition Plan: Home Family Support: Yes Senior Living Goal: Mobility, Transfers, Self Care Vital Signs: Last Vital Signs Temp 97.8 F 09/14/18 19:39 Pulse 90 09/15/18 08:18 Resp 18 09/14/18 19:39 BP 113/62 09/15/18 08:18 Pulse Ox 96 09/14/18 19:39 Laboratory: Laboratory Last Values WBC 5.2 K/uL (4.3-10.9) D 09/14/18 05:32 RBC 4.06 M/uL (3.86-4.86) 09/14/18 05:32 Hgb 12.7 g/dL (12.0-15.0) 09/14/18 05:32 Hct 37.1 % (36.0-45.0) 09/14/18 05:32 MCV 91.4 fL (80-100) 09/14/18 05:32 MCH 31.4 pg (27.0-35.0) 09/14/18 05:32 MCHC 34.3 g/dL (32.0-36.0) 09/14/18 05:32 RDW 14.2 % (12.1-15.2) 09/14/18 05:32 Plt Count 358 K/uL (152-406) D 09/14/18 05:32 MPV 8.9 fL (7.6-11.3) 09/14/18 05:32 Neutrophils % 63.1 % (41.7-73.7) 09/14/18 05:32 Lymphocytes % 18.1 % (15.3-44.8) 09/14/18 05:32 Monocytes % 14.2 % (3.3-12.3) H 09/14/18 05:32 Eosinophils % 3.8 % (0-4.4) 09/14/18 05:32 Basophils % 0.8 % (0-1.3) 09/14/18 05:32 Absolute Neutrophils 3.3 K/uL (1.8-8.0) 09/14/18 05:32 Absolute Lymphocytes 0.9 K/uL (0.7-4.9) 09/14/18 05:32 Absolute Monocytes 0.7 K/uL (0.1-1.3) 09/14/18 05:32 Absolute Eosinophils 0.2 K/uL (0-0.5) 09/14/18 05:32 Absolute Basophils 0.0 K/uL (0-0.5) 09/14/18 05:32 Sodium 136 mmol/L (136-145) 09/14/18 06:52 Potassium 4.5 mmol/L (3.5-5.1) 09/14/18 06:52 Chloride 101 mmol/L (98-107) 09/14/18 06:52 Carbon Dioxide 30 mmol/L (21-32) 09/14/18 06:52 BUN 12 mg/dL (7-18) 09/14/18 06:52 Creatinine 0.63 mg/dL (0.55-1.3) 09/14/18 06:52 Estimated GFR 89 mL/min (=/>90) L 09/14/18 06:52 Glucose 102 mg/dL (74-106) 09/14/18 06:52 POC Glucose 114 mg/dl (65-120) 09/06/18 11:34 Calcium 8.7 mg/dL (8.5-10.1) 09/14/18 06:52 Magnesium 2.0 mg/dL (1.8-2.4) 09/07/18 06:09 Albumin 2.9 g/dL (3.4-5.0) L 09/14/18 06:52 Prealbumin 12.0 mg/dL (20-40) L 09/14/18 06:52 Urine Color Dk yellow 09/06/18 20:10 Urine Appearance Clear 09/06/18 20:10 Urine pH 5.5 (5.0-7.0) 09/06/18 20:10 Ur Specific [place] 1.010 (1.005-1.030) 09/06/18 20:10 Urine Ketones Negative (NEG) 09/06/18 20:10 Urine Blood Trace (NEG) H 09/06/18 20:10 Urine Nitrite Negative (NEG) 09/06/18 20:10 Urine Bilirubin Negative (NEG) 09/06/18 20:10 Urine Urobilinogen 1.0 mg/dL (0.2-1.0) 09/06/18 20:10 Ur Leukocyte Esterase 1+ (NEG) H 09/06/18 20:10 Urine RBC <5 /HPF (NONE SEEN) 09/06/18 20:10 Urine WBC <5 /HPF (<5) 09/06/18 20:10 Ur Squamous Epith Cells <5 /HPF (NONE SEEN) 09/06/18 20:10 Ur Urothelial Cells <5 /HPF (NONE SEEN) 09/06/18 20:10 Urine Bacteria <20 /HPF (<20) 09/06/18 20:10 Urine Culture Reflexed Reflexed 09/06/18 20:10 Urine Glucose Negative (NEG) 09/06/18 20:10 Urine Total Protein Negative (NEG) 09/06/18 20:10 Weight: 149 lb Wound Present: No Closed Surgical Incision Present: Yes Negative Pressure Wound Therapy Present: No Physician Update: Labs have been reviewed and are essentially normal except mildly low prealbumin. She is modified independent with occupational and physical therapy. She will be discharged home in the AM. Medical Issues: DVT Prophylaxis- Eliquis 5mg BID Pain Issues: [place] 5/325mg Q4H PRN. Tramadol 50mg Q6H PRN Functional Improvement: pt has demonstrated good progress throughout the duration of therapy. pt met many functional goals and is set for discharge this weekend. Functional Improvement Occupational Therapy: pt can benifit for therapy to address pt's safety and techniques for safety when returning home. Cont to increase pt's UB strength and static/dynamic standing balance for adl tasks. Pt is going to previous living situation and having home health upon d/c. Summary: Patient's care plan and fdc goals have been reviewed and revised as necessary. Please see the Rehabilitation Signature page for all necessary signatures.
--- NOTE | 2018-09-15 15:38 | FAST ---
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 Parviz Frederick M.D. 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 EATING: Activity did not occur on this shift EATING - SCORE: 0-UNK GROOMING: Activity did not occur on this shift GROOMING - SCORE: 0-UNK BATHING: Activity did not occur on this shift BATHING - SCORE: 0-UNK DRESSING - UPPER BODY: Activity did not occur on this shift Patient is not dressing in public clothing ARTICLES SCORE Total number of steps: 0 DRESSING - UPPER BODY - SCORE: 0-UNK DRESSING - LOWER BODY: Activity did not occur on this shift Patient is not dressing in public clothing ARTICLES SCORE Total number of steps: 0 DRESSING - LOWER BODY - SCORE: 0-UNK TOILETING: Activity did not occur on this shift TOILETING - SCORE: 0-UNK BLADDER MANAGEMENT: Activity did not occur on this shift BLADDER MANAGEMENT - SCORE: 7-IND BOWEL MANAGEMENT: Activity did not occur on this shift BOWEL MANAGEMENT - SCORE: 7-IND TRANSFERS: BED, CHAIR, WHEELCHAIR: TRANSFERS: BED, CHAIR, WHEELCHAIR - STEP 1: Does the patient require assistance of a person or device, or need extra time with bed, chair, or whe elchair transfers? Yes. TRANSFERS: BED, CHAIR, WHEELCHAIR - STEP 2: Does the patient require the assistance of a helper? No. Patient only requires an assistive device fo r bed, chair, wheelchair transfers such as a sliding board, grab bar, or brace, OR s/he takes more th an reasonable time, OR there is a safety concern when s/he performs the transfers TRANSFERS: BED, CHAIR, WHEELCHAIR - SCORE: 6-DION TRANSFERS: TOILET: Activity did not occur on this shift TRANSFERS: TOILET - SCORE: 0-UNK TRANSFERS: SHOWER: Activity did not occur on this shift TRANSFERS: SHOWER - SCORE: 0-UNK TRANSFERS: TUB: Activity did not occur on this shift TRANSFERS: TUB - SCORE: 0-UNK LOCOMOTION: WALK: LOCOMOTION: WALK - STEP 1: Does the patient need help from a person or device, or need extra time to walk 150 feet? No. LOCOMOTION: WALK - STEP 2: Does the patient need an assistive device (such as an orthosis, prosthesis, crutches, or walker) to g o 150 feet, OR does s/he take more than reasonable time, OR is there a concern for safety? Yes, the p atient needs an assistive device LOCOMOTION: WALK - SCORE: 6-DION LOCOMOTION: WHEELCHAIR: Activity did not occur on this shift LOCOMOTION: WHEELCHAIR - SCORE: 0-UNK LOCOMOTION: STAIRS: LOCOMOTION: STAIRS - STEP 1: Does the patient need help to go up and down 12 to 14 stairs? No. LOCOMOTION: STAIRS - STEP 2: Does the patient require an assistive device - such as handrails or cane - to go up and down one flig ht of stairs, OR does s/he take more than reasonable time, OR is there a concern for safety? Yes, the patient requires an assistive device LOCOMOTION: STAIRS - SCORE: 6-DION COMPREHENSION: COMPREHENSION - SCORE: 0-UNK EXPRESSION EXPRESSION - SCORE: 0-UNK SOCIAL INTERACTION: SOCIAL INTERACTION - SCORE: 0-UNK PROBLEM SOLVING: PROBLEM SOLVING - SCORE: 0-UNK MEMORY: MEMORY - SCORE: 0-UNK SIGNATURE PANEL: The following modified sections: Transfers: Bed, Chair, Wheelchair - Score, Transfers: Toilet - Score , Locomotion: Walk - Score, Locomotion: Wheelchair - Score, Locomotion: Stairs - Score were [electron marie] signed by aKushik Zamudio PT on TueSep 15 2018 15:36:49 GMT-0600 (Central Standard Time)
--- NOTE | 2018-09-15 18:20 | FAST ---
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 Parviz Frederick M.D. 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 EATING: EATING - STEP 1: Does the patient require the assistance of a person or device, or need extra time when eating? No. EATING - SCORE: 7-IND GROOMING: Comb/brush hair Wash, rinse, and dry face Wash, rinse, and dry hands GROOMING - STEP 1: Does the patient require the assistance of a person or device, or need extra time when grooming? Yes. GROOMING - STEP 2: Does the patient require the assistance of a helper? No. The patient only requires an assistive devic e, OR takes more than reasonable time to groom, OR there is a concern for safety as the patient groom s GROOMING - SCORE: 6-DION BATHING: Activity did not occur on this shift BATHING - SCORE: 0-UNK DRESSING - UPPER BODY: ARTICLES SCORE Total number of steps: 0 DRESSING - UPPER BODY - STEP 1: Does the patient require help from a person or device, or need extra time when dressing above the [address]? Yes. DRESSING - UPPER BODY - STEP 2: Does the patient require the assistance of a helper? No. Patient only requires an assistive device, s uch as a button hook, velcro, or household appliances service technician. OR s/he takes more than reasonable time as s/he dresses the upper body. OR there is a concern for safety when s/he dresses the upper body DRESSING - UPPER BODY - SCORE: 6-DION DRESSING - LOWER BODY: ARTICLES SCORE Total number of steps: 0 DRESSING - LOWER BODY - STEP 1: Does the patient require help from a person or device, or need extra time when dressing below the [address]? Yes. DRESSING - LOWER BODY - STEP 2: Does the patient require the assistance of a helper? No. Patient requires an assistive device such as a household appliances service technician. OR s/he takes more than reasonable time as s/he dresses the lower body, OR there is a con cern for safety when s/he dresses the lower body DRESSING - LOWER BODY - SCORE: 6-DION TOILETING: TOILETING - STEP 1: Does the patient require the assistance of a person or device, or need extra time with toileting? Yes . TOILETING - STEP 2: Does the patient require the assistance of a helper? No. TOILETING - SCORE: 6-DION BLADDER MANAGEMENT: BLADDER MANAGEMENT - STEP 1: Does the patient control the bladder completely and intentionally without equipment or devices or med ications, and is always continent? Yes. BLADDER MANAGEMENT - SCORE: 7-IND BLADDER MANAGEMENT - FREQUENCY OF ACCIDENTS: BLADDER MANAGEMENT(FA) - STEP 1: How many accidents has the patient had during the current shift? 0 BOWEL MANAGEMENT: BOWEL MANAGEMENT - STEP 1: Does the patient control bowels completely and intentionally without equipment devices or medications AND is always continent? Yes. BOWEL MANAGEMENT - SCORE: 7-IND BOWEL MANAGEMENT - FREQUENCY OF ACCIDENTS: BOWEL MANAGEMENT(FA) - STEP 1: How many accidents has the patient had during the current shift? 0 TRANSFERS: BED, CHAIR, WHEELCHAIR: TRANSFERS: BED, CHAIR, WHEELCHAIR - STEP 1: Does the patient require assistance of a person or device, or need extra time with bed, chair, or whe elchair transfers? Yes. TRANSFERS: BED, CHAIR, WHEELCHAIR - STEP 2: Does the patient require the assistance of a helper? No. Patient only requires an assistive device fo r bed, chair, wheelchair transfers such as a sliding board, grab bar, or brace, OR s/he takes more th an reasonable time, OR there is a safety concern when s/he performs the transfers TRANSFERS: BED, CHAIR, WHEELCHAIR - SCORE: 6-DION TRANSFERS: TOILET: TRANSFERS: TOILET - STEP 1: Does the patient require the assistance of a person or device, or need extra time with toilet transfe rs? Yes. TRANSFERS: TOILET - STEP 2: Does the patient require the assistance of a helper? No. Patient only requires an assistive device delgado ch as a grab bar or special seat, OR s/he takes more than reasonable time to perform toilet transfers , OR there is a safety concern when s/he performs toilet transfers. TRANSFERS: TOILET - SCORE: 6-DION TRANSFERS: SHOWER: Activity did not occur on this shift TRANSFERS: SHOWER - SCORE: 0-UNK TRANSFERS: TUB: Activity did not occur on this shift TRANSFERS: TUB - SCORE: 0-UNK LOCOMOTION: WALK: Activity did not occur on this shift LOCOMOTION: WALK - SCORE: 0-UNK LOCOMOTION: WHEELCHAIR: Activity did not occur on this shift LOCOMOTION: WHEELCHAIR - SCORE: 0-UNK COMPREHENSION: COMPREHENSION - SCORE: 0-UNK EXPRESSION EXPRESSION - SCORE: 0-UNK SOCIAL INTERACTION: SOCIAL INTERACTION - SCORE: 0-UNK PROBLEM SOLVING: PROBLEM SOLVING - SCORE: 0-UNK MEMORY: MEMORY - SCORE: 0-UNK SIGNATURE PANEL: The following modified sections: Eating - Score, Grooming - Score, Bathing - Score, Dressing - Upper Body - Score, Dressing - Lower Body - Score, Toileting - Score, Bladder Management - Score, Bowel Man agement - Score, Transfers: Bed, Chair, Wheelchair - Score, Transfers: Toilet - Score, Transfers: Leyda wer - Score, Transfers: Tub - Score, Locomotion: Walk - Score, Locomotion: Wheelchair - Score, Compre hension - Score, Expression - Score, Social Interaction - Score, Problem Solving - Score, Memory - Sc ore were [electronically] signed by Leona Hernandez CNA on TueSep 15 2018 18:19:10 GMT-0600 ([place] Standard Time)
[2018-09-15] MEDS: DULOXETINE 30 MG CAP PO SCH (20:26)
[2018-09-15] MEDS: CYANOCOBALAMIN 1,000 MCG TAB PO SCH (20:26)
[2018-09-15] MEDS: MONTELUKAST 10 MG TAB PO SCH (20:27)
[2018-09-15] MEDS: DOCUSATE NA/SENNA CONC 1 TAB PO SCH (20:27)
[2018-09-15] MEDS: VITAMIN D 1000 UNIT TAB PO SCH (20:27)
[2018-09-15] MEDS ORDERED: TRAZODONE 50 MG TABLET PO SCH (21:00)
--- NOTE | 2018-09-16 02:45 | FAST ---
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 Parviz Frederick M.D. 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 EATING: Activity did not occur on this shift EATING - SCORE: 0-UNK GROOMING: Oral care Wash, rinse, and dry face Wash, rinse, and dry hands GROOMING - STEP 1: Does the patient require the assistance of a person or device, or need extra time when grooming? Yes. GROOMING - STEP 2: Does the patient require the assistance of a helper? No. The patient only requires an assistive devic e, OR takes more than reasonable time to groom, OR there is a concern for safety as the patient groom s GROOMING - SCORE: 6-DION BATHING: Activity did not occur on this shift BATHING - SCORE: 0-UNK DRESSING - UPPER BODY: Patient is not dressing in public clothing ARTICLES SCORE Total number of steps: 0 DRESSING - UPPER BODY - SCORE: 0-UNK DRESSING - LOWER BODY: Patient is not dressing in public clothing ARTICLES SCORE Total number of steps: 0 DRESSING - LOWER BODY - SCORE: 0-UNK TOILETING: TOILETING - STEP 1: Does the patient require the assistance of a person or device, or need extra time with toileting? Yes . TOILETING - STEP 2: Does the patient require the assistance of a helper? No. TOILETING - SCORE: 6-DION BLADDER MANAGEMENT: BLADDER MANAGEMENT - STEP 1: Does the patient control the bladder completely and intentionally without equipment or devices or med ications, and is always continent? Yes. BLADDER MANAGEMENT - SCORE: 7-IND BOWEL MANAGEMENT: Activity did not occur on this shift BOWEL MANAGEMENT - SCORE: 7-IND TRANSFERS: BED, CHAIR, WHEELCHAIR: TRANSFERS: BED, CHAIR, WHEELCHAIR - STEP 1: Does the patient require assistance of a person or device, or need extra time with bed, chair, or whe elchair transfers? Yes. TRANSFERS: BED, CHAIR, WHEELCHAIR - STEP 2: Does the patient require the assistance of a helper? No. Patient only requires an assistive device fo r bed, chair, wheelchair transfers such as a sliding board, grab bar, or brace, OR s/he takes more th an reasonable time, OR there is a safety concern when s/he performs the transfers TRANSFERS: BED, CHAIR, WHEELCHAIR - SCORE: 6-DION TRANSFERS: TOILET: TRANSFERS: TOILET - STEP 1: Does the patient require the assistance of a person or device, or need extra time with toilet transfe rs? Yes. TRANSFERS: TOILET - STEP 2: Does the patient require the assistance of a helper? No. Patient only requires an assistive device delgado ch as a grab bar or special seat, OR s/he takes more than reasonable time to perform toilet transfers , OR there is a safety concern when s/he performs toilet transfers. TRANSFERS: TOILET - SCORE: 6-DION TRANSFERS: SHOWER: Activity did not occur on this shift TRANSFERS: SHOWER - SCORE: 0-UNK TRANSFERS: TUB: Activity did not occur on this shift TRANSFERS: TUB - SCORE: 0-UNK LOCOMOTION: WALK: Activity did not occur on this shift LOCOMOTION: WALK - SCORE: 0-UNK LOCOMOTION: WHEELCHAIR: Activity did not occur on this shift LOCOMOTION: WHEELCHAIR - SCORE: 0-UNK COMPREHENSION: COMPREHENSION: TYPE: Both COMPREHENSION - STEP 1: Does the patient require help from a person or device, or need extra time to understand complex and a bstract ideas (such as current events, finances, discharge planning, medical issues, relationships, e tc)? No. COMPREHENSION - STEP 2: Does the patient need extra time, require an assistive device (such as glasses for visual comprehensi on or a hearing aid for auditory comprehension) or does s/he have mild difficulty understanding compl ex and abstract information? Yes. COMPREHENSION - SCORE: 6-DION EXPRESSION EXPRESSION: TYPE: Both EXPRESSION - STEP 1: Does the patient require help from a person or device, or need extra time expressing complex and abst ract ideas (such as current events, finances, discharge planning, medical issues, relationships, etc) ? No. EXPRESSION - STEP 2: Does the patient need extra time, require an assistive device (such as augmentive communication syste m or a communication board), OR does s/he have mild difficulty expressing complex and abstract ideas (including mild dysarthria or mild word-find problems)? Yes. EXPRESSION - SCORE: 6-DION SOCIAL INTERACTION: SOCIAL INTERACTION - STEP 1: Does the patient require a helper to interact with others in social and therapeutic situations? No. SOCIAL INTERACTION - STEP 2: Does the patient need extra time in social situations, OR does s/he interact with staff, other patien ts, and family members ONLY in structured environments, OR does s/he require medication for social in teraction? Yes, patient needs extra time SOCIAL INTERACTION - SCORE: 6-DION PROBLEM SOLVING: PROBLEM SOLVING - STEP 1: Does the patient need help from a person or device, or need extra time to solve complex problems such as managing a checking account or confronting interpersonal problems? No. PROBLEM SOLVING - STEP 2: Does the patient require extra time to make decisions or solve problems, OR does s/he have slight dif ficulty reading, initiating, or self-correcting in unfamiliar situations? Yes, patient needs extra ti me. PROBLEM SOLVING - SCORE: 6-DION MEMORY: MEMORY - STEP 1: Does the patient need help from a person or device, or need extra time to remember frequently encount ered people, daily routines, and executing requests? No. MEMORY - STEP 2: Does the patient have slight difficulty recognizing frequently encountered people, daily routines, or executing requests without the need for repetition or using self-initiated or environmental cues to remember? Yes. MEMORY - SCORE: 6-DION
[2018-09-16] MEDS: PANTOPRAZOLE 40MG TABLET PO SCH (06:43)
[2018-09-16] MEDS: PROMOD 30 ML DOSE PO SCH (08:00)
[2018-09-16] MEDS: BACLOFEN 10 MG TAB PO SCH (08:20)
[2018-09-16] MEDS: MAGNESIUM OXIDE 400 MG TAB PO SCH (08:20)
[2018-09-16] MEDS: HYDROCODONE/APAP 5/325 MG TAB PO PRN ×2 (08:21→13:11)
[2018-09-16] MEDS: DOCUSATE NA 100 MG CAP PO SCH (08:21)
[2018-09-16] MEDS: GABAPENTIN 300 MG CAP PO SCH (08:21)
[2018-09-16] MEDS: FUROSEMIDE 40 MG TABLET PO SCH (08:21)
[2018-09-16] MEDS: CRANBERRY FRUIT EXTRACT 200 MG CAP PO SCH (08:21)
[2018-09-16] MEDS: SACUBITRIL/VALSARTAN 24/26 MG TAB PO SCH (08:21)
[2018-09-16] MEDS: LIDOCAINE 5% PATCH TOP SCH (08:22)
[2018-09-16] MEDS: APIXABAN 5 MG TABLET PO SCH (08:22)
[2018-09-17 15:34] VITALS: BP 125/57; TEMP 98.1
--- NOTE | 2018-09-19 18:13 | R.DS ---
FACILITY [facility] MR# [id number] NAME VAMSHI LUGO ADDRESS [address] [place] [address] [address] [id number] PHONE DATE OF 1930 AGE 88 SSN# [id number] GENDER Female DEXTERITY Right-handed MARITAL STATUS RACE White ENCOUNTER PHYSICIAN Dr. Parviz Frederick M.D. 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 is a 88 yo Right-handed white female.On 09/01/2018 she was admitted to [facility] and underwent emergency surgery for stress fx base of femoral neck and avascular necrosis of f emoral head right hip (right hip hemiarthroplasty) by Funmi Flores.Pre-morbidly, Pt. was independent/ mod-I in Sphincter Control; and she had good Sphincter Control.Currently, she has deficits of Self-Ca re, Endurance, Safety Awareness, Transfers Control, Communication, Social Cognition, Balance, and Loc omotion.Pt. is now referred to [facility] for acute in-patient rehabilitation in order to maximize patient's functional independence in activities of daily living, strength, ROM, and mobility.- Rehab Goal Patient has realistic goal of being discharged at assistance level 6-Shanika to reside at Home with Fam zeferino/Relatives. HOSPITAL COURSE: ANTERIOR HIP PRECAUTION: On 09/07/2018 the following precautions were added for the patient: Anterior Hip Precaution - No abd uction, Anterior Hip Precaution - No active extension, Anterior Hip Precaution - No adduction acros s midline, Anterior Hip Precaution - No external rotation, Anterior Hip Precaution - No hip flexion >90 degrees, and Anterior Hip Precaution - No internal rotation. On 09/11/2018 the following precautions were removed for the patient: Anterior Hip Precaution - No a bduction, Anterior Hip Precaution - No active extension, Anterior Hip Precaution - No adduction acr oss midline, Anterior Hip Precaution - No external rotation, Anterior Hip Precaution - No hip flexi on >90 degrees, and Anterior Hip Precaution - No internal rotation. The following precautions were added for the patient: Anterior Hip Precaution - No abduction, Anterio r Hip Precaution - No active extension, Anterior Hip Precaution - No adduction across midline, Anteri or Hip Precaution - No external rotation, Anterior Hip Precaution - No hip flexion >90 degrees, and A nterior Hip Precaution - No internal rotation. On 09/12/2018 the following precautions were removed for the patient: Anterior Hip Precaution - No ab duction, Anterior Hip Precaution - No active extension, Anterior Hip Precaution - No adduction across midline, Anterior Hip Precaution - No external rotation, Anterior Hip Precaution - No hip flexion >9 0 degrees, and Anterior Hip Precaution - No internal rotation. The following precautions were added for the patient: Anterior Hip Precaution - No abduction, Anteri or Hip Precaution - No active extension, Anterior Hip Precaution - No adduction across midline, Ant erior Hip Precaution - No external rotation, Anterior Hip Precaution - No hip flexion >90 degrees, and Anterior Hip Precaution - No internal rotation. The following precautions were removed for the patient: Anterior Hip Precaution - No abduction, Ante rior Hip Precaution - No active extension, Anterior Hip Precaution - No adduction across midline, A nterior Hip Precaution - No external rotation, Anterior Hip Precaution - No hip flexion >90 degrees , and Anterior Hip Precaution - No internal rotation. On 09/06/2018 the following precautions were added for the patient: Posterior Hip Precaution - No whe el chair propulsion, Posterior Hip Precaution - No internal rotation, Posterior Hip Precaution - No e xternal rotation, Posterior Hip Precaution - No adduction across midline, and Posterior Hip Precautio n - No hip flexion >90 degrees. On 09/11/2018 the following precautions were added for the patient: Posterior Hip Precaution - No ad duction across midline, Posterior Hip Precaution - No external rotation, Posterior Hip Precaution - No hip flexion >90 degrees, Posterior Hip Precaution - No internal rotation, and Posterior Hip Prec aution - No wheel chair propulsion. The following precautions were removed for the patient: Posterior Hip Precaution - No adduction acros s midline, Posterior Hip Precaution - No external rotation, Posterior Hip Precaution - No hip flexion >90 degrees, Posterior Hip Precaution - No internal rotation, Posterior Hip Precaution - No wheel ch air propulsion, Posterior Hip Precaution - No adduction across midline, Posterior Hip Precaution - No external rotation, Posterior Hip Precaution - No hip flexion >90 degrees, Posterior Hip Precautio n - No internal rotation, and Posterior Hip Precaution - No wheel chair propulsion. On 09/06/2018 the following precautions were added for the patient: Weight Bearing Precaution - WBAT right LE. On 09/07/2018 the following precautions were added for the patient: Weight Bearing Precaution - WBAT right LE. On 09/11/2018 the following precautions were removed for the patient: Weight Bearing Precaution - WB AT right LE. On 09/12/2018 the following precautions were added for the patient: Weight Bearing Precaution - WBAT right LE. DIET - LIQUID TEXTURE: On 09/06/2018 Pt was upgraded to Regular Diet - Liquid Texture. DIET - SOLID TEXTURE: On 09/06/2018 Pt was upgraded to Regular Diet - Solid Texture. DIET TYPE: On 09/06/2018 Pt was upgraded to Regular Diet Type. POSTERIOR HIP PRECAUTION: TUBE FEED: On 09/06/2018 Pt was changed to N/A Tube Feed. WEIGHT BEARING PRECAUTION: DISCHARGE PHYSICAL EXAM - Gen Alert and awake Lying in bed No apparent distress Oriented to: person, time, and place - Skin No breakdown No abnormalities - Eyes No abnormalities - ENMT No abnormalities - Neck No abnormalities - CVS RRR - Chest No abnormalities - Resp Clear to auscultation - Abd +bowel sounds - GI Soft Deferred - No abnormalities - Ext Right hip surgical site has good hemostasis. - MSK 4+/5 weakness in right lower extremity - Neuro 4/5 strength right lower extremity - Psych No abnormalities FUNCTIONAL STATUS: - Self-Care A. Eating 5-sup 7-Ind B. Grooming 4-Aidee 7-Ind C. Bathing 4-Aidee 6-Shanika D. Dressing - Upper 4-Aidee 6-Shanika E. Dressing - Lower 2-maxA 6-Shanika F. Toileting 2-maxA 6-Shanika - Sphincter Control G: Bladder control 7-Ind 7-Ind H: Bowel control 7-Ind 7-Ind - Transfers Control I. Bed/Chair/Wheelchair 3-modA 6-Shanika J. Toilet 3-modA 6-Shanika K. Tub/Shower 3-modA 6-Shanika - Locomotion L. Walk/Wheelchair (B) 1-Dep 6-Shanika M. Stairs 0-ADNO 6-Shanika - Communication N. Comprehension (B) 4-Aidee 4-Aidee O. Expression (B) 5-sup 5-sup - Social Cognition P. Social Interaction 5-sup 5-sup Q. Problem Solving 5-sup 5-sup R. Memory 5-sup 5-sup - Endurance Poor - Balance Poor - Safety Awareness Fair DISCHARGE INSTRUCTIONS: - N/A Eliquis 5 mg bid. DISCHARGE PLAN, FOLLOW UP CARE PROVISIONS: - Estimated Length of Stay (days) 14. - Consensus on plan Discharge plan has been discussed with primary caregiver. Patient/Family is in agreement with the yaneth n. Primary caregiver is in agreement with the plan. - Patient/Family Goals Return home with assistance. 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
--- NOTE | 2018-09-22 18:40 | FAST ---
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 Parviz Frederick M.D. 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 EATING: EATING - STEP 1: Does the patient require the assistance of a person or device, or need extra time when eating? No. EATING - SCORE: 7-IND GROOMING: Comb/brush hair Oral care Wash, rinse, and dry face Wash, rinse, and dry hands GROOMING - STEP 1: Does the patient require the assistance of a person or device, or need extra time when grooming? No. GROOMING - SCORE: 7-IND BATHING: Abdomen Buttocks Chest Left arm Left lower leg and foot Left upper leg Perineal area Right arm Right lower leg and foot Right upper leg BATHING - STEP 1: Does the patient require the assistance of a person or device, or need extra time when bathing? Yes. BATHING - STEP 2: Does the patient require the assistance of a helper? Yes. BATHING - STEP 3: How much assistance does the patient require from the helper? Only supervision, cuing, coaxing, instr uctions, encouragement BATHING - SCORE: 5-SUP DRESSING - UPPER BODY: Bra (three steps) T-shirt/pullover shirt (four steps) ARTICLES SCORE Total number of steps: 7 DRESSING - UPPER BODY - STEP 1: Does the patient require help from a person or device, or need extra time when dressing above the [address]? Yes. DRESSING - UPPER BODY - STEP 2: Does the patient require the assistance of a helper? Yes. DRESSING - UPPER BODY - STEP 3: Does the helper touch the patient while dressing? No. DRESSING - UPPER BODY - SCORE: 5-SUP DRESSING - LOWER BODY: Elastic waist pants (three steps) Slip-on shoe - Left foot (one step) Slip-on shoe - Right foot (one step) Sock - Left foot (one step) Sock - Right foot (one step) Underwear (three steps) ARTICLES SCORE Total number of steps: 10 DRESSING - LOWER BODY - STEP 1: Does the patient require help from a person or device, or need extra time when dressing below the [address]? Yes. DRESSING - LOWER BODY - STEP 2: Does the patient require the assistance of a helper? Yes. DRESSING - LOWER BODY - STEP 3: Does the helper touch the patient while dressing? Yes. DRESSING - LOWER BODY - STEP 4: How many of the total steps does the patient complete on his/her own? 9 DRESSING - LOWER BODY - SCORE: 4-MIN TOILETING: Activity did not occur on this shift TOILETING - SCORE: 0-UNK BLADDER MANAGEMENT: Activity did not occur on this shift BLADDER MANAGEMENT - SCORE: 7-IND BOWEL MANAGEMENT: Activity did not occur on this shift BOWEL MANAGEMENT - SCORE: 7-IND TRANSFERS: BED, CHAIR, WHEELCHAIR: Activity did not occur on this shift TRANSFERS: BED, CHAIR, WHEELCHAIR - SCORE: 0-UNK TRANSFERS: TOILET: Activity did not occur on this shift TRANSFERS: TOILET - SCORE: 0-UNK TRANSFERS: SHOWER: TRANSFERS: SHOWER - STEP 1: Does the patient require the assistance of a person or device, or need extra time with shower transfe rs? Yes. TRANSFERS: SHOWER - STEP 2: Does the patient require the assistance of a helper? Yes. TRANSFERS: SHOWER - STEP 3: How much assistance does the patient require from the helper? Only supervision, cuing, coaxing, or he lp to set out transfer equipment or to lock brakes and/or lift foot rests TRANSFERS: SHOWER - SCORE: 5-SUP TRANSFERS: TUB: Activity did not occur on this shift TRANSFERS: TUB - SCORE: 0-UNK LOCOMOTION: WALK: Activity did not occur on this shift LOCOMOTION: WALK - SCORE: 0-UNK LOCOMOTION: WHEELCHAIR: Activity did not occur on this shift LOCOMOTION: WHEELCHAIR - SCORE: 0-UNK LOCOMOTION: STAIRS: Activity did not occur on this shift LOCOMOTION: STAIRS - SCORE: 0-UNK COMPREHENSION: COMPREHENSION: TYPE: Both COMPREHENSION - STEP 1: Does the patient require help from a person or device, or need extra time to understand complex and a bstract ideas (such as current events, finances, discharge planning, medical issues, relationships, e tc)? No. COMPREHENSION - STEP 2: Does the patient need extra time, require an assistive device (such as glasses for visual comprehensi on or a hearing aid for auditory comprehension) or does s/he have mild difficulty understanding compl ex and abstract information? No. COMPREHENSION - SCORE: 7-IND EXPRESSION EXPRESSION: TYPE: Both EXPRESSION - STEP 1: Does the patient require help from a person or device, or need extra time expressing complex and abst ract ideas (such as current events, finances, discharge planning, medical issues, relationships, etc) ? No. EXPRESSION - STEP 2: Does the patient need extra time, require an assistive device (such as augmentive communication syste m or a communication board), OR does s/he have mild difficulty expressing complex and abstract ideas (including mild dysarthria or mild word-find problems)? No. EXPRESSION - SCORE: 7-IND SOCIAL INTERACTION: SOCIAL INTERACTION - STEP 1: Does the patient require a helper to interact with others in social and therapeutic situations? No. SOCIAL INTERACTION - STEP 2: Does the patient need extra time in social situations, OR does s/he interact with staff, other patien ts, and family members ONLY in structured environments, OR does s/he require medication for social in teraction? No. SOCIAL INTERACTION - SCORE: 7-IND PROBLEM SOLVING: PROBLEM SOLVING - STEP 1: Does the patient need help from a person or device, or need extra time to solve complex problems such as managing a checking account or confronting interpersonal problems? No. PROBLEM SOLVING - STEP 2: Does the patient require extra time to make decisions or solve problems, OR does s/he have slight dif ficulty reading, initiating, or self-correcting in unfamiliar situations? No. PROBLEM SOLVING - SCORE: 7-IND MEMORY: MEMORY - STEP 1: Does the patient need help from a person or device, or need extra time to remember frequently encount ered people, daily routines, and executing requests? No. MEMORY - STEP 2: Does the patient have slight difficulty recognizing frequently encountered people, daily routines, or executing requests without the need for repetition or using self-initiated or environmental cues to remember? No. MEMORY - SCORE: 7-IND SIGNATURE PANEL: The following modified sections: Eating - Score, Grooming - Score, Bathing - Score, Dressing - Upper Body - Score, Dressing - Lower Body - Score, Toileting - Score, Transfers: Bed, Chair, Wheelchair - S core, Transfers: Toilet - Score, Transfers: Tub - Score, Transfers: Shower - Score, Comprehension - S core, Expression - Score, Social Interaction - Score, Problem Solving - Score, Memory - Score were [e lectronically] signed by Kelli Aranda OT on TueSep 22 2018 18:39:22 [facility]-0600 ([facility] T timi)
--- NOTE | 2018-09-22 18:47 | FAST ---
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 Parviz Frederick M.D. 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 EATING: EATING - STEP 1: Does the patient require the assistance of a person or device, or need extra time when eating? No. EATING - SCORE: 7-IND GROOMING: Comb/brush hair Oral care Wash, rinse, and dry face Wash, rinse, and dry hands GROOMING - STEP 1: Does the patient require the assistance of a person or device, or need extra time when grooming? No. GROOMING - SCORE: 7-IND BATHING: Abdomen Buttocks Chest Left arm Left lower leg and foot Left upper leg Perineal area Right arm Right lower leg and foot Right upper leg BATHING - STEP 1: Does the patient require the assistance of a person or device, or need extra time when bathing? Yes. BATHING - STEP 2: Does the patient require the assistance of a helper? Yes. BATHING - STEP 3: How much assistance does the patient require from the helper? Only supervision, cuing, coaxing, instr uctions, encouragement BATHING - SCORE: 5-SUP DRESSING - UPPER BODY: Bra (three steps) T-shirt/pullover shirt (four steps) ARTICLES SCORE Total number of steps: 7 DRESSING - UPPER BODY - STEP 1: Does the patient require help from a person or device, or need extra time when dressing above the [address]? No. DRESSING - UPPER BODY - SCORE: 7-IND DRESSING - LOWER BODY: Elastic waist pants (three steps) Slip-on shoe - Left foot (one step) Slip-on shoe - Right foot (one step) Sock - Left foot (one step) Sock - Right foot (one step) Underwear (three steps) ARTICLES SCORE Total number of steps: 10 DRESSING - LOWER BODY - STEP 1: Does the patient require help from a person or device, or need extra time when dressing below the [address]? Yes. DRESSING - LOWER BODY - STEP 2: Does the patient require the assistance of a helper? No. Patient requires an assistive device such as a legal aide. OR s/he takes more than reasonable time as s/he dresses the lower body, OR there is a con cern for safety when s/he dresses the lower body DRESSING - LOWER BODY - SCORE: 6-DION TOILETING: TOILETING - STEP 1: Does the patient require the assistance of a person or device, or need extra time with toileting? Yes . TOILETING - STEP 2: Does the patient require the assistance of a helper? No. TOILETING - SCORE: 6-DION BLADDER MANAGEMENT: Activity did not occur on this shift BLADDER MANAGEMENT - SCORE: 7-IND BOWEL MANAGEMENT: Activity did not occur on this shift BOWEL MANAGEMENT - SCORE: 7-IND TRANSFERS: BED, CHAIR, WHEELCHAIR: Activity did not occur on this shift TRANSFERS: BED, CHAIR, WHEELCHAIR - SCORE: 0-UNK TRANSFERS: TOILET: TRANSFERS: TOILET - STEP 1: Does the patient require the assistance of a person or device, or need extra time with toilet transfe rs? Yes. TRANSFERS: TOILET - STEP 2: Does the patient require the assistance of a helper? No. Patient only requires an assistive device delgado ch as a grab bar or special seat, OR s/he takes more than reasonable time to perform toilet transfers , OR there is a safety concern when s/he performs toilet transfers. TRANSFERS: TOILET - SCORE: 6-DION TRANSFERS: SHOWER: TRANSFERS: SHOWER - STEP 1: Does the patient require the assistance of a person or device, or need extra time with shower transfe rs? Yes. TRANSFERS: SHOWER - STEP 2: Does the patient require the assistance of a helper? No. The patient only uses an assistive device, t akes more than reasonable time, OR there is a concern for safety when s/he performs transfers. TRANSFERS: SHOWER - SCORE: 6-DION TRANSFERS: TUB: Activity did not occur on this shift TRANSFERS: TUB - SCORE: 0-UNK LOCOMOTION: WALK: Activity did not occur on this shift LOCOMOTION: WALK - SCORE: 0-UNK LOCOMOTION: WHEELCHAIR: Activity did not occur on this shift LOCOMOTION: WHEELCHAIR - SCORE: 0-UNK LOCOMOTION: STAIRS: Activity did not occur on this shift LOCOMOTION: STAIRS - SCORE: 0-UNK COMPREHENSION: COMPREHENSION: TYPE: Both COMPREHENSION - STEP 1: Does the patient require help from a person or device, or need extra time to understand complex and a bstract ideas (such as current events, finances, discharge planning, medical issues, relationships, e tc)? No. COMPREHENSION - STEP 2: Does the patient need extra time, require an assistive device (such as glasses for visual comprehensi on or a hearing aid for auditory comprehension) or does s/he have mild difficulty understanding compl ex and abstract information? No. COMPREHENSION - SCORE: 7-IND EXPRESSION EXPRESSION: TYPE: Both EXPRESSION - STEP 1: Does the patient require help from a person or device, or need extra time expressing complex and abst ract ideas (such as current events, finances, discharge planning, medical issues, relationships, etc) ? No. EXPRESSION - STEP 2: Does the patient need extra time, require an assistive device (such as augmentive communication syste m or a communication board), OR does s/he have mild difficulty expressing complex and abstract ideas (including mild dysarthria or mild word-find problems)? No. EXPRESSION - SCORE: 7-IND SOCIAL INTERACTION: SOCIAL INTERACTION - STEP 1: Does the patient require a helper to interact with others in social and therapeutic situations? No. SOCIAL INTERACTION - STEP 2: Does the patient need extra time in social situations, OR does s/he interact with staff, other patien ts, and family members ONLY in structured environments, OR does s/he require medication for social in teraction? No. SOCIAL INTERACTION - SCORE: 7-IND PROBLEM SOLVING: PROBLEM SOLVING - STEP 1: Does the patient need help from a person or device, or need extra time to solve complex problems such as managing a checking account or confronting interpersonal problems? No. PROBLEM SOLVING - STEP 2: Does the patient require extra time to make decisions or solve problems, OR does s/he have slight dif ficulty reading, initiating, or self-correcting in unfamiliar situations? No. PROBLEM SOLVING - SCORE: 7-IND MEMORY: MEMORY - STEP 1: Does the patient need help from a person or device, or need extra time to remember frequently encount ered people, daily routines, and executing requests? No. MEMORY - STEP 2: Does the patient have slight difficulty recognizing frequently encountered people, daily routines, or executing requests without the need for repetition or using self-initiated or environmental cues to remember? No. MEMORY - SCORE: 7-IND SIGNATURE PANEL: The following modified sections: Social Interaction - Score, Memory - Score, Problem Solving - Score, Expression - Score, Comprehension - Score, Transfers: Bed, Chair, Wheelchair - Score, Transfers: Sam let - Score, Transfers: Tub - Score, Transfers: Shower - Score, Eating - Score, Grooming - Score, Bat ilene - Score, Dressing - Upper Body - Score, Dressing - Lower Body - Score, Toileting - Score were [e lectronically] signed by Kelli Aranda OT on TueSep 22 2018 18:46:35 GMT-0600 (Central Standard T timi)
== END 2018-09-16 14:00 | disposition home health service (06) | DRG 559 ==
LOC: 5TH 11:21
PROVIDERS: ADMIT Psychiatry & Neurology Neurology with Special Qualifications in Child Neurology; ATTEND Psychiatry & Neurology Neurology with Special Qualifications in Child Neurology
DX: S72.001D Fracture of unspecified part of neck of right femur, subsequent encounter for closed fracture with routine healing (principal); I50.23 Acute on chronic systolic (congestive) heart failure; M87.9 Osteonecrosis, unspecified; I10 Essential (primary) hypertension; J44.9 Chronic obstructive pulmonary disease, unspecified; I48.91 Unspecified atrial fibrillation; K21.9 Gastro-esophageal reflux disease without esophagitis; I48.2 Chronic atrial fibrillation; K12.1 Other forms of stomatitis; Z79.01 Long term (current) use of anticoagulants
CPT/HCPCS: 36415; 80048; 81001; 82040; 82962; 83735; 84134; 85025; 87086; 87088; 97110; 97112; 97116; 97162; 97166; 97530; 97542

== ENCOUNTER 2020-04-30 20:36 | Observation (INO) | payer OTHER, MEDICARE ==
[2020-04-30 21:13] LABS: Basophils % 0.2 % (0-1.3); Hematocrit 41.5 % (36.0-45.0); Lymphocytes % 7.1 % (15.3-44.8); MPV 9.5 fL (7.6-11.3); RBC Red Blood Cell Count 4.57 M/uL (3.86-4.86)
--- NOTE | 2020-04-30 21:28 | RAD REPORT ---
EXAM DESCRIPTION: CT - Head C Spine Mpr Wo Con - 04/30/2020 9:08 pm CLINICAL HISTORY: Head and neck injury status post fall. Head and neck pain COMPARISON: None. TECHNIQUE: Computed axial tomography of the head and cervical spine was obtained. Sagittal and coronal reconstruction was performed. All CT scans are performed using dose optimization technique as appropriate and may include automated exposure control or mA/KV adjustment according to patient size. FINDINGS: An intracranial bleed is not seen. The ventricles are normal in caliber. An extra-axial fl uid collection is not noted.Fluid within the visualized sinuses and mastoids is not seen A cervical fracture is not visualized. No dislocation is noted. Spondylosis involves the cervical spi ne. Slight anterior subluxation of C7 on IMPRESSION: No acute intracranial abnormality is seen. A cervical fracture is not visualized. If the patient continues to have symptoms to suggest intracra nial /spinal cord pathology then MRI would be recommended
[2020-04-30 21:31] LABS: ALT/SGPT 24 U/L (12-78); AST/SGOT 21 U/L (15-37); Albumin 3.4 g/dL (3.4-5.0); Alkaline Phosphatase 82 U/L (45-117); BUN Blood Urea Nitrogen 17 mg/dL (7-18); Bicarbonate 29 mmol/L (21-32); Bilirubin Direct 0.1 mg/dL (0-0.2); Bilirubin Total 0.4 mg/dL (0.2-1.0); Glucose Level 81 mg/dL (74-106); Magnesium 2.1 mg/dL (1.8-2.4); NT PRO-BNP 873 pg/mL (<450); Potassium 3.8 mmol/L (3.5-5.1); Protein, Total 7.1 g/dL (6.4-8.2); Sodium Level 140 mmol/L (136-145); Troponin (Emerg Dept Use Only) < 0.02 ng/mL (0.0-0.045)
--- NOTE | 2020-04-30 21:56 | EDPHYS ---
Physician Documentation [facility] Name: Carina Ellsworth Age: 89 yrs Sex: Female : 1930 Arrival Date: 04/30/2020 Time: 20:41 Bed 20 Private MD: ED Physician Sal Alanis HPI: 04/30 21:44 This 89 yrs old Female presents to ER via Unassigned with complaints of Fall fabiola Injury, Shoulder Pain. 21:44 Details of fall: The patient fell from an upright position, while walking. Onset: The fabiola symptoms/episode began/occurred just prior to arrival. Associated injuries: The patient sustained anterior aspect of right shoulder and posterior aspect of right shoulder, decreased range of motion. Severity of symptoms: At their worst the symptoms were mild, moderate, in the emergency department the symptoms are unchanged. The patient has not experienced similar symptoms in the past. Historical: - Allergies: 21:56 Sulfa (Sulfonamide Antibiotics); sg - PMHx: 21:56 Atrial Fib; constipation; GERD; Hyperlipidemia; sg - PSHx: 21:56 Colostomy; colon resection; Appendectomy; Cholecystectomy; sg - Immunization history: Last tetanus immunization: - up to date. - Social history:: Smoking status: Patient denies any tobacco usage or history of. Patient/guardian denies using alcohol, street drugs. - Family history:: not pertinent. ROS: 21:44 Constitutional: Negative for fever, chills, and weight loss, Eyes: Negative for injury, fabiola pain, redness, and discharge, ENT: Negative for injury, pain, and discharge, Neck: Negative for injury, pain, and swelling, Cardiovascular: Negative for chest pain, palpitations, and edema, Respiratory: Negative for shortness of breath, cough, wheezing, and pleuritic chest pain, Abdomen/GI: Negative for abdominal pain, nausea, vomiting, diarrhea, and constipation, Back: Negative for injury and pain, : Negative for injury, bleeding, discharge, and swelling, Skin: Negative for injury, rash, and discoloration, Neuro: Negative for headache, weakness, numbness, tingling, and seizure, Psych: Negative for depression, anxiety, suicide ideation, homicidal ideation, and hallucinations, Allergy/Immunology: Negative for hives, rash, and allergies, Endocrine: Negative for neck swelling, polydipsia, polyuria, polyphagia, and marked weight changes, Hematologic/Lymphatic: Negative for swollen nodes, abnormal bleeding, and unusual bruising. 21:44 MS/extremity: Positive for swelling, tenderness, of the anterior aspect of right shoulder and posterior aspect of right shoulder. Exam: 21:44 Constitutional: This is a well developed, well nourished patient who is awake, alert, fabiola and in no acute distress. Head/Face: Normocephalic, atraumatic. Eyes: Pupils equal round and reactive to light, extra-ocular motions intact. Lids and lashes normal. Conjunctiva and sclera are non-icteric and not injected. Cornea within normal limits. Periorbital areas with no swelling, redness, or edema. ENT: Nares patent. No nasal discharge, no septal abnormalities noted. Tympanic membranes are normal and external auditory canals are clear. Oropharynx with no redness, swelling, or masses, exudates, or evidence of obstruction, uvula midline. Mucous membranes moist. Neck: Trachea midline, no thyromegaly or masses palpated, and no cervical lymphadenopathy. Supple, full range of motion without nuchal rigidity, or vertebral point tenderness. No Meningismus. Chest/axilla: Normal chest wall appearance and motion. Nontender with no deformity. No lesions are appreciated. Cardiovascular: Regular rate and rhythm with a normal S1 and S2. No gallops, murmurs, or rubs. Normal PMI, no JVD. No pulse deficits. Respiratory: Lungs have equal breath sounds bilaterally, clear to auscultation and percussion. No rales, rhonchi or wheezes noted. No increased work of breathing, no retractions or nasal flaring. Abdomen/GI: Soft, non-tender, with normal bowel sounds. No distension or tympany. No guarding or rebound. No evidence of tenderness throughout. Back: No spinal tenderness. No costovertebral tenderness. Full range of motion. Skin: Warm, dry with normal turgor. Normal color with no rashes, no lesions, and no evidence of cellulitis. Neuro: Awake and alert, GCS 15, oriented to person, place, time, and situation. Cranial nerves II-XII grossly intact. Motor strength 5/5 in all extremities. Sensory grossly intact. Cerebellar exam normal. Normal gait. Psych: Awake, alert, with orientation to person, place and time. Behavior, mood, and affect are within normal limits. 21:44 Musculoskeletal/extremity: ROM: limited active range of motion due to pain, limited passive range of motion due to pain, Circulation is intact in all extremities. Sensation intact. Compartment Syndrome exam of affected extremity: is normal. DVT Exam: negative Homans' sign noted on exam, no appreciated bluish discoloration, no erythema, no increased warmth, pain, swelling, tenderness. 22:02 ECG was reviewed by the Attending Physician. fabiola Vital Signs: 20:40 Pulse Ox 90% on R/A; jp3 20:41 BP 143 / 68; Pulse 88; Resp 18; Temp 98.4(O); Pulse Ox 96% on R/A; Weight 70.31 kg (R); jb4 Height 5 ft. 7 in. (170.18 cm) (R); Pain 5/10; 20:58 Pulse Ox 96% on 2 lpm NC; jp3 21:30 BP 130 / 68; Pulse 98; Resp 16; Pulse Ox 95% on R/A; jb4 22:30 BP 104 / 92; Pulse 72; Resp 16; Pulse Ox 92% on R/A; jb4 23:30 BP 104 / 60; Pulse 87; Resp 16; Pulse Ox 94% on R/A; jb4 05/01 00:00 BP 111 / 65; Pulse 92; Resp 16; Pulse Ox 97% on R/A; jb4 01:30 BP 119 / 102; Pulse 107; Resp 16; Pulse Ox 97% on R/A; jb4 02:20 BP 104 / 70; Pulse 96; Resp 16; Pulse Ox 100% ; jb4 04/30 20:41 Body Mass Index 24.28 (70.31 kg, 170.18 cm) jb4 [place] Coma Score: 04/30 20:41 Eye Response: spontaneous(4). Verbal Response: oriented(5). Motor Response: obeys jb4 commands(6). Total: 15. 21:30 Eye Response: spontaneous(4). Verbal Response: oriented(5). Motor Response: obeys jb4 commands(6). Total: 15. 22:30 Eye Response: spontaneous(4). Verbal Response: oriented(5). Motor Response: obeys jb4 commands(6). Total: 15. 23:30 Eye Response: spontaneous(4). Verbal Response: oriented(5). Motor Response: obeys jb4 commands(6). Total: 15. 05/01 00:00 Eye Response: spontaneous(4). Verbal Response: oriented(5). Motor Response: obeys jb4 commands(6). Total: 15. 01:30 Eye Response: spontaneous(4). Verbal Response: oriented(5). Motor Response: obeys jb4 commands(6). Total: 15. 02:20 Eye Response: spontaneous(4). Verbal Response: oriented(5). Motor Response: obeys jb4 commands(6). Total: 15. Trauma Score (Adult): 04/30 20:41 Eye Response: spontaneous(1); Verbal Response: oriented(1); Motor Response: obeys jb4 commands(2); Systolic BP: > 89 mm Hg(4); Respiratory Rate: 10 to 29 per min(4); [place] Score: 15; Trauma Score: 12 21:30 Eye Response: spontaneous(1); Verbal Response: oriented(1); Motor Response: obeys jb4 commands(2); Systolic BP: > 89 mm Hg(4); Respiratory Rate: 10 to 29 per min(4); [place] Score: 15; Trauma Score: 12 22:30 Eye Response: spontaneous(1); Verbal Response: oriented(1); Motor Response: obeys jb4 commands(2); Systolic BP: > 89 mm Hg(4); Respiratory Rate: 10 to 29 per min(4); [place] Score: 15; Trauma Score: 12 23:30 Eye Response: spontaneous(1); Verbal Response: oriented(1); Motor Response: obeys jb4 commands(2); Systolic BP: > 89 mm Hg(4); Respiratory Rate: 10 to 29 per min(4); [place] Score: 15; Trauma Score: 12 05/01 00:00 Eye Response: spontaneous(1); Verbal Response: oriented(1); Motor Response: obeys jb4 commands(2); Systolic BP: > 89 mm Hg(4); Respiratory Rate: 10 to 29 per min(4); [place] Score: 15; Trauma Score: 12 01:30 Eye Response: spontaneous(1); Verbal Response: oriented(1); Motor Response: obeys jb4 commands(2); Systolic BP: > 89 mm Hg(4); Respiratory Rate: 10 to 29 per min(4); [place] Score: 15; Trauma Score: 12 02:20 Eye Response: spontaneous(1); Verbal Response: oriented(1); Motor Response: obeys jb4 commands(2); Systolic BP: > 89 mm Hg(4); Respiratory Rate: 10 to 29 per min(4); [place] Score: 15; Trauma Score: 12 MDM: 04/30 20:42 Patient medically screened. [facility] 21:52 Differential diagnosis: closed head injury, contusion, multiple trauma, sprain, strain. [facility] Data reviewed: vital signs, nurses notes, lab test result(s), EKG, radiologic studies, CT scan, plain films. Data interpreted: Pulse oximetry: on room air is 96 %. Test interpretation: by ED physician or midlevel provider: ECG, plain radiologic studies. Counseling: I had a detailed discussion with the patient and/or guardian regarding: the historical points, exam findings, and any diagnostic results supporting the discharge/admit diagnosis, lab results, radiology results, the need for outpatient follow up. ED course: pt only co of pain in left shoulder. 21:53 ED course: explained importance of ortho follow up. [facility] 04/30 20:43 Order name: Basic Metabolic Panel; Complete Time: 21:40 [facility] 04/30 20:43 Order name: CBC with Diff; Complete Time: 21:40 [facility] 04/30 20:43 Order name: LFT's; Complete Time: 21:40 [facility] 04/30 20:43 Order name: Magnesium; Complete Time: 21:40 [facility] 04/30 20:43 Order name: NT PRO-BNP; Complete Time: 21:40 [facility] 04/30 20:43 Order name: Troponin (emerg Dept Use Only); Complete Time: 21:40 [facility] 04/30 20:43 Order name: Shoulder Right (2 View) XRAY [facility] 04/30 20:43 Order name: CT Head C Spine; Complete Time: 21:40 [facility] 04/30 20:43 Order name: XRAY Chest (1 view) [facility] 04/30 23:15 Order name: Pelvis XRAY [facility] 04/30 23:15 Order name: Hip Right 2 View XRAY [facility] 04/30 23:15 Order name: Femur Right XRAY [facility] 05/01 01:49 Order name: Pelvis Wo Cont EDMS 04/30 20:43 Order name: Ice pack; Complete Time: 21:51 [facility] 04/30 20:43 Order name: EKG; Complete Time: 20:44 [facility] 04/30 20:43 Order name: Cardiac monitoring; Complete Time: 21:51 [facility] 04/30 20:43 Order name: EKG - Nurse/Tech; Complete Time: 21:51 [facility] 04/30 20:43 Order name: IV Saline Lock; Complete Time: 21: [facility] 04/30 20:43 Order name: Labs collected and sent; Complete Time: 21: [facility] 04/30 20:43 Order name: O2 Per Protocol; Complete Time: 21: [facility] 04/30 20:43 Order name: O2 Sat Monitoring; Complete Time: : [facility] 04/30 21:42 Order name: Shoulder Immobilizer; Complete Time: 22: [facility] 05/01 01:56 Order name: CONS Physician Consult [facility] EC:02 Rate is 92 beats/min. Rhythm is irregularly irregular. QRS [place] is Normal. [place] interval fabiola is normal. QRS interval is normal. QT interval is normal. No Q waves. T waves are Normal. No ST changes noted. Clinical impression: Atrial Fibrillation. Administered Medications: 22:24 Drug: Zofran (Ondansetron) 4 mg Route: IVP; Site: left antecubital; [facility] 22:54 Follow up: Response: No adverse reaction; Nausea is decreased [facility] 22:26 Drug: morphine 2 mg Route: IVP; Site: left antecubital; [facility] 22:56 Follow up: Response: No adverse reaction; Pain is decreased; RASS: Alert and Calm (0) [facility] 05/01 00:53 CANCELLED (Duplicate Order): fentaNYL (PF) 25 mcg IVP once; RASS on ADMIN: Combtv4, fabiola Very Agttd3, Agttd2, Rstlss1, AlertClm0, Drwsy-1, Lt Sdtn-2, Mod Sdtn-3, Dp Sdtn-4, UnArsble-5 00:53 CANCELLED (Duplicate Order): fentaNYL (PF) 25 mcg IVP once; RASS on ADMIN: Combtv4, fabiola Very Agttd3, Agttd2, Rstlss1, AlertClm0, Drwsy-1, Lt Sdtn-2, Mod Sdtn-3, Dp Sdtn-4, UnArsble-5 00:53 CANCELLED (Duplicate Order): Zofran (Ondansetron) 4 mg IVP once; over 2 minutes [facility] 01:01 Drug: [place] (7.5 mg-325 mg) 1 tabs Route: PO; jb4 02:00 Follow up: Response: No adverse reaction; Pain is decreased; RASS: Alert and Calm (0) jb4 01:02 CANCELLED (Physician Discretion): NS 0.9% 1000 ml IV at 125 ml/hr continuous jb4 Disposition: 05/01/20 01:50 Hospitalization ordered by Abhinav Michele for Observation. Preliminary diagnosis are Fall due to bumping against object, 2-part displaced fracture of surgical neck of right humerus, Pain in right hip, Atrial fibrillation and flutter. - Bed requested for Telemetry/MedSurg (observation). - Status is Observation. jb4 - Condition is Stable. - Problem is new. - Symptoms have improved. Signatures: Dispatcher [employer] EDMS Vamsi Chacon, RN RN Sal Ruff MD MD cha Lasagna, Tonya, RN RN tl1 Arash Rudolph RN RN jb4 Corrections: (The following items were deleted from the chart) 04/30 21:59 21:56 04/30/2020 21:56 Discharged to Home. Impression: Fall due to bumping against fabiola object; Displaced fracture of greater tuberosity of right humerus; 2-part nondisplaced fracture of surgical neck of right humerus. Condition is Stable. Forms are Medication Reconciliation Form, Thank You Letter, Antibiotic Education, Prescription Opioid Use. Follow up: Private Physician; When: 2 - 3 days; Reason: Recheck today's complaints, Continuance of care, Re-evaluation by your physician. Follow up: Vamsi Thomas; When: 2 - 3 days; Reason: Recheck today's complaints, Re-evaluation by your physician. Problem is new. Symptoms have improved. [facility] 05/01 00:14 04/30 21:59 04/30/2020 21:56 Discharged to Home. Impression: Fall due to bumping fabiola against object; Displaced fracture of greater tuberosity of right humerus; 2-part nondisplaced fracture of surgical neck of right humerus; Atrial fibrillation and flutter. Condition is Stable. Discharge Instructions: Humerus Fracture Treated With Immobilization, Humerus Fracture Treated With Immobilization, [id number], Fall Prevention in the Home, [id number]. Prescriptions for Tylenol-Codeine #4 300-60 mg Oral Tablet - take 1 tablet by ORAL route every 6 hours As needed; 20 tablet. and Forms are Medication Reconciliation Form, Thank You Letter, Antibiotic Education, Prescription Opioid Use. Follow up: Private Physician; When: 2 - 3 days; Reason: Recheck today's complaints, Continuance of care, Re-evaluation by your physician. Follow up: Vamsi Thomas; When: 2 - 3 days; Reason: Recheck today's complaints, Re-evaluation by your physician. Problem is new. Symptoms have improved. [facility] 05/01 00:53 00:23 fentaNYL (PF) 25 mcg IVP once; RASS on ADMIN: Combtv4, Very Agttd3, Agttd2, fabiola Rstlss1, AlertClm0, Drwsy-1, Lt Sdtn-2, Mod Sdtn-3, Dp Sdtn-4, UnArsble-5 ordered. [facility] 00:53 00:23 fentaNYL (PF) 25 mcg IVP once; RASS on ADMIN: Combtv4, Very Agttd3, Agttd2, fabiola Rstlss1, AlertClm0, Drwsy-1, Lt Sdtn-2, Mod Sdtn-3, Dp Sdtn-4, UnArsble-5 ordered. [facility] 00:53 00:23 Zofran (Ondansetron) 4 mg IVP once; over 2 minutes ordered. [facility] 01:02 00:23 NS 0.9% 1000 ml IV at 125 ml/hr continuous ordered. [facility] jb4 01:46 00:58 05/01/2020 00:58 Discharged to Home. Impression: Fall due to bumping against fabiola object; 2-part nondisplaced fracture of surgical neck of left humerus; Displaced fracture of greater tuberosity of left humerus; Contusion of right hip. Condition is Stable. Prescriptions for Tylenol-Codeine #4 300-60 mg Oral Tablet - take 1 tablet by ORAL route every 6 hours As needed; 20 tablet. and Forms are Medication Reconciliation Form, Thank You Letter, Antibiotic Education, Prescription Opioid Use. Follow up: Private Physician; When: 2 - 3 days; Reason: Recheck today's complaints, Continuance of care, Re-evaluation by your physician. Follow up: Vamsi Thomas; When: 2 - 3 days; Reason: Recheck today's complaints, Continuance of care, Re-evaluation by your physician. Follow up: Abhinav Michele; When: As needed; Reason: Trouble breathing. Problem is new. Symptoms have improved. [place] 02:00 01:50 Hospitalization Ordered by Abhinav Michele MD for Observation. Preliminary diagnosis fabiola is Fall due to bumping against object; 2-part displaced fracture of surgical neck of right humerus; Pain in right hip. Bed requested for Telemetry/MedSurg (observation). Status is Observation. Condition is Stable. Problem is new. Symptoms have improved. [place] 02:04 02:00 05/01/2020 01:50 Hospitalization Ordered by Abhinav Michele MD for Observation. tl1 Preliminary diagnosis is Fall due to bumping against object; 2-part displaced fracture of surgical neck of right humerus; Pain in right hip; Atrial fibrillation and flutter. Bed requested for Telemetry/MedSurg (observation). Status is Observation. Condition is Stable. Problem is new. Symptoms have improved. [place] 03:00 02:04 05/01/2020 01:50 Hospitalization Ordered by Abhinav Michele MD for Observation. jb4 Preliminary diagnosis is Fall due to bumping against object; 2-part displaced fracture of surgical neck of right humerus; Pain in right hip; Atrial fibrillation and flutter. Bed requested for Telemetry/MedSurg (observation). Status is Observation. Condition is Stable. Problem is new. Symptoms have improved. tl1
--- NOTE | 2020-04-30 21:56 | ER ---
Nurse's Notes [facility] Name: Carina Ellsworth Age: 89 yrs Sex: Female : 1930 Arrival Date: 04/30/2020 Time: 20:41 Bed 20 Private MD: Diagnosis: Fall due to bumping against object;2-part displaced fracture of surgical neck of right humerus;Pain in right hip;Atrial fibrillation and flutter Presentation: 04/30 20:41 Chief complaint: Patient states: PT was playing with her granddaughter in the front jb4 yard. She tripped and fell, denies LOC, remains A\T\O x4. Complains of pain to the right shoulder and right side of her body. 20:41 Care prior to arrival: IV initiated. 20 GA, in the left antecubital area, Glucose jb4 check: 96. Mechanism of Injury: Fall from standing position. Trauma event details: Injury occurred in the [facility]. 20:41 Acuity: JUSTA 2 jb4 20:41 Method Of Arrival: EMS: [facility] jb4 20:41 Coronavirus screen: Client denies travel out of the [place] in the last 14 days. At this jb4 time, the client does not indicate any symptoms associated with coronavirus-19. Ebola Screen: No symptoms or risks identified at this time. Initial Sepsis Screen: Does the patient meet any 2 criteria? No. Patient's initial sepsis screen is negative. Does the patient have a suspected source of infection? No. Patient's initial sepsis screen is negative. Risk Assessment: Do you want to hurt yourself or someone else? Patient reports no desire to harm self or others. Onset of symptoms was April 30, 2020. Trauma Activation: Alert Physician: ED Physician; Name: Zeke; Notified At: 20:41; Arrived At: 20:41 Physician: General Surgeon; Name: ; Notified At: 20:41; Arrived At: Physician: Radiology; Name: Gemma; Notified At: 20:41; Arrived At: 20:41 Physician: Respiratory; Name: ; Notified At: 20:41; Arrived At: Physician: Lab; Name: ; Notified At: 20:41; Arrived At: Historical: - Allergies: 21:56 Sulfa (Sulfonamide Antibiotics); sg - PMHx: 21:56 Atrial Fib; constipation; GERD; Hyperlipidemia; sg - PSHx: 21:56 Colostomy; colon resection; Appendectomy; Cholecystectomy; sg - Immunization history: Last tetanus immunization: - up to date. - Social history:: Smoking status: Patient denies any tobacco usage or history of. Patient/guardian denies using alcohol, street drugs. - Family history:: not pertinent. Screenin:41 Abuse screen: Denies threats or abuse. Tuberculosis screening: No symptoms or risk jb4 factors identified. Fall risk At risk due to injury, Intervention for positive screen: ED Physician notified. 20:41 Nutritional screening: No deficits noted. Fall Risk Fall in past 12 months (25 points). jb4 IV access (20 points). Total Ward Fall Scale indicates High Risk Score (45 or more points). Fall prevention measures have been instituted. Side Rails Up X 2 Placed Close to Nursing Station Frequent Obs/Assessments Occuring As available patient and family educated on Fall Prevention Program and Strategies. Primary Survey: 20:41 NO uncontrolled hemorrhage observed. A: The patient is alert. Airway: patent, No jb4 supplemental oxygen in use on arrival. Oral cavity: clear, no gag reflex, Trachea midline. Breathing/Chest: Respiratory pattern: regular, Respiratory effort: spontaneous, unlabored, Chest inspection: symmetrical rise and fall of the chest. Circulation: Skin color: pink, Skin temperature: warm, dry. Disability Alert. Exposure/Environment: All clothing and personal items were removed. Forensic evidence collection is not deemed to be indicated at this time. Items placed in patient belonging bag. 21:30 Reassessment Airway Airway Patent Breathing/Chest Respiratory pattern Regular jb4 Respiratory effort Spontaneous Unlabored Chest inspection Symmetrical Circulation Color [place] Temperature Warm Dry. Secondary Survey: 20:41 HEENT: No deficits noted. Gastrointestinal: No deficits noted. : No signs and/or jb4 symptoms were reported regarding the genitourinary system. Musculoskeletal: Amputation of Range of motion: limited in right shoulder Swelling present in anterior aspect of right shoulder. Assessment: 20:41 General: Appears in no apparent distress. uncomfortable, Behavior is calm, cooperative, jb4 appropriate for age. Pain: Complains of pain in right shoulder Pain does not radiate. Pain currently is 5 out of 10 on a pain scale. Quality of pain is described as throbbing. Neuro: Level of Consciousness is awake, alert, obeys commands, Oriented to person, place, time, situation. Cardiovascular: Patient's skin is warm and dry. Respiratory: Airway is patent Respiratory effort is even, unlabored, Respiratory pattern is regular, symmetrical. GI: No signs and/or symptoms were reported involving the gastrointestinal system. : No signs and/or symptoms were reported regarding the genitourinary system. EENT: No signs and/or symptoms were reported regarding the EENT system. Derm: Skin is intact, Skin is pink, warm \T\ dry. Musculoskeletal: Circulation, motion, and sensation intact. Range of motion: limited in right shoulder. 21:30 Reassessment: Patient appears in no apparent distress at this time. Patient and/or jb4 family updated on plan of care and expected duration. Pain level reassessed. Patient is alert, oriented x 3, equal unlabored respirations, skin warm/dry/pink. 22:30 Reassessment: Patient appears in no apparent distress at this time. Patient and/or jb4 family updated on plan of care and expected duration. Pain level reassessed. Patient is alert, oriented x 3, equal unlabored respirations, skin warm/dry/pink. Patient states feeling better. 23:10 Reassessment: Patient and/or family updated on plan of care and expected duration. Pain jb4 level reassessed. Patient is alert, oriented x 3, equal unlabored respirations, skin warm/dry/pink. Attempting to transfer pt to wheelchair for D/c, pt reports inability to stand due to sever pain in the right groin. Pt assisted back to bed, provider notified, see MAR for orders. 05/01 00:00 Reassessment: Patient appears in no apparent distress at this time. Patient and/or jb4 family updated on plan of care and expected duration. Pain level reassessed. Patient is alert, oriented x 3, equal unlabored respirations, skin warm/dry/pink. 01:00 Reassessment: Patient appears in no apparent distress at this time. Patient and/or jb4 family updated on plan of care and expected duration. Pain level reassessed. Patient is alert, oriented x 3, equal unlabored respirations, skin warm/dry/pink. 01:45 Reassessment: attempted to ambulate patient, pt reports being unable to walk due to the jb4 pain. Pt is very unsteady when trying to ambulate. Sways when trying to walk to keep from putting pressure on her leg. Provider notified. 02:00 Reassessment: Patient appears in no apparent distress at this time. Patient and/or jb4 family updated on plan of care and expected duration. Pain level reassessed. Patient is alert, oriented x 3, equal unlabored respirations, skin warm/dry/pink. Pt reports a decrease in pain after being assisted back to bed. Pt's daughter updated on plan for admission for further observation. Vital Signs: 04/30 20:40 Pulse Ox 90% on R/A; jp3 20:41 BP 143 / 68; Pulse 88; Resp 18; Temp 98.4(O); Pulse Ox 96% on R/A; Weight 70.31 kg (R); jb4 Height 5 ft. 7 in. (170.18 cm) (R); Pain 5/10; 20:58 Pulse Ox 96% on 2 lpm NC; jp3 21:30 BP 130 / 68; Pulse 98; Resp 16; Pulse Ox 95% on R/A; jb4 22:30 BP 104 / 92; Pulse 72; Resp 16; Pulse Ox 92% on R/A; jb4 23:30 BP 104 / 60; Pulse 87; Resp 16; Pulse Ox 94% on R/A; jb4 05/01 00:00 BP 111 / 65; Pulse 92; Resp 16; Pulse Ox 97% on R/A; jb4 01:30 BP 119 / 102; Pulse 107; Resp 16; Pulse Ox 97% on R/A; jb4 02:20 BP 104 / 70; Pulse 96; Resp 16; Pulse Ox 100% ; jb4 04/30 20:41 Body Mass Index 24.28 (70.31 kg, 170.18 cm) jb4 [place] Coma Score: 04/30 20:41 Eye Response: spontaneous(4). Verbal Response: oriented(5). Motor Response: obeys jb4 commands(6). Total: 15. 21:30 Eye Response: spontaneous(4). Verbal Response: oriented(5). Motor Response: obeys jb4 commands(6). Total: 15. 22:30 Eye Response: spontaneous(4). Verbal Response: oriented(5). Motor Response: obeys jb4 commands(6). Total: 15. 23:30 Eye Response: spontaneous(4). Verbal Response: oriented(5). Motor Response: obeys jb4 commands(6). Total: 15. 05/01 00:00 Eye Response: spontaneous(4). Verbal Response: oriented(5). Motor Response: obeys jb4 commands(6). Total: 15. 01:30 Eye Response: spontaneous(4). Verbal Response: oriented(5). Motor Response: obeys jb4 commands(6). Total: 15. 02:20 Eye Response: spontaneous(4). Verbal Response: oriented(5). Motor Response: obeys jb4 commands(6). Total: 15. Trauma Score (Adult): 04/30 20:41 Eye Response: spontaneous(1); Verbal Response: oriented(1); Motor Response: obeys jb4 commands(2); Systolic BP: > 89 mm Hg(4); Respiratory Rate: 10 to 29 per min(4); Kv[place] Score: 15; Trauma Score: 12 21:30 Eye Response: spontaneous(1); Verbal Response: oriented(1); Motor Response: obeys jb4 commands(2); Systolic BP: > 89 mm Hg(4); Respiratory Rate: 10 to 29 per min(4); [place] Score: 15; Trauma Score: 12 22:30 Eye Response: spontaneous(1); Verbal Response: oriented(1); Motor Response: obeys jb4 commands(2); Systolic BP: > 89 mm Hg(4); Respiratory Rate: 10 to 29 per min(4); Kv[place] Score: 15; Trauma Score: 12 23:30 Eye Response: spontaneous(1); Verbal Response: oriented(1); Motor Response: obeys jb4 commands(2); Systolic BP: > 89 mm Hg(4); Respiratory Rate: 10 to 29 per min(4); [place] Score: 15; Trauma Score: 12 05/01 00:00 Eye Response: spontaneous(1); Verbal Response: oriented(1); Motor Response: obeys jb4 commands(2); Systolic BP: > 89 mm Hg(4); Respiratory Rate: 10 to 29 per min(4); [place] Score: 15; Trauma Score: 12 01:30 Eye Response: spontaneous(1); Verbal Response: oriented(1); Motor Response: obeys jb4 commands(2); Systolic BP: > 89 mm Hg(4); Respiratory Rate: 10 to 29 per min(4); [place] Score: 15; Trauma Score: 12 02:20 Eye Response: spontaneous(1); Verbal Response: oriented(1); Motor Response: obeys jb4 commands(2); Systolic BP: > 89 mm Hg(4); Respiratory Rate: 10 to 29 per min(4); [place] Score: 15; Trauma Score: 12 ED Course: 04/30 20:40 Patient has correct armband on for positive identification. Placed in gown. Bed in low jp3 position. Call light in reach. Side rails up X 1. Side rails up X2. Warm blanket given. Pillow given. Verbal reassurance given. Pulse ox on. NIBP on. 20:41 Patient arrived in ED. sg 20:41 Thermoregulation: warm blanket given to patient. jb4 20:41 Arm band placed on right wrist. jb4 20:42 Sal Alanis MD is Attending Physician. fabiola 21:01 Initial lab(s) drawn, by me, sent to lab. Maintain EMS IV. Dressing intact. Good blood jp3 return noted. Site clean \T\ dry. Gauge \T\ site: 20 gauge LAC. Oxygen administration via nasal cannula \T\ 2L/min. 21:04 Arash Rudolph, RN is Primary Nurse. jb4 21:08 CT Head C Spine In Process Unspecified. EDMS 21:19 Shoulder Right (2 View) XRAY In Process Unspecified. EDMS 21:19 XRAY Chest (1 view) In Process Unspecified. EDMS 21:54 Vamsi Thomas MD is Referral Physician. fabiola 21:56 Triage completed. jb4 22:32 Shoulder immobilizer applied on right shoulder. jp3 05/01 00:41 Pelvis XRAY In Process Unspecified. EDMS 00:41 Hip Right 2 View XRAY In Process Unspecified. EDMS 00:41 Femur Right XRAY In Process Unspecified. EDMS 00:54 Vamsi Thomas MD is Referral Physician. fabiola 00:55 Abhinav Michele MD is Referral Physician. fabiola 01:48 Abhinav Michele MD is Hospitalizing Provider. fabiola 02:45 Inserted saline lock: 20 gauge in left wrist, using aseptic technique. oe 02:59 No provider procedures requiring assistance completed. Patient admitted, IV remains in jb4 place. Administered Medications: 04/30 22:24 Drug: Zofran (Ondansetron) 4 mg Route: IVP; Site: left antecubital; jb4 22:54 Follow up: Response: No adverse reaction; Nausea is decreased jb4 22:26 Drug: morphine 2 mg Route: IVP; Site: left antecubital; jb4 22:56 Follow up: Response: No adverse reaction; Pain is decreased; RASS: Alert and Calm (0) jb4 05/01 00:53 CANCELLED (Duplicate Order): fentaNYL (PF) 25 mcg IVP once; RASS on ADMIN: Combtv4, fabiola Very Agttd3, Agttd2, Rstlss1, AlertClm0, Drwsy-1, Lt Sdtn-2, Mod Sdtn-3, Dp Sdtn-4, UnArsble-5 00:53 CANCELLED (Duplicate Order): fentaNYL (PF) 25 mcg IVP once; RASS on ADMIN: Combtv4, fabiola Very Agttd3, Agttd2, Rstlss1, AlertClm0, Drwsy-1, Lt Sdtn-2, Mod Sdtn-3, Dp Sdtn-4, UnArsble-5 00:53 CANCELLED (Duplicate Order): Zofran (Ondansetron) 4 mg IVP once; over 2 minutes fabiola 01:01 Drug: [place] (7.5 mg-325 mg) 1 tabs Route: PO; jb4 02:00 Follow up: Response: No adverse reaction; Pain is decreased; RASS: Alert and Calm (0) jb4 01:02 CANCELLED (Physician Discretion): NS 0.9% 1000 ml IV at 125 ml/hr continuous jb4 Intake: 02:36 PO: 0ml; Total: 0ml. jb4 Output: 02:36 Urine: 0ml; Total: 0ml. jb4 Outcome: 04/30 21:56 Discharge ordered by . fabiola 05/01 00:58 Discharge ordered by . fabiola 01:50 Decision to Hospitalize by Provider. fabiola 02:34 Patient's length of stay in the Emergency Department was greater than 2 hours. Pt jb4 admittedPatient's length of stay extended due to 02:59 Admitted to Med/surg accompanied by tech, via stretcher, room 217, with chart, Report jb4 called to SAUL Claros 02:59 Condition: stable 02:59 Discharge instructions given to patient, Instructed on the need for admit, Demonstrated understanding of instructions. 03:00 Patient left the ED. jb4 Signatures: Dispatcher [employer] EDVamsi Brunson, SAUL RN Sal Ruff MD MD cha Bryson, James, RN RN jb4 Gerald Basurto Jacob jp3 Corrections: (The following items were deleted from the chart) 02:35 01:00 Reassessment: Patient appears in no apparent distress at this time. Patient jb4 and/or family updated on plan of care and expected duration. Pain level reassessed. Patient is alert, oriented x 3, equal unlabored respirations, skin warm/dry/pink. jb4
[2020-04-30] MEDS ORDERED: MORPHINE 2 MG/ML SYR ONE (22:26)
[2020-04-30] MEDS ORDERED: ONDANSETRON 4 MG/2 ML VIAL ONE (22:27)
--- NOTE | 2020-04-30 23:17 | RAD REPORT ---
EXAM DESCRIPTION: RAD - Chest Single View - 04/30/2020 9:21 pm CLINICAL HISTORY: COUGH Chest pain. COMPARISON: Chest Single View dated 09/01/2018; Chest Single View dated 03/20/2018; Chest Single View d ated 03/19/2018; Chest Single View dated 03/04/2017 FINDINGS: Portable technique limits examination quality. The lungs are emphysematous but grossly clear. The heart is moderately enlarged in size. No displaced fractures. IMPRESSION: Mild diffuse COPD.
--- NOTE | 2020-04-30 23:17 | RAD REPORT ---
EXAM DESCRIPTION: RAD - Shoulder Right 2 View - 04/30/2020 9:21 pm CLINICAL HISTORY: PAIN Fall, pain COMPARISON: No comparisons FINDINGS: Diffuse osteopenia noted. Mildly impacted fracture of the proximal right humerus is seen. No dislocation evident.
[2020-05-01] MEDS ORDERED: HYDROCODONE/APAP 7.5/325 MG TAB ONE (01:07)
[2020-05-01] MEDS ORDERED: ONDANSETRON 4 MG/2 ML VIAL IV PRN ×2 (03:09→15:25)
[2020-05-01] MEDS ORDERED: ACETAMINOPHEN 325 MG TABLET PO PRN (03:09)
[2020-05-01] MEDS ORDERED: NA CHLORIDE 0.9% 1,000 ML IV SCH (03:09)
[2020-05-01 03:28] VITALS: BMI 24.5
[2020-05-01] MEDS: MORPHINE 2 MG/ML SYR IV PRN ×2 (04:19→08:25)
[2020-05-01] MEDS ORDERED: ONDANSETRON 4 MG (ODT) TAB PO PRN (08:33)
[2020-05-01] MEDS ORDERED: hydrOXYzine HCL 25 MG TAB PO PRN (08:33)
[2020-05-01] MEDS ORDERED: HOME MED 1 EA UNK (Linaclotide [Linzess] 145 MCG) PO SCH ×2 (08:45→10:30)
--- NOTE | 2020-05-01 08:46 | RAD REPORT ---
EXAM DESCRIPTION: RAD - Pelvis - 05/01/2020 12:43 am CLINICAL HISTORY: PAIN COMPARISON: Pelvis dated 09/04/2018; Femur Right dated 05/01/2020; Hip Right 2 View dated 05/01/2020; Pelv is Wo Cont dated 05/01/2020 FINDINGS: Right total hip arthroplasty is noted. No unexpected hardware finding. Lower lumbar degene rative changes are present. Moderately severe left hip osteoarthritis.
--- NOTE | 2020-05-01 08:47 | RAD REPORT ---
EXAM DESCRIPTION: RAD - Femur Right - 05/01/2020 12:43 am CLINICAL HISTORY: PAIN COMPARISON: No comparisons FINDINGS: Right total hip arthroplasty is present. [place] calcification is seen superior to the righ t hip. No acute fracture or dislocation. No aggressive marrow lesion.
--- NOTE | 2020-05-01 08:48 | RAD REPORT ---
EXAM DESCRIPTION: RAD - Hip Right 2 View - 05/01/2020 12:43 am CLINICAL HISTORY: PAIN COMPARISON: Hip Right 2 View dated 09/01/2018 FINDINGS: Right total hip arthroplasty is noted. No unexpected hardware finding. No acute fracture o r dislocation seen.
[2020-05-01] MEDS: HOME MED 1 EA UNK (Cyanocobalamin (Vitamin B-12) [Vitamin B-12] 1,000 MCG) PO SCH (09:00)
[2020-05-01] MEDS: HOME MED 1 EA UNK (Cholecalciferol (Vitamin D3) [Vitamin D3] 1,000 UNIT) PO SCH (09:00)
[2020-05-01] MEDS: APIXABAN 5 MG TABLET PO SCH ×2 (09:00→22:32)
[2020-05-01] MEDS ORDERED: SACUBITRIL/VALSARTAN 49/51 MG TAB PO SCH (09:00)
[2020-05-01] MEDS ORDERED: ENOXAPARIN 40 MG/0.4 ML SQ SCH (09:00)
[2020-05-01] MEDS ORDERED: FAMOTIDINE 20 MG/2 ML VIAL IV SCH (09:00)
[2020-05-01] MEDS: ATORVASTATIN 20 MG TAB PO SCH (10:48)
--- NOTE | 2020-05-01 14:22 | RAD REPORT ---
EXAM DESCRIPTION: CT PELVIS WITHOUT CONTRAST CLINICAL HISTORY: Hip pain COMPARISON: None Available. TECHNIQUE: CT of the pelvis without IV contrast. Evaluation of the solid organs and vasculature is s uboptimal due to lack of IV contrast. FINDINGS: Bones: Diffuse osteopenia. Endplate spondylosis, facet arthropathy, and degenerative disc height narrowing of the visualized lumbar spine. Sacrum is intact. The pelvic bones are intact. Right total hip arthroplasty without hardware abnormality. The proximal left femur is intact. Moderate left hip joint space narrowing with marginal osteophytosi s. Pelvis: Bladder: Urinary bladder is unremarkable. Bowel: No dilated loops of the visualized large or small bowel. Scattered diverticula of the visual ized colon. Sigmoid colon anastomosis. Appendix: Normal appendix. Pelvis: Uterus is not enlarged. Calcified gluteal injection granulomas. Vasculature: Aortoiliac atherosclerosis. IVC is unremarkable. Other: No free intraperitoneal air. No free fluid or lymphadenopathy. IMPRESSION: 1. No acute fracture of the pelvis identified. Right total hip arthroplasty. 2. Osteoarthritic change of the left hip. This exam was performed according to our departmental dose-optimization program, which includes autom ated exposure control, adjustment of the mA and/or kV according to patient size and/or use of iterati ve reconstruction technique. Electronically signed by: Stevie Valdivia 05/01/2020 2:59 AM CDT Due to temporary technical issues with the PACS/Fluency reporting system, reports are being signed by the in house radiologist without review as a courtesy to ensure prompt reporting. The interpreting r adiologist is fully responsible for the content of the report.
[2020-05-01] MEDS ORDERED: MORPHINE 2 MG/ML SYR IV PRN (15:24)
[2020-05-01 19:49] LABS: Urine Appearance CLEAR; Urine Bilirubin NEGATIVE (NEG); Urine Blood NEGATIVE (NEG); Urine Color DK YELLOW; Urine Glucose NEGATIVE (NEG); Urine Protein NEGATIVE (NEG); Urine pH 5.5 (5.0-7.0)
[2020-05-01 19:58] LABS: Urine Amorphous Sediment 2+ /HPF (NONE SEEN); Urine Bacteria <20 /HPF (<20); Urine Culture Reflex Order NOT NEEDED; Urine Mucus 2+ /HPF (NONE SEEN); Urine RBC <5 /HPF (NONE SEEN)
[2020-05-01] MEDS ORDERED: ZOLPIDEM TARTRATE 5 MG TABLET PO SCH (21:00)
[2020-05-01] MEDS ORDERED: FAMOTIDINE 20 MG TAB PO SCH (21:00)
[2020-05-01] MEDS ORDERED: HOME MED 1 EA UNK (Duloxetine Hcl [Duloxetine Hcl] 60 MG) PO SCH (21:00)
[2020-05-01] MEDS ORDERED: DULOXETINE 30 MG CAP PO SCH (21:00)
[2020-05-01] MEDS: SACUBITRIL/VALSARTAN 49/51 MG TAB PO SCH (22:32)
[2020-05-01] MEDS ORDERED: DULOXETINE 30 MG CAP PO ONE (22:34)
[2020-05-01] MEDS ORDERED: APIXABAN 5 MG TABLET ONE (22:35)
[2020-05-01] MEDS ORDERED: FAMOTIDINE 20 MG TAB ONE (22:37)
[2020-05-01] MEDS ORDERED: ZOLPIDEM TARTRATE 5 MG TABLET ONE (22:37)
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
--- NOTE | 2020-05-02 07:21 | CON ---
Date of Consultation: 05/01/2020 History Of Present Illness: This is my first time seeing this patient to my knowledge. She is an 89 -year-old female who unfortunately fell injuring her right side. She was seen and examined in the em ergency department where she was ruled out for other injuries, but was complaining of right-sided hip pain, especially with attempted weightbearing, this is slightly in the region of the groin. Also co mplaining of right shoulder pain. Physical Examination: All of her long bones and joints are palpated without pain or crepitation, with the exception of some pain near the SI joint. She is also not weightbearing at this time, but states when she does weight bear, she has some pain in the region of the groin on the right side. Also, she has significant com plaints of pain related to her right shoulder, although her elbow, wrist and hand appear to be fine. She has no trouble with the left upper or lower extremity. Imaging: On review of her radiographs, pelvis x-ray, pelvis CT, hip x-ray did not demonstrate any ov ert fracture or dislocation; however, an old hip arthroplasty was seen there, this appears to be doin g fairly well without overt signs of loosening or other problem. With regard to her right shoulder, she does have a slightly comminuted, though nondisplaced humeral neck fracture without dislocation. Assessment: This is an 89-year-old female now with a right humeral neck fracture. She was told to e xpect pain in the shoulder. She should be nonweightbearing related to the shoulder. She is encourag ed to do movement of the elbow, wrist, and hand, and she was told that later she should expect signif icant swelling and bruising of the elbow. We will treat this nonweightbearing with a sling and at 3 weeks, we consider x-rays as well as Codman exercises. With regard to her right lower extremity, hop efully, this is related to muscular issue. If it does hurt significantly, she will probably be limit ed to transfers anyway and could bear most of her weight on the left side. If this fells to improve over the course of a week or so, may consider further diagnostic and therapeutic intervention, but I do not see any operative intervention or direct recommendations at this time other than jas hawley. An 89-year-old female now with nonoperative fracture of the right proximal humerus, we w ill treat this conservatively. Also with the right pain in the groin which hopefully is soft tissue, but she will most likely just do transfers. We may need to follow this up with further imaging late r if she fails to improve. I believe that sitting should be fine and transfers should be fine. BEBA Voice ID: [id number] Report ID: [id number]
[2020-05-02] MEDS ORDERED: MAGNESIUM HYDROXIDE 8% 30 ML PO PRN (08:35)
[2020-05-02 08:39] VITALS: O2SAT 92
[2020-05-02] MEDS: HOME MED 1 EA UNK (Cyanocobalamin (Vitamin B-12) [Vitamin B-12] 1,000 MCG) PO SCH (09:00)
[2020-05-02] MEDS ORDERED: CODEINE 30MG/APAP 300MG TAB PO SCH (09:00)
[2020-05-02] MEDS: HOME MED 1 EA UNK (Cholecalciferol (Vitamin D3) [Vitamin D3] 1,000 UNIT) PO SCH (09:00)
[2020-05-02] MEDS: ATORVASTATIN 20 MG TAB PO SCH (10:05)
[2020-05-02] MEDS: APIXABAN 5 MG TABLET PO SCH (10:06)
[2020-05-02] MEDS: SACUBITRIL/VALSARTAN 49/51 MG TAB PO SCH (10:06)
--- NOTE | 2020-05-02 11:14 | EKG ---
Test Date: 2020-04-30 Test Time: 21:57:32 Complaint Supervisor: LML MEASUREMENT RESULTS: Intervals: Rate: 92 MS: QRSD: 84 QT: 360 QTc: 445 [place]: P: MS: QRS: 49 T: -35 INTERPRETIVE STATEMENTS: Atrial fibrillation Nonspecific ST and T wave abnormality, probably digitalis effect Abnormal ECG Compared to ECG 09/01/2018 15:29:58 ST (T wave) deviation now present Ventricular premature complex(es) no longer present Electronically Signed On 05-02-20 11:10:38 CDT by Fahad Jeff
--- NOTE | 2020-05-02 15:58 | PN ---
Date of Progress Note: 05/02/2020 Subjective: The patient was seen this morning for followup. No new complaints or problems reported by her. She has poor appetite and we did talk about importance of eating her meals regularly. Still has significant pain in her right upper extremity with any movement and also complaining of pain in her right groin area. Objective: Vital Signs: Reviewed. HEENT: Unremarkable. Lungs: Clear to auscultation. Heart: Sounds normal. Abdomen: Soft. Bowel sounds normal. No guarding, rigidity, tenderness, or distention. Extremities: No leg edema. She is able to raise both lower extremity against gravity at hip and wit h straight leg raising as well as she is able to flex her both knees and hips without any difficultie s. Impression: 1.Fracture, right proximal humerus. 2.Contusion, right hip. 3.Atrial fibrillation, chronic. 4.Congestive heart failure, chronic, systolic. Plan: We will continue current medications. Continue physical therapy, occupational therapy was con sulted. We are waiting for inpatient rehab to give us their decision on acceptance to go to rehab [facility] and once we get that approval, we will be able to transfer her to rehab, all continue to follow u p. Continue current pain medications. DIAZ/MODL Voice ID: [id number] Report ID: [id number]
[2020-05-02 17:16] VITALS: BP 110/56; TEMP 97.7
[2020-05-02] MEDS ORDERED: DOCUSATE NA/SENNA CONC 1 TAB PO SCH (21:00)
--- NOTE | 2020-05-04 03:48 | DS ---
Date of Discharge: 05/02/2020 Disposition: Discharged to go to rehab floor. Physical Examination: See copy of today's progress note for details. Hospital Course: An 89-year-old pleasant female patient who fell down at home, was brought into emergency room with right shoulder and right hip pain. Please see dictated H and P for more information. After the patient was evaluated in the emergency room, she was diagnosed as having fracture of the right proximal humerus without dislocation and there was no evidence of any fracture of the hip or pelvis region. She had x-rays done of the hip and pelvis, and a CAT scan, and it did not show any evidence of fracture there. Orthopedic consultation was requested from Dr. Thomas and he did not suggest any surgical intervention for the humerus fracture. Physical therapy and occupational therapy were consulted. The patient was started on pain medication and inpatient rehab was consulted, and once the patient was accepted, she was discharged from medical floor to rehab floor where I will continue to follow up. Her COVID-19 test came back negative. Laboratory Data: White count 13.6, hemoglobin 14.1, platelets 247. Sodium 140, potassium 3.8, chloride 104, bicarb 29, BUN 17, creatinine 0.85, glucose 81. Liver function tests unremarkable. Troponin less than 0.0. Right shoulder x- ray shows diffuse osteopenia and mildly impacted fracture of proximal right humerus. No dislocation noted. Her CAT scan of the head and cervical spine shows no evidence of any acute intracranial changes. No evidence of cervical fracture. Chest x-ray; mild diffuse COPD changes. CAT scan of the hip and pelvis, no evidence of any fracture. COVID-19 test was negative. Impression: 1. Fracture, right proximal humerus, without dislocation. 2. Contusion, right hip. 3. Chronic atrial fibrillation. 4. Congestive heart failure, chronic, systolic. 5. Hypertension. 6. Hyperlipidemia. 7. Diverticulosis. 8. Gastroesophageal reflux disease. 9. Osteoarthritis, multiple sites. 10. Osteoporosis. 11. Insomnia. 12. Chronic obstructive pulmonary disease. 13. Macular degeneration. DIAZ/MODL Voice ID: [id number] Report ID: [id number] PEGGY
--- NOTE | 2020-05-04 11:17 | CON ---
Date of Consultation: 05/02/[address] Michele on 05/01/2020. The patient was seen on 05/02/2020. Reason For Consultation: Atrial fibrillation and the patient is status post fall. History Of Present Illness: Ms. Ellsworth is an 89-year-old woman. She is known to us from previous vi sits in the past. She has a history of chronic atrial fibrillation for which she takes Eliquis. She has a history of chronic systolic congestive heart failure with a known ejection fraction of 30%. S he has a history of dyslipidemia and anxiety. Came in after a fall and broke her right humerus. It is an impacted fracture. There was really no plan for surgery. Is going to be more conservative med ical therapy and physical therapy. The patient just fell. She did not have any syncopal episodes. Denied PND, orthopnea, pedal edema, palpitation. Denied any fever or chills. Denied any chest pain, nausea, vomiting, or diaphoresis. She is in chronic atrial fibrillation. Past Medical History: As stated above. Allergies: INCLUDE SULFA AND SHE IS INTOLERANT TO BETA-BLOCKERS. Review of Systems: Negative. Social History: Negative. Family History: Noncontributory. Medications: At home include Eliquis, Lipitor, Entresto, Ambien, and Xanax. Physical Examination: General: She is very pleasant very alert and oriented x3. Vital Signs: She was in atrial fibrillation, rate of 88, afebrile. HEENT: Negative. Neck: Supple. No bruit. Chest: Clear. Cardiac: Revealed atrial fibrillation. No murmurs, gallops, or rubs. Abdomen: Benign. Extremities: Revealed no clubbing, cyanosis, or edema. Neurological: She was nonfocal. Skin: Dry and intact. Diagnostic Data: Her creatinine is 0.85. EKG showed atrial fibrillation. White count was 13,600. Her BNP is 873. X-rays revealed a right humeral fracture that is impacted. Impression And Plan: 1.Chronic systolic congestive heart failure, on Entresto, intolerant to beta-vale, takes Lasix as needed. No symptoms of congestive heart failure. We will continue present regimen. 2.Chronic atrial fibrillation, on Eliquis, rate controlled. Her BNP elevation is secondary to chron ic systolic congestive heart failure. 3.Right humeral fracture. No surgery planned. 4.Dyslipidemia, on Lipitor. 5.Anxiety, on Xanax. I am comfortable with Ms. Ellsworth going home. We will see her in the office in the near future. No change in therapy indicated at this point. Eliquis was held initially, but nee ds to be restarted as soon as Dr. Michele is comfortable with that. MARIANNE/KATHERINE Voice ID: [id number] Report ID: [id number]
== END 2020-05-02 18:08 ==
LOC: ER 20:36 → ERHOLD 05-01 01:57 → 2ND 05-01 02:54 → UNDODISOB 05-01 10:20 → 2ND 05-01 20:15
PROVIDERS: ADMIT Internal Medicine; ATTEND Internal Medicine
DX: S42.201A Unspecified fracture of upper end of right humerus, initial encounter for closed fracture (principal); S70.01XA Contusion of right hip, initial encounter; W01.0XXA Fall on same level from slipping, tripping and stumbling without subsequent striking against object, initial encounter; M85.811 Other specified disorders of bone density and structure, right shoulder; M81.0 Age-related osteoporosis without current pathological fracture; J44.9 Chronic obstructive pulmonary disease, unspecified; I48.20 Chronic atrial fibrillation, unspecified; I11.0 Hypertensive heart disease with heart failure; I50.22 Chronic systolic (congestive) heart failure; E78.5 Hyperlipidemia, unspecified; F41.9 Anxiety disorder, unspecified; Z20.828 Contact with and (suspected) exposure to other viral communicable diseases; K57.30 Diverticulosis of large intestine without perforation or abscess without bleeding; K21.9 Gastro-esophageal reflux disease without esophagitis; M15.9 Polyosteoarthritis, unspecified; G47.00 Insomnia, unspecified; Z79.01 Long term (current) use of anticoagulants; Z79.899 Other long term (current) drug therapy; Z87.891 Personal history of nicotine dependence; Z96.641 Presence of right artificial hip joint
CPT/HCPCS: 93005; 85025; 81001; 80048; 36415; 83735; 80076; 84484; 83880; 70450; 72125; 72192; 71045; 72170; 73502; 73030; 73552; 97110; 97116; 97161; 97530 ×2; 96375; 96374; 99285; U0002; U0003; J1650; J2270 ×4; J7030; J2405 ×3; G0378 ×3; G0390

== ENCOUNTER 2020-05-02 10:04 | Inpatient (IN) | payer OTHER, MEDICARE ==
--- NOTE | 2020-05-02 16:06 | R.PREADM ---
PRE-ADMISSION SCREENING FORM SCREENING DATE AND TIME 05/02/2020 10:15 (CDT) ANTICIPATED REHAB ADMISSION DATE 05/04/2020 REFERRING FACILITY [facility] REFERRAL DATE AND TIME 05/02/2020 10:15 (CDT) REFERRAL ROOM# 201 ACUTE ADMIT DATE 05/01/2020 Previous Rehabilitation(s): No. 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 Parviz Frederick M.D. MR# [id number] [facility] [id number] NAME VAMSHI LUGO [address]ESS [address] [address] [facility] [address] [facility] [id number] DATE OF 1930 AGE 89 SSN# [id number] GENDER female MARITAL STATUS RACE unknown race ADMIT FROM 02 - [facility] PRE-HOSPITAL LIVING SETTING 01 - Home (private home/apt. board/care, assisted living, half-way, transitional living) HOME TYPE AND DETAILS Type of home: apartment # of levels in the residence: 1 # of steps within the residence: 0 # of steps to enter the residence: 0 PRE-HOSPITAL LIVING WITH Alone FAMILY SUPPORT Yes PRIMARY FAMILY CONTACT NAME JESSE SCHULZ PRIMARY FAMILY CONTACT PHONE PHONE PRIMARY FAMILY CONTACT ON ADM.? no IS PRIMARY FAMILY CONTACT AUTH. REP.? no 1ST EMERGENCY CONTACT JESSE SCHULZ 1ST CONTACT PHONE PHONE 1ST CONTACT ON ADM. no IS 1ST CONTACT AUTH. REP.? no PHONE 2ND CONTACT ON ADM.? no PATIENT EMPLOYMENT STATUS Retired (for age) PATIENT EMPLOYER No Employer PAYOR INFORMATION: 1ST PAYOR NAME Medicare 1ST PAYOR PHONE 1ST PAYOR INJURY/ILLNESS DUE TO ACCIDENT? No ANOTHER CONSTITUTION PARTY RESPONSIBLE? No PRIMARY REHAB/ACUTE DIAGNOSIS: RIGHT HUMERUS FRACTURE ONSET DATE 05/01/2020 REHAB IMPAIRMENT CATEGORY (KIMBER): 20 Miscellaneous (Misc) does NOT meet 60% rule PRIMARY DIAGNOSIS-RELATED SURGERIES: No surgeries related to the primary diagnosis were performed. SUMMARY OF ACUTE HOSPITALIZATION: Pt. is a 89 yo Right-handed female of unknown race. On 05/01/2020 she was admitted to [facility] with diagnosis RIGHT HUMERUS FRACTURE. Her impairment category is Debility 16 - Debility (16). Pre-morbidly, Pt. was independent/mod-I in Self-Care, Endurance, Communication, Locomotion, Safety Aw areness, Balance, and Transfers Control; and she had good Sphincter Control. Currently, she has deficits of Safety Awareness, Balance, Transfers Control, Self-Care, and Endurance . Pt. is now referred to [facility] for acute in-patient rehabilitation in order to maximize patient's functional independence in activities of daily living, strength, ROM, and mobi lity. Patient has realistic goal of being discharged at assistance level 7-[facility] to reside at Home with Pt s elf. PAST MEDICAL HISTORY RIGHT HIP FX MACULAR DEGENERATION HYPERTENSION HYPERLIPIDEMIA CHF CHRONIC ATRIAL FIBRILLATION COPD HEP C INSOMNIA DIVERTICULOSIS OSTEOPOROSIS OSTEOARTHRITIS PAST SURGICAL HISTORY: CHOLECYSTECTOMY RIGHT HIP SURGERY APPENDECTOMY MEDICATION ALLERGIES: SULFA CODEINE ENVIRONMENTAL ALLERGIES: - Substance Allergies None Known - Other Allergies None Known CODE STATUS: Full code WEIGHT/HEIGHT/BMI: WEIGHT 157 lbs HEIGHT 5' 7" BMI 24.6 DIET: - Diet Type Regular - Diet - Solid Texture Regular - Diet - Liquid Texture Regular - Tube Feed N/A REVIEW OF SYSTEMS: - Gen Alert and awake Lying in bed No apparent distress Oriented to: person, time, and place - Vital Signs Temperature: 97.6 F SBP/DBP: 120/59 Pulse: 94 Resp: 19 Vital signs stable, afebrile - CVS RRR VITAL SIGNS Temperature: 97.6 F SBP/DBP: 120/59 Pulse: 94 Resp: 19 Vital signs stable, afebrile MEDICATIONS/TREATMENT: Other- See attached MAR (Medication Administration Record). CURRENT SPHINCTER CONTROL: Pre-hospital bladder status: unspecified # of bladder accidents in the last 7 days prior to screenin Pre-hospital bowel status: unspecified # of bowel accidents in the last 7 days prior to screenin Last Bowel Movement Date: 05/02/2020 CURRENT LOCOMOTION STATUS: distance walked 2feet with cane DETAILED CURRENT FUNCTIONAL STATUS: - Bladder accident frequency: Ind - No accidents in the past 7 days - Bowel accident frequency: Ind - No accidents in the past 7 days - Walking score based on distance walked: 0(N/A) - Wheelchair score based on distance traveled: 0(N/A) QI SCORES: - Self-Care A. Eating 03-Partial/moderate assistance B. Oral hygiene 03-Partial/moderate assistance C. Toileting hygiene 02-Substantial/maximal assistance E. Shower/bathe self 02-Substantial/maximal assistance F. Upper body dressing 88-Not attempted due to medical condition or safety concerns G. Lower body dressing 88-Not attempted due to medical condition or safety concerns H. Putting on/taking off footwear 88-Not attempted due to medical condition or safety concerns - Mobility A. Roll left and right 03-Partial/moderate assistance B. Sit to lying 02-Substantial/maximal assistance C. Lying to sitting on side of bed 02-Substantial/maximal assistance D. Sit to stand 02-Substantial/maximal assistance E. Chair/idb-or-qwuug transfer 03-Partial/moderate assistance F. Toilet transfer 02-Substantial/maximal assistance G. Car transfer 88-Not attempted due to medical condition or safety concerns I. Walk 10 feet 88-Not attempted due to medical condition or safety concerns J. Walk 50 feet with two turns 88-Not attempted due to medical condition or safety concerns K. Walk 150 feet 88-Not attempted due to medical condition or safety concerns L. Walking 10 feet on uneven surfaces 88-Not attempted due to medical condition or safety concerns M. 1 step (curb) 88-Not attempted due to medical condition or safety concerns N. 4 steps 88-Not attempted due to medical condition or safety concerns O. 12 steps 88-Not attempted due to medical condition or safety concerns P. Picking up object 88-Not attempted due to medical condition or safety concerns R. Wheel 50 feet with two turns 88-Not attempted due to medical condition or safety concerns S. Wheel 150 feet 88-Not attempted due to medical condition or safety concerns - Bladder and Bowel Bladder continence 9-Not applicable Bowel continence 9-Not rated - Endurance Fair - Balance Fair - Safety Awareness Fair CURRENT FUNC. DEFICITS: Balance, Self-Care, Mobility, Safety Awareness, and Endurance CURRENT / PREVIOUS ASSISTIVE DEVICES: 3-in-1 Commode Quad Cane Straight Cane Tub Bench HISTORY OF FALLS. HAS THE PATIENT HAD TWO OR MORE FALLS IN THE PAST YEAR OR ANY FALL WITH INJURY IN T HE PAST YEAR?: Yes PRIOR SURGERY. DID THE PATIENT HAVE MAJOR SURGERY DURING THE 100 DAYS PRIOR TO ADMISSION?: No THERAPY NOTES FROM ACUTE CARE: Attached. SPECIAL NEEDS: - Safety Concerns Skin breakdown precautions needed due to skin breakdown risk PATIENT NEEDS ACTIVE AND ONGOING THERAPEUTIC INTERVENTION OF MULTIPLE THERAPY DISCIPLINES, INCLUDING: - Dietary and Nutrition Adequate Nutrition. Nutritional Education. Nutritional Supplements. PATIENT NEEDS CLOSE MEDICAL SUPERVISION BY A REHABILITATION PHYSICIAN FOR: Coordination of Treatment Team PATIENT REQUIRES 24X7 REHAB NURSING FOR MEDICAL AND FUNCTIONAL MGT. OF THE FOLLOWING DEFICITS: Disease Management Medication Management Patient/Family Education Providing Safe Environment PATIENT REQUIRES INTENSIVE, COORDINATED INTERDISCIPLINARY APPROACH TO REHAB: Arranging Home Equipment/Services Discharge Planning Family Intervention/Training Coding Educator/Case Management PATIENT REHAB POTENTIAL: Milton LUGO is able and expected to receive 3 hours of individualized therapy daily on at least 5 of ev kenroy 7 days Milton Tesfaye prognosis for significant practical improvement within a reasonable period of time appear s Good Expected level of measurable improvement will be of a practical value to Milton LUGO's functional capac ity or adaptations to impairments Has a viable Discharge Plan Medically appropriate; condition is sufficiently stable to participate in intensive rehab program DISCHARGE PLAN: - Estimated Length of Stay (days) 13. - Consensus on plan Discharge plan has been discussed with primary caregiver. Patient/Family is in agreement with the yaneth n. Primary caregiver is in agreement with the plan. - Patient/Family Goals Return home independently. - Planned Living Setting Upon Discharge Home, to live alone. Transitional Living. Primary caregiver: Pt self. RECOMMENDED CARE LEVEL: IRF RECOMMENDATION DETAILS: Recommended Admission to Comprehensive Rehabilitation Program to Increase Functional George SCREENER'S COMPLETENESS CONFIRMATION: - Screening Confirmation The patient data collection on this preadmission screening form is finished PHYSICIANS REVIEW AND ADMISSION DETERMINATION Admit - Based on my review of the Pre-Admission Screening results, in my medical judgment and experie nce, I concur with the findings and recommend admission to [facility], as this patient requires an IRF level of care. SIGNATURE PANEL: Career Guidance Technician - [electronically] signed by Ellen Dodson on 05/02/2020 at 14:07 (CDT) Clinical Liaison - [electronically] signed by Laly Cline RN on 05/02/2020 at 14:14 (CDT) Physician Reviewer - [electronically] signed by Dr. Parviz Frederick M.D. on 05/02/2020 at 16:05 (CDT )
[2020-05-02] MEDS ORDERED: MORPHINE 2 MG/ML SYR IV PRN (18:22)
[2020-05-02] MEDS ORDERED: ONDANSETRON 4 MG/2 ML VIAL IV PRN (18:22)
[2020-05-02] MEDS ORDERED: ONDANSETRON 4 MG (ODT) TAB PO PRN (18:22)
[2020-05-02] MEDS ORDERED: HOME MED 1 EA UNK (Linaclotide [Linzess] 145 MCG) PO SCH (18:22)
[2020-05-02] MEDS ORDERED: hydrOXYzine HCL 25 MG TAB PO PRN (18:22)
[2020-05-02] MEDS ORDERED: MAGNESIUM HYDROXIDE 8% 30 ML PO PRN (18:22)
[2020-05-02 19:43] LABS: Urine Appearance CLEAR; Urine Bilirubin NEGATIVE (NEG); Urine Blood TRACE (NEG); Urine Color YELLOW; Urine Glucose NEGATIVE (NEG); Urine Protein NEGATIVE (NEG); Urine Specific Gravity <=1.005 (1.005-1.030)
[2020-05-02] MEDS: CODEINE 30MG/APAP 300MG TAB PO SCH (20:00)
[2020-05-02 20:20] LABS: Urine Bacteria <20 /HPF (<20); Urine Culture Reflex Order NOT NEEDED; Urine RBC <5 /HPF (NONE SEEN)
[2020-05-02] MEDS: DOCUSATE NA/SENNA CONC 1 TAB PO SCH (20:43)
[2020-05-02] MEDS: FAMOTIDINE 20 MG TAB PO SCH (20:43)
[2020-05-02] MEDS: DULOXETINE 30 MG CAP PO SCH (20:44)
[2020-05-02] MEDS: APIXABAN 5 MG TABLET PO SCH (20:44)
[2020-05-02] MEDS: SACUBITRIL/VALSARTAN 49/51 MG TAB PO SCH (21:06)
[2020-05-02] MEDS: ZOLPIDEM TARTRATE 5 MG TABLET PO SCH (22:46)
[2020-05-03 06:30] LABS: BUN Blood Urea Nitrogen 10 mg/dL (7-18); Bicarbonate 27 mmol/L (21-32); Glucose Level 109 mg/dL (74-106); Magnesium 2.1 mg/dL (1.8-2.4); Potassium 3.9 mmol/L (3.5-5.1); Prealbumin 10.7 mg/dL (20-40); Sodium Level 138 mmol/L (136-145)
[2020-05-03 06:46] LABS: Absolute Lymphocytes (CBC) 0.7 K/uL (0.7-4.9); Basophils % 0.4 % (0-1.3); Hematocrit 36.1 % (36.0-45.0); Lymphocytes % 9.2 % (15.3-44.8); MPV 9.8 fL (7.6-11.3); RBC Red Blood Cell Count 3.98 M/uL (3.86-4.86)
[2020-05-03] MEDS: VITAMIN D 1000 UNIT TAB PO SCH (07:27)
[2020-05-03] MEDS: CYANOCOBALAMIN 1,000 MCG TAB PO SCH (07:27)
[2020-05-03] MEDS: SACUBITRIL/VALSARTAN 49/51 MG TAB PO SCH ×2 (07:27→21:06)
[2020-05-03] MEDS: APIXABAN 5 MG TABLET PO SCH ×2 (07:27→21:06)
[2020-05-03] MEDS: ATORVASTATIN 20 MG TAB PO SCH (07:27)
[2020-05-03] MEDS: CODEINE 30MG/APAP 300MG TAB PO SCH ×2 (07:27→19:41)
[2020-05-03] MEDS ORDERED: HOME MED 1 EA UNK (Cyanocobalamin (Vitamin B-12) [Vitamin B-12] 1,000 MCG) PO SCH (08:00)
[2020-05-03] MEDS ORDERED: HOME MED 1 EA UNK (Cholecalciferol (Vitamin D3) [Vitamin D3] 1,000 UNIT) PO SCH (08:00)
[2020-05-03] MEDS ORDERED: hydrOXYzine HCL 25 MG TAB PO PRN (09:00)
--- NOTE | 2020-05-03 12:25 | PN ---
Date of Progress Note: 05/03/2020 Subjective: The patient was seen for followup. She was on the rehab floor. Denies any new complain ts. Her shoulder and hip pain are better. Pain medication seems to help her very well and her pain is much better than before as she reports. Her last bowel movement was on medical floor before she c kassy to rehab yesterday. Objective: Vital Signs: Reviewed. HEENT: Unremarkable. Lungs: Clear to auscultation. Heart: Sounds normal. Abdomen: Soft. Bowel sounds normal. No guarding, rigidity, tenderness, or distention. Extremities: No leg edema. Impression: 1.Fracture, right proximal humerus, without dislocation. 2.Contusion, hip, right. 3.Chronic atrial fibrillation. 4.Congestive heart failure, chronic, systolic. 5.Hypertension. 6.Hyperlipidemia. 7.Gastroesophageal reflux disease. 8.Osteoarthritis, multiple sites. 9.Chronic obstructive pulmonary disease. Plan: We will continue current medical management. The patient will continue to receive Tylenol wit h Codeine 2 times a day on a scheduled basis for pain control and then in between she will have p.r.n ., order for Tylenol. We will continue her anticoagulation therapy and other current medical management. I will see her tomorrow for followup. Continue her stool softener per o rder. DIAZ/MODL Voice ID: [id number] Report ID: [id number]
--- NOTE | 2020-05-03 13:10 | PN ---
Date of Progress Note: 05/03/2020 Laboratory Data: Today's sodium 138, potassium 3.9, chloride 105, bicarb 27, BUN 10, creatinine 0.54, glucose 109. Urinalysis 1+ esterase, 5-10 wbc, bacteria less than 20. White count 7.8, hemoglobin 12.6, platelets 197. DIAZ/MODL Voice ID: [id number] Report ID: [id number] [facility]
[2020-05-03] MEDS: ACETAMINOPHEN 325 MG TABLET PO PRN (16:16)
[2020-05-03] MEDS: DOCUSATE NA/SENNA CONC 1 TAB PO SCH (21:07)
[2020-05-03] MEDS: FAMOTIDINE 20 MG TAB PO SCH (21:07)
[2020-05-03] MEDS: DULOXETINE 30 MG CAP PO SCH (21:07)
[2020-05-03] MEDS: ZOLPIDEM TARTRATE 5 MG TABLET PO SCH (21:07)
--- NOTE | 2020-05-04 00:35 | R.HP ---
HISTORY AND PHYSICAL FACILITY: [facility] ENCOUNTER DATE AND TIME: 05/04/2020 00:27 (CDT) MR#: [id number] NAME VAMSHI LUGO ADDRESS: [address] [place] [address] CITY: [place]IP [id number] PHONE: DATE OF : 1930 AGE: 89 SSN# [id number] GENDER: Female DEXTERITY Right-handed MARITAL STATUS RACE Unknown race PRE-HOSPITAL LIVING SETTING 01 - Home (private home/apt. board/care, assisted living, jail, transitional living) PRE-HOSPITAL LIVING WITH Alone ENCOUNTER PHYSICIAN: Dr. Parviz Frederick M.D. REFERRING DOCTOR: JOO DATE OF ADMISSION: 05/03/2020 13:28 (CDT) REFERRING FACILITY [facility] HOME TYPE AND DETAILS: Type of home: apartment # of levels in the residence: 1 # of steps within the residence: 0 # of steps to enter the residence: 0 ONSET DATE: 05/01/2020 PRIMARY DIAGNOSIS-RELATED SURGERIES: No surgeries related to the primary diagnosis were performed. HISTORY OF PRESENT ILLNESS (HPI): Currently, she has deficits of Safety Awareness, Balance, Transfers Control, Self-Care, and Endurance . On 05/01/2020 she was admitted to [facility] with diagnosis RIGHT HUMERUS FRACTURE. Her impairment category is Debility 16 - Debility (16). Pre-morbidly, Pt. was independent/mod-I in Self-Care, Endurance, Communication, Locomotion, Safety Aw areness, Balance, and Transfers Control; and she had good Sphincter Control. Pt. is now referred to [facility] for acute in-patient rehabilitation in order to maximize patient's functional independence in activities of daily living, strength, ROM, and mobi lity. Pt. is a 89 yo Right-handed female of unknown race. Patient has realistic goal of being discharged at assistance level 7-Ind to reside at Home with Pt s el. MEDICATION ALLERGIES: CODEINE SULFA ENVIRONMENTAL ALLERGIES: - Substance Allergies None Known - Other Allergies None Known PAST MEDICAL HISTORY: CHF CHRONIC ATRIAL FIBRILLATION COPD DIVERTICULOSIS HEP C HYPERLIPIDEMIA HYPERTENSION INSOMNIA MACULAR DEGENERATION OSTEOARTHRITIS OSTEOPOROSIS RIGHT HIP FX PAST SURGICAL HISTORY: APPENDECTOMY CHOLECYSTECTOMY RIGHT HIP SURGERY SOCIAL HISTORY: - Home Living Alone REVIEW OF SYSTEMS: - Gen No Chills Fatigue No Fever - Eyes No Double Vision No itchiness - ENMT No Difficulty Swallowing - CVS No Chest Discomfort No Chest Pain Fatigue No Weight Gain - Resp No Cough No Shortness of Breath - GI Continent No Abdominal Pain Constipation No Diarrhea - Continent No Kidney Pain No Painful Urination No Urinary Urgency - MSK No Joint Pain No Muscle Cramps No Stiffness - Skin No Itching No Rash No Suspicious Lesions - Neuro Coordination Difficulty Difficulty with Concentration No Memory Loss No Seizures Weakness - Psych No Anxiety No Depression No HIV Exposure No Persistent Infections No Seasonal Allergies - Endo No Cold/Heat Intolerance No Excessive Hunger No Excessive Thirst No Excessive Urination PHYSICAL EXAM - Gen Alert and awake Lying in bed No apparent distress Oriented to: person, time, and place - Skin No skin breakdown. Normacephalic - Eyes No abnormalities - ENMT No abnormalities - Neck No abnormalities - CVS RRR - Chest No abnormalities - Resp No wheezing - Abd Soft - GI Non distended Deferred - No abnormalities - Ext right arm in sling after fall. - MSK No focal deficits, mild diffuse weakness - Neuro No focal deficits - Psych No abnormalities VITAL SIGNS Temperature: 97.6 F SBP/DBP: 120/59 Pulse: 94 Resp: 19 NURSING: - Shower allowing shower ACTIVITIES OOB only with supervision QI SCORES: - Self-Care A. Eating 03-Partial/moderate assistance B. Oral hygiene 03-Partial/moderate assistance C. Toileting hygiene 02-Substantial/maximal assistance E. Shower/bathe self 02-Substantial/maximal assistance F. Upper body dressing 88-Not attempted due to medical condition or safety concerns G. Lower body dressing 88-Not attempted due to medical condition or safety concerns H. Putting on/taking off footwear 88-Not attempted due to medical condition or safety concerns - Mobility M. 1 step (curb) 88-Not attempted due to medical condition or safety concerns N. 4 steps 88-Not attempted due to medical condition or safety concerns O. 12 steps 88-Not attempted due to medical condition or safety concerns P. Picking up object 88-Not attempted due to medical condition or safety concerns R. Wheel 50 feet with two turns 88-Not attempted due to medical condition or safety concerns A. Roll left and right 03-Partial/moderate assistance B. Sit to lying 02-Substantial/maximal assistance C. Lying to sitting on side of bed 02-Substantial/maximal assistance D. Sit to stand 02-Substantial/maximal assistance E. Chair/dcf-qe-ehwun transfer 03-Partial/moderate assistance F. Toilet transfer 02-Substantial/maximal assistance G. Car transfer 88-Not attempted due to medical condition or safety concerns I. Walk 10 feet 88-Not attempted due to medical condition or safety concerns J. Walk 50 feet with two turns 88-Not attempted due to medical condition or safety concerns K. Walk 150 feet 88-Not attempted due to medical condition or safety concerns L. Walking 10 feet on uneven surfaces 88-Not attempted due to medical condition or safety concerns S. Wheel 150 feet 88-Not attempted due to medical condition or safety concerns - Bladder and Bowel Bladder continence 9-Not applicable Bowel continence 9-Not rated - Endurance Fair - Balance Fair - Safety Awareness Fair CURRENT FUNC. DEFICITS: Balance, Self-Care, Mobility, Safety Awareness, and Endurance MEDICATIONS: - Other See attached MAR (Medication Administration Record) ASSESSMENT: On 05/01/2020 she was admitted to [facility] with diagnosis RIGHT HUMERUS FRACTURE.Curr ently, she has deficits of Safety Awareness, Balance, Transfers Control, Self-Care, and Endurance.Pt. is now referred to [facility] for acute in-patient rehabilitation in order to maximize patient's functional independence in activities of daily living, strength, ROM, and mobilit y.- Rehab Goal Patient has realistic goal of being discharged at assistance level 7-Ind to reside at Home with Pt s elf. - Physical Therapy Gait dysfunction - to improve, our physical therapists will perform initial evaluation of pt's status upon admission and devise an individualized program for Gait Training, and Wheel Chair mobility Inability to transfer - to improve, our physical therapists will perform initial evaluation of pt's s tatus upon admission and devise an individualized program for Bed mobility Need for home safety evaluation - to improve, our physical therapists will perform initial evaluation of pt's status upon admission and devise an individualized program for Home Evaluation Need in caregiver upon discharge - to improve, our physical therapists will perform initial evaluatio n of pt's status upon admission and devise an individualized program for Caregiver Training New precaution - to improve, our physical therapists will perform initial evaluation of pt's status u trell admission and devise an individualized program for Patient precaution education Poor balance - to improve, our physical therapists will perform initial evaluation of pt's status upo n admission and devise an individualized program for Balance Training Poor endurance - to improve, our physical therapists will perform initial evaluation of pt's status u trell admission and devise an individualized program for Endurance Training Weakness - to improve, our physical therapists will perform initial evaluation of pt's status upon ad mission and devise an individualized program for Aquatic Therapy, Neuromuscular Reeducation, and Stre ngthening Achieving independence - to improve, our physical therapists will perform initial evaluation of pt's status upon admission and devise an individualized program for Community Reintegration Activities - Occupational Therapy ADL deficits - to improve, our occupation therapists will perform initial evaluation of pt's status u trell admission and devise an individualized program for Bathing, Bed mobility, Community Reintegration , Cooking, Dressing, Eating, Fine Motor Skills, Grooming, Homemaking, Kitchen Mobility, Laundry, [place] ent Education, Safety Awareness, Splinting - Positioning, Transfers(Toilet, Tub, Shower), and Wheel C hair Management Need for geriatric personal care aide - to improve, our occupation therapists will perform initial evaluation of pt's s tatus upon admission and devise an individualized program for Caregiver Training Weakness - to improve, our occupation therapists will perform initial evaluation of pt's status upon admission and devise an individualized program for Aquatic Therapy, Balance, Endurance, UE ROM, and U E strengthening MEDICAL PLAN: - Diet Type Start Regular - Diet - Liquid Texture Start Regular - Tube Feed Start N/A - Other See attached MAR (Medication Administration Record) - Diet - Solid Texture Regular - Shower shower DISCHARGE PLAN: - Estimated Length of Stay (days) 13. - Consensus on plan Discharge plan has been discussed with primary caregiver. Patient/Family is in agreement with the yaneth n. Primary caregiver is in agreement with the plan. - Patient/Family Goals Return home independently. - Planned Living Setting Upon Discharge Home, to live alone. Transitional Living. Primary caregiver: Pt self. SIGNATURE PANEL: (CDT)
--- NOTE | 2020-05-04 00:37 | PAPE ---
POST ADMISSION PHYSICIAN EVALUATION PATIENT: [facility] MR# [id number] REFERRING DOCTOR JOO EVALUATION DATE AND TIME 05/04/2020 00:35 (CDT) NAME VAMSHI LUGO DATE OF 1930 AGE 89 PHONE N# [id number] GENDER female EVALUATING PHYSICIAN Dr. Parviz Frederick M.D. ADMISSION DIAGNOSIS: RIGHT HUMERUS FRACTURE ONSET DATE 05/01/2020 POST-ADMISSION FUNCTIONAL/MEDICAL STATUS: - Bladder Same accident frequency: Ind - No accidents in the past 7 days - Bowel Same accident frequency: Ind - No accidents in the past 7 days - Walking Same score based on distance walked: 0(N/A) - Wheelchair Same score based on distance traveled: 0(N/A) STATUS CHANGE EVALUATION: No change in Functional or Medical Status is identified compared with Pre-Admission screening. PATIENT NEEDS CLOSE MEDICAL SUPERVISION BY A REHABILITATION PHYSICIAN FOR: Coordination of Treatment Team PATIENT REQUIRES 24X7 REHAB NURSING FOR MEDICAL AND FUNCTIONAL MGT. OF THE FOLLOWING DEFICITS: Disease Management Medication Management Patient/Family Education Providing Safe Environment PATIENT REQUIRES INTENSIVE, COORDINATED INTERDISCIPLINARY APPROACH TO REHAB: Arranging Home Equipment/Services Discharge Planning Family Intervention/Training Cryogenic Transport Driver/Case Management LIST OF IDENTIFIED AND POTENTIAL PROBLEMS: Alteration in leisure activities Bladder, Incontinence Bowel, Incontinence Infection, Actual or Potential Mobility Impaired Pain, Alteration in Comfort Self Care Deficit Skin Integrity, Actual or Potential Urinary Tract Infection (UTI), Actual or Potential PATIENT COULD BE AT RISK FOR COMPLICATIONS FROM ADVERSE MEDICAL CONDITIONS DUE TO HIS/HER COMORBIDITI ES AND THE RIGORS OF THE INTENSIVE REHABILLITATION PROGRAM. METHODS OR INTERVENTIONS TO AVOID COMPLIC ATIONS INCLUDE: - Infection Clinical staff to assess and manage the signs and symptoms of infection including fever, redness, war mth, etc. - Urinary Tract Infection - Falls Patient will be evaluated for Fall Precautions and will be placed on Fall Precautions as indicated pe r protocol. - Skin Breakdown Nursing will assess skin daily using assessment tool and will place on Skin Breakdown Precautions as indicated per protocol. - Pain Clinical staff may employ non-medication methods such as massage, distraction, decrease stimulus, etc . as needed. Clinical staff will assess patient's pain level every shift per protocol to assess and e nsure pain management effectiveness. Medications will be given and the pain level re-assessed. PRELIMINARY PLAN OF CARE: - Physical Therapy Patient needs Physical Therapy for a daily minimum of 1.5 hours at least 5 out of 7 days, to improve: Mobility, Strengthening, Transfers, Stretching, ROM, Endurance, Ability to manage stairs, Gait, and Balance. - Speech Therapy Patient needs Speech Therapy for a daily minimum of 0.5 hours at least 5 out of 7 days, to improve: S wallowing, Cognition, Language Skills, and Compensatory Strategies. - Rehabilitation Nursing Patient requires 24x7 Rehabilitation Nursing for: Pain Issues, Identifying and preventing risk factor s, Monitoring and reporting current medical conditions, Assisting with ambulation and transfer, Leif ting with all ADL-s, Teaching patients about disease process and medications, Family teaching, Provid ing safe environment, Bowel and Bladder Issues, Skin Integrity, and Medication Management. Patient needs Cryogenic Transport Driver and/or Case Management for: Discharge Planning, Arranging Home Equipmen t or Services, and Family Interventions. - Dietary and Nutrition Services Patient needs Dietary and Nutrition Services for: Adequate Nutrition, Nutritional Supplements, and Nu tritional Education. - Occupational Therapy Patient needs Occupational Therapy for a daily minimum of 1.5 hours at least 5 out of 7 days, to impr ove Activities of Daily Living, including: Eating, Grooming, Bathing, Dressing, Toileting, Toilet Tra nsfers, Community Reintegration, Higher functional activities, Adaptive Equipment, Splinting, Househo ld Tasks, and Other activities as determined. QI SCORES: - Self-Care A. Eating 03-Partial/moderate assistance B. Oral hygiene 03-Partial/moderate assistance C. Toileting hygiene 02-Substantial/maximal assistance E. Shower/bathe self 02-Substantial/maximal assistance F. Upper body dressing 88-Not attempted due to medical condition or safety concerns G. Lower body dressing 88-Not attempted due to medical condition or safety concerns H. Putting on/taking off footwear 88-Not attempted due to medical condition or safety concerns - Mobility M. 1 step (curb) 88-Not attempted due to medical condition or safety concerns N. 4 steps 88-Not attempted due to medical condition or safety concerns O. 12 steps 88-Not attempted due to medical condition or safety concerns P. Picking up object 88-Not attempted due to medical condition or safety concerns R. Wheel 50 feet with two turns 88-Not attempted due to medical condition or safety concerns A. Roll left and right 03-Partial/moderate assistance B. Sit to lying 02-Substantial/maximal assistance C. Lying to sitting on side of bed 02-Substantial/maximal assistance D. Sit to stand 02-Substantial/maximal assistance E. Chair/gcy-yr-pjfow transfer 03-Partial/moderate assistance F. Toilet transfer 02-Substantial/maximal assistance G. Car transfer 88-Not attempted due to medical condition or safety concerns I. Walk 10 feet 88-Not attempted due to medical condition or safety concerns J. Walk 50 feet with two turns 88-Not attempted due to medical condition or safety concerns K. Walk 150 feet 88-Not attempted due to medical condition or safety concerns L. Walking 10 feet on uneven surfaces 88-Not attempted due to medical condition or safety concerns S. Wheel 150 feet 88-Not attempted due to medical condition or safety concerns - Bladder and Bowel Bladder continence 9-Not applicable Bowel continence 9-Not rated - Endurance Fair - Balance Fair - Safety Awareness Fair POTENTIAL FUNCTIONAL GOALS FOR PATIENT TO ACHIEVE BY DISCHARGE: - Safety Precaution Patient will remain free from falls or injury at time of discharge. - Bed Mobility Patient will perform bed mobility at 4-Aidee level of assistance. - Transfers Patient will complete transfers from bed to chair at 4-Aidee level of assistance. - Mobility Patient will ambulate 150 ft with 4-Aidee level of assistance with RW. PATIENT REHAB POTENTIAL Milton LUGO is able and expected to receive 3 hours of individualized therapy daily on at least 5 kenroy 7 days Milton Tesfaye prognosis for significant practical improvement within a reasonable period of time appear s Good Expected level of measurable improvement will be of a practical value to Milton LUGO's functional capac ity or adaptations to impairments Has a viable Discharge Plan Medically appropriate; condition is sufficiently stable to participate in intensive rehab program DISCHARGE PLAN: - Estimated Length of Stay (days) 13. - Consensus on plan Discharge plan has been discussed with primary caregiver. Patient/Family is in agreement with the yaneth n. Primary caregiver is in agreement with the plan. - Patient/Family Goals Return home independently. - Planned Living Setting Upon Discharge Home, to live alone. Transitional Living. Primary caregiver: Pt self. CONCLUSION ON REHABILITATION NECESSITY: I have evaluated patient's pre-admission functional status and, comparing it to the patient's post-ad mission functional status now, I conclude that the pre-admission assessment was accurate. Patient's c ondition on admission supports the medical necessity of admission to IR[facility]. It is safe to proceed with patient's therapy program. SIGNATURE PANEL: (CDT)
[2020-05-04] MEDS: ATORVASTATIN 20 MG TAB PO SCH ×2 (08:00→20:46)
[2020-05-04] MEDS: CYANOCOBALAMIN 1,000 MCG TAB PO SCH (08:04)
[2020-05-04] MEDS: APIXABAN 5 MG TABLET PO SCH ×2 (08:04→20:46)
[2020-05-04] MEDS: CODEINE 30MG/APAP 300MG TAB PO SCH ×2 (08:05→18:20)
[2020-05-04] MEDS: VITAMIN D 1000 UNIT TAB PO SCH (08:06)
[2020-05-04] MEDS: SACUBITRIL/VALSARTAN 49/51 MG TAB PO SCH ×2 (08:06→20:46)
[2020-05-04] MEDS: DULOXETINE 30 MG CAP PO SCH (20:46)
[2020-05-04] MEDS: ZOLPIDEM TARTRATE 5 MG TABLET PO SCH (20:46)
[2020-05-04] MEDS: DOCUSATE NA/SENNA CONC 1 TAB PO SCH (20:46)
[2020-05-04] MEDS: FAMOTIDINE 20 MG TAB PO SCH (20:47)
--- NOTE | 2020-05-04 22:03 | PN ---
Date of Progress Note: 05/04/2020 Subjective: The patient was seen this morning for followup. No new complaints or problems reported by her. She had a bowel movement last night. Denies any abdominal pain, nausea, or vomiting. Her p ain from right hip/right groin area is getting better. Pain in the right shoulder is also better. H er current pain medication which she gets Tylenol with Codeine 2 times a day, and p.r.n. use of Tylen ol that seems to be controlling her pain very well. No new problems reported. Objective: Vital Signs: Reviewed. HEENT: Unremarkable. Lungs: Clear to auscultation. Heart: Heart sounds normal. Abdomen: Soft. Bowel sounds normal. No guarding, rigidity, tenderness, or distention. Extremities: No leg edema. Impression: 1.Fracture, right proximal humerus. 2.Contusion, right hip. 3.Chronic atrial fibrillation. 4.Chronic anticoagulation therapy. 5.Congestive heart failure, chronic, systolic. 6.Chronic obstructive pulmonary disease. 7.Hypertension. Plan: Continue current anticoagulation therapy and continue current pain medication. Physical thera py to be provided under guidance of Dr. Frederick and I will see her tomorrow for followup. DIAZ/MODL Voice ID: [id number] Report ID: [id number]
[2020-05-05] MEDS: CODEINE 30MG/APAP 300MG TAB PO SCH ×2 (06:33→20:40)
[2020-05-05] MEDS: SACUBITRIL/VALSARTAN 49/51 MG TAB PO SCH ×2 (08:06→20:40)
[2020-05-05] MEDS: CYANOCOBALAMIN 1,000 MCG TAB PO SCH (08:06)
[2020-05-05] MEDS: VITAMIN D 1000 UNIT TAB PO SCH (08:06)
[2020-05-05] MEDS: APIXABAN 5 MG TABLET PO SCH ×2 (08:06→20:39)
--- NOTE | 2020-05-05 10:40 | PN ---
Date of Progress Note: 05/05/2020 Subjective: The patient was seen this morning for followup.. She was sitting in the chair in the eelchair. Denied any new complaints. Continues to have some right groin and right arm pain. Nurse reports that during nighttime, the patient had some confusion. She is answering questions ereniat amelia when I saw her this morning. Objective: Vital Signs: Reviewed. HEENT: Examination unremarkable. Lungs: Clear to auscultation. No rales, not in distress. Heart: Sounds normal. Abdomen: Soft. Bowel sounds normal. No guarding, rigidity, tenderness or distention. Extremities: No leg edema. Impression: 1.Chronic atrial fibrillation. 2.Chronic anticoagulation therapy. 3.Fracture, right proximal humerus. 4.Right hip contusion. Plan: We will go ahead and continue current anticoagulation therapy, which is Eliquis and Entresto. We will add a low-dose of carvedilol 3.125 mg 2 times a day. Hematocrit this morning was 103 and wh en I examine her, it appeared to be in atrial fibrillation with some irregular heart rhythm, so she w ill benefit from some heart rate control and obviously carvedilol would be a good option for her in v iew of chronic systolic congestive heart failure as well. Details were discussed with her. 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 DIAZ/MODL Voice ID: [id number] Report ID: [id number]
[2020-05-05] MEDS: ACETAMINOPHEN 325 MG TABLET PO PRN (12:10)
[2020-05-05] MEDS: ATORVASTATIN 20 MG TAB PO SCH (20:40)
[2020-05-05] MEDS: DOCUSATE NA/SENNA CONC 1 TAB PO SCH (20:40)
[2020-05-05] MEDS: DULOXETINE 30 MG CAP PO SCH (20:40)
[2020-05-05] MEDS: carvediloL 3.125 MG TAB PO SCH (20:41)
[2020-05-05] MEDS ORDERED: FAMOTIDINE 20 MG TAB ONE (21:24)
[2020-05-05] MEDS: FAMOTIDINE 20 MG TAB PO SCH (22:20)
[2020-05-06] MEDS: VITAMIN D 1000 UNIT TAB PO SCH (08:00)
[2020-05-06] MEDS: APIXABAN 5 MG TABLET PO SCH ×2 (08:12→20:06)
[2020-05-06] MEDS: CYANOCOBALAMIN 1,000 MCG TAB PO SCH (08:12)
[2020-05-06] MEDS: carvediloL 3.125 MG TAB PO SCH ×2 (08:12→20:05)
[2020-05-06] MEDS: SACUBITRIL/VALSARTAN 49/51 MG TAB PO SCH ×2 (08:13→20:05)
[2020-05-06] MEDS: CODEINE 30MG/APAP 300MG TAB PO SCH ×2 (08:14→20:04)
[2020-05-06] MEDS ORDERED: LIDOCAINE 4% PATCH TOP SCH (12:00)
[2020-05-06] MEDS: ACETAMINOPHEN 325 MG TABLET PO PRN (12:17)
[2020-05-06] MEDS ORDERED: LIDOCAINE 4% PATCH TOP ONE (14:00)
--- NOTE | 2020-05-06 19:48 | R.PN ---
PROGRESS NOTES ENCOUNTER DATE AND TIME: 05/06/2020 19:41 (CDT) NAME VAMSHI LUGO DATE OF : 1930 DATE OF ADMISSION: 05/03/2020 13:28 (CDT) RIGHT HUMERUS FRACTURECHIEF COMPLAINT: Right humerus fracture SUBJECTIVE: Pt denied any depression. Pt denied any Shortness of Breath. CBC with differential is normal. Prealbumin is low at 10.7. Will start promod 30 cc bid. Ambulated 55' with contact guard assistance using a quad cane. Self-propelled wheelchair 250' with s upervision. VITAL SIGNS Temperature: 97.6 F SBP/DBP: 127/59 Pulse: 94 Resp: 16 MEDICATION ALLERGIES: CODEINE SULFA ENVIRONMENTAL ALLERGIES: - Substance Allergies None Known - Other Allergies None Known NURSING: - Shower allowing shower ACTIVITIES OOB only with supervision THERAPIES: - Dietary and Nutrition Adequate Nutrition. Nutritional Education. Nutritional Supplements. PHYSICAL EXAM - Gen Alert and awake Lying in bed No apparent distress Oriented to: person, time, and place - Skin No skin breakdown. Normacephalic - Eyes No abnormalities - ENMT No abnormalities - Neck No abnormalities - CVS RRR - Chest No abnormalities - Resp No wheezing - Abd Soft - GI Non distended Deferred - No abnormalities - Ext right arm in sling after fall. - MSK No focal deficits, mild diffuse weakness - Neuro No focal deficits - Psych No abnormalities ASSESSMENT: Currently, she has deficits of Safety Awareness, Balance, Transfers Control, Self-Care, and Endurance .On 05/01/2020 she was admitted to [facility] with diagnosis RIGHT HUMERUS FRACTURE.Her impairment category is Debility 16 - Debility (16).Pt. is now referred to [facility] for acute in-patient rehabilitation in order to maximize patient's functional independence i n activities of daily living, strength, ROM, and mobility.Pre-morbidly, Pt. was independent/mod-I in Self-Care, Endurance, Communication, Locomotion, Safety Awareness, Balance, and Transfers Control; an d she had good Sphincter Control.Pt. is a 89 yo Right-handed female of unknown race.- Rehab Goal Patient has realistic goal of being discharged at assistance level 7-Ind to reside at Home with Pt s elf. MDM/PLAN: - Physical Therapy Achieving independence - to improve, our physical therapists will perform initial evaluation of pt's status upon admission and devise an individualized program for Community Reintegration Activities Gait dysfunction - to improve, our physical therapists will perform initial evaluation of pt's statu s upon admission and devise an individualized program for Gait Training, and Wheel Chair mobility Inability to transfer - to improve, our physical therapists will perform initial evaluation of pt's status upon admission and devise an individualized program for Bed mobility Need for home safety evaluation - to improve, our physical therapists will perform initial evaluatio n of pt's status upon admission and devise an individualized program for Home Evaluation Need in caregiver upon discharge - to improve, our physical therapists will perform initial evaluati on of pt's status upon admission and devise an individualized program for Caregiver Training New precaution - to improve, our physical therapists will perform initial evaluation of pt's status upon admission and devise an individualized program for Patient precaution education Poor balance - to improve, our physical therapists will perform initial evaluation of pt's status up on admission and devise an individualized program for Balance Training Poor endurance - to improve, our physical therapists will perform initial evaluation of pt's status upon admission and devise an individualized program for Endurance Training Weakness - to improve, our physical therapists will perform initial evaluation of pt's status upon a dmission and devise an individualized program for Aquatic Therapy, Neuromuscular Reeducation, and Str engthening - Occupational Therapy ADL deficits - to improve, our occupation therapists will perform initial evaluation of pt's status upon admission and devise an individualized program for Bathing, Bed mobility, Community Reintegratio n, Cooking, Dressing, Eating, Fine Motor Skills, Grooming, Homemaking, Kitchen Mobility, Laundry, Pat ient Education, Safety Awareness, Splinting - Positioning, Transfers(Toilet, Tub, Shower), and Wheel Chair Management Need for healthcare marketer - to improve, our occupation therapists will perform initial evaluation of pt's status upon admission and devise an individualized program for Caregiver Training Weakness - to improve, our occupation therapists will perform initial evaluation of pt's status upon admission and devise an individualized program for Aquatic Therapy, Balance, Endurance, UE ROM, and UE strengthening - Other See attached MAR (Medication Administration Record) - Diet Type Continue Regular - Diet - Liquid Texture Continue Regular - Tube Feed Continue N/A - Diet - Solid Texture Continue Regular - Shower allowing shower FUNCTIONAL STATUS: UPDATED AT WEEKLY TEAM CONFERENCE - Bladder Same accident frequency: 7-Ind - No accidents in the past 7 days - Bowel Same accident frequency: 7-Ind - No accidents in the past 7 days - Walking Same score based on distance walked: 0(N/A) - Wheelchair Same score based on distance traveled: 0(N/A) FUNCTIONAL STATUS: - Self-Care A. Eating Shanika B. Grooming Aidee C. Bathing modA D. Dressing - Upper modA E. Dressing - Lower modA F. Toileting sup - Sphincter Control G. Bladder control Shanika H. Bowel control Shanika - Transfers Control I. Bed/Chair/Wheelchair Aidee J. Toilet Aidee K. Tub/Shower modA - Locomotion L. Walk/Wheelchair (B) Aidee M. Stairs ADNO - Communication N. Comprehension (B) Shanika O. Expression (B) Shanika - Social Cognition P. Social Interaction Ind Q. Problem Solving Shanika R. Memory Shanika - Endurance Fair - Balance Fair - Safety Awareness Fair QI SCORES: - Self-Care A. Eating 03-Partial/moderate assistance B. Oral hygiene 03-Partial/moderate assistance C. Toileting hygiene 02-Substantial/maximal assistance E. Shower/bathe self 02-Substantial/maximal assistance F. Upper body dressing 88-Not attempted due to medical condition or safety concerns G. Lower body dressing 88-Not attempted due to medical condition or safety concerns H. Putting on/taking off footwear 88-Not attempted due to medical condition or safety concerns - Mobility M. 1 step (curb) 88-Not attempted due to medical condition or safety concerns N. 4 steps 88-Not attempted due to medical condition or safety concerns O. 12 steps 88-Not attempted due to medical condition or safety concerns P. Picking up object 88-Not attempted due to medical condition or safety concerns R. Wheel 50 feet with two turns 88-Not attempted due to medical condition or safety concerns A. Roll left and right 03-Partial/moderate assistance B. Sit to lying 02-Substantial/maximal assistance C. Lying to sitting on side of bed 02-Substantial/maximal assistance D. Sit to stand 02-Substantial/maximal assistance E. Chair/[id number] transfer 03-Partial/moderate assistance F. Toilet transfer 02-Substantial/maximal assistance G. Car transfer 88-Not attempted due to medical condition or safety concerns I. Walk 10 feet 88-Not attempted due to medical condition or safety concerns J. Walk 50 feet with two turns 88-Not attempted due to medical condition or safety concerns K. Walk 150 feet 88-Not attempted due to medical condition or safety concerns L. Walking 10 feet on uneven surfaces 88-Not attempted due to medical condition or safety concerns S. Wheel 150 feet 88-Not attempted due to medical condition or safety concerns - Bladder and Bowel Bladder continence 9-Not applicable Bowel continence 9-Not rated - Endurance Fair - Balance Fair - Safety Awareness Fair [facility] DEFICITS: Balance, Self-Care, Mobility, Safety Awareness, and Endurance SIGNATURE PANEL: (CDT)
[2020-05-06] MEDS: CRANBERRY FRUIT EXTRACT 200 MG CAP PO SCH (20:04)
[2020-05-06] MEDS: DOCUSATE NA/SENNA CONC 1 TAB PO SCH (20:05)
[2020-05-06] MEDS: ATORVASTATIN 20 MG TAB PO SCH (20:05)
[2020-05-06] MEDS: FAMOTIDINE 20 MG TAB PO SCH (20:05)
[2020-05-06] MEDS: DULOXETINE 30 MG CAP PO SCH (20:06)
[2020-05-06] MEDS: PROMOD 30 ML DOSE PO SCH (20:06)
[2020-05-06] MEDS: ZOLPIDEM TARTRATE 5 MG TABLET PO SCH ×2 (21:37)
[2020-05-06] MEDS: TRAMADOL HCL 50 MG TAB PO PRN (21:52)
--- NOTE | 2020-05-07 00:23 | PN ---
Date of Progress Note: 05/06/2020 Subjective: The patient was seen this morning for followup. Lying in bed, not in distress. No new complaints or problems reported by the patient. She has some constipation problem. Denies any abdom inal pain, nausea, vomiting. Objective: Vital Signs: Reviewed. HEENT: Unremarkable. Lungs: Clear to auscultation. Heart: Sounds normal. Abdomen: Soft. Bowel sounds normal. No guarding, rigidity, tenderness, distention. Extremities: No leg edema. Impression: 1.Constipation. 2.Hypertension. 3.Atrial fibrillation. 4.Chronic anticoagulation therapy. 5.Right hip contusion. 6.Fracture, right proximal humerus. Plan: Continue current medication. Continue Senokot and milk of magnesia per order. Continue curre nt anticoagulation therapy. I will see her tomorrow for followup. Continue physical therapy under g uidance of Dr. Frederick. DIAZ/MODL Voice ID: [id number] Report ID: [id number]
[2020-05-07] MEDS: TRAMADOL HCL 50 MG TAB PO PRN ×2 (03:56→17:40)
[2020-05-07] MEDS: CODEINE 30MG/APAP 300MG TAB PO SCH ×2 (08:57→20:19)
[2020-05-07] MEDS: LIDOCAINE 4% PATCH TOP SCH (08:57)
[2020-05-07] MEDS: APIXABAN 5 MG TABLET PO SCH ×2 (08:58→20:19)
[2020-05-07] MEDS: carvediloL 3.125 MG TAB PO SCH ×2 (08:58→20:20)
[2020-05-07] MEDS: VITAMIN D 1000 UNIT TAB PO SCH (08:59)
[2020-05-07] MEDS: SACUBITRIL/VALSARTAN 49/51 MG TAB PO SCH ×2 (08:59→20:18)
[2020-05-07] MEDS: PROMOD 30 ML DOSE PO SCH ×2 (08:59→20:20)
[2020-05-07] MEDS: CRANBERRY FRUIT EXTRACT 200 MG CAP PO SCH ×2 (08:59→20:18)
[2020-05-07] MEDS: CYANOCOBALAMIN 1,000 MCG TAB PO SCH (08:59)
[2020-05-07 13:23] LABS: Urine Appearance CLOUDY; Urine Bilirubin NEGATIVE (NEG); Urine Blood 2+ (NEG); Urine Color DK YELLOW; Urine Glucose NEGATIVE (NEG); Urine Protein 1+ (NEG); Urine Specific Gravity 1.015 (1.005-1.030)
[2020-05-07 13:57] LABS: Urine Bacteria 20-50 /HPF (<20); Urine Culture Reflex Order REFLEXED; Urine Mucus 1+ /HPF (NONE SEEN)
--- NOTE | 2020-05-07 17:18 | R.PN ---
PROGRESS NOTES ENCOUNTER DATE AND TIME: 05/07/2020 17:14 (CDT) NAME VAMSHI LUGO DATE OF : 1930 DATE OF ADMISSION: 05/03/2020 13:28 (CDT) RIGHT HUMERUS FRACTURECHIEF COMPLAINT: Right humerus fracture SUBJECTIVE: Pt denied any depression. Pt denied any Shortness of Breath. CBC with differential is normal. Prealbumin is low at 10.7. On promod 30 cc bid. Ambulated 55' with contact guard assistance using a quad cane. Self-propelled wheelchair 250' with s upervision. Grooming done with independence. Therapeutic exercises done with supervision. VITAL SIGNS Temperature: 97.3 F SBP/DBP: 116/57 Pulse: 86 Resp: 16 MEDICATION ALLERGIES: CODEINE SULFA ENVIRONMENTAL ALLERGIES: - Substance Allergies None Known - Other Allergies None Known NURSING: - Shower allowing shower ACTIVITIES OOB only with supervision THERAPIES: - Dietary and Nutrition Adequate Nutrition. Nutritional Education. Nutritional Supplements. PHYSICAL EXAM - Gen Alert and awake Lying in bed No apparent distress Oriented to: person, time, and place - Skin No skin breakdown. Normacephalic - Eyes No abnormalities - ENMT No abnormalities - Neck No abnormalities - CVS RRR - Chest No abnormalities - Resp No wheezing - Abd Soft - GI Non distended Deferred - No abnormalities - Ext right arm in sling after fall. - MSK No focal deficits, mild diffuse weakness - Neuro No focal deficits - Psych No abnormalities ASSESSMENT: Currently, she has deficits of Safety Awareness, Balance, Transfers Control, Self-Care, and Endurance .On 05/01/2020 she was admitted to [facility] with diagnosis RIGHT HUMERUS FRACTURE.Her impairment category is Debility 16 - Debility (16).Pt. is now referred to [facility] for acute in-patient rehabilitation in order to maximize patient's functional independence i n activities of daily living, strength, ROM, and mobility.Pre-morbidly, Pt. was independent/mod-I in Self-Care, Endurance, Communication, Locomotion, Safety Awareness, Balance, and Transfers Control; an d she had good Sphincter Control.Pt. is a 89 yo Right-handed female of unknown race.- Rehab Goal Patient has realistic goal of being discharged at assistance level 7-Ind to reside at Home with Pt s elf. MDM/PLAN: - Physical Therapy Achieving independence - to improve, our physical therapists will perform initial evaluation of pt's status upon admission and devise an individualized program for Community Reintegration Activities Gait dysfunction - to improve, our physical therapists will perform initial evaluation of pt's statu s upon admission and devise an individualized program for Gait Training, and Wheel Chair mobility Inability to transfer - to improve, our physical therapists will perform initial evaluation of pt's status upon admission and devise an individualized program for Bed mobility Need for home safety evaluation - to improve, our physical therapists will perform initial evaluatio n of pt's status upon admission and devise an individualized program for Home Evaluation Need in caregiver upon discharge - to improve, our physical therapists will perform initial evaluati on of pt's status upon admission and devise an individualized program for Caregiver Training New precaution - to improve, our physical therapists will perform initial evaluation of pt's status upon admission and devise an individualized program for Patient precaution education Poor balance - to improve, our physical therapists will perform initial evaluation of pt's status up on admission and devise an individualized program for Balance Training Poor endurance - to improve, our physical therapists will perform initial evaluation of pt's status upon admission and devise an individualized program for Endurance Training Weakness - to improve, our physical therapists will perform initial evaluation of pt's status upon a dmission and devise an individualized program for Aquatic Therapy, Neuromuscular Reeducation, and Str engthening - Occupational Therapy ADL deficits - to improve, our occupation therapists will perform initial evaluation of pt's status upon admission and devise an individualized program for Bathing, Bed mobility, Community Reintegratio n, Cooking, Dressing, Eating, Fine Motor Skills, Grooming, Homemaking, Kitchen Mobility, Laundry, Pat ient Education, Safety Awareness, Splinting - Positioning, Transfers(Toilet, Tub, Shower), and Wheel Chair Management Need for day care home provider - to improve, our occupation therapists will perform initial evaluation of pt's status upon admission and devise an individualized program for Caregiver Training Weakness - to improve, our occupation therapists will perform initial evaluation of pt's status upon admission and devise an individualized program for Aquatic Therapy, Balance, Endurance, UE ROM, and UE strengthening - Other See attached MAR (Medication Administration Record) - Diet Type Continue Regular - Diet - Liquid Texture Continue Regular - Tube Feed Continue N/A - Diet - Solid Texture Continue Regular - Shower allowing shower FUNCTIONAL STATUS: UPDATED AT WEEKLY TEAM CONFERENCE - Bladder Same accident frequency: 7-Ind - No accidents in the past 7 days - Bowel Same accident frequency: 7-Ind - No accidents in the past 7 days - Walking Same score based on distance walked: 0(N/A) - Wheelchair Same score based on distance traveled: 0(N/A) FUNCTIONAL STATUS: - Self-Care A. Eating Shanika B. Grooming Aidee C. Bathing modA D. Dressing - Upper modA E. Dressing - Lower modA F. Toileting sup - Sphincter Control G. Bladder control Shanika H. Bowel control Shanika - Transfers Control I. Bed/Chair/Wheelchair Aidee J. Toilet Aidee K. Tub/Shower modA - Locomotion L. Walk/Wheelchair (B) Aidee M. Stairs ADNO - Communication N. Comprehension (B) Shanika O. Expression (B) Shanika - Social Cognition P. Social Interaction Ind Q. Problem Solving Shanika R. Memory Shanika - Endurance Fair - Balance Fair - Safety Awareness Fair QI SCORES: - Self-Care A. Eating 03-Partial/moderate assistance B. Oral hygiene 03-Partial/moderate assistance C. Toileting hygiene 02-Substantial/maximal assistance E. Shower/bathe self 02-Substantial/maximal assistance F. Upper body dressing 88-Not attempted due to medical condition or safety concerns G. Lower body dressing 88-Not attempted due to medical condition or safety concerns H. Putting on/taking off footwear 88-Not attempted due to medical condition or safety concerns - Mobility M. 1 step (curb) 88-Not attempted due to medical condition or safety concerns N. 4 steps 88-Not attempted due to medical condition or safety concerns O. 12 steps 88-Not attempted due to medical condition or safety concerns P. Picking up object 88-Not attempted due to medical condition or safety concerns R. Wheel 50 feet with two turns 88-Not attempted due to medical condition or safety concerns A. Roll left and right 03-Partial/moderate assistance B. Sit to lying 02-Substantial/maximal assistance C. Lying to sitting on side of bed 02-Substantial/maximal assistance D. Sit to stand 02-Substantial/maximal assistance E. Chair/edp-gh-[id number] transfer 03-Partial/moderate assistance F. Toilet transfer 02-Substantial/maximal assistance G. Car transfer 88-Not attempted due to medical condition or safety concerns I. Walk 10 feet 88-Not attempted due to medical condition or safety concerns J. Walk 50 feet with two turns 88-Not attempted due to medical condition or safety concerns K. Walk 150 feet 88-Not attempted due to medical condition or safety concerns L. Walking 10 feet on uneven surfaces 88-Not attempted due to medical condition or safety concerns S. Wheel 150 feet 88-Not attempted due to medical condition or safety concerns - Bladder and Bowel Bladder continence 9-Not applicable Bowel continence 9-Not rated - Endurance Fair - Balance Fair - Safety Awareness Fair [facility] DEFICITS: Balance, Self-Care, Mobility, Safety Awareness, and Endurance SIGNATURE PANEL: (CDT)
[2020-05-07] MEDS: DOCUSATE NA/SENNA CONC 1 TAB PO SCH (20:18)
[2020-05-07] MEDS: FAMOTIDINE 20 MG TAB PO SCH (20:18)
[2020-05-07] MEDS: ATORVASTATIN 20 MG TAB PO SCH (20:18)
[2020-05-07] MEDS: DULOXETINE 30 MG CAP PO SCH (20:19)
[2020-05-07] MEDS ORDERED: CIPROFLOXACIN HCL 250 MG TAB PO ONE (21:25)
[2020-05-07] MEDS: ZOLPIDEM TARTRATE 5 MG TABLET PO SCH (21:43)
--- NOTE | 2020-05-08 00:08 | PN ---
Date of Progress Note: 05/07/2020 Subjective: The patient was seen this morning for followup. No new complaints or problems reported by her. Lying in bed, not in distress. Objective: Vital Signs: Reviewed. HEENT: Unremarkable. Lungs: Clear to auscultation. Heart: Sounds normal. Abdomen: Soft. Bowel sounds normal. No guarding, rigidity, tenderness, or distention. Extremities: No leg edema. Laboratory Data: Urinalysis; 3+ esterase, 10-20 rbc's, more than 50 wbc's, 20-50 bacteria. Impression: 1.Urinary tract infection. 2.Right hip contusion. 3.Right humerus fracture. 4.Chronic atrial fibrillation. Plan: After I saw the patient, nurse from rehab floor contacted me during the course of day today wi th the patient's symptoms of having urinary tract infection, so urinalysis was done, results reviewed as mentioned above. We will go ahead and start empiric antibiotics while waiting on the urine cultu re results. We will see her tomorrow for followup. DIAZ/MODL Voice ID: [id number] Report ID: [id number]
[2020-05-08 05:59] LABS: Absolute Lymphocytes (CBC) 0.8 K/uL (0.7-4.9); Basophils % 0.6 % (0-1.3); Hematocrit 32.8 % (36.0-45.0); Lymphocytes % 12.2 % (15.3-44.8); MPV 8.9 fL (7.6-11.3); RBC Red Blood Cell Count 3.61 M/uL (3.86-4.86)
[2020-05-08 06:18] LABS: Albumin 2.6 g/dL (3.4-5.0); BUN Blood Urea Nitrogen 13 mg/dL (7-18); Bicarbonate 31 mmol/L (21-32); Glucose Level 97 mg/dL (74-106); Magnesium 2.1 mg/dL (1.8-2.4); Potassium 4.6 mmol/L (3.5-5.1); Prealbumin 9.6 mg/dL (20-40); Sodium Level 138 mmol/L (136-145)
[2020-05-08] MEDS: LIDOCAINE 4% PATCH TOP SCH (07:11)
[2020-05-08] MEDS: SACUBITRIL/VALSARTAN 49/51 MG TAB PO SCH ×3 (08:00→19:42)
[2020-05-08] MEDS: PROMOD 30 ML DOSE PO SCH ×2 (08:00→19:43)
[2020-05-08] MEDS: CRANBERRY FRUIT EXTRACT 200 MG CAP PO SCH ×2 (08:23→19:41)
[2020-05-08] MEDS: CODEINE 30MG/APAP 300MG TAB PO SCH ×2 (08:24→19:42)
[2020-05-08] MEDS: CIPROFLOXACIN HCL 250 MG TAB PO SCH ×2 (08:24→19:43)
[2020-05-08] MEDS: carvediloL 3.125 MG TAB PO SCH ×2 (08:24→19:41)
[2020-05-08] MEDS: APIXABAN 5 MG TABLET PO SCH ×2 (08:24→19:41)
[2020-05-08] MEDS: VITAMIN D 1000 UNIT TAB PO SCH (08:24)
[2020-05-08] MEDS: CYANOCOBALAMIN 1,000 MCG TAB PO SCH (08:25)
[2020-05-08] MEDS: TRAMADOL HCL 50 MG TAB PO PRN (12:01)
--- NOTE | 2020-05-08 19:32 | R.PN ---
PROGRESS NOTES ENCOUNTER DATE AND TIME: 05/08/2020 19:25 (CDT) NAME VAMSHI LUGO DATE OF : 1930 DATE OF ADMISSION: 05/03/2020 13:28 (CDT) Other orthopedic, 8.9 and right humerus fracture.Other orthopedic, 8.9 and right humerus fracture.[facility] COMPLAINT: Right humerus fracture SUBJECTIVE: Pt denied any depression. Pt denied any Shortness of Breath. CBC with differential is normal except mildly low Hgb of 11.6. Prealbumin is low at 9.6. On promod 3 0 cc bid. UA shows 4+ gram negative rods, now on Cipro 250 mg twice daily. Ambulated 100' with contact guard assistance using a quad cane. Self-propelled wheelchair 250' with supervision. Grooming done with independence. Therapeutic exercises done with supervision. VITAL SIGNS Temperature: 97.3 F SBP/DBP: 1107/55 Pulse: 91 Resp: 16 MEDICATION ALLERGIES: CODEINE SULFA ENVIRONMENTAL ALLERGIES: - Substance Allergies None Known - Other Allergies None Known NURSING: - Shower allowing shower ACTIVITIES OOB only with supervision THERAPIES: - Dietary and Nutrition Adequate Nutrition. Nutritional Education. Nutritional Supplements. PHYSICAL EXAM - Gen Alert and awake Lying in bed No apparent distress Oriented to: person, time, and place - Skin No skin breakdown. Normacephalic - Eyes No abnormalities - ENMT No abnormalities - Neck No abnormalities - CVS RRR - Chest No abnormalities - Resp No wheezing - Abd Soft - GI Non distended Deferred - No abnormalities - Ext right arm in sling after fall. - MSK No focal deficits, mild diffuse weakness - Neuro No focal deficits - Psych No abnormalities ASSESSMENT: Currently, she has deficits of Safety Awareness, Balance, Transfers Control, Self-Care, and Endurance .On 05/01/2020 she was admitted to [facility] with diagnosis Other orthopedic, 8.9 and r ight humerus fracture..Her impairment category is Other Orthopedic, 8.9.Pt. is now referred to [facility] for acute in-patient rehabilitation in order to maximize patient's functi onal independence in activities of daily living, strength, ROM, and mobility.Pre-morbidly, Pt. was in dependent/mod-I in Self-Care, Endurance, Communication, Locomotion, Safety Awareness, Balance, and Tr ansfers Control; and she had good Sphincter Control.Pt. is a 89 yo Right-handed female of unknown rac e.- Rehab Goal Patient has realistic goal of being discharged at assistance level 7-Ind to reside at Home with Pt s elf. MDM/PLAN: - Balance for Weakness - Bed mobility for ADL deficits - Lymphedema Therapy for Edema - Physical Therapy Achieving independence - to improve, our physical therapists will perform initial evaluation of pt's status upon admission and devise an individualized program for Community Reintegration Activities Gait dysfunction - to improve, our physical therapists will perform initial evaluation of pt's status upon admission and devise an individualized program for Gait Training, and Wheel Chair mobility Inability to transfer - to improve, our physical therapists will perform initial evaluation of pt's status upon admission and devise an individualized program for Bed mobility Need for home safety evaluation - to improve, our physical therapists will perform initial evaluatio n of pt's status upon admission and devise an individualized program for Home Evaluation Need in caregiver upon discharge - to improve, our physical therapists will perform initial evaluatio n of pt's status upon admission and devise an individualized program for Caregiver Training New precaution - to improve, our physical therapists will perform initial evaluation of pt's status u trell admission and devise an individualized program for Patient precaution education Poor balance - to improve, our physical therapists will perform initial evaluation of pt's status up on admission and devise an individualized program for Balance Training Poor endurance - to improve, our physical therapists will perform initial evaluation of pt's status upon admission and devise an individualized program for Endurance Training Weakness - to improve, our physical therapists will perform initial evaluation of pt's status upon ad mission and devise an individualized program for Aquatic Therapy, Neuromuscular Reeducation, and Stre ngthening - Occupational Therapy ADL deficits - to improve, our occupation therapists will perform initial evaluation of pt's status upon admission and devise an individualized program for Bathing, Bed mobility, Community Reintegratio n, Cooking, Dressing, Eating, Fine Motor Skills, Grooming, Homemaking, Kitchen Mobility, Laundry, Pat ient Education, Safety Awareness, Splinting - Positioning, Transfers(Toilet, Tub, Shower), and Wheel Chair Management Need for career services representative - to improve, our occupation therapists will perform initial evaluation of pt's s tatus upon admission and devise an individualized program for Caregiver Training Weakness - to improve, our occupation therapists will perform initial evaluation of pt's status upon admission and devise an individualized program for Aquatic Therapy, Balance, Endurance, UE ROM, and U E strengthening - Other See attached MAR (Medication Administration Record) - Diet Type Regular - Diet - Liquid Texture Regular - Tube Feed N/A - Diet - Solid Texture Regular - Shower allowing shower FUNCTIONAL STATUS: UPDATED AT WEEKLY TEAM CONFERENCE - Bladder Same accident frequency: 7-Ind - No accidents in the past 7 days - Bowel Same accident frequency: 7-Ind - No accidents in the past 7 days - Walking Same score based on distance walked: 0(N/A) - Wheelchair Same score based on distance traveled: 0(N/A) FUNCTIONAL STATUS: - Self-Care A. Eating Shanika B. Grooming Aidee C. Bathing modA D. Dressing - Upper modA E. Dressing - Lower modA F. Toileting sup - Sphincter Control G. Bladder control Shanika H. Bowel control Shanika - Transfers Control I. Bed/Chair/Wheelchair Aidee J. Toilet Aidee K. Tub/Shower modA - Locomotion L. Walk/Wheelchair (B) Aidee M. Stairs ADNO - Communication N. Comprehension (B) Shanika O. Expression (B) Shanika - Social Cognition P. Social Interaction Ind Q. Problem Solving Shanika R. Memory Shanika - Endurance Fair - Balance Fair - Safety Awareness Fair QI SCORES: - Self-Care A. Eating 03-Partial/moderate assistance B. Oral hygiene 03-Partial/moderate assistance C. Toileting hygiene 02-Substantial/maximal assistance E. Shower/bathe self 02-Substantial/maximal assistance F. Upper body dressing 88-Not attempted due to medical condition or safety concerns G. Lower body dressing 88-Not attempted due to medical condition or safety concerns H. Putting on/taking off footwear 88-Not attempted due to medical condition or safety concerns - Mobility M. 1 step (curb) 88-Not attempted due to medical condition or safety concerns N. 4 steps 88-Not attempted due to medical condition or safety concerns O. 12 steps 88-Not attempted due to medical condition or safety concerns P. Picking up object 88-Not attempted due to medical condition or safety concerns R. Wheel 50 feet with two turns 88-Not attempted due to medical condition or safety concerns A. Roll left and right 03-Partial/moderate assistance B. Sit to lying 02-Substantial/maximal assistance C. Lying to sitting on side of bed 02-Substantial/maximal assistance D. Sit to stand 02-Substantial/maximal assistance E. Chair/ict-sp-hgdrx transfer 03-Partial/moderate assistance F. Toilet transfer 02-Substantial/maximal assistance G. Car transfer 88-Not attempted due to medical condition or safety concerns I. Walk 10 feet 88-Not attempted due to medical condition or safety concerns J. Walk 50 feet with two turns 88-Not attempted due to medical condition or safety concerns K. Walk 150 feet 88-Not attempted due to medical condition or safety concerns L. Walking 10 feet on uneven surfaces 88-Not attempted due to medical condition or safety concerns S. Wheel 150 feet 88-Not attempted due to medical condition or safety concerns - Bladder and Bowel Bladder continence 9-Not applicable Bowel continence 9-Not rated - Endurance Fair - Balance Fair - Safety Awareness Fair [facility]RENT [facility] DEFICITS: Balance, Self-Care, Mobility, Safety Awareness, and Endurance SIGNATURE PANEL: (CDT)
[2020-05-08] MEDS: DOCUSATE NA/SENNA CONC 1 TAB PO SCH (19:41)
[2020-05-08] MEDS: FAMOTIDINE 20 MG TAB PO SCH (19:42)
[2020-05-08] MEDS: ATORVASTATIN 20 MG TAB PO SCH (19:42)
[2020-05-08] MEDS: DULOXETINE 30 MG CAP PO SCH (19:42)
[2020-05-08] MEDS: ZOLPIDEM TARTRATE 5 MG TABLET PO SCH (22:50)
--- NOTE | 2020-05-08 23:13 | PN ---
Date of Progress Note: 05/08/2020 Subjective: The patient was seen this morning for followup. She was lying in bed, not in distress. As of yesterday, she started to have urinary frequency, urgency, and burning on urination. Objective: Vital Signs: Reviewed. HEENT: Unremarkable. Lungs: Clear to auscultation. Heart: Sounds normal. Abdomen: Soft. Bowel sounds are normal. No guarding, rigidity, tenderness, or distention. Extremities: No leg edema. Laboratory Data: White count 6.5, hemoglobin 11.6, platelets 280. Sodium 138, potassium 4.6, chlori de 103, bicarb 31, BUN 13, creatinine 0.57, glucose 97. Urinalysis done yesterday was abnormal consi stent with urinary tract infection. Impression: 1.Urinary tract infection. 2.Fracture, right proximal humerus. 3.Right hip contusion. 4.Hypertension. 5.Atrial fibrillation, chronic. Plan: We will continue current medications. Continue current antibiotic which is Cipro, which was s tarted last night. Continue current anticoagulation therapy. Pain medication per order and a stool softener. I will see her tomorrow for followup. DIAZ/MODL Voice ID: [id number] Report ID: [id number]
[2020-05-09] MEDS: LIDOCAINE 4% PATCH TOP SCH (07:25)
[2020-05-09] MEDS: CODEINE 30MG/APAP 300MG TAB PO SCH ×2 (07:46→20:40)
[2020-05-09] MEDS: APIXABAN 5 MG TABLET PO SCH ×2 (07:47→20:41)
[2020-05-09] MEDS: SACUBITRIL/VALSARTAN 49/51 MG TAB PO SCH ×2 (07:47→20:41)
[2020-05-09] MEDS: carvediloL 3.125 MG TAB PO SCH ×2 (07:48→20:40)
[2020-05-09] MEDS: CYANOCOBALAMIN 1,000 MCG TAB PO SCH (07:48)
[2020-05-09] MEDS: CRANBERRY FRUIT EXTRACT 200 MG CAP PO SCH ×2 (07:48→20:41)
[2020-05-09] MEDS: CIPROFLOXACIN HCL 250 MG TAB PO SCH ×2 (07:48→20:40)
[2020-05-09] MEDS: PROMOD 30 ML DOSE PO SCH ×2 (07:49→20:41)
[2020-05-09] MEDS: VITAMIN D 1000 UNIT TAB PO SCH (07:49)
--- NOTE | 2020-05-09 08:14 | FAST ---
OT QI REPORT FORM ENCOUNTER DATE AND TIME: 05/08/2020 08:00 (CDT) NAME VAMSHI LUGO DATE OF : 1930 DATE OF ADMISSION: 05/03/2020 13:28 (CDT) PHONE: AGE: 89 N# [id number] GENDER: Female ENCOUNTER PHYSICIAN: Dr. Parviz Frederick M.D. ADMISSION DIAGNOSIS: - Other Orthopedic, 8.9 Other orthopedic, 8.9 and right humerus fracture. - Debility 16 - Debility (16) Other orthopedic, 8.9 and right humerus fracture. EATING: Not assessed/no information CODE: - ORAL HYGIENE: ORAL HYGIENE - STEP 1: Does the patient complete the activity by him/herself with no assistance (physical, verbal/nonverbal cueing, setup/clean-up)? No. ORAL HYGIENE - STEP 2: Does the patient need only setup/clean-up assistance from one helper? No. ORAL HYGIENE - STEP 3: Does the patient need only verbal/nonverbal cueing or touching/steadying/contact guard assistance fro m one helper? Yes. 1. [id number] ADMISSION PERFORMANCE: Supervision or touching assistance CODE: 04 TOILETING HYGIENE: Not assessed/no information CODE: - BATHING: SHOWER/BATHE SELF - STEP 1: Does the patient complete the activity by him/herself with no assistance (physical, verbal/nonverbal cueing, setup/clean-up)? No. SHOWER/BATHE SELF - STEP 2: Does the patient need only setup/clean-up assistance from one helper? No. SHOWER/BATHE SELF - STEP 3: Does the patient need only verbal/nonverbal cueing or touching/steadying/contact guard assistance fro m one helper? Yes. 1. [id number] ADMISSION PERFORMANCE: Supervision or touching assistance CODE: 04 DRESSING - UPPER BODY: DRESSING - UPPER BODY - STEP 1: Does the patient complete the activity by him/herself with no assistance (physical, verbal/nonverbal cueing, setup/clean-up)? No. DRESSING - UPPER BODY - STEP 2: Does the patient need only setup/clean-up assistance from one helper? No. DRESSING - UPPER BODY - STEP 3: Does the patient need only verbal/nonverbal cueing or touching/steadying/contact guard assistance fro m one helper? No. DRESSING - UPPER BODY - STEP 4: Does the patient need physical assistance - for example lifting or trunk support from one helper - wi th the helper providing less than half of the effort? Yes. 1. ADMISSION PERFORMANCE: Partial/moderate assistance CODE: 03 DRESSING - LOWER BODY: DRESSING - LOWER BODY - STEP 1: Does the patient complete the activity by him/herself with no assistance (physical, verbal/nonverbal cueing, setup/clean-up)? No. DRESSING - LOWER BODY - STEP 2: Does the patient need only setup/clean-up assistance from one helper? No. DRESSING - LOWER BODY - STEP 3: Does the patient need only verbal/nonverbal cueing or touching/steadying/contact guard assistance fro m one helper? Yes. 1. ADMISSION PERFORMANCE: Supervision or touching assistance CODE: 04 PUTTING ON/TAKING OFF FOOTWEAR: FOOTWEAR - STEP 1: Does the patient complete the activity by him/herself with no assistance (physical, verbal/nonverbal cueing, setup/clean-up)? No. FOOTWEAR - STEP 2: Does the patient need only setup/clean-up assistance from one helper? No. FOOTWEAR - STEP 3: Does the patient need only verbal/nonverbal cueing or touching/steadying/contact guard assistance fro m one helper? Yes. 1. ADMISSION PERFORMANCE: Supervision or touching assistance CODE: 04 DOES THE PATIENT USE A WHEELCHAIR/SCOOTER? CODE: EXPR INDICATE THE TYPE OF WHEELCHAIR/SCOOTER USED: CODE: EXPR INDICATE THE TYPE OF WHEELCHAIR/SCOOTER USED: CODE: EXPR BLADDER AND BOWEL: CODE: EXPR CODE: EXPR SIGNATURE PANEL: The following modified sections: 1. [id number] Admission Performance, 1. [id number] Admission Performance, 1. IJ4729s Admission Performance, 1. [id number] Admission Performance, 1. [id number] Admission Performance were [electronically] signed by CECILIA Magallon on TueMay 09 2020 08:14:17 GMT-0500 (Central Daylight Time)
--- NOTE | 2020-05-09 09:37 | P.RH.PN ---
Estimated Length of Stay: 14 Expected Discharge Date: 05/15/20 Discharge Disposition Plan: Home Family Support: Yes Longterm Goal: Mobility, Transfers, Self Care Vital Signs: Last Vital Signs Temp 97.6 F 05/09/20 07:34 Pulse 92 H 05/09/20 07:48 Resp 15 05/09/20 08:46 BP 137/69 05/09/20 07:48 Pulse Ox 94 05/09/20 08:46 Laboratory: Laboratory Last Values WBC 6.5 K/uL (4.3-10.9) D 05/08/20 05:29 RBC 3.61 M/uL (3.86-4.86) L 05/08/20 05:29 Hgb 11.6 g/dL (12.0-15.0) L 05/08/20 05:29 Hct 32.8 % (36.0-45.0) L 05/08/20 05:29 MCV 90.8 fL (80-100) 05/08/20 05:29 MCH 32.2 pg (27.0-35.0) 05/08/20 05:29 MCHC 35.4 g/dL (32.0-36.0) 05/08/20 05:29 RDW 13.8 % (12.1-15.2) 05/08/20 05:29 Plt Count 281 K/uL (152-406) D 05/08/20 05:29 MPV 8.9 fL (7.6-11.3) 05/08/20 05:29 Neutrophils % 69.7 % (41.7-73.7) 05/08/20 05:29 Lymphocytes % 12.2 % (15.3-44.8) L 05/08/20 05:29 Monocytes % 13.0 % (3.3-12.3) H 05/08/20 05:29 Eosinophils % 4.5 % (0-4.4) H 05/08/20 05:29 Basophils % 0.6 % (0-1.3) 05/08/20 05:29 Absolute Neutrophils 4.6 K/uL (1.8-8.0) 05/08/20 05:29 Absolute Lymphocytes 0.8 K/uL (0.7-4.9) 05/08/20 05:29 Absolute Monocytes 0.8 K/uL (0.1-1.3) 05/08/20 05:29 Absolute Eosinophils 0.3 K/uL (0-0.5) 05/08/20 05:29 Absolute Basophils 0.0 K/uL (0-0.5) 05/08/20 05:29 Sodium 138 mmol/L (136-145) 05/08/20 05:29 Potassium 4.6 mmol/L (3.5-5.1) 05/08/20 05:29 Chloride 103 mmol/L (98-107) 05/08/20 05:29 Carbon Dioxide 31 mmol/L (21-32) 05/08/20 05:29 BUN 13 mg/dL (7-18) 05/08/20 05:29 Creatinine 0.57 mg/dL (0.55-1.3) 05/08/20 05:29 Estimated GFR > 90 mL/min (=/>90) 05/08/20 05:29 Glucose 97 mg/dL (74-106) 05/08/20 05:29 Calcium 8.3 mg/dL (8.5-10.1) L 05/08/20 05:29 Magnesium 2.1 mg/dL (1.8-2.4) 05/08/20 05:29 Albumin 2.6 g/dL (3.4-5.0) L 05/08/20 05:29 Prealbumin 9.6 mg/dL (20-40) L 05/08/20 05:29 Urine Color Dk yellow 05/07/20 12:40 Urine Appearance Cloudy 05/07/20 12:40 Urine pH 6.0 (5.0-7.0) 05/07/20 12:40 Ur Specific [place] 1.015 (1.005-1.030) 05/07/20 12:40 Glucose (UA)(Auto) Negative (NEG) 05/07/20 12:40 Urine Ketones Negative (NEG) 05/07/20 12:40 Urine Blood 2+ (NEG) H 05/07/20 12:40 Urine Nitrite Negative (NEG) 05/07/20 12:40 Urine Bilirubin Negative (NEG) 05/07/20 12:40 Urine Urobilinogen 2.0 mg/dL (0.2-1.0) H 05/07/20 12:40 Ur Leukocyte Esterase 3+ (NEG) H 05/07/20 12:40 Urine RBC 10-20 /HPF (NONE SEEN) H 05/07/20 12:40 Urine WBC >50 /HPF (<5) H 05/07/20 12:40 Ur Squamous Epith Cells 5-10 /HPF (NONE SEEN) H 05/07/20 12:40 Urine Bacteria 20-50 /HPF (<20) H 05/07/20 12:40 Urine Mucus 1+ /HPF (NONE SEEN) 05/07/20 12:40 Urine Culture Reflexed Reflexed 05/07/20 12:40 Urine Total Protein 1+ (NEG) H 05/07/20 12:40 SARS-CoV-2 RNA (RT-PCR) Negative (NEGATIVE) 05/09/20 07:00 Weight: 160 lb 9.6 oz Wound Present: No Closed Surgical Incision Present: No Negative Pressure Wound Therapy Present: No Physician Update: She has worsen right hip pain with therapy. Pain is less when offloading. Labs reviewed. She has a UTI and is on Cipro [address] Michele. Will do MRI of right hip. She is walking 80' with contact guard assistance using a quad cane. She is standby assistance with upper body dressing and max assistance for lower body dressing. Will hold off on calling Dr. Thomas and may ask Dr. Meadows to see the patient again. Pain Issues: TAKING TYLENOL, LIDOCAINE PATCH AND TRAMADOL. Nutritional Needs: HEART HEALTHY DIET. Functional Improvement: pt has demonstrated progress with functional performance. pt continues to be limited by pain in her groin and hips during ambulation and functional mobility. This pain is primary limiting factor for functional improvement at this time. Summary: Patient's care plan and snf goals have been reviewed and revised as necessary. Please see the Rehabilitation Signature page for all necessary signatures.
--- NOTE | 2020-05-09 10:29 | PN ---
Date of Progress Note: 05/09/2020 Subjective: The patient was seen for followup this morning. She was sitting in the wheelchair. Den ied any complaints. Continues to have some pain in right proximal arm and right groin area, but over all with time it is improving. Objective: Vital Signs: Reviewed. HEENT: Unremarkable. Lungs: Clear to auscultation. Heart: Sounds normal. Abdomen: Soft. Bowel sounds normal. No guarding, rigidity, tenderness, distention. Extremities: No leg edema. Impression: 1.Fracture, right proximal humerus. 2.Right hip contusion. 3.Hypertension. 4.Chronic atrial fibrillation. 5.Urinary tract infection. Plan: We will go ahead and continue Cipro. Continue current pain medication. Physical Therapy unde r guidance of Dr. Frederick. Continue current anticoagulation therapy. I will see her tomorrow. DIAZ/MODL Voice ID: [id number] Report ID: [id number]
[2020-05-09] MEDS: TRAMADOL HCL 50 MG TAB PO PRN ×2 (12:33→17:14)
[2020-05-09] MEDS ORDERED: MAGNES/ALUMIN/SIMET 30ML UCUP PO PRN (13:40)
[2020-05-09] MEDS ORDERED: LORAZEPAM 0.5 MG TABLET PO ONE (13:41)
[2020-05-09] MEDS: ACETAMINOPHEN 325 MG TABLET PO PRN (16:03)
--- NOTE | 2020-05-09 18:18 | RAD REPORT ---
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 Artifact from prosthesis renders evaluation of the proximal femur and right hip nondiagnostic. Area of low signal on T1 weighted sequences involves the left pubic bone near the pubic symphysis. Th is has high signal on T2 weighted sequences and likely represents a nondisplaced fracture. Visualized muscles surrounding the right hip normal signal IMPRESSION: Nondisplaced fracture left pubic bone near pubic symphysis
[2020-05-09] MEDS: DULOXETINE 30 MG CAP PO SCH (20:39)
[2020-05-09] MEDS: DOCUSATE NA/SENNA CONC 1 TAB PO SCH (20:39)
[2020-05-09] MEDS: FAMOTIDINE 20 MG TAB PO SCH (20:39)
[2020-05-09] MEDS: ATORVASTATIN 20 MG TAB PO SCH (20:40)
[2020-05-09] MEDS: ENSURE HIGH PROTEIN 237 ML CAN PO SCH (20:41)
[2020-05-09] MEDS: ZOLPIDEM TARTRATE 5 MG TABLET PO SCH (21:46)
[2020-05-10] MEDS: TRAMADOL HCL 50 MG TAB PO PRN ×3 (06:39→15:58)
[2020-05-10] MEDS: LIDOCAINE 4% PATCH TOP SCH (06:43)
[2020-05-10] MEDS: CODEINE 30MG/APAP 300MG TAB PO SCH ×2 (07:45→20:05)
[2020-05-10] MEDS: carvediloL 3.125 MG TAB PO SCH (07:45)
[2020-05-10] MEDS: APIXABAN 5 MG TABLET PO SCH ×2 (07:45→20:06)
[2020-05-10] MEDS: CYANOCOBALAMIN 1,000 MCG TAB PO SCH (07:45)
[2020-05-10] MEDS: CRANBERRY FRUIT EXTRACT 200 MG CAP PO SCH ×2 (07:45→20:06)
[2020-05-10] MEDS: CIPROFLOXACIN HCL 250 MG TAB PO SCH ×2 (07:46→20:07)
[2020-05-10] MEDS: ENSURE HIGH PROTEIN 237 ML CAN PO SCH ×2 (07:46→20:08)
[2020-05-10] MEDS: SACUBITRIL/VALSARTAN 49/51 MG TAB PO SCH ×2 (07:46→20:07)
[2020-05-10] MEDS: VITAMIN D 1000 UNIT TAB PO SCH (07:46)
[2020-05-10] MEDS: PROMOD 30 ML DOSE PO SCH ×2 (07:46→20:08)
--- NOTE | 2020-05-10 12:14 | PN ---
Date of Progress Note: 05/10/2020 Subjective: The patient was seen this morning for followup. She was sitting in the therapy department in chair. Denied any complaints except complaining of some pain and discomfort involving skin over the right lateral chest wall area where it comes in contact with her right arm and concerned about skin irritation and discomfort with that. She keeps her arm against her chest wall all the time and concerned about some skin irritation and rash there. Otherwise, no new complaints, problems reported. Objective: HEENT: Unremarkable. Lungs: Clear to auscultation. Heart: Sounds normal. Abdomen: Soft. Bowel sounds. No guarding, rigidity, tenderness, distention. Extremities: No leg edema. Impression: 1. Fracture, right proximal humerus. 2. Right hip contusion. 3. Chronic atrial fibrillation. 4. Hypertension. 5. Chronic systolic congestive heart failure. Plan: Patient's vital signs reviewed. Blood pressure remains slightly on the higher side, so we will increase the dose of carvedilol from 3.125 mg 2 times a day up to 6.25 mg 2 times a day. Continue Eliquis. Continue Entresto. We will go ahead in spite on Lotrisone cream apply topically 2 times a day to skin over right lateral chest wall area. DIAZ/MODL Voice ID: [id number] Report ID: [id number] MTDD
[2020-05-10] MEDS: CLOTRIMAZ/BETAMETH CREAM 15GM TOP SCH ×2 (13:03→20:08)
[2020-05-10 19:33] VITALS: BMI 25.0
[2020-05-10] MEDS ORDERED: carvediloL 6.25 MG TAB PO SCH (20:00)
[2020-05-10] MEDS: ZOLPIDEM TARTRATE 5 MG TABLET PO SCH (20:05)
[2020-05-10] MEDS: DOCUSATE NA/SENNA CONC 1 TAB PO SCH (20:06)
[2020-05-10] MEDS: FAMOTIDINE 20 MG TAB PO SCH (20:06)
[2020-05-10] MEDS: DULOXETINE 30 MG CAP PO SCH (20:06)
[2020-05-10] MEDS: ATORVASTATIN 20 MG TAB PO SCH (20:06)
[2020-05-11] MEDS: LIDOCAINE 4% PATCH TOP SCH (08:49)
[2020-05-11] MEDS: SACUBITRIL/VALSARTAN 49/51 MG TAB PO SCH ×2 (08:50→19:56)
[2020-05-11] MEDS: CLOTRIMAZ/BETAMETH CREAM 15GM TOP SCH ×2 (08:50→19:56)
[2020-05-11] MEDS: CIPROFLOXACIN HCL 250 MG TAB PO SCH ×2 (08:51→19:58)
[2020-05-11] MEDS: CRANBERRY FRUIT EXTRACT 200 MG CAP PO SCH ×2 (08:51→19:58)
[2020-05-11] MEDS: carvediloL 6.25 MG TAB PO SCH ×2 (08:51→19:58)
[2020-05-11] MEDS: CYANOCOBALAMIN 1,000 MCG TAB PO SCH (08:52)
[2020-05-11] MEDS: VITAMIN D 1000 UNIT TAB PO SCH (08:52)
[2020-05-11] MEDS: APIXABAN 5 MG TABLET PO SCH ×2 (08:53→19:58)
[2020-05-11] MEDS: CODEINE 30MG/APAP 300MG TAB PO SCH ×2 (08:53→20:00)
[2020-05-11] MEDS: ENSURE HIGH PROTEIN 237 ML CAN PO SCH ×2 (10:25→19:59)
[2020-05-11] MEDS: PROMOD 30 ML DOSE PO SCH ×2 (10:25→20:00)
[2020-05-11] MEDS: ACETAMINOPHEN 325 MG TABLET PO PRN (19:57)
[2020-05-11] MEDS: TRAMADOL HCL 50 MG TAB PO PRN (19:58)
[2020-05-11] MEDS: ATORVASTATIN 20 MG TAB PO SCH (19:59)
[2020-05-11] MEDS: DOCUSATE NA/SENNA CONC 1 TAB PO SCH (19:59)
[2020-05-11] MEDS: DULOXETINE 30 MG CAP PO SCH (19:59)
[2020-05-11] MEDS: FAMOTIDINE 20 MG TAB PO SCH (19:59)
[2020-05-11] MEDS: ALPRAZOLAM 0.25 MG TABLET PO SCH (19:59)
[2020-05-12] MEDS: DOCUSATE NA/SENNA CONC 1 TAB PO SCH ×2 (07:54→20:26)
[2020-05-12] MEDS: CRANBERRY FRUIT EXTRACT 200 MG CAP PO SCH ×2 (07:54→20:26)
[2020-05-12] MEDS: APIXABAN 5 MG TABLET PO SCH ×2 (07:54→20:26)
[2020-05-12] MEDS: PROMOD 30 ML DOSE PO SCH ×2 (07:54→20:28)
[2020-05-12] MEDS: ENSURE HIGH PROTEIN 237 ML CAN PO SCH (07:54)
[2020-05-12] MEDS: CIPROFLOXACIN HCL 250 MG TAB PO SCH ×2 (07:55→20:27)
[2020-05-12] MEDS: carvediloL 6.25 MG TAB PO SCH ×2 (07:55→20:27)
[2020-05-12] MEDS: VITAMIN D 1000 UNIT TAB PO SCH (07:55)
[2020-05-12] MEDS: SACUBITRIL/VALSARTAN 49/51 MG TAB PO SCH ×2 (07:56→20:28)
[2020-05-12] MEDS: CYANOCOBALAMIN 1,000 MCG TAB PO SCH (07:59)
[2020-05-12] MEDS: CODEINE 30MG/APAP 300MG TAB PO SCH (07:59)
[2020-05-12] MEDS: TRAMADOL HCL 50 MG TAB PO PRN ×3 (08:00→15:56)
[2020-05-12] MEDS: LIDOCAINE 4% PATCH TOP SCH (09:03)
[2020-05-12] MEDS: CLOTRIMAZ/BETAMETH CREAM 15GM TOP SCH ×2 (09:03→20:27)
[2020-05-12] MEDS: FLUTICASONE 50MCG NASAL SPRAY NAS SCH ×2 (09:47→20:26)
--- NOTE | 2020-05-12 10:29 | PN ---
Date of Progress Note: 05/12/2020 Subjective: The patient was seen this morning for followup. She was sitting in wheelchair in her ro om. Denied any new complaints. She has some postnasal drip, nasal and sinus congestion, and some so re throat type of feeling, not coughing up any mucus. She is afebrile. Objective: HEENT: Unremarkable. Mouth examination shows no evidence of any redness or thrush. Lungs: Clear to auscultation. Heart: Sounds normal. Abdomen: Soft. Bowel sounds normal. No guarding, rigidity, tenderness, or distention. Extremities: No leg edema. Impression: 1.Urinary tract infection. 2.Hypertension. 3.Chronic atrial fibrillation. 4.Fracture, right proximal humerus. Plan: We will continue current medication. We will go ahead and add fluticasone nasal spray 1 spray each nostril 2 times a day. Continue current antibiotics, Eliquis, carvedilol, and Entresto. I malcolm l see her tomorrow for followup. DIAZ/MODL Voice ID: [id number] Report ID: [id number]
[2020-05-12] MEDS: ACETAMINOPHEN 325 MG TABLET PO PRN (10:42)
[2020-05-12] MEDS: LIDOCAINE VISCOUS 2% SOLN 15 ML UDC PO SCH ×2 (14:07→20:29)
[2020-05-12] MEDS: NYSTATIN 500,000 UNIT/5 ML UDC PO SCH ×2 (15:56→20:27)
--- NOTE | 2020-05-12 18:59 | PN ---
Date of Progress Note: 05/11/2020 Subjective: The patient was seen this morning for followup. No new complaints or problems reported by the patient. Objective: General: Lying in bed, not in distress. Vital Signs: Reviewed. HEENT: Unremarkable. Lungs: Clear to auscultation. Heart: Sounds normal. Abdomen: Soft. Bowel sounds normal. No guarding, rigidity, tenderness, or distention. Extremities: No leg edema. Impression: 1.Right proximal humerus fracture, pubic symphysis. 2.Hypertension. 3.Chronic atrial fibrillation. 4.Urinary tract infection. Plan: We will continue current antibiotic, continue her pain medication. For constipation, she is o n Senokot-S 2 tablets daily at bedtime. We will increase the dose to twice a day as she does not hav e bowel movement on a daily basis and she takes p.r.n. doses of milk of magnesia. We will continue c urrent pain medications and continue carvedilol and Eliquis per order. I will see her tomorrow for alessandro barbosa. DIAZ/MODL Voice ID: [id number] Report ID: [id number]
--- NOTE | 2020-05-12 19:24 | R.PN ---
PROGRESS NOTES ENCOUNTER DATE AND TIME: 05/12/2020 19:18 (CDT) NAME VAMSHI LUGO DATE OF : 1930 DATE OF ADMISSION: 05/03/2020 13:28 (CDT) Other orthopedic, 8.9 and right humerus fracture.Other orthopedic, 8.9 and right humerus fracture.[facility] COMPLAINT: Right humerus fracture SUBJECTIVE: Pt denied any depression. Pt denied any Shortness of Breath. CBC with differential is normal except mildly low Hgb of 11.6. Prealbumin is low at 9.6. On promod 3 0 cc bid. UA shows 4+ gram negative rods, now on Cipro 250 mg twice daily. Ambulated one step with moderate assistance using a rolling walker. Self-propelled wheelchair 250' wi th stanby assistance. Grooming done with independence. Therapeutic exercises done with supervision. Right hip MRI show non-displaced fracture of the left pubic bone near the pubic symphysis. Dr. Barry hunter recommended conservative treatment. VITAL SIGNS Temperature: 97.3 F SBP/DBP: 136/59 Pulse: 88 Resp: 16 MEDICATION ALLERGIES: CODEINE SULFA ENVIRONMENTAL ALLERGIES: - Substance Allergies None Known - Other Allergies None Known NURSING: - Shower allowing shower ACTIVITIES OOB only with supervision THERAPIES: - Dietary and Nutrition Adequate Nutrition. Nutritional Education. Nutritional Supplements. PHYSICAL EXAM - Gen Alert and awake Lying in bed No apparent distress Oriented to: person, time, and place - Skin No skin breakdown. Normacephalic - Eyes No abnormalities - ENMT No abnormalities - Neck No abnormalities - CVS RRR - Chest No abnormalities - Resp No wheezing - Abd Soft - GI Non distended Deferred - No abnormalities - Ext right arm in sling after fall. - MSK No focal deficits, mild diffuse weakness - Neuro No focal deficits - Psych No abnormalities ASSESSMENT: Currently, she has deficits of Safety Awareness, Balance, Transfers Control, Self-Care, and Endurance .On 05/01/2020 she was admitted to [facility] with diagnosis Other orthopedic, 8.9 and r ight humerus fracture..Her impairment category is Other Orthopedic, 8.9.Pt. is now referred to [facility] for acute in-patient rehabilitation in order to maximize patient's functi onal independence in activities of daily living, strength, ROM, and mobility.Pre-morbidly, Pt. was in dependent/mod-I in Self-Care, Endurance, Communication, Locomotion, Safety Awareness, Balance, and Tr ansfers Control; and she had good Sphincter Control.Pt. is a 89 yo Right-handed female of unknown rac e.- Rehab Goal Patient has realistic goal of being discharged at assistance level 7-Ind to reside at Home with Pt s elf. MDM/PLAN: - Balance for Weakness - Bed mobility for ADL deficits - Lymphedema Therapy for Edema - Physical Therapy Inability to transfer - to improve, our physical therapists will perform initial evaluation of pt's status upon admission and devise an individualized program for Bed mobility Need for home safety evaluation - to improve, our physical therapists will perform initial evaluatio n of pt's status upon admission and devise an individualized program for Home Evaluation Poor balance - to improve, our physical therapists will perform initial evaluation of pt's status up on admission and devise an individualized program for Balance Training Poor endurance - to improve, our physical therapists will perform initial evaluation of pt's status upon admission and devise an individualized program for Endurance Training Achieving independence - to improve, our physical therapists will perform initial evaluation of pt's status upon admission and devise an individualized program for Community Reintegration Activities Gait dysfunction - to improve, our physical therapists will perform initial evaluation of pt's statu s upon admission and devise an individualized program for Gait Training, and Wheel Chair mobility Need in caregiver upon discharge - to improve, our physical therapists will perform initial evaluati on of pt's status upon admission and devise an individualized program for Caregiver Training New precaution - to improve, our physical therapists will perform initial evaluation of pt's status upon admission and devise an individualized program for Patient precaution education Weakness - to improve, our physical therapists will perform initial evaluation of pt's status upon a dmission and devise an individualized program for Aquatic Therapy, Neuromuscular Reeducation, and Str engthening - Occupational Therapy ADL deficits - to improve, our occupation therapists will perform initial evaluation of pt's status upon admission and devise an individualized program for Bathing, Bed mobility, Community Reintegratio n, Cooking, Dressing, Eating, Fine Motor Skills, Grooming, Homemaking, Kitchen Mobility, Laundry, Pat ient Education, Safety Awareness, Splinting - Positioning, Transfers(Toilet, Tub, Shower), and Wheel Chair Management Need for healthcare marketer - to improve, our occupation therapists will perform initial evaluation of pt's status upon admission and devise an individualized program for Caregiver Training Weakness - to improve, our occupation therapists will perform initial evaluation of pt's status upon admission and devise an individualized program for Aquatic Therapy, Balance, Endurance, UE ROM, and UE strengthening - Other See attached MAR (Medication Administration Record) - Diet Type Start Regular - Diet - Liquid Texture Start Regular - Tube Feed Start N/A - Diet - Solid Texture Start Regular - Shower allowing shower FUNCTIONAL STATUS: UPDATED AT WEEKLY TEAM CONFERENCE - Bladder Same accident frequency: 7-Ind - No accidents in the past 7 days - Bowel Same accident frequency: 7-Ind - No accidents in the past 7 days - Walking Same score based on distance walked: 0(N/A) - Wheelchair Same score based on distance traveled: 0(N/A) FUNCTIONAL STATUS: - Self-Care A. Eating Shanika B. Grooming Aidee C. Bathing modA D. Dressing - Upper modA E. Dressing - Lower modA F. Toileting sup - Sphincter Control G. Bladder control Shanika H. Bowel control Shanika - Transfers Control I. Bed/Chair/Wheelchair Aidee J. Toilet Aidee K. Tub/Shower modA - Locomotion L. Walk/Wheelchair (B) Adiee M. Stairs ADNO - Communication N. Comprehension (B) Shanika O. Expression (B) Shanika - Social Cognition P. Social Interaction Ind Q. Problem Solving Shanika R. Memory Shanika - Endurance Fair - Balance Fair - Safety Awareness Fair QI SCORES: - Self-Care A. Eating 03-Partial/moderate assistance B. Oral hygiene 03-Partial/moderate assistance C. Toileting hygiene 02-Substantial/maximal assistance E. Shower/bathe self 02-Substantial/maximal assistance F. Upper body dressing 88-Not attempted due to medical condition or safety concerns G. Lower body dressing 88-Not attempted due to medical condition or safety concerns H. Putting on/taking off footwear 88-Not attempted due to medical condition or safety concerns - Mobility M. 1 step (curb) 88-Not attempted due to medical condition or safety concerns N. 4 steps 88-Not attempted due to medical condition or safety concerns O. 12 steps 88-Not attempted due to medical condition or safety concerns P. Picking up object 88-Not attempted due to medical condition or safety concerns R. Wheel 50 feet with two turns 88-Not attempted due to medical condition or safety concerns A. Roll left and right 03-Partial/moderate assistance B. Sit to lying 02-Substantial/maximal assistance C. Lying to sitting on side of bed 02-Substantial/maximal assistance D. Sit to stand 02-Substantial/maximal assistance E. Chair/law-ri-kqwwr transfer 03-Partial/moderate assistance F. Toilet transfer 02-Substantial/maximal assistance G. Car transfer 88-Not attempted due to medical condition or safety concerns I. Walk 10 feet 88-Not attempted due to medical condition or safety concerns J. Walk 50 feet with two turns 88-Not attempted due to medical condition or safety concerns K. Walk 150 feet 88-Not attempted due to medical condition or safety concerns L. Walking 10 feet on uneven surfaces 88-Not attempted due to medical condition or safety concerns S. Wheel 150 feet 88-Not attempted due to medical condition or safety concerns - Bladder and Bowel Bladder continence 9-Not applicable Bowel continence 9-Not rated - Endurance Fair - Balance Fair - Safety Awareness Fair CURRENT [facility]. DEFICITS: Balance, Self-Care, Mobility, Safety Awareness, and Endurance SIGNATURE PANEL: (CDT)
[2020-05-12] MEDS: DULOXETINE 30 MG CAP PO SCH (20:26)
[2020-05-12] MEDS: ALPRAZOLAM 0.25 MG TABLET PO SCH (20:26)
[2020-05-12] MEDS: FAMOTIDINE 20 MG TAB PO SCH (20:27)
[2020-05-12] MEDS: ATORVASTATIN 20 MG TAB PO SCH (20:27)
[2020-05-12] MEDS: ENSURE ENLIVE 237 ML CAN PO SCH (20:28)
--- NOTE | 2020-05-13 06:21 | CON ---
Date of Consultation: 05/12/2020 The patient is seen with her daughter. She is resting fairly comfortably in the bed. She is in her sling. I am called to see her. She has had an MRI, which demonstrates a nondisplaced small crack of the pubis near the symphysis and is complaining of pain there. On further review of her studies, if CT scan is examined very closely with knowledge of where the small crack may be, you can actually se e it with CT scan and does not appear to be new, seem to be associated with the initial incident wher e she hurt her shoulder. Obviously, the shoulder is more painful than that and now the shoulder is d ecreasing and she is more mobile, she is starting to develop some pain there. She can however be tam ghtbearing as tolerated on this and really has no operative indication for this. As far as her shoul mc goes, it is very difficult for her to bear weight and really should not bear weight through her r ight upper extremity, which is going to make mobility difficult as she does have pain related to her pubis as well. However, I would mobilize her as tolerated. She can follow up with me after discharg e. Really, the only change would be for Codman exercises at week 3 and discontinuation of the sling and allowing active motion of the shoulder at week 6. Otherwise, it would be pain control and other functional needs. /KATHERINE Voice ID: [id number] Report ID: [id number]
[2020-05-13] MEDS: LIDOCAINE 4% PATCH TOP SCH (08:22)
[2020-05-13] MEDS: FLUTICASONE 50MCG NASAL SPRAY NAS SCH ×2 (08:23→20:14)
[2020-05-13] MEDS: CLOTRIMAZ/BETAMETH CREAM 15GM TOP SCH ×2 (08:23→20:14)
[2020-05-13] MEDS: NYSTATIN 500,000 UNIT/5 ML UDC PO SCH ×4 (08:24→20:08)
[2020-05-13] MEDS: APIXABAN 5 MG TABLET PO SCH ×2 (08:24→20:10)
[2020-05-13] MEDS: CYANOCOBALAMIN 1,000 MCG TAB PO SCH (08:24)
[2020-05-13] MEDS: CRANBERRY FRUIT EXTRACT 200 MG CAP PO SCH ×2 (08:24→20:08)
[2020-05-13] MEDS: carvediloL 6.25 MG TAB PO SCH ×2 (08:25→20:11)
[2020-05-13] MEDS: VITAMIN D 1000 UNIT TAB PO SCH (08:26)
[2020-05-13] MEDS: CIPROFLOXACIN HCL 250 MG TAB PO SCH (08:26)
[2020-05-13] MEDS: PROMOD 30 ML DOSE PO SCH ×2 (08:27→20:11)
[2020-05-13] MEDS: DOCUSATE NA/SENNA CONC 1 TAB PO SCH ×2 (08:27→20:00)
[2020-05-13] MEDS: ENSURE ENLIVE 237 ML CAN PO SCH ×2 (08:28→20:11)
[2020-05-13] MEDS: TRAMADOL HCL 50 MG TAB PO PRN ×2 (08:31→12:47)
[2020-05-13] MEDS: SACUBITRIL/VALSARTAN 49/51 MG TAB PO SCH ×2 (08:32→20:11)
[2020-05-13] MEDS: CLOTRIMAZOLE 10 MG TROCHE PO SCH ×4 (10:22→20:12)
[2020-05-13] MEDS: LIDOCAINE VISCOUS 2% SOLN 15 ML UDC PO SCH ×3 (10:22→20:08)
--- NOTE | 2020-05-13 11:14 | PN ---
Date of Progress Note: 05/13/2020 Subjective: The patient was seen this morning for followup. No new complaints or problems reported by the patient, lying in bed not in distress. Objective: Vital Signs: Reviewed. HEENT: Unremarkable, except today I see presence of thrush covering her tongue as well as inside of the buccal mucosa. Lungs: Clear to auscultation. Heart: Sounds normal. Abdomen: Soft. Bowel sounds normal. No guarding, rigidity, tenderness, or distention. Extremities: No leg edema. Impression: 1.Oral thrush. 2.Urinary tract infection. 3.Chronic atrial fibrillation. 4.Hypertension. Plan: The patient is on Cipro. We will need to continue it for 2 more days. After that, we will di scontinue it. We will start her on clotrimazole 10 mg 4 times a day and I advised her how to use thi s particular medication for her oral thrush. Continue other current medications including Eliquis an d antihypertensive medication. Continue current physical therapy under guidance of Dr. Frederick. DIAZ/KATHERINE Voice ID: [id number] Report ID: [id number]
[2020-05-13 18:23] LABS: Absolute Lymphocytes (CBC) 0.9 K/uL (0.7-4.9); Basophils % 0.4 % (0-1.3); Hematocrit 36.5 % (36.0-45.0); MPV 8.5 fL (7.6-11.3); RBC Red Blood Cell Count 4.04 M/uL (3.86-4.86)
[2020-05-13 18:52] LABS: Albumin 2.9 g/dL (3.4-5.0); Magnesium 2.1 mg/dL (1.8-2.4); Potassium 4.4 mmol/L (3.5-5.1); Protein, Total 6.5 g/dL (6.4-8.2); Thyroid Stimulating Hormone 1.14 uIU/mL (0.360-3.740)
--- NOTE | 2020-05-13 19:42 | R.PN ---
PROGRESS NOTES ENCOUNTER DATE AND TIME: 05/13/2020 19:39 (CDT) NAME VAMSHI LUGO DATE OF : 1930 DATE OF ADMISSION: 05/03/2020 13:28 (CDT) Other orthopedic, 8.9 and right humerus fracture.Other orthopedic, 8.9 and right humerus fracture.[facility] COMPLAINT: Right humerus fracture SUBJECTIVE: Pt denied any depression. Pt denied any Shortness of Breath. CBC with differential is normal except mildly low Hgb of 11.6. Prealbumin is low at 9.6. On promod 3 0 cc bid. UA shows 4+ gram negative rods, now on Cipro 250 mg twice daily. Ambulated 160' with moderate assistance using a quad cane in the left hand. Self-propelled wheelchair 250' with standby assistance. Grooming done with independence. Therapeutic exercises done with supervision. Right hip MRI show non-displaced fracture of the left pubic bone near the pubic symphysis. Dr. Barry hunter recommended conservative treatment. VITAL SIGNS Temperature: 98.2 F SBP/DBP: 140/69 Pulse: 85 Resp: 16 MEDICATION ALLERGIES: CODEINE SULFA ENVIRONMENTAL ALLERGIES: - Substance Allergies None Known - Other Allergies None Known NURSING: - Shower allowing shower ACTIVITIES OOB only with supervision THERAPIES: - Dietary and Nutrition Adequate Nutrition. Nutritional Education. Nutritional Supplements. PHYSICAL EXAM - Gen Alert and awake Lying in bed No apparent distress Oriented to: person, time, and place - Skin No skin breakdown. Normacephalic - Eyes No abnormalities - ENMT No abnormalities - Neck No abnormalities - CVS RRR - Chest No abnormalities - Resp No wheezing - Abd Soft - GI Non distended Deferred - No abnormalities - Ext right arm in sling after fall. - MSK No focal deficits, mild diffuse weakness - Neuro No focal deficits - Psych No abnormalities ASSESSMENT: Currently, she has deficits of Safety Awareness, Balance, Transfers Control, Self-Care, and Endurance .On 05/01/2020 she was admitted to [facility] with diagnosis Other orthopedic, 8.9 and r ight humerus fracture..Her impairment category is Other Orthopedic, 8.9.Pt. is now referred to [facility] for acute in-patient rehabilitation in order to maximize patient's functi onal independence in activities of daily living, strength, ROM, and mobility.Pre-morbidly, Pt. was in dependent/mod-I in Self-Care, Endurance, Communication, Locomotion, Safety Awareness, Balance, and Tr ansfers Control; and she had good Sphincter Control.Pt. is a 89 yo Right-handed female of unknown rac e.- Rehab Goal Patient has realistic goal of being discharged at assistance level 7-Ind to reside at Home with Pt s elf. MDM/PLAN: - Balance for Weakness - Bed mobility for ADL deficits - Lymphedema Therapy for Edema - Physical Therapy Achieving independence - to improve, our physical therapists will perform initial evaluation of pt's status upon admission and devise an individualized program for Community Reintegration Activities Gait dysfunction - to improve, our physical therapists will perform initial evaluation of pt's statu s upon admission and devise an individualized program for Gait Training, and Wheel Chair mobility Inability to transfer - to improve, our physical therapists will perform initial evaluation of pt's status upon admission and devise an individualized program for Bed mobility Need for home safety evaluation - to improve, our physical therapists will perform initial evaluatio n of pt's status upon admission and devise an individualized program for Home Evaluation Need in caregiver upon discharge - to improve, our physical therapists will perform initial evaluati on of pt's status upon admission and devise an individualized program for Caregiver Training New precaution - to improve, our physical therapists will perform initial evaluation of pt's status upon admission and devise an individualized program for Patient precaution education Poor balance - to improve, our physical therapists will perform initial evaluation of pt's status up on admission and devise an individualized program for Balance Training Poor endurance - to improve, our physical therapists will perform initial evaluation of pt's status upon admission and devise an individualized program for Endurance Training Weakness - to improve, our physical therapists will perform initial evaluation of pt's status upon a dmission and devise an individualized program for Aquatic Therapy, Neuromuscular Reeducation, and Str engthening - Occupational Therapy ADL deficits - to improve, our occupation therapists will perform initial evaluation of pt's status upon admission and devise an individualized program for Bathing, Bed mobility, Community Reintegratio n, Cooking, Dressing, Eating, Fine Motor Skills, Grooming, Homemaking, Kitchen Mobility, Laundry, Pat ient Education, Safety Awareness, Splinting - Positioning, Transfers(Toilet, Tub, Shower), and Wheel Chair Management Need for hemodialysis patient care specialist - to improve, our occupation therapists will perform initial evaluation of pt's status upon admission and devise an individualized program for Caregiver Training Weakness - to improve, our occupation therapists will perform initial evaluation of pt's status upon admission and devise an individualized program for Aquatic Therapy, Balance, Endurance, UE ROM, and UE strengthening - Other See attached MAR (Medication Administration Record) - Diet Type Continue Regular - Diet - Liquid Texture Continue Regular - Tube Feed Continue N/A - Diet - Solid Texture Continue Regular - Shower allowing shower FUNCTIONAL STATUS: UPDATED AT WEEKLY TEAM CONFERENCE - Bladder Same accident frequency: 7-Ind - No accidents in the past 7 days - Bowel Same accident frequency: 7-Ind - No accidents in the past 7 days - Walking Same score based on distance walked: 0(N/A) - Wheelchair Same score based on distance traveled: 0(N/A) FUNCTIONAL STATUS: - Self-Care A. Eating Shanika B. Grooming Aidee C. Bathing modA D. Dressing - Upper modA E. Dressing - Lower modA F. Toileting sup - Sphincter Control G. Bladder control Shanika H. Bowel control Shanika - Transfers Control I. Bed/Chair/Wheelchair Aidee J. Toilet Aidee K. Tub/Shower modA - Locomotion L. Walk/Wheelchair (B) Aidee M. Stairs ADNO - Communication N. Comprehension (B) Shanika O. Expression (B) Shanika - Social Cognition P. Social Interaction Ind Q. Problem Solving Shanika R. Memory Shanika - Endurance Fair - Balance Fair - Safety Awareness Fair QI SCORES: - Self-Care A. Eating 03-Partial/moderate assistance B. Oral hygiene 03-Partial/moderate assistance C. Toileting hygiene 02-Substantial/maximal assistance E. Shower/bathe self 02-Substantial/maximal assistance F. Upper body dressing 88-Not attempted due to medical condition or safety concerns G. Lower body dressing 88-Not attempted due to medical condition or safety concerns H. Putting on/taking off footwear 88-Not attempted due to medical condition or safety concerns - Mobility M. 1 step (curb) 88-Not attempted due to medical condition or safety concerns N. 4 steps 88-Not attempted due to medical condition or safety concerns O. 12 steps 88-Not attempted due to medical condition or safety concerns P. Picking up object 88-Not attempted due to medical condition or safety concerns R. Wheel 50 feet with two turns 88-Not attempted due to medical condition or safety concerns A. Roll left and right 03-Partial/moderate assistance B. Sit to lying 02-Substantial/maximal assistance C. Lying to sitting on side of bed 02-Substantial/maximal assistance D. Sit to stand 02-Substantial/maximal assistance E. Chair/euc-kn-ejwte transfer 03-Partial/moderate assistance F. Toilet transfer 02-Substantial/maximal assistance G. Car transfer 88-Not attempted due to medical condition or safety concerns I. Walk 10 feet 88-Not attempted due to medical condition or safety concerns J. Walk 50 feet with two turns 88-Not attempted due to medical condition or safety concerns K. Walk 150 feet 88-Not attempted due to medical condition or safety concerns L. Walking 10 feet on uneven surfaces 88-Not attempted due to medical condition or safety concerns S. Wheel 150 feet 88-Not attempted due to medical condition or safety concerns - Bladder and Bowel Bladder continence 9-Not applicable Bowel continence 9-Not rated - Endurance Fair - Balance Fair - Safety Awareness Fair CURRENT [facility]. DEFICITS: Balance, Self-Care, Mobility, Safety Awareness, and Endurance SIGNATURE PANEL: (CDT)
[2020-05-13] MEDS: FAMOTIDINE 20 MG TAB PO SCH (20:09)
[2020-05-13] MEDS: MELATONIN 3 MG TABLET PO PRN (20:09)
[2020-05-13] MEDS: QUETIAPINE 25 MG TAB PO SCH (20:10)
[2020-05-13] MEDS: DULOXETINE 30 MG CAP PO SCH (20:10)
[2020-05-13] MEDS: ATORVASTATIN 20 MG TAB PO SCH (20:11)
[2020-05-13] MEDS: ACETAMINOPHEN 325 MG TABLET PO PRN (20:12)
--- NOTE | 2020-05-13 20:21 | PN ---
Date of Progress Note: 05/13/2020 Addendum: This is an addendum to progress note that was dictated earlier just while ago. Nurse from rehab floor contacted as the patient has been having hallucination this afternoon. Last few nights, the patient was noted to be restless during nighttime. While she was sleeping, she was trying to get out of bed and moving her extremities and this was reported by nursing staff. So, couple of days ago, I stopped her Ambien and started her on alprazolam at nighttime. This morning, no hallucination reported until this evening when nurse called me. After that, I have made decision to discontinue alprazolam and we will start her on Seroquel at nighttime. The patient may have some underlying senile dementia problem that we need to worry about it, but appropriate time to evaluate that would be once she is out of the hospital in her normal usual state of health. Then, it will be appropriate to evaluate her for some sort of underlying dementia problem. She lives at [facility] independently. Normally lives close by here in town from her place. We will discontinue her Cipro and hydroxyzine as well as tramadol that she is currently on and needing a possible interaction with Seroquel and also to rule out any medication induced problem. Tylenol with Codeine 1 tablet 2 times a day p.r.n. was ordered for pain control and the patient already has Tylenol ordered for pain as well. DIAZ/MODL Voice ID: [id number] Report ID: [id number]
[2020-05-14] MEDS: NYSTATIN 500,000 UNIT/5 ML UDC PO SCH ×4 (06:47→19:55)
[2020-05-14] MEDS: CLOTRIMAZOLE 10 MG TROCHE PO SCH ×4 (06:47→19:56)
[2020-05-14] MEDS: LIDOCAINE VISCOUS 2% SOLN 15 ML UDC PO SCH ×3 (06:47→19:55)
[2020-05-14] MEDS: FLUTICASONE 50MCG NASAL SPRAY NAS SCH ×2 (06:50→19:58)
[2020-05-14] MEDS: ACETAMINOPHEN 325 MG TABLET PO PRN ×3 (07:52→19:56)
[2020-05-14] MEDS: PROMOD 30 ML DOSE PO SCH ×2 (07:53→19:58)
[2020-05-14] MEDS: APIXABAN 5 MG TABLET PO SCH ×2 (07:54→19:55)
[2020-05-14] MEDS: DOCUSATE NA/SENNA CONC 1 TAB PO SCH ×2 (07:55→19:57)
[2020-05-14] MEDS: CYANOCOBALAMIN 1,000 MCG TAB PO SCH (07:55)
[2020-05-14] MEDS: SACUBITRIL/VALSARTAN 49/51 MG TAB PO SCH ×2 (07:55→19:56)
[2020-05-14] MEDS: CRANBERRY FRUIT EXTRACT 200 MG CAP PO SCH ×2 (07:55→19:55)
[2020-05-14] MEDS: carvediloL 6.25 MG TAB PO SCH ×2 (07:56→19:57)
[2020-05-14] MEDS: ENSURE ENLIVE 237 ML CAN PO SCH ×2 (07:57→19:57)
[2020-05-14] MEDS: VITAMIN D 1000 UNIT TAB PO SCH (07:59)
[2020-05-14] MEDS: CLOTRIMAZ/BETAMETH CREAM 15GM TOP SCH ×2 (09:04→19:58)
[2020-05-14] MEDS: LIDOCAINE 4% PATCH TOP SCH (09:05)
[2020-05-14 11:54] LABS: Urine Appearance CLEAR; Urine Bilirubin NEGATIVE (NEG); Urine Blood NEGATIVE (NEG); Urine Color YELLOW; Urine Glucose NEGATIVE (NEG); Urine Protein NEGATIVE (NEG); Urine pH 6.5 (5.0-7.0)
[2020-05-14 12:07] LABS: Urine Bacteria <20 /HPF (<20); Urine Culture Reflex Order NOT NEEDED
--- NOTE | 2020-05-14 17:54 | R.PN ---
PROGRESS NOTES ENCOUNTER DATE AND TIME: 05/14/2020 17:46 (CDT) NAME VAMSHI LUGO DATE OF : 1930 DATE OF ADMISSION: 05/03/2020 13:28 (CDT) Other orthopedic, 8.9 and right humerus fracture.Other orthopedic, 8.9 and right humerus fracture.[facility] COMPLAINT: Right humerus fracture SUBJECTIVE: Pt denied any depression. Pt denied any Shortness of Breath. CBC with differential is normal except mildly elevated Plt of 413, Na 130, glucose 97 to 122, her al k phos increased to 191. Prealbumin is low at 9.6. On promod 30 cc bid. UA shows 4+ gram negative yamile s. She completed Cipro 250 mg twice daily.She was Grooming done with independence. Therapeutic exercises done with supervision. Right hip MRI show non-displaced fracture of the left pubic bone near the pubic symphysis. Dr. Barry hunter recommended conservative treatment. She was confused and hallucinating last night. Will repeat LFTs and BMP, do EEG, repeat UA. This was discussed with the patient's daughter. Ambulated 160' with contact guard assistance using a quad cane in the left hand. Self-propelled wheel chair 250' with standby assistance. VITAL SIGNS Temperature: 98.4 F SBP/DBP: 112/70 Pulse: 84 Resp: 16 MEDICATION ALLERGIES: CODEINE SULFA ENVIRONMENTAL ALLERGIES: - Substance Allergies None Known - Other Allergies None Known NURSING: - Shower allowing shower ACTIVITIES OOB only with supervision THERAPIES: - Dietary and Nutrition Adequate Nutrition. Nutritional Education. Nutritional Supplements. PHYSICAL EXAM - Gen Alert and awake Lying in bed No apparent distress Oriented to: person, time, and place - Skin No skin breakdown. Normacephalic - Eyes No abnormalities - ENMT No abnormalities - Neck No abnormalities - CVS RRR - Chest No abnormalities - Resp No wheezing - Abd Soft - GI Non distended Deferred - No abnormalities - Ext right arm in sling after fall. - MSK No focal deficits, mild diffuse weakness - Neuro No focal deficits - Psych No abnormalities ASSESSMENT: Currently, she has deficits of Safety Awareness, Balance, Transfers Control, Self-Care, and Endurance .On 05/01/2020 she was admitted to [facility] with diagnosis Other orthopedic, 8.9 and r ight humerus fracture..Her impairment category is Other Orthopedic, 8.9.Pt. is now referred to [facility] for acute in-patient rehabilitation in order to maximize patient's functi onal independence in activities of daily living, strength, ROM, and mobility.Pre-morbidly, Pt. was in dependent/mod-I in Self-Care, Endurance, Communication, Locomotion, Safety Awareness, Balance, and Tr ansfers Control; and she had good Sphincter Control.Pt. is a 89 yo Right-handed female of unknown rac e.- Rehab Goal Patient has realistic goal of being discharged at assistance level 7-Ind to reside at Home with Pt s elf. MDM/PLAN: - Balance for Weakness - Bed mobility for ADL deficits - Lymphedema Therapy for Edema - Physical Therapy Achieving independence - to improve, our physical therapists will perform initial evaluation of pt's status upon admission and devise an individualized program for Community Reintegration Activities Gait dysfunction - to improve, our physical therapists will perform initial evaluation of pt's statu s upon admission and devise an individualized program for Gait Training, and Wheel Chair mobility Inability to transfer - to improve, our physical therapists will perform initial evaluation of pt's status upon admission and devise an individualized program for Bed mobility Need for home safety evaluation - to improve, our physical therapists will perform initial evaluatio n of pt's status upon admission and devise an individualized program for Home Evaluation Need in caregiver upon discharge - to improve, our physical therapists will perform initial evaluati on of pt's status upon admission and devise an individualized program for Caregiver Training New precaution - to improve, our physical therapists will perform initial evaluation of pt's status upon admission and devise an individualized program for Patient precaution education Poor balance - to improve, our physical therapists will perform initial evaluation of pt's status up on admission and devise an individualized program for Balance Training Poor endurance - to improve, our physical therapists will perform initial evaluation of pt's status upon admission and devise an individualized program for Endurance Training Weakness - to improve, our physical therapists will perform initial evaluation of pt's status upon a dmission and devise an individualized program for Aquatic Therapy, Neuromuscular Reeducation, and Str engthening - Occupational Therapy ADL deficits - to improve, our occupation therapists will perform initial evaluation of pt's status upon admission and devise an individualized program for Bathing, Bed mobility, Community Reintegratio n, Cooking, Dressing, Eating, Fine Motor Skills, Grooming, Homemaking, Kitchen Mobility, Laundry, Pat ient Education, Safety Awareness, Splinting - Positioning, Transfers(Toilet, Tub, Shower), and Wheel Chair Management Need for child care provider - to improve, our occupation therapists will perform initial evaluation of pt's status upon admission and devise an individualized program for Caregiver Training Weakness - to improve, our occupation therapists will perform initial evaluation of pt's status upon admission and devise an individualized program for Aquatic Therapy, Balance, Endurance, UE ROM, and UE strengthening - Other See attached MAR (Medication Administration Record) - Diet Type Continue Regular - Diet - Liquid Texture Continue Regular - Tube Feed Continue N/A - Diet - Solid Texture Continue Regular - Shower allowing shower FUNCTIONAL STATUS: UPDATED AT WEEKLY TEAM CONFERENCE - Bladder Same accident frequency: 7-Ind - No accidents in the past 7 days - Bowel Same accident frequency: 7-Ind - No accidents in the past 7 days - Walking Same score based on distance walked: 0(N/A) - Wheelchair Same score based on distance traveled: 0(N/A) FUNCTIONAL STATUS: - Self-Care A. Eating Shanika B. Grooming Aidee C. Bathing modA D. Dressing - Upper modA E. Dressing - Lower modA F. Toileting sup - Sphincter Control G. Bladder control Shanika H. Bowel control Shanika - Transfers Control I. Bed/Chair/Wheelchair Aidee J. Toilet Aidee K. Tub/Shower modA - Locomotion L. Walk/Wheelchair (B) Aidee M. Stairs ADNO - Communication N. Comprehension (B) Shanika O. Expression (B) Shanika - Social Cognition P. Social Interaction Ind Q. Problem Solving Shanika R. Memory Shanika - Endurance Fair - Balance Fair - Safety Awareness Fair QI SCORES: - Self-Care A. Eating 03-Partial/moderate assistance B. Oral hygiene 03-Partial/moderate assistance C. Toileting hygiene 02-Substantial/maximal assistance E. Shower/bathe self 02-Substantial/maximal assistance F. Upper body dressing 88-Not attempted due to medical condition or safety concerns G. Lower body dressing 88-Not attempted due to medical condition or safety concerns H. Putting on/taking off footwear 88-Not attempted due to medical condition or safety concerns - Mobility M. 1 step (curb) 88-Not attempted due to medical condition or safety concerns N. 4 steps 88-Not attempted due to medical condition or safety concerns O. 12 steps 88-Not attempted due to medical condition or safety concerns P. Picking up object 88-Not attempted due to medical condition or safety concerns R. Wheel 50 feet with two turns 88-Not attempted due to medical condition or safety concerns A. Roll left and right 03-Partial/moderate assistance B. Sit to lying 02-Substantial/maximal assistance C. Lying to sitting on side of bed 02-Substantial/maximal assistance D. Sit to stand 02-Substantial/maximal assistance E. Chair/[id number] transfer 03-Partial/moderate assistance F. Toilet transfer 02-Substantial/maximal assistance G. Car transfer 88-Not attempted due to medical condition or safety concerns I. Walk 10 feet 88-Not attempted due to medical condition or safety concerns J. Walk 50 feet with two turns 88-Not attempted due to medical condition or safety concerns K. Walk 150 feet 88-Not attempted due to medical condition or safety concerns L. Walking 10 feet on uneven surfaces 88-Not attempted due to medical condition or safety concerns S. Wheel 150 feet 88-Not attempted due to medical condition or safety concerns - Bladder and Bowel Bladder continence 9-Not applicable Bowel continence 9-Not rated - Endurance Fair - Balance Fair - Safety Awareness Fair [facility] DEFICITS: Balance, Self-Care, Mobility, Safety Awareness, and Endurance SIGNATURE PANEL: (CDT)
[2020-05-14] MEDS: FAMOTIDINE 20 MG TAB PO SCH (19:55)
[2020-05-14] MEDS: DULOXETINE 30 MG CAP PO SCH (19:56)
[2020-05-14] MEDS: QUETIAPINE 25 MG TAB PO SCH (19:56)
[2020-05-14] MEDS: MELATONIN 3 MG TABLET PO PRN (19:56)
[2020-05-14] MEDS: ATORVASTATIN 20 MG TAB PO SCH (19:56)
--- NOTE | 2020-05-14 21:19 | PN ---
Date of Progress Note: 05/14/2020 Subjective: The patient was seen this morning for followup as per my discussion with her rehab nurse , who informed me that the patient probably had the best night since she has been on the rehab floor after we started her on Seroquel last night and she slept very well. This morning when I saw her, erinn rodriguez did not appear to have any confusion. Denies any complaints this morning when I saw her. Objective: Vital Signs: Reviewed. HEENT: Unremarkable. Lungs: Clear to auscultation. Heart: Heart sounds normal. Abdomen: Soft. Bowel sounds normal. No guarding, rigidity, tenderness, or distention. Extremities: No leg edema. Laboratory Data: Yesterday evening white count 9.8, hemoglobin 12.9, platelets 413. Sodium 130, pot assium 4.4, chloride 95, bicarb 28, BUN 14, creatinine is 0.63. Liver function tests unremarkable. Glucose 122. Impression: 1.Acute delirium, resolved. 2.Anemia. 3.Hyponatremia. 4.Hypertension. 5.Chronic anticoagulation therapy. 6.Chronic atrial fibrillation. 7.Urinary tract infection, resolved. Plan: Her Cipro was discontinued yesterday. We will continue Eliquis. Continue current anticoagula nt medication and Seroquel. The patient's daughter was contacted last night. All the details were d iscussed with her regarding the patient's hallucination, confusion. Likely underlying explanation co uld be medication-related side effect, recent urinary tract infection problem, lack of adequate sleep being in the hospital, as well as possibility of underlying dementia. All these details were discus sed with her last night. Today, nurse contacted and informed me that the patient's daughter wanted a repeat urine test, so clean-catch urine specimen was ordered. The patient is scheduled to get disch arged tomorrow to go to [facility]. Yesterday evening when I talked to the gisella sousa's daughter, I did advise her to have the patient follow up with the neurologist on an outpatien t basis when she is back to her baseline for dementia evaluation, and she informed me that she will s chedule that appointment with the urologist of her choice. DIAZ/MODL Voice ID: [id number] Report ID: [id number]
[2020-05-15 06:11] LABS: Absolute Lymphocytes (CBC) 0.5 K/uL (0.7-4.9); Basophils % 0.4 % (0-1.3); Hematocrit 36.6 % (36.0-45.0); Lymphocytes % 5.4 % (15.3-44.8); MPV 8.3 fL (7.6-11.3); RBC Red Blood Cell Count 4.04 M/uL (3.86-4.86)
[2020-05-15 06:30] LABS: ALT/SGPT 25 U/L (12-78); AST/SGOT 26 U/L (15-37); Albumin 2.9 g/dL (3.4-5.0); Alkaline Phosphatase 237 U/L (45-117); BUN Blood Urea Nitrogen 12 mg/dL (7-18); Bicarbonate 29 mmol/L (21-32); Bilirubin Direct 0.5 mg/dL (0-0.2); Bilirubin Total 1.1 mg/dL (0.2-1.0); Glucose Level 103 mg/dL (74-106); Potassium 3.8 mmol/L (3.5-5.1); Protein, Total 6.4 g/dL (6.4-8.2); Sodium Level 137 mmol/L (136-145)
[2020-05-15 06:35] LABS: Magnesium 2.2 mg/dL (1.8-2.4); Prealbumin 8.2 mg/dL (20-40)
[2020-05-15] MEDS: ACETAMINOPHEN 325 MG TABLET PO PRN ×2 (06:48→14:38)
[2020-05-15] MEDS: LIDOCAINE 4% PATCH TOP SCH (06:49)
[2020-05-15] MEDS: NYSTATIN 500,000 UNIT/5 ML UDC PO SCH ×4 (06:50→21:03)
[2020-05-15] MEDS: FLUTICASONE 50MCG NASAL SPRAY NAS SCH ×2 (06:50→20:00)
[2020-05-15] MEDS: CLOTRIMAZOLE 10 MG TROCHE PO SCH ×4 (06:50→21:04)
[2020-05-15] MEDS: LIDOCAINE VISCOUS 2% SOLN 15 ML UDC PO SCH ×3 (06:50→21:01)
[2020-05-15] MEDS: CLOTRIMAZ/BETAMETH CREAM 15GM TOP SCH ×2 (06:51→20:00)
[2020-05-15] MEDS: PROMOD 30 ML DOSE PO SCH ×2 (07:50→21:00)
[2020-05-15] MEDS: ENSURE ENLIVE 237 ML CAN PO SCH ×2 (07:50→20:59)
[2020-05-15] MEDS: CRANBERRY FRUIT EXTRACT 200 MG CAP PO SCH ×2 (07:51→20:59)
[2020-05-15] MEDS: APIXABAN 5 MG TABLET PO SCH ×2 (07:51→20:59)
[2020-05-15] MEDS: carvediloL 6.25 MG TAB PO SCH ×2 (07:51→20:59)
[2020-05-15] MEDS: CYANOCOBALAMIN 1,000 MCG TAB PO SCH (07:51)
[2020-05-15] MEDS: DOCUSATE NA/SENNA CONC 1 TAB PO SCH ×2 (07:52→20:00)
[2020-05-15] MEDS: VITAMIN D 1000 UNIT TAB PO SCH (07:53)
[2020-05-15] MEDS: SACUBITRIL/VALSARTAN 49/51 MG TAB PO SCH ×2 (09:33→21:00)
--- NOTE | 2020-05-15 17:41 | R.PN ---
PROGRESS NOTES ENCOUNTER DATE AND TIME: 05/15/2020 17:36 (CDT) NAME VAMSHI LUGO DATE OF : 1930 DATE OF ADMISSION: 05/03/2020 13:28 (CDT) Other orthopedic, 8.9 and right humerus fracture.Other orthopedic, 8.9 and right humerus fracture.[facility] COMPLAINT: Right humerus fracture SUBJECTIVE: Pt denied any depression. Pt denied any Shortness of Breath. CBC with differential is normal, Na 137, glucose 103, her alk phos increased to 237, ammonia is < 10 .. Prealbumin is low at 8.2. On promod 30 cc bid. UA shows 4+ gram negative rods. She completed Cipro 250 mg twice daily.She was Ambulated 160' with contact guard assistance using a quad cane in the left hand. Self-propelled wheel chair 250' with standby assistance. Grooming done with independence. Therapeutic exercises done with supervision. Right hip MRI show non-displaced fracture of the left pubic bone near the pubic symphysis. Dr. Barry hunter recommended conservative treatment. She was confused and hallucinating 2 nights ago. Will repeat LFTs and BMP, do EEG, repeat UA. This w as discussed with the patient's daughter. VITAL SIGNS Temperature: 98.3 F SBP/DBP: 136/62 Pulse: 86 Resp: 14 MEDICATION ALLERGIES: CODEINE SULFA ENVIRONMENTAL ALLERGIES: - Substance Allergies None Known - Other Allergies None Known NURSING: - Shower allowing shower ACTIVITIES OOB only with supervision THERAPIES: - Dietary and Nutrition Adequate Nutrition. Nutritional Education. Nutritional Supplements. PHYSICAL EXAM - Gen Alert and awake Lying in bed No apparent distress Oriented to: person, time, and place - Skin No skin breakdown. Normacephalic - Eyes No abnormalities - ENMT No abnormalities - Neck No abnormalities - CVS RRR - Chest No abnormalities - Resp No wheezing - Abd Soft - GI Non distended Deferred - No abnormalities - Ext right arm in sling after fall. - MSK No focal deficits, mild diffuse weakness - Neuro No focal deficits - Psych No abnormalities ASSESSMENT: Currently, she has deficits of Safety Awareness, Balance, Transfers Control, Self-Care, and Endurance .On 05/01/2020 she was admitted to [facility] with diagnosis Other orthopedic, 8.9 and r ight humerus fracture..Her impairment category is Other Orthopedic, 8.9.Pt. is now referred to [facility] for acute in-patient rehabilitation in order to maximize patient's functi onal independence in activities of daily living, strength, ROM, and mobility.Pre-morbidly, Pt. was in dependent/mod-I in Self-Care, Endurance, Communication, Locomotion, Safety Awareness, Balance, and Tr ansfers Control; and she had good Sphincter Control.Pt. is a 89 yo Right-handed female of unknown rac e.- Rehab Goal Patient has realistic goal of being discharged at assistance level 7-Ind to reside at Home with Pt s elf. MDM/PLAN: - Balance for Weakness - Bed mobility for ADL deficits - Lymphedema Therapy for Edema - Physical Therapy Achieving independence - to improve, our physical therapists will perform initial evaluation of pt's status upon admission and devise an individualized program for Community Reintegration Activities Gait dysfunction - to improve, our physical therapists will perform initial evaluation of pt's statu s upon admission and devise an individualized program for Gait Training, and Wheel Chair mobility Inability to transfer - to improve, our physical therapists will perform initial evaluation of pt's status upon admission and devise an individualized program for Bed mobility Need for home safety evaluation - to improve, our physical therapists will perform initial evaluatio n of pt's status upon admission and devise an individualized program for Home Evaluation Need in caregiver upon discharge - to improve, our physical therapists will perform initial evaluati on of pt's status upon admission and devise an individualized program for Caregiver Training New precaution - to improve, our physical therapists will perform initial evaluation of pt's status upon admission and devise an individualized program for Patient precaution education Poor balance - to improve, our physical therapists will perform initial evaluation of pt's status up on admission and devise an individualized program for Balance Training Poor endurance - to improve, our physical therapists will perform initial evaluation of pt's status upon admission and devise an individualized program for Endurance Training Weakness - to improve, our physical therapists will perform initial evaluation of pt's status upon a dmission and devise an individualized program for Aquatic Therapy, Neuromuscular Reeducation, and Str engthening - Occupational Therapy ADL deficits - to improve, our occupation therapists will perform initial evaluation of pt's status upon admission and devise an individualized program for Bathing, Bed mobility, Community Reintegratio n, Cooking, Dressing, Eating, Fine Motor Skills, Grooming, Homemaking, Kitchen Mobility, Laundry, Pat ient Education, Safety Awareness, Splinting - Positioning, Transfers(Toilet, Tub, Shower), and Wheel Chair Management Need for child daycare worker - to improve, our occupation therapists will perform initial evaluation of pt's status upon admission and devise an individualized program for Caregiver Training Weakness - to improve, our occupation therapists will perform initial evaluation of pt's status upon admission and devise an individualized program for Aquatic Therapy, Balance, Endurance, UE ROM, and UE strengthening - Other See attached MAR (Medication Administration Record) - Diet Type Continue Regular - Diet - Liquid Texture Continue Regular - Tube Feed Continue N/A - Diet - Solid Texture Continue Regular - Shower allowing shower FUNCTIONAL STATUS: UPDATED AT WEEKLY TEAM CONFERENCE - Bladder Same accident frequency: 7-Ind - No accidents in the past 7 days - Bowel Same accident frequency: 7-Ind - No accidents in the past 7 days - Walking Same score based on distance walked: 0(N/A) - Wheelchair Same score based on distance traveled: 0(N/A) FUNCTIONAL STATUS: - Self-Care A. Eating Shanika B. Grooming Aidee C. Bathing modA D. Dressing - Upper modA E. Dressing - Lower modA F. Toileting sup - Sphincter Control G. Bladder control Shanika H. Bowel control Shanika - Transfers Control I. Bed/Chair/Wheelchair Aidee J. Toilet Aidee K. Tub/Shower modA - Locomotion L. Walk/Wheelchair (B) Aidee M. Stairs ADNO - Communication N. Comprehension (B) Shanika O. Expression (B) Shanika - Social Cognition P. Social Interaction Ind Q. Problem Solving Shanika R. Memory Shanika - Endurance Fair - Balance Fair - Safety Awareness Fair QI SCORES: - Self-Care A. Eating 03-Partial/moderate assistance B. Oral hygiene 03-Partial/moderate assistance C. Toileting hygiene 02-Substantial/maximal assistance E. Shower/bathe self 02-Substantial/maximal assistance F. Upper body dressing 88-Not attempted due to medical condition or safety concerns G. Lower body dressing 88-Not attempted due to medical condition or safety concerns H. Putting on/taking off footwear 88-Not attempted due to medical condition or safety concerns - Mobility M. 1 step (curb) 88-Not attempted due to medical condition or safety concerns N. 4 steps 88-Not attempted due to medical condition or safety concerns O. 12 steps 88-Not attempted due to medical condition or safety concerns P. Picking up object 88-Not attempted due to medical condition or safety concerns R. Wheel 50 feet with two turns 88-Not attempted due to medical condition or safety concerns A. Roll left and right 03-Partial/moderate assistance B. Sit to lying 02-Substantial/maximal assistance C. Lying to sitting on side of bed 02-Substantial/maximal assistance D. Sit to stand 02-Substantial/maximal assistance E. Chair/[id number] transfer 03-Partial/moderate assistance F. Toilet transfer 02-Substantial/maximal assistance G. Car transfer 88-Not attempted due to medical condition or safety concerns I. Walk 10 feet 88-Not attempted due to medical condition or safety concerns J. Walk 50 feet with two turns 88-Not attempted due to medical condition or safety concerns K. Walk 150 feet 88-Not attempted due to medical condition or safety concerns L. Walking 10 feet on uneven surfaces 88-Not attempted due to medical condition or safety concerns S. Wheel 150 feet 88-Not attempted due to medical condition or safety concerns - Bladder and Bowel Bladder continence 9-Not applicable Bowel continence 9-Not rated - Endurance Fair - Balance Fair - Safety Awareness Fair [facility] DEFICITS: Balance, Self-Care, Mobility, Safety Awareness, and Endurance SIGNATURE PANEL: (CDT)
[2020-05-15 20:04] VITALS: TEMP 98
[2020-05-15] MEDS: QUETIAPINE 25 MG TAB PO SCH (21:00)
[2020-05-15] MEDS: DULOXETINE 30 MG CAP PO SCH (21:03)
[2020-05-15] MEDS: FAMOTIDINE 20 MG TAB PO SCH (21:03)
[2020-05-15] MEDS: ATORVASTATIN 20 MG TAB PO SCH (21:04)
[2020-05-15] MEDS: CODEINE 30MG/APAP 300MG TAB PO PRN (21:25)
[2020-05-15] MEDS: MELATONIN 3 MG TABLET PO PRN (21:26)
--- NOTE | 2020-05-15 21:31 | RAD REPORT ---
EXAM DESCRIPTION: CT - Abdomen Pelvis W Contrast - 05/15/2020 8:40 pm CLINICAL HISTORY: abn LFTs COMPARISON: CT ABD PELVIS W CONTRAST dated 01/03/2008; Pelvis Wo Cont dated 05/01/2020 TECHNIQUE: Biphasic, helical CT imaging of the abdomen and pelvis was performed following 100 ml non -ionic IV contrast. Oral contrast was given. All CT scans are performed using dose optimization technique as appropriate and may include automated exposure control or mA/KV adjustment according to patient size. FINDINGS: Scattered fibrotic stranding in the lung bases. Mild cardiomegaly is present without peric ardial thickening or effusion. Liver shows a nodular capsular contour. No focal parenchymal lesions seen. Gallbladder is absent. Julio iary tree within normal limits for a post cholecystectomy patient. No pancreatic or splenic suspiciou s finding. Symmetric renal function is seen with no hydronephrosis or suspicious renal mass. No pyelonephritis o r acute parenchymal process. Urinary bladder is contracted limiting assessment. [place] artifact from r ight hip prosthesis limits pelvic floor assessment. No adrenal abnormalities. No dilated bowel loops or bowel wall thickening. Sigmoid diverticulosis is present without diverticul itis. Mobile cecum is present, possibly due to postoperative changes, with cecum positioned in the an terior mid abdomen. No acute GI process identifiable. Increased soft tissue attenuation minimal amoun t of fluid is present in the presacral soft tissues new from May 01 imaging. Right-side piriform is musculature appears thickened and edematous. No free air, free fluid or inflammatory stranding. N o hernia, mass or bulky lymphadenopathy. Disc and bone degenerative changes are present to the lumbar spine. No sacral ala fracture identifiab le. Right ischium fracture is present incompletely healed. There does appear to be callus formation. Lucency is present in the anterior column of the acetabulum. Lucency is present at the inferior pubic ramus junction with the pubic symphysis. IMPRESSION: Nodular contour to the liver capsule suggesting cirrhosis or other diffuse hepatic paren chymal disease. No focal lesion identified. Diverticulosis is present without diverticulitis. An acute GI process is not identified. Small amount of fluid and soft tissue attenuation are present in the lower presacral soft tissues. R ight piriformis muscle is slightly thickened and edematous relative to the left. These changes may be the sequela of recent trauma. Subacute right ischium fracture. Suspected fracture in the anterior column of the right acetabulum an d in the inferior pubic ramus on the left. Correlation is needed with any fall history since the Apr imaging. In a patient this age with osteopenic change, the fractures may have been present an d occult imaging at the time of the May 01 exam.
--- NOTE | 2020-05-15 22:25 | PN ---
Date of Progress Note: 05/15/2020 Subjective: Patient was seen this morning for followup. She was sitting in the wheelchair. Denied any complaints. Objective: Vital Signs: Reviewed. HEENT: Unremarkable. Lungs: Clear to auscultation. Heart: Sounds normal. Abdomen: Soft. Bowel sounds normal. No guarding, rigidity, tenderness. Laboratory Data: White count 8.6, hemoglobin 12.9, platelets 385. Sodium 137, potassium 3.8, chlori de 99, bicarb 29, BUN 12, creatinine 0.51, glucose 103, total bilirubin 1.1, direct bilirubin 0.5, SG OT 26, SGPT 25, alkaline phosphatase 237. Impression: 1.Fracture, right proximal humerus. 2.Fracture, pelvis. 3.Chronic atrial fibrillation. 4.Hypertension. 5.Acute delirium, improved. Plan: The patient's delirium problem has improved. We will continue Seroquel, continue Eliquis and current antihypertensive medication. Dr. Frederick did call me and he was concerned about the patient 's elevated alkaline phosphatase and if it could be due to liver problem. I informed him that I adolfo tim that this elevated alkaline phosphatases is likely skeletal in origin with this recent fracture loyd blair and I do not have any other concerns about liver problem, but we will go ahead and get a CAT s can of abdomen which was ordered just to make sure that there is no other abnormality there exists in the liver area, but I strongly believe that this is due to this recent fracture and it is a skeletal component of alkaline phosphatase causing this elevation. She is scheduled to get discharge tomorrow from rehab. Medically, she is stable for disc harge. DIAZ/MODL Voice ID: [id number] Report ID: [id number]
[2020-05-16] MEDS: ACETAMINOPHEN 325 MG TABLET PO PRN (04:23)
[2020-05-16 06:49] LABS: ALT/SGPT 21 U/L (12-78); AST/SGOT 21 U/L (15-37); Albumin 2.7 g/dL (3.4-5.0); Alkaline Phosphatase 233 U/L (45-117); BUN Blood Urea Nitrogen 12 mg/dL (7-18); Bicarbonate 27 mmol/L (21-32); Glucose Level 93 mg/dL (74-106); Potassium 4.1 mmol/L (3.5-5.1); Protein, Total 6.2 g/dL (6.4-8.2); Sodium Level 132 mmol/L (136-145)
[2020-05-16 07:50] VITALS: BP 126/54
[2020-05-16] MEDS: DOCUSATE NA/SENNA CONC 1 TAB PO SCH (08:00)
[2020-05-16] MEDS: LIDOCAINE 4% PATCH TOP SCH (08:27)
[2020-05-16] MEDS: LIDOCAINE VISCOUS 2% SOLN 15 ML UDC PO SCH (08:28)
[2020-05-16] MEDS: APIXABAN 5 MG TABLET PO SCH (08:33)
[2020-05-16] MEDS: carvediloL 6.25 MG TAB PO SCH (08:33)
[2020-05-16] MEDS: CYANOCOBALAMIN 1,000 MCG TAB PO SCH (08:34)
[2020-05-16] MEDS: CRANBERRY FRUIT EXTRACT 200 MG CAP PO SCH (08:35)
[2020-05-16] MEDS: VITAMIN D 1000 UNIT TAB PO SCH (08:35)
[2020-05-16] MEDS: FLUTICASONE 50MCG NASAL SPRAY NAS SCH (08:35)
[2020-05-16] MEDS: CLOTRIMAZ/BETAMETH CREAM 15GM TOP SCH (08:36)
[2020-05-16] MEDS: SACUBITRIL/VALSARTAN 49/51 MG TAB PO SCH (08:36)
[2020-05-16] MEDS: PROMOD 30 ML DOSE PO SCH (08:37)
[2020-05-16] MEDS: ENSURE ENLIVE 237 ML CAN PO SCH (08:38)
[2020-05-16] MEDS: NYSTATIN 500,000 UNIT/5 ML UDC PO SCH (08:39)
[2020-05-16] MEDS: CLOTRIMAZOLE 10 MG TROCHE PO SCH (08:39)
[2020-05-16 09:24] VITALS: O2SAT 96
--- NOTE | 2020-05-16 09:28 | P.RH.PN ---
Estimated Length of Stay: 15 Expected Discharge Date: 05/16/20 Discharge Disposition Plan: Home Family Support: Yes [facility] Goal: Mobility, Transfers, Self Care Vital Signs: Last Vital Signs Temp 98 F 05/16/20 07:49 Pulse 83 05/16/20 08:33 Resp 16 05/16/20 07:49 BP 126/54 L 05/16/20 08:33 Pulse Ox 96 05/16/20 07:49 Laboratory: Laboratory Last Values WBC 8.6 K/uL (4.3-10.9) 05/15/20 05:55 RBC 4.04 M/uL (3.86-4.86) 05/15/20 05:55 Hgb 12.9 g/dL (12.0-15.0) 05/15/20 05:55 Hct 36.6 % (36.0-45.0) 05/15/20 05:55 MCV 90.6 fL (80-100) 05/15/20 05:55 MCH 31.8 pg (27.0-35.0) 05/15/20 05:55 MCHC 35.1 g/dL (32.0-36.0) 05/15/20 05:55 RDW 14.0 % (12.1-15.2) 05/15/20 05:55 Plt Count 385 K/uL (152-406) 05/15/20 05:55 MPV 8.3 fL (7.6-11.3) 05/15/20 05:55 Neutrophils % 82.5 % (41.7-73.7) H 05/15/20 05:55 Lymphocytes % 5.4 % (15.3-44.8) L 05/15/20 05:55 Monocytes % 10.3 % (3.3-12.3) 05/15/20 05:55 Eosinophils % 1.4 % (0-4.4) 05/15/20 05:55 Basophils % 0.4 % (0-1.3) 05/15/20 05:55 Absolute Neutrophils 7.1 K/uL (1.8-8.0) 05/15/20 05:55 Absolute Lymphocytes 0.5 K/uL (0.7-4.9) L 05/15/20 05:55 Absolute Monocytes 0.9 K/uL (0.1-1.3) 05/15/20 05:55 Absolute Eosinophils 0.1 K/uL (0-0.5) 05/15/20 05:55 Absolute Basophils 0.0 K/uL (0-0.5) 05/15/20 05:55 Sodium 132 mmol/L (136-145) L 05/16/20 06:18 Potassium 4.1 mmol/L (3.5-5.1) 05/16/20 06:18 Chloride 98 mmol/L (98-107) 05/16/20 06:18 Carbon Dioxide 27 mmol/L (21-32) 05/16/20 06:18 BUN 12 mg/dL (7-18) 05/16/20 06:18 Creatinine 0.53 mg/dL (0.55-1.3) L 05/16/20 06:18 Estimated GFR > 90 mL/min (=/>90) 05/16/20 06:18 Glucose 93 mg/dL (74-106) 05/16/20 06:18 Calcium 8.4 mg/dL (8.5-10.1) L 05/16/20 06:18 Magnesium 2.2 mg/dL (1.8-2.4) 05/15/20 05:55 Total Bilirubin 1.0 mg/dL (0.2-1.0) 05/16/20 06:18 Direct Bilirubin 0.5 mg/dL (0-0.2) H 05/15/20 05:55 AST 21 U/L (15-37) 05/16/20 06:18 ALT 21 U/L (12-78) 05/16/20 06:18 Alkaline Phosphatase 233 U/L (45-117) H 05/16/20 06:18 Ammonia < 10 umol/L (19-54) L 05/15/20 13:36 Serum Total Protein 6.2 g/dL (6.4-8.2) L 05/16/20 06:18 Albumin 2.7 g/dL (3.4-5.0) L 05/16/20 06:18 Globulin 3.5 g/dL (2.3-3.5) 05/16/20 06:18 Albumin/Globulin Ratio 0.8 (1.1-1.8) L 05/16/20 06:18 Prealbumin 8.2 mg/dL (20-40) L 05/15/20 05:55 TSH 1.140 uIU/mL (0.360-3.740) 05/13/20 18:12 Urine Color Yellow 05/14/20 11:15 Urine Appearance Clear 05/14/20 11:15 Urine pH 6.5 (5.0-7.0) 05/14/20 11:15 Ur Specific [place] 1.010 (1.005-1.030) 05/14/20 11:15 Glucose (UA)(Auto) Negative (NEG) 05/14/20 11:15 Urine Ketones Negative (NEG) 05/14/20 11:15 Urine Blood Negative (NEG) 05/14/20 11:15 Urine Nitrite Negative (NEG) 05/14/20 11:15 Urine Bilirubin Negative (NEG) 05/14/20 11:15 Urine Urobilinogen 1.0 mg/dL (0.2-1.0) 05/14/20 11:15 Ur Leukocyte Esterase 1+ (NEG) H 05/14/20 11:15 Urine RBC 5-10 /HPF (NONE SEEN) H 05/14/20 11:15 Urine WBC 20-50 /HPF (<5) H 05/14/20 11:15 Ur Squamous Epith Cells <5 /HPF (NONE SEEN) 05/14/20 11:15 Urine Bacteria <20 /HPF (<20) 05/14/20 11:15 Urine Mucus 1+ /HPF (NONE SEEN) 05/07/20 12:40 Urine Culture Reflexed Not needed 05/14/20 11:15 Urine Total Protein Negative (NEG) 05/14/20 11:15 SARS-CoV-2 RNA (RT-PCR) Negative (NEGATIVE) 05/09/20 07:00 Weight: 160 lb Wound Present: No Closed Surgical Incision Present: No Negative Pressure Wound Therapy Present: No Physician Update: Labs reviewed and are stable. Alk phos is stable. EEG is mildly slow. She is walking 60' contact guard assistance. She has a left pubic rami and right humerus fracture. She is max to standby assistance with ADLs due to pain. Pain Issues: TAKING TYLENOL, LIDOCAINE PATCH AND TRAMADOL. Nutritional Needs: HEART HEALTHY DIET. Functional Improvement: pt has demonstrated progress with functional performance. pt continues to be limited by pain in her groin and hips during ambulation and functional mobility. This pain is primary limiting factor for functional improvement at this time. Summary: Patient's care plan and penitentiary goals have been reviewed and revised as necessary. Please see the Rehabilitation Signature page for all necessary signatures.
[2020-05-16] MEDS: CODEINE 30MG/APAP 300MG TAB PO PRN (10:56)
--- NOTE | 2020-05-16 13:24 | DS ---
Date of Discharge: 05/16/2020 Disposition: [facility] Physical Examination: HEENT: Unremarkable. Lungs: Clear to auscultation. Heart: Sounds normal. Abdomen: Soft. Bowel sounds normal. No guarding, rigidity, tenderness, or distention. Extremities: No leg edema. Discharge Medications/instructions: Continue all prior home medications which are; 1.Eliquis 5 mg twice a day. 2.Atorvastatin 20 mg daily. 3.Vitamin D3 1000 units p.o. daily. 4.Vitamin B12 1000 mcg p.o. daily. 5.Duloxetine 60 mg p.o. daily. 6.Famotidine 20 mg at bedtime. 7.Linzess 145 mcg p.o. daily. 8.Zofran 4 mg p.r.n. 9.Entresto 49/51 one tablet p.o. twice a day. 10.Discontinue zolpidem. 11.Discontinue hydroxyzine. 12.New medication includes Tylenol 650 mg every 6 hours as needed, Mycelex Marc 10 mg p.o. 4 times a day for 5 days. 13.Tylenol with Codeine No. 3 one tablet b.i.d. p.r.n. for pain. 14.Senokot-S 2 tablets p.o. b.i.d. 15.Lidocaine patch topically daily. 16.Milk of magnesia 30 cc p.o. daily p.r.n. 17.Seroquel 25 mg p.o. at bedtime. Discharge Instructions: 1.Fall precautions. 2.Consult Physical Therapy and Occupational Therapy at senior care. 3.Follow up with Dr. Meadows in 1-2 weeks. 4.Follow up with her neurologist in 1 month for evaluation to rule out dementia. Laboratory Data: Labs done during this hospitalization. On 05/03/2020; white count 7.8, hemoglobin 12.6, Platelets 197. On 05/15/2020, white count 8.6, hemoglobin 12.9, platelets 385. Today; sodium 132, potassium 4.1, chloride 98, bicarb 27, BUN 12, creatinine 0.53, glucose 93, alkaline phosphatase 233, SGOT 21, SGPT 21, total bilirubin 1. Her alkaline phosphatase yesterday was 237, and on jermaine 15, it was 191. CAT scan of abdomen and pelvis done last night shows evidence of nodular contour of the liver capsule suggesting cirrhosis or other diffuse hepatic process, no focal liver lesion se en, suggesting diverticulosis and subacute fracture of right ischium and also suspected fracture of t he anterior column of the right acetabulum and inferior pubic ramus on the left. From 05/07/2020, urine culture grew Proteus and the last urine culture from 05/14/2020 was negative. Final Diagnoses: 1.Fracture, right proximal humerus, without dislocation. 2.Fracture, right ischium, right anterior acetabulum, left pubic symphysis. 3.Chronic atrial fibrillation. 4.Congestive heart failure, chronic, systolic. 5.Urinary tract infection. 6.Hypertension. 7.Hyperlipidemia. 8.Diverticulosis. 9.Gastroesophageal reflux disease. 10.Osteoarthritis, multiple sites. 11.Acute delirium. 12.Osteoporosis. 13.Insomnia. 14.Chronic obstructive pulmonary disease. 15.Macular degeneration. Hospital Course: An 89-year-old female patient, who was admitted to the hospital to rehab floor afte r her brief stay on medical floor. The patient had fallen down at home and was brought into the hosp ital, subsequently admitted to the rehab floor. The patient did not require any surgical interventio n for her fracture. She had some constipation problem which was addressed with stool softener and la xative. We did make some changes in her medication while on the rehab floor. Initially, she was on Ambien, which was discontinued and we started alprazolam because she was restless at nighttime and tr adwoa to get out of the bed. With alprazolam she did the same thing. Not only that but she also had delirium problem, and at that time, she was hallucinating. We discontinued alprazolam. We also disc ontinued her antibiotic after she completed antibiotic therapy for urinary tract infection. Hydroxyz ine was discontinued and the patient was started on Seroquel. Overall, the patient has responded wel l to that. Delirium problem has improved. Dr. Frederick was concerned about her elevated alkaline ph osphatase and her elevated alkaline phosphatase is not because of any liver problem, but it is becaus e of her recent fracture. Her alkaline phosphatase is a bone component that is probably elevated and not a liver problem causing this. Her CAT scan of the abdomen results reviewed, and this finding on the liver capsule, obviously that is an incidental finding, does not have any clinical significance at this stage. I will communicate with her daughter about the details of the CAT scan results. The patient was living by herself, but she is not able to return back to live independently, so family mars s made arrangements for her to go to senior care in [place]. Today, she will be discharged in stab le condition with above-mentioned medication instructions. DIAZ/MODL Voice ID: [id number] Report ID: [id number]
--- NOTE | 2020-05-16 13:53 | R.DS ---
DISCHARGE SUMMARY FACILITY [facility] MR# [id number] NAME VAMSHI LUGO ADDRESS [address] [place] [address] ZIP [id number] PHONE DATE OF 1930 AGE 89 SSN# [id number] GENDER Female DEXTERITY Right-handed MARITAL STATUS RACE Unknown race ENCOUNTER PHYSICIAN Dr. Parviz Frederick M.D. REFERRING DOCTOR GE REFERRING FACILITY [facility] DISCHARGE DIAGNOSIS: - Other Orthopedic, 8.9 Other orthopedic, 8.9 and right humerus fracture. - Debility 16 - Debility (16) Other orthopedic, 8.9 and right humerus fracture. DATE OF ADMISSION 05/03/2020 13:28 (CDT) MEDICATION ALLERGIES: CODEINE SULFA ENVIRONMENTAL ALLERGIES: - Substance Allergies None Known - Other Allergies None Known DISCHARGE MEDICATIONS: Other- ContinueSee attached MAR (Medication Administration Record). NURSING: - Shower allowing shower ACTIVITIES OOB only with supervision THERAPIES: - Dietary and Nutrition Adequate Nutrition Nutritional Education Nutritional Supplements HISTORY OF PRESENT ILLNESS: Currently, she has deficits of Safety Awareness, Balance, Transfers Control, Self-Care, and Endurance .On 05/01/2020 she was admitted to [facility] with diagnosis RIGHT HUMERUS FRACTURE.Her impairment category is Debility 16 - Debility (16).Pt. is now referred to [facility] for acute in-patient rehabilitation in order to maximize patient's functional independence i n activities of daily living, strength, ROM, and mobility.Pre-morbidly, Pt. was independent/mod-I in Self-Care, Endurance, Communication, Locomotion, Safety Awareness, Balance, and Transfers Control; an d she had good Sphincter Control.Pt. is a 89 yo Right-handed female of unknown race.- Rehab Goal Patient has realistic goal of being discharged at assistance level 7-Ind to reside at Home with Pt s elf. DIET - LIQUID TEXTURE: On 05/02/2020 Pt was upgraded to Regular Diet - Liquid Texture. DIET - SOLID TEXTURE: On 05/02/2020 Pt was upgraded to Regular Diet - Solid Texture. DIET TYPE: On 05/02/2020 Pt was upgraded to Regular Diet Type. TUBE FEED: On 05/02/2020 Pt was changed to N/A Tube Feed. DISCHARGE PHYSICAL EXAM - Gen Alert and awake Lying in bed No apparent distress Oriented to: person, time, and place - Skin No skin breakdown. Normacephalic - Eyes No abnormalities - ENMT No abnormalities - Neck No abnormalities - CVS RRR - Chest No abnormalities - Resp No wheezing - Abd Soft - GI Non distended Deferred - No abnormalities - Ext right arm in sling after fall. - MSK No focal deficits, mild diffuse weakness - Neuro No focal deficits - Psych No abnormalities FUNCTIONAL STATUS: - Self-Care A. Eating 6-Shanika B. Grooming 4-Aidee C. Bathing 4-Aidee D. Dressing - Upper 4-Aidee E. Dressing - Lower 4-Aidee F. Toileting 5-sup - Sphincter Control G. Bladder control 6-Shanika H. Bowel control 6-hSanika - Transfers Control I. Bed/Chair/Wheelchair 4-Aidee J. Toilet 4-Aidee K. Tub/Shower 4-Aidee - Locomotion L. Walk/Wheelchair (B) 4-Aidee M. Stairs 4-Aidee - Communication N. Comprehension (B) 6-Shanika O. Expression (B) 6-Shanika - Social Cognition P. Social Interaction 7-Ind Q. Problem Solving 6-Shanika R. Memory 6-Shanika - Endurance Fair - Balance Fair - Safety Awareness Fair QI SCORES: - Self-Care A. Eating 03-Partial/moderate assistance B. Oral hygiene 03-Partial/moderate assistance C. Toileting hygiene 02-Substantial/maximal assistance E. Shower/bathe self 02-Substantial/maximal assistance F. Upper body dressing 88-Not attempted due to medical condition or safety concerns G. Lower body dressing 88-Not attempted due to medical condition or safety concerns H. Putting on/taking off footwear 88-Not attempted due to medical condition or safety concerns - Mobility M. 1 step (curb) 88-Not attempted due to medical condition or safety concerns N. 4 steps 88-Not attempted due to medical condition or safety concerns O. 12 steps 88-Not attempted due to medical condition or safety concerns P. Picking up object 88-Not attempted due to medical condition or safety concerns R. Wheel 50 feet with two turns 88-Not attempted due to medical condition or safety concerns A. Roll left and right 03-Partial/moderate assistance B. Sit to lying 02-Substantial/maximal assistance C. Lying to sitting on side of bed 02-Substantial/maximal assistance D. Sit to stand 02-Substantial/maximal assistance E. Chair/hwh-pm-flqvd transfer 03-Partial/moderate assistance F. Toilet transfer 02-Substantial/maximal assistance G. Car transfer 88-Not attempted due to medical condition or safety concerns I. Walk 10 feet 88-Not attempted due to medical condition or safety concerns J. Walk 50 feet with two turns 88-Not attempted due to medical condition or safety concerns K. Walk 150 feet 88-Not attempted due to medical condition or safety concerns L. Walking 10 feet on uneven surfaces 88-Not attempted due to medical condition or safety concerns S. Wheel 150 feet 88-Not attempted due to medical condition or safety concerns - Bladder and Bowel Bladder continence 9-Not applicable Bowel continence 9-Not rated - Endurance Fair - Balance Fair - Safety Awareness Fair DISCHARGE INSTRUCTIONS: - N/A Eliquis 5 mg twice daily. DISCHARGE PLAN, FOLLOW UP CARE PROVISIONS: - Estimated Length of Stay (days) 13. - Consensus on plan Discharge plan has been discussed with primary caregiver. Patient/Family is in agreement with the yaneth n. Primary caregiver is in agreement with the plan. - Patient/Family Goals Return home independently. - Planned Living Setting Upon Discharge Home, to live alone. Transitional Living. Primary caregiver: Pt self. SIGNATURE PANEL: (CDT)
--- NOTE | 2020-05-16 14:32 | EEG ---
CHART: [id number] TEST ID#: [id number] DATE OF STUDY: 05/15/2020 THE EEG WAS RECORDED PORTABLE IN THE PATIENT'S ROOM ON A 17 CHANNEL MACHINE. ELECTRODES WERE APPLIED IN THE USUAL MANNER USING THE INTERNATIONAL 10-20 SYSTEM. THE WAKING BACKGROUND RHYTHM IN THIS RECORD CONSISTS OF FAIRLY WELL DEVELOPED AND FAIRLY WELL ORGANIZED WAVES OF 7 HZ., IN A WIDE DISTRIBUTION WHICH ATTENUATE NORMALLY WITH EYE OPENING. LOW-VOLTAGE 15-18 HZ ACTIVITY MIXED WITH INTERMITTENT 3-4 HZ ACTIVITY IS EXPRESSED IN THE FRONTAL AND CENTRAL REGIONS. THERE ARE NO FOCAL OR LATERALIZING FEATURES. NO EPILEPTIFORM ACTIVITY APPEARS. SLEEP DID NOT OCCUR. HYPERVENTILATION WAS NOT PERFORMED. PHOTIC STIMULATION PRODUCED NO DRIVING BILATERALLY. IMPRESSION: THIS IS A MILDLY ABNORMAL EEG DUE TO A MILDLY SLOW BACKGROUND. THIS IS A NON-SPECIFIC FUNCTION CONSISTENT WITH A MILD DIFFUSE DISTURBANCE IN CEREBRAL FUNCTION.
== END 2020-05-16 13:19 | DRG 560 ==
LOC: 5TH 18:15
PROVIDERS: ADMIT Psychiatry & Neurology Neurology with Special Qualifications in Child Neurology; ATTEND Psychiatry & Neurology Neurology with Special Qualifications in Child Neurology
DX: S42.201D Unspecified fracture of upper end of right humerus, subsequent encounter for fracture with routine healing (principal); I48.20 Chronic atrial fibrillation, unspecified; I50.22 Chronic systolic (congestive) heart failure; N39.0 Urinary tract infection, site not specified; E87.1 Hypo-osmolality and hyponatremia; R44.3 Hallucinations, unspecified; B37.0 Candidal stomatitis; B96.4 Proteus (mirabilis) (morganii) as the cause of diseases classified elsewhere; S32.601D Unspecified fracture of right ischium, subsequent encounter for fracture with routine healing; S32.401D Unspecified fracture of right acetabulum, subsequent encounter for fracture with routine healing; S32.502D Unspecified fracture of left pubis, subsequent encounter for fracture with routine healing; S70.01XA Contusion of right hip, initial encounter; I11.0 Hypertensive heart disease with heart failure; K21.9 Gastro-esophageal reflux disease without esophagitis; K57.90 Diverticulosis of intestine, part unspecified, without perforation or abscess without bleeding; E78.5 Hyperlipidemia, unspecified; R41.0 Disorientation, unspecified; M19.90 Unspecified osteoarthritis, unspecified site; M81.0 Age-related osteoporosis without current pathological fracture; G47.00 Insomnia, unspecified; J44.9 Chronic obstructive pulmonary disease, unspecified; H35.30 Unspecified macular degeneration; K59.00 Constipation, unspecified; D64.9 Anemia, unspecified; Z79.01 Long term (current) use of anticoagulants; Z88.1 Allergy status to other antibiotic agents; Z60.2 Problems related to living alone; Z88.5 Allergy status to narcotic agent; Z20.828 Contact with and (suspected) exposure to other viral communicable diseases
CPT/HCPCS: 36415; 74177; 80048; 80053; 80076; 81001; 82040; 82140; 83735; 84134; 84443; 85025; 87077; 87086; 87088; 87186; 92523; 95816; 97110; 97112; 97116; 97161; 97530; 97542; Q9967; U0003